=== PATIENT | female | born 1955 | race Caucasian/White ===

== ENCOUNTER 2021-08-05 08:25 | Inpatient (IN) | payer OTHER ==
[2021-08-05] MEDS ORDERED: Sodium Chloride 0.9% 10 ML Syringe FLUSH PRN (08:48)
[2021-08-05] MEDS ORDERED: Ondansetron 4 MG/2 ML SDV IVPUSH ONE (08:48)
[2021-08-05] MEDS ORDERED: Dexamethasone 4 MG/ML SDV IVPUSH ONE (08:49)
[2021-08-05] MEDS ORDERED: Albuterol/Ipratropium 3.0-0.5 MG/3 ML Neb Soln NEB ONE (08:50)
[2021-08-05] MEDS ORDERED: REMDESIVIR 200 MG in Sodium Chloride 0.9% 250 ML IV ONE (08:50)
--- NOTE | 2021-08-05 08:54 | EDM.PDOC ---
ED HPI GENERAL MEDICAL PROBLEM - General Chief Complaint: Respiratory Problem Stated Complaint: COVID+ SOB Time Seen by Provider: 08/05/21 08:34 Source of Information: Reports: Patient History Limitations: Reports: No Limitations - History of Present Illness INITIAL COMMENTS - FREE TEXT/NARRATIVE: The patient presents with COVID, cough, fever, nausea and generalized weakness. She started to have symptoms 6 days ago. She was diagnosed with COVID 19 4 days ago. She feels worse. When my nurse brought her back her oxygen saturations were 77%. She did come up in the low 90s with just 3L. She has been having a cough. She is nauseated when she tries to eat. She has not been vomiting. She has no diarrhea. She has no chest pain. She does have shortness of breath. She has no history of lung problems like asthma or COPD. She has no history of heart disease, hypertension or hypercholesterolemia. She does not smoke. She did not get the COVID 19 vaccine. She did not get the monoclonal antibodies. Onset: Gradual Duration: Day(s): (6) Severity: Moderate Improves with: Reports: None Worsens with: Reports: None Associated Symptoms: Reports: Cough, Fever/Chills, Shortness of Breath. Denies: Chest Pain, Headaches, Nausea/Vomiting - Related Data Allergies Allergy/AdvReac Type Severity Reaction Status Date / Time No Known Allergies Allergy Verified 08/05/21 08:42 Home Meds: Home Meds Levothyroxine Sodium [Synthroid] 125 mcg PO DAILY 08/05/21 [History] Sertraline [Zoloft] 100 mg PO DAILY 08/05/21 [History] ED ROS GENERAL - Review of Systems Review Of Systems: See Below Constitutional: Reports: Fever, Chills, Malaise, Weakness, Fatigue HEENT: Reports: No Symptoms Respiratory: Reports: Shortness of Breath, Cough Cardiovascular: Reports: No Symptoms Endocrine: Reports: Fatigue GI/Abdominal: Reports: Nausea. Denies: Abdominal Pain, Diarrhea, Vomiting : Reports: No Symptoms Musculoskeletal: Reports: No Symptoms Skin: Reports: No Symptoms ED EXAM, GENERAL - Physical Exam Exam: See Below Exam Limited By: No Limitations General Appearance: Alert, No Apparent Distress Ears: Normal External Exam Nose: Normal Inspection Head: Atraumatic, Normocephalic Neck: Normal Inspection Respiratory/Chest: No Respiratory Distress, Decreased Breath Sounds Cardiovascular: Regular Rate, Rhythm, No Edema, No Murmur GI/Abdominal: Soft, Non-Tender, No Organomegaly, No Mass Back Exam: Normal Inspection Extremities: Normal Inspection Course - Vital Signs Last Recorded V/S: Last Vital Signs Temp 97.8 F 08/05/21 08:38 Pulse 82 08/05/21 08:38 Resp 18 08/05/21 08:38 BP 140/75 08/05/21 08:38 Pulse Ox 95 08/05/21 08:51 - Orders/Labs/Meds Orders: Active Orders 24 hr Category Date Time Status Cardiac Monitoring [RC] . DIRECTED Care 08/05/21 08:48 Active Oxygen Therapy [RC] PRN Care 08/05/21 08:48 Active Peripheral IV Care [RC] . DIRECTED Care 08/05/21 08:49 Active RT Aerosol Therapy [RC] ASDIRECTED Care 08/05/21 08:51 Active Chest 1V Frontal [CR] Stat Exams 08/05/21 08:49 Taken FERRITIN [CHEM] Stat Lab 08/05/21 08:45 Received Sodium Chloride 0.9% [Normal Saline] 1,000 ml Med 08/05/21 09:00 Active IV .BOLUS Sodium Chloride 0.9% [Saline Flush] Med 08/05/21 08:48 Active 10 ml FLUSH ASDIRECTED PRN ED Antiemetic Medication Reflex [OM.PC] Stat Oth 08/05/21 08:48 Ordered Peripheral IV Insertion Adult [OM.PC] Stat Oth 08/05/21 08:48 Ordered Medication Orders Sodium Chloride (Normal Saline) 1,000 mls @ 1,000 mls/hr IV .BOLUS TAWANA Last Admin: 08/05/21 09:21 Dose: 1,000 mls/hr Documented by: SEGUNDO Sodium Chloride (Sodium Chloride 0.9% 10 Ml Syringe) 10 ml FLUSH ASDIRECTED PRN PRN Reason: Keep Vein Open Last Admin: 08/05/21 09:23 Dose: 10 ml Documented by: SEGUNDO Labs: Laboratory Tests 08/05/21 08/05/21 08/05/21 Range/Units 08:45 08:45 08:45 WBC 5.84 (3.98-10.04) K/mm3 RBC 5.04 (3.98-5.22) M/mm3 Hgb 14.9 (11.2-15.7) gm/dl Hct 44.6 (34.1-44.9) % MCV 88.5 (79.4-94.8) fl MCH 29.6 (25.6-32.2) pg MCHC 33.4 (32.2-35.5) g/dl RDW Std Deviation 42.1 (36.4-46.3) fL Plt Count 178 L (182-369) K/mm3 MPV 10.9 (9.4-12.3) fl Neut % (Auto) 78.1 H (34.0-71.1) % Lymph % (Auto) 13.4 L (19.3-51.7) % Barber % (Auto) 8.0 (4.7-12.5) % Eos % (Auto) 0 L (0.7-5.8) Baso % (Auto) 0.2 (0.1-1.2) % Neut # (Auto) 4.56 (1.56-6.13) K/mm3 Lymph # (Auto) 0.78 L (1.18-3.74) K/mm3 [place] # (Auto) 0.47 H (0.24-0.36) K/mm3 Eos # (Auto) 0.00 L (0.04-0.36) K/mm3 Baso # (Auto) 0.01 (0.01-0.08) K/mm3 Manual Slide Review Normal smear D-Dimer, Quantitative 1.10 H (0.19-0.50) mg/L Sodium 131 L (136-145) mEq/L Potassium 4.3 (3.5-5.1) mEq/L Chloride 95 L (98-107) mEq/L Carbon Dioxide 26 (21-32) mEq/L Anion Gap 14.3 (5-15) BUN 29 H (7-18) mg/dL Creatinine 1.2 H (0.55-1.02) mg/dL Est Cr Clr Drug Dosing 47.78 mL/min Estimated GFR (MDRD) 45 (>60) mL/min BUN/Creatinine Ratio 24.2 H (14-18) Glucose 296 H (70-99) mg/dL Lactic Acid (0.4-2.0) mmol/L Calcium 8.4 L (8.5-10.1) mg/dL Total Bilirubin 0.7 (0.2-1.0) mg/dL AST 42 H (15-37) U/L ALT 32 (14-59) U/L Alkaline Phosphatase 89 (46-116) U/L Lactate Dehydrogenase 448 H (81-234) U/L C-Reactive Protein 7.0 H* (<1.0) mg/dL Total Protein 6.6 (6.4-8.2) g/dl Albumin 3.1 L (3.4-5.0) g/dl Globulin 3.5 gm/dL Albumin/Globulin Ratio 0.9 L (1-2) 08/05/21 Range/Units 09:08 WBC (3.98-10.04) K/mm3 RBC (3.98-5.22) M/mm3 Hgb (11.2-15.7) gm/dl Hct (34.1-44.9) % MCV (79.4-94.8) fl MCH (25.6-32.2) pg MCHC (32.2-35.5) g/dl RDW Std Deviation (36.4-46.3) fL Plt Count (182-369) K/mm3 MPV (9.4-12.3) fl Neut % (Auto) (34.0-71.1) % Lymph % (Auto) (19.3-51.7) % Barber % (Auto) (4.7-12.5) % Eos % (Auto) (0.7-5.8) Baso % (Auto) (0.1-1.2) % Neut # (Auto) (1.56-6.13) K/mm3 Lymph # (Auto) (1.18-3.74) K/mm3 Barber # (Auto) (0.24-0.36) K/mm3 Eos # (Auto) (0.04-0.36) K/mm3 Baso # (Auto) (0.01-0.08) K/mm3 Manual Slide Review D-Dimer, Quantitative (0.19-0.50) mg/L Sodium (136-145) mEq/L Potassium (3.5-5.1) mEq/L Chloride (98-107) mEq/L Carbon Dioxide (21-32) mEq/L Anion Gap (5-15) BUN (7-18) mg/dL Creatinine (0.55-1.02) mg/dL Est Cr Clr Drug Dosing mL/min Estimated GFR (MDRD) (>60) mL/min BUN/Creatinine Ratio (14-18) Glucose (70-99) mg/dL Lactic Acid 1.4 (0.4-2.0) mmol/L Calcium (8.5-10.1) mg/dL Total Bilirubin (0.2-1.0) mg/dL AST (15-37) U/L ALT (14-59) U/L Alkaline Phosphatase (46-116) U/L Lactate Dehydrogenase (81-234) U/L C-Reactive Protein (<1.0) mg/dL Total Protein (6.4-8.2) g/dl Albumin (3.4-5.0) g/dl Globulin gm/dL Albumin/Globulin Ratio (1-2) Meds: Medications Generic Name Dose Route Start Last Admin Trade Name Freq PRN Reason Stop Dose Admin Sodium Chloride 1,000 mls @ 1,000 mls/hr 08/05/21 09:00 08/05/21 09:21 Normal Saline IV 1,000 mls/hr .BOLUS TAWANA Administration Sodium Chloride 10 ml 08/05/21 08:48 08/05/21 09:23 Sodium Chloride 0.9% 10 Ml Syringe FLUSH 10 ml ASDIRECTED PRN Administration Keep Vein Open Discontinued Medications Generic Name Dose Route Start Last Admin Trade Name Freq PRN Reason Stop Dose Admin Albuterol/Ipratropium 3 ml 08/05/21 08:50 08/05/21 09:10 Albuterol/Ipratropium 3.0-0.5 Mg/3 Ml Neb Soln NEB 08/05/21 08:51 3 ml ONETIME ONE Administration Dexamethasone 6 mg 08/05/21 08:49 08/05/21 09:21 Dexamethasone 4 Mg/Ml Sdv IVPUSH 08/05/21 08:50 6 mg ONETIME ONE Administration Remdesivir 200 mg/ Sodium 250 mls @ 250 mls/hr 08/05/21 08:50 08/05/21 09:21 Chloride IV 08/05/21 08:51 250 mls/hr ONETIME ONE Administration Ondansetron HCl 4 mg 08/05/21 08:48 08/05/21 09:23 Ondansetron 4 Mg/2 Ml Sdv IVPUSH 08/05/21 08:49 4 mg ONETIME ONE Administration - Re-Assessments/Exams Free Text/Narrative Re-Assessment/Exam: 08/05/21 09:08 I ordered oxygen, IV NS 1L bolus, zofran 4mg IV, dexamethasone 6mg IV, remdesivir 200mg IV, duoneb, CXR and labs. 08/05/21 10:23 Her CXR shows bilateral COVID pneumonia. Her CBC looks good. Her D-dimer is elevated at 1.1 consistent with COVID pneumonia. Her Na was low at 131. Her creatinine was a little elevated at 1.2. Her glucose was elevated at 296. Her lactic acid was normal. Her LDH was elevated at 448. Her CRP was 7. She feels a little better but with her oxygen saturations as low as 77% I feel she should be admitted. I called Dr Albarran and he agreed to the admission. Departure - Departure Time of Disposition: 10:30 Disposition: Admitted As Inpatient 68 Condition: Serious Clinical Impression: Pneumonia due to COVID-19 virus, Hypoxia - Discharge Information Referrals: Heather Granado PA-C [Primary Care Provider] - Forms: ED Department Discharge Sepsis Event Note (ED) - Evaluation Sepsis Screening Result: No Definite Risk - Focused Exam Vital Signs: Vital Signs Temp Pulse Resp BP Pulse Ox Pulse Ox 08/05/21 08:51 95 08/05/21 08:38 97.8 F 82 18 140/75 77 L - My Orders Last 24 Hours: My Active Orders 08/05/21 08:45 FERRITIN [CHEM] Stat 08/05/21 08:48 Cardiac Monitoring [RC] . DIRECTED Oxygen Therapy [RC] PRN Sodium Chloride 0.9% [Saline Flush] 10 ml FLUSH ASDIRECTED PRN ED Antiemetic Medication Reflex [OM.PC] Stat Peripheral IV Insertion Adult [OM.PC] Stat 08/05/21 08:49 Peripheral IV Care [RC] . DIRECTED Chest 1V Frontal [CR] Stat 08/05/21 08:51 RT Aerosol Therapy [RC] ASDIRECTED 08/05/21 09:00 Sodium Chloride 0.9% [Normal Saline] 1,000 ml IV .BOLUS - Assessment/Plan Last 24 Hours: My Active Orders 08/05/21 08:45 FERRITIN [CHEM] Stat 08/05/21 08:48 Cardiac Monitoring [RC] . DIRECTED Oxygen Therapy [RC] PRN Sodium Chloride 0.9% [Saline Flush] 10 ml FLUSH ASDIRECTED PRN ED Antiemetic Medication Reflex [OM.PC] Stat Peripheral IV Insertion Adult [OM.PC] Stat 08/05/21 08:49 Peripheral IV Care [RC] . DIRECTED Chest 1V Frontal [CR] Stat 08/05/21 08:51 RT Aerosol Therapy [RC] ASDIRECTED 08/05/21 09:00 Sodium Chloride 0.9% [Normal Saline] 1,000 ml IV .BOLUS
[2021-08-05] MEDS ORDERED: Sodium Chloride 0.9% 1,000 ML IV SCH (09:00)
--- NOTE | 2021-08-05 10:27 | PCM.HP.2 ---
H&P History of Present Illness - General Date of Service: 08/05/21 Admit Problem/Dx: Hypoxia Source of Information: Patient, Old Records, Provider, RN, RN Notes Reviewed History Limitations: Reports: No Limitations - History of Present Illness Initial Comments - Free Text/Narative: This is a 66-year-old female who presented to ED on 08/05/2021 with cough, fever, nausea, generalized weakness, and the known COVID-19 diagnosis. She reports symptoms began 6 days prior and she was diagnosed with COVID-19 4 days ago. She has been feeling progressively worse and was noted to have saturations of 77% on presentation to the ED. Reports cough and nausea but no vomiting or diarrhea. Denies any chest pain or shortness of breath. No prior lung problems or history of heart disease, hypertension, or HLD. She is not a smoker. She has not had the COVID-19 vaccine or monoclonal antibodies. In the ED temp was 97.8. Pulse 82. Respirations 18. Blood pressure 140/75. Pulse ox 95%. Labs are obtained showing a WBC of 7.84. Hemoglobin 14.9. Platelet 178,000. Neutrophils are 70.1%. D-dimer is elevated at 1.10. Sodium is 131. Potassium 4.3. Chloride 95. Carbon dioxide 26. Anion gap is 14.3. BUN is 29. Creatinine 1.2. GFR is 45. Glucose 296. Calcium 8.4. Bilirubin 0.7. AST is 42, ALT 32, alkaline phosphatase 89. LDH is 448. CRP is 7.0. Protein 6.6. Albumin 3.1. Lactic acid is 1.4. She is given a 1 L fluid bolus and a DuoNeb. She started on remdesivir and dexamethasone. Chest x-ray is obtained showing findings concerning for COVID-19 pneumonia with increased density within both sides of the chest and slight cardiomegaly. She carries a history of hypothyroidism depression. She is a full code. Her PCP is Heather Welch PA-C. She is subsequently admitted to the medical floor on telemetry for treatment of her COVID-19 symptoms including hypoxia. - Related Data Allergies/Adverse Reactions: Allergies Allergy/AdvReac Type Severity Reaction Status Date / Time No Known Allergies Allergy Verified 08/05/21 08:42 Home Medications: Home Meds Levothyroxine Sodium [Synthroid] 125 mcg PO DAILY 08/05/21 [History] Sertraline [Zoloft] 100 mg PO DAILY 08/05/21 [History] Past Medical History HEENT History: Reports: Impaired Vision Other HEENT History: wars glasses - Infectious Disease History Infectious Disease History: Reports: Novel Coronavirus Social & Family History - Tobacco Use Tobacco Use Status *Q: Former Tobacco User Used Tobacco, but Quit: Yes Month/Year Tobacco Last Used: 10 yrs ago H&P Review of Systems - Review of Systems: Review Of Systems: See Below General: Reports: Malaise, Weakness, Fatigue, Decreased Appetite. Denies: Fever, Chills HEENT: Reports: No Symptoms. Denies: Headaches, Sore Throat Pulmonary: Reports: Shortness of Breath, Cough, Sputum. Denies: Wheezing, Pleuritic Chest Pain Cardiovascular: Reports: Dyspnea on Exertion. Denies: Chest Pain, Palpitations, Edema Gastrointestinal: Reports: Nausea. Denies: Abdominal Pain, Anorexia, C onstipation, Diarrhea, Vomiting Genitourinary: Reports: No Symptoms. Denies: Pain Musculoskeletal: Reports: No Symptoms Skin: Reports: No Symptoms. Denies: Cyanosis Psychiatric: Reports: No Symptoms. Denies: Confusion Neurological: Reports: No Symptoms, Difficulty Walking, Weakness. Denies: Confusion, Dizziness, Headache, Numbness, Pre-Existing Deficit, Syncope, Tingli ng, Gait Disturbance Hematologic/Lymphatic: Reports: No Symptoms Immunologic: Reports: No Symptoms Exam - Exam Exam: See Below - Vital Signs Vital Signs: Last Vital Signs Temp 97.8 F 08/05/21 08:38 Pulse 82 08/05/21 08:38 Resp 18 08/05/21 08:38 BP 140/75 08/05/21 08:38 Pulse Ox 95 08/05/21 08:51 Weight: 210 lb - Exam Quality Assessment: Supplemental Oxygen (4L), DVT Prophylaxis General: Alert, Oriented, Cooperative, Mild Distress (Looks ill ) HEENT: Conjunctiva Clear, EACs Clear, Hearing Intact, Posterior Pharynx Clear. No: Mucosa Moist & [place] (Dry), Nares Patent Neck: Supple, Trachea Midline Lungs: Normal Respiratory Effort, Decreased Breath Sounds, Crackles Cardiovascular: Regular Rate, Regular Rhythm GI/Abdominal Exam: Normal Bowel Sounds, Soft, Non-Tender, No Distention (Female) Exam: Deferred Rectal (Female) Exam: Deferred Back Exam: Normal Inspection, Full Range of Motion Extremities: Normal Inspection, Normal Range of Motion, Non-Tender, No Pedal Edema, Normal Capillary Refill Skin: Warm, Dry, Intact Neurological: Cranial Nerves Intact (Grossly ) Neuro Extensive - Mental Status: Alert, Oriented x3, Normal Mood/Affect - Patient Data Lab Results Last 24 hrs: Laboratory Results - last 24 hr 08/05/21 08/05/21 08/05/21 Range/Units 08:45 08:45 08:45 WBC 5.84 (3.98-10.04) K/mm3 RBC 5.04 (3.98-5.22) M/mm3 Hgb 14.9 (11.2-15.7) gm/dl Hct 44.6 (34.1-44.9) % MCV 88.5 (79.4-94.8) fl MCH 29.6 (25.6-32.2) pg MCHC 33.4 (32.2-35.5) g/dl RDW Std Deviation 42.1 (36.4-46.3) fL Plt Count 178 L (182-369) K/mm3 MPV 10.9 (9.4-12.3) fl Neut % (Auto) 78.1 H (34.0-71.1) % Lymph % (Auto) 13.4 L (19.3-51.7) % Winston % (Auto) 8.0 (4.7-12.5) % Eos % (Auto) 0 L (0.7-5.8) Baso % (Auto) 0.2 (0.1-1.2) % Neut # (Auto) 4.56 (1.56-6.13) K/mm3 Lymph # (Auto) 0.78 L (1.18-3.74) K/mm3 Winston # (Auto) 0.47 H (0.24-0.36) K/mm3 Eos # (Auto) 0.00 L (0.04-0.36) K/mm3 Baso # (Auto) 0.01 (0.01-0.08) K/mm3 Manual Slide Review Normal smear D-Dimer, Quantitative 1.10 H (0.19-0.50) mg/L Sodium 131 L (136-145) mEq/L Potassium 4.3 (3.5-5.1) mEq/L Chloride 95 L (98-107) mEq/L Carbon Dioxide 26 (21-32) mEq/L Anion Gap 14.3 (5-15) BUN 29 H (7-18) mg/dL Creatinine 1.2 H (0.55-1.02) mg/dL Est Cr Clr Drug Dosing 47.78 mL/min Estimated GFR (MDRD) 45 (>60) mL/min BUN/Creatinine Ratio 24.2 H (14-18) Glucose 296 H (70-99) mg/dL Lactic Acid (0.4-2.0) mmol/L Calcium 8.4 L (8.5-10.1) mg/dL Total Bilirubin 0.7 (0.2-1.0) mg/dL AST 42 H (15-37) U/L ALT 32 (14-59) U/L Alkaline Phosphatase 89 (46-116) U/L Lactate Dehydrogenase 448 H (81-234) U/L C-Reactive Protein 7.0 H* (<1.0) mg/dL Total Protein 6.6 (6.4-8.2) g/dl Albumin 3.1 L (3.4-5.0) g/dl Globulin 3.5 gm/dL Albumin/Globulin Ratio 0.9 L (1-2) 08/05/21 Range/Units 09:08 WBC (3.98-10.04) K/mm3 RBC (3.98-5.22) M/mm3 Hgb (11.2-15.7) gm/dl Hct (34.1-44.9) % MCV (79.4-94.8) fl MCH (25.6-32.2) pg MCHC (32.2-35.5) g/dl RDW Std Deviation (36.4-46.3) fL Plt Count (182-369) K/mm3 MPV (9.4-12.3) fl Neut % (Auto) (34.0-71.1) % Lymph % (Auto) (19.3-51.7) % Winston % (Auto) (4.7-12.5) % Eos % (Auto) (0.7-5.8) Baso % (Auto) (0.1-1.2) % Neut # (Auto) (1.56-6.13) K/mm3 Lymph # (Auto) (1.18-3.74) K/mm3 Winston # (Auto) (0.24-0.36) K/mm3 Eos # (Auto) (0.04-0.36) K/mm3 Baso # (Auto) (0.01-0.08) K/mm3 Manual Slide Review D-Dimer, Quantitative (0.19-0.50) mg/L Sodium (136-145) mEq/L Potassium (3.5-5.1) mEq/L Chloride (98-107) mEq/L Carbon Dioxide (21-32) mEq/L Anion Gap (5-15) BUN (7-18) mg/dL Creatinine (0.55-1.02) mg/dL Est Cr Clr Drug Dosing mL/min Estimated GFR (MDRD) (>60) mL/min BUN/Creatinine Ratio (14-18) Glucose (70-99) mg/dL Lactic Acid 1.4 (0.4-2.0) mmol/L Calcium (8.5-10.1) mg/dL Total Bilirubin (0.2-1.0) mg/dL AST (15-37) U/L ALT (14-59) U/L Alkaline Phosphatase (46-116) U/L Lactate Dehydrogenase (81-234) U/L C-Reactive Protein (<1.0) mg/dL Total Protein (6.4-8.2) g/dl Albumin (3.4-5.0) g/dl Globulin gm/dL Albumin/Globulin Ratio (1-2) Result Diagrams: 08/05/21 08:45 08/05/21 08:45 Sepsis Event Note - Evaluation Sepsis Screening Result: No Definite Risk - Focused Exam Vital Signs: Vital Signs Temp Pulse Resp BP Pulse Ox Pulse Ox 08/05/21 08:51 95 08/05/21 08:38 97.8 F 82 18 140/75 77 L - Problem List (1) Depression SNOMED Code(s): 15055655 ICD Code: F32.A - DEPRESSION, UNSPECIFIED Status: Chronic Priority: Low Current Visit: No Qualifiers: Depression Type: other depression Qualified Code(s): F32.89 - Other specified depressive episodes (2) Hypothyroidism SNOMED Code(s): 18568579 ICD Code: E03.9 - HYPOTHYROIDISM, UNSPECIFIED Status: Chronic Priority: Low Current Visit: No Qualifiers: Hypothyroidism type: unspecified Qualified Code(s): E03.9 - Hypothyroidism, unspecified (3) Elevated d-dimer SNOMED Code(s): 918670004 ICD Code: R79.89 - OTHER SPECIFIED ABNORMAL FINDINGS OF BLOOD CHEMISTRY Status: Acute Priority: Medium Current Visit: Yes (4) Thrombocytopenia SNOMED Code(s): 202500513 ICD Code: D69.6 - THROMBOCYTOPENIA, UNSPECIFIED Status: Acute Priority: Medium Current Visit: Yes (5) Hyponatremia SNOMED Code(s): 13020988 ICD Code: E87.1 - HYPO-OSMOLALITY AND HYPONATREMIA Status: Acute Priority: Medium Current Visit: Yes (6) Volume depletion SNOMED Code(s): 011252674 ICD Code: E86.9 - VOLUME DEPLETION, UNSPECIFIED Status: Acute Priority: Medium Current Visit: Yes (7) Nausea SNOMED Code(s): 894261279 ICD Code: R11.0 - NAUSEA Status: Acute Priority: Medium Current Visit: Yes (8) Pneumonia due to COVID-19 virus SNOMED Code(s): 192603425329607308 ICD Code: U07.1 - COVID-19; J12.82 - PNEUMONIA DUE TO CORONAVIRUS DISEASE 2019 Status: Acute Priority: High Current Visit: Yes (9) Hypoxia SNOMED Code(s): 908854116 ICD Code: R09.02 - HYPOXEMIA Status: Acute Priority: High Current Visit: Yes (10) Generalized weakness SNOMED Code(s): 77637918 ICD Code: R53.1 - WEAKNESS Status: Acute Priority: Medium Current Visit: Yes (11) ANAHI (acute kidney injury) SNOMED Code(s): 80042447, 18385755 ICD Code: N17.9 - ACUTE KIDNEY FAILURE, UNSPECIFIED Status: Acute Priority: High Current Visit: Yes Problem List Initiated/Reviewed/Updated: Yes Orders Last 24hrs: Active Orders 24 hr Category Date Time Status Cardiac Monitoring [RC] . DIRECTED Care 08/05/21 08:48 Active Oxygen Therapy [RC] PRN Care 08/05/21 08:48 Active Peripheral IV Care [RC] . DIRECTED Care 08/05/21 08:49 Active RT Aerosol Therapy [RC] ASDIRECTED Care 08/05/21 08:51 Active Chest 1V Frontal [CR] Stat Exams 08/05/21 08:49 Taken FERRITIN [CHEM] Stat Lab 08/05/21 08:45 Received Sodium Chloride 0.9% [Normal Saline] 1,000 ml Med 08/05/21 09:00 Active IV .BOLUS Sodium Chloride 0.9% [Saline Flush] Med 08/05/21 08:48 Active 10 ml FLUSH ASDIRECTED PRN ED Antiemetic Medication Reflex [OM.PC] Stat Oth 08/05/21 08:48 Ordered Peripheral IV Insertion Adult [OM.PC] Stat Oth 08/05/21 08:48 Ordered Medication Orders Sodium Chloride (Normal Saline) 1,000 mls @ 1,000 mls/hr IV .BOLUS TAWANA Last Admin: 08/05/21 09:21 Dose: 1,000 mls/hr Documented by: SEGUNDO Sodium Chloride (Sodium Chloride 0.9% 10 Ml Syringe) 10 ml FLUSH ASDIRECTED PRN PRN Reason: Keep Vein Open Last Admin: 08/05/21 09:23 Dose: 10 ml Documented by: SEGUNDO Assessment/Plan Comment:: Pneumonia due to COVID-19 virus Hypoxia Generalized weakness Elevated d-dimer Nausea * Prone whenever able * I-S/Acapella * Check procalcitonin * Check vitamin D * Respiratory therapy consultation * As needed DuoNebs * As needed albuterol inhaler * Remdesivir for 5 days * 6 mg dexamethasone for 10 days * As needed Zofran for nausea * O2 as needed to keep saturations between 88 and 95% * 20 mg famotidine twice daily * Physical therapy evaluation * Lovenox 40 mg daily * Monitor need for high flow oxygen * Every 48 hour D-dimer * Daily labs * Airborne/contact precautions * Telemetry * Continuous pulse oximetry Thrombocytopenia * Likely secondary to above * Monitor daily labs Hyponatremia Volume depletion ANAIH * Given 1 L fluid bolus in ED * Encourage oral rehydration * Will hold off further IV fluids due to concerns over worsening COVID-19 symptoms * Avoid nephrotoxic medications if able * Monitor daily labs Depression * No acute concerns * Continue home zoloft Hypothyroidism * No acute concerns * Continue home levothyroxine Code status: Full code PCP: Heather Granado PA-C DVT prophylaxis: Lovenox Disposition: Patient mated to the floor for management of COVID-19 pneumonia with hypoxia. Likely length of stay 4 to 5 days pending improvement. - Mortality Measure Prognosis:: Good
--- NOTE | 2021-08-05 10:36 | CR ---
Chest: Portable view of the chest was obtained. Comparison: No prior chest imaging is available. Patchy increased density is noted within both sides of the chest. Heart size is mildly enlarged. Upper mediastinum is within normal limits. Slight degenerative change is scattered within the spine. Impression: 1. Patchy increased density within both sides of the chest, please exclude COVID etiology. 2. Slight cardiomegaly. Diagnostic code #3
[2021-08-05] MEDS ORDERED: Acetaminophen 325 MG Tab PO PRN ×2 (11:07→11:09)
[2021-08-05] MEDS ORDERED: Ondansetron 4 MG/2 ML SDV IV PRN (11:09)
[2021-08-05] MEDS ORDERED: Enoxaparin 40 MG/0.4 ML Syringe SUBCUT ONE (11:30)
[2021-08-05] MEDS ORDERED: Benzonatate 100 MG Cap PO PRN (15:15)
[2021-08-05 15:37] LABS: HEMOGLOBIN A1C 10.7 %
[2021-08-05] MEDS: Cholecalciferol (Vitamin D3) 5,000 UNIT Cap PO SCH (16:03)
[2021-08-05] MEDS: guaiFENesin 600 MG Tab.ER PO SCH ×2 (16:05→20:54)
[2021-08-05] MEDS: Famotidine 20 MG Tab PO SCH ×2 (16:05→20:54)
[2021-08-05] MEDS: Insulin Lispro 100 Unit/ML 3 ML KwikPen SUBCUT SCH ×2 (16:58→20:59)
[2021-08-05] MEDS: Albuterol/Ipratropium 3.0-0.5 MG/3 ML Neb Soln NEB PRN (19:56)
[2021-08-05] MEDS: Insulin Glargine,Hum.Rec.Anlog 100 UNIT/ML 3 ML Pen SUBCUT SCH (20:54)
[2021-08-05] MEDS ORDERED: guaiFENesin 600 MG Tab.ER PO SCH (21:00)
[2021-08-06] MEDS: Levothyroxine 25 MCG Tab PO SCH (06:05)
[2021-08-06] MEDS: Levothyroxine 100 MCG Tab PO SCH (06:05)
--- NOTE | 2021-08-06 07:03 | PCM.PN ---
- General Info Date of Service: 08/06/21 Admission Dx/Problem (Free Text): Hypoxia Functional Status: Reports: Pain Controlled, Tolerating Diet, Ambulating, Urinating, Incentive Spirometry, Other (Incentive spirometry ). Denies: New Symptoms - Review of Systems General: Reports: No Symptoms, Weakness, Fatigue, Malaise. Denies: Fever, Chills HEENT: Reports: No Symptoms. Denies: Headaches, Sore Throat Pulmonary: Reports: Shortness of Breath, Cough, Sputum. Denies: Pleuritic Chest Pain, Wheezing Cardiovascular: Reports: No Symptoms, Dyspnea on Exertion. Denies: Chest Pain, Palpitations, Edema Gastrointestinal: Reports: No Symptoms. Denies: Abdominal Pain, Constipation, Diarrhea, Nausea, Vomiting Genitourinary: Reports: No Symptoms. Denies: Pain Musculoskeletal: Reports: No Symptoms Skin: Reports: No Symptoms. Denies: Cyanosis Neurological: Reports: Difficulty Walking, Weakness. Denies: Confusion, Dizziness, Headache, Numbness, Pre-Existing Deficit, Seizure, Syncope, Tingling, Trouble Speaking, Gait Disturbance Psychiatric: Reports: No Symptoms - Patient Data Vitals - Most Recent: Last Vital Signs Temp 98.6 F 08/06/21 04:23 Pulse 71 08/06/21 04:23 Resp 22 H 08/06/21 04:23 BP 119/48 L 08/06/21 04:23 Pulse Ox 89 L 08/06/21 04:23 Weight - Most Recent: 232 lb 11.2 oz I&O - Last 24 Hours: Intake & Output 08/05/21 08/06/21 08/06/21 22:59 06:59 14:59 Intake Total 800 50 Output Total 300 500 Balance 500 -450 Lab Results Last 24 Hours: Laboratory Results - last 24 hr 08/05/21 08/05/21 08/05/21 Range/Units 08:45 08:45 08:45 WBC 5.84 (3.98-10.04) K/mm3 RBC 5.04 (3.98-5.22) M/mm3 Hgb 14.9 (11.2-15.7) gm/dl Hct 44.6 (34.1-44.9) % MCV 88.5 (79.4-94.8) fl MCH 29.6 (25.6-32.2) pg MCHC 33.4 (32.2-35.5) g/dl RDW Std Deviation 42.1 (36.4-46.3) fL Plt Count 178 L (182-369) K/mm3 MPV 10.9 (9.4-12.3) fl Neut % (Auto) 78.1 H (34.0-71.1) % Lymph % (Auto) 13.4 L (19.3-51.7) % [place] % (Auto) 8.0 (4.7-12.5) % Eos % (Auto) 0 L (0.7-5.8) Baso % (Auto) 0.2 (0.1-1.2) % Neut # (Auto) 4.56 (1.56-6.13) K/mm3 Lymph # (Auto) 0.78 L (1.18-3.74) K/mm3 [place] # (Auto) 0.47 H (0.24-0.36) K/mm3 Eos # (Auto) 0.00 L (0.04-0.36) K/mm3 Baso # (Auto) 0.01 (0.01-0.08) K/mm3 Manual Slide Review Normal smear D-Dimer, Quantitative 1.10 H (0.19-0.50) mg/L Sodium 131 L (136-145) mEq/L Potassium 4.3 (3.5-5.1) mEq/L Chloride 95 L (98-107) mEq/L Carbon Dioxide 26 (21-32) mEq/L Anion Gap 14.3 (5-15) BUN 29 H (7-18) mg/dL Creatinine 1.2 H (0.55-1.02) mg/dL Est Cr Clr Drug Dosing 47.78 mL/min Estimated GFR (MDRD) 45 (>60) mL/min BUN/Creatinine Ratio 24.2 H (14-18) Glucose 296 H (70-99) mg/dL POC Glucose (70-99) mg/dL Hemoglobin A1c ( - 5.6) % Lactic Acid (0.4-2.0) mmol/L Calcium 8.4 L (8.5-10.1) mg/dL Magnesium (1.8-2.4) mg/dL Ferritin (8-252) ng/ml Total Bilirubin 0.7 (0.2-1.0) mg/dL AST 42 H (15-37) U/L ALT 32 (14-59) U/L Alkaline Phosphatase 89 (46-116) U/L Lactate Dehydrogenase 448 H (81-234) U/L C-Reactive Protein 7.0 H* (<1.0) mg/dL Total Protein 6.6 (6.4-8.2) g/dl Albumin 3.1 L (3.4-5.0) g/dl Globulin 3.5 gm/dL Albumin/Globulin Ratio 0.9 L (1-2) Vitamin D 25-Hydroxy (30.0-100.0) ng/ml Procalcitonin ng/mL 08/05/21 08/05/21 08/05/21 Range/Units 08:45 08:45 08:45 WBC (3.98-10.04) K/mm3 RBC (3.98-5.22) M/mm3 Hgb (11.2-15.7) gm/dl Hct (34.1-44.9) % MCV (79.4-94.8) fl MCH (25.6-32.2) pg MCHC (32.2-35.5) g/dl RDW Std Deviation (36.4-46.3) fL Plt Count (182-369) K/mm3 MPV (9.4-12.3) fl Neut % (Auto) (34.0-71.1) % Lymph % (Auto) (19.3-51.7) % [place] % (Auto) (4.7-12.5) % Eos % (Auto) (0.7-5.8) Baso % (Auto) (0.1-1.2) % Neut # (Auto) (1.56-6.13) K/mm3 Lymph # (Auto) (1.18-3.74) K/mm3 [place] # (Auto) (0.24-0.36) K/mm3 Eos # (Auto) (0.04-0.36) K/mm3 Baso # (Auto) (0.01-0.08) K/mm3 Manual Slide Review D-Dimer, Quantitative (0.19-0.50) mg/L Sodium (136-145) mEq/L Potassium (3.5-5.1) mEq/L Chloride (98-107) mEq/L Carbon Dioxide (21-32) mEq/L Anion Gap (5-15) BUN (7-18) mg/dL Creatinine (0.55-1.02) mg/dL Est Cr Clr Drug Dosing mL/min Estimated GFR (MDRD) (>60) mL/min BUN/Creatinine Ratio (14-18) Glucose (70-99) mg/dL POC Glucose (70-99) mg/dL Hemoglobin A1c ( - 5.6) % Lactic Acid (0.4-2.0) mmol/L Calcium (8.5-10.1) mg/dL Magnesium (1.8-2.4) mg/dL Ferritin 1960 H (8-252) ng/ml Total Bilirubin (0.2-1.0) mg/dL AST (15-37) U/L ALT (14-59) U/L Alkaline Phosphatase (46-116) U/L Lactate Dehydrogenase (81-234) U/L C-Reactive Protein (<1.0) mg/dL Total Protein (6.4-8.2) g/dl Albumin (3.4-5.0) g/dl Globulin gm/dL Albumin/Globulin Ratio (1-2) Vitamin D 25-Hydroxy 12.7 L (30.0-100.0) ng/ml Procalcitonin 0.10 H ng/mL 08/05/21 08/05/21 08/05/21 Range/Units 08:45 09:08 16:40 WBC (3.98-10.04) K/mm3 RBC (3.98-5.22) M/mm3 Hgb (11.2-15.7) gm/dl Hct (34.1-44.9) % MCV (79.4-94.8) fl MCH (25.6-32.2) pg MCHC (32.2-35.5) g/dl RDW Std Deviation (36.4-46.3) fL Plt Count (182-369) K/mm3 MPV (9.4-12.3) fl Neut % (Auto) (34.0-71.1) % Lymph % (Auto) (19.3-51.7) % [place] % (Auto) (4.7-12.5) % Eos % (Auto) (0.7-5.8) Baso % (Auto) (0.1-1.2) % Neut # (Auto) (1.56-6.13) K/mm3 Lymph # (Auto) (1.18-3.74) K/mm3 [place] # (Auto) (0.24-0.36) K/mm3 Eos # (Auto) (0.04-0.36) K/mm3 Baso # (Auto) (0.01-0.08) K/mm3 Manual Slide Review D-Dimer, Quantitative (0.19-0.50) mg/L Sodium (136-145) mEq/L Potassium (3.5-5.1) mEq/L Chloride (98-107) mEq/L Carbon Dioxide (21-32) mEq/L Anion Gap (5-15) BUN (7-18) mg/dL Creatinine (0.55-1.02) mg/dL Est Cr Clr Drug Dosing mL/min Estimated GFR (MDRD) (>60) mL/min BUN/Creatinine Ratio (14-18) Glucose (70-99) mg/dL POC Glucose 364 H (70-99) mg/dL Hemoglobin A1c 10.7 H ( - 5.6) % Lactic Acid 1.4 (0.4-2.0) mmol/L Calcium (8.5-10.1) mg/dL Magnesium (1.8-2.4) mg/dL Ferritin (8-252) ng/ml Total Bilirubin (0.2-1.0) mg/dL AST (15-37) U/L ALT (14-59) U/L Alkaline Phosphatase (46-116) U/L Lactate Dehydrogenase (81-234) U/L C-Reactive Protein (<1.0) mg/dL Total Protein (6.4-8.2) g/dl Albumin (3.4-5.0) g/dl Globulin gm/dL Albumin/Globulin Ratio (1-2) Vitamin D 25-Hydroxy (30.0-100.0) ng/ml Procalcitonin ng/mL 08/05/21 08/05/21 08/06/21 Range/Units 20:52 21:40 05:22 WBC 6.24 (3.98-10.04) K/mm3 RBC 4.85 (3.98-5.22) M/mm3 Hgb 14.4 (11.2-15.7) gm/dl Hct 42.4 (34.1-44.9) % MCV 87.4 (79.4-94.8) fl MCH 29.7 (25.6-32.2) pg MCHC 34.0 (32.2-35.5) g/dl RDW Std Deviation 40.7 (36.4-46.3) fL Plt Count 184 (182-369) K/mm3 MPV 11.0 (9.4-12.3) fl Neut % (Auto) 74.3 H (34.0-71.1) % Lymph % (Auto) 16.2 L (19.3-51.7) % [place] % (Auto) 8.5 (4.7-12.5) % Eos % (Auto) 0.3 L (0.7-5.8) Baso % (Auto) 0.2 (0.1-1.2) % Neut # (Auto) 4.64 (1.56-6.13) K/mm3 Lymph # (Auto) 1.01 L (1.18-3.74) K/mm3 [place] # (Auto) 0.53 H (0.24-0.36) K/mm3 Eos # (Auto) 0.02 L (0.04-0.36) K/mm3 Baso # (Auto) 0.01 (0.01-0.08) K/mm3 Manual Slide Review D-Dimer, Quantitative (0.19-0.50) mg/L Sodium (136-145) mEq/L Potassium (3.5-5.1) mEq/L Chloride (98-107) mEq/L Carbon Dioxide (21-32) mEq/L Anion Gap (5-15) BUN (7-18) mg/dL Creatinine (0.55-1.02) mg/dL Est Cr Clr Drug Dosing mL/min Estimated GFR (MDRD) (>60) mL/min BUN/Creatinine Ratio (14-18) Glucose (70-99) mg/dL POC Glucose 314 H 336 H (70-99) mg/dL Hemoglobin A1c ( - 5.6) % Lactic Acid (0.4-2.0) mmol/L Calcium (8.5-10.1) mg/dL Magnesium (1.8-2.4) mg/dL Ferritin (8-252) ng/ml Total Bilirubin (0.2-1.0) mg/dL AST (15-37) U/L ALT (14-59) U/L Alkaline Phosphatase (46-116) U/L Lactate Dehydrogenase (81-234) U/L C-Reactive Protein (<1.0) mg/dL Total Protein (6.4-8.2) g/dl Albumin (3.4-5.0) g/dl Globulin gm/dL Albumin/Globulin Ratio (1-2) Vitamin D 25-Hydroxy (30.0-100.0) ng/ml Procalcitonin ng/mL 08/06/21 08/06/21 Range/Units 05:22 06:38 WBC (3.98-10.04) K/mm3 RBC (3.98-5.22) M/mm3 Hgb (11.2-15.7) gm/dl Hct (34.1-44.9) % MCV (79.4-94.8) fl MCH (25.6-32.2) pg MCHC (32.2-35.5) g/dl RDW Std Deviation (36.4-46.3) fL Plt Count (182-369) K/mm3 MPV (9.4-12.3) fl Neut % (Auto) (34.0-71.1) % Lymph % (Auto) (19.3-51.7) % [place] % (Auto) (4.7-12.5) % Eos % (Auto) (0.7-5.8) Baso % (Auto) (0.1-1.2) % Neut # (Auto) (1.56-6.13) K/mm3 Lymph # (Auto) (1.18-3.74) K/mm3 [place] # (Auto) (0.24-0.36) K/mm3 Eos # (Auto) (0.04-0.36) K/mm3 Baso # (Auto) (0.01-0.08) K/mm3 Manual Slide Review D-Dimer, Quantitative (0.19-0.50) mg/L Sodium 136 (136-145) mEq/L Potassium 4.3 (3.5-5.1) mEq/L Chloride 101 (98-107) mEq/L Carbon Dioxide 27 (21-32) mEq/L Anion Gap 12.3 (5-15) BUN 30 H (7-18) mg/dL Creatinine 1.1 H (0.55-1.02) mg/dL Est Cr Clr Drug Dosing 50.24 mL/min Estimated GFR (MDRD) 50 (>60) mL/min BUN/Creatinine Ratio 27.3 H (14-18) Glucose 222 H (70-99) mg/dL POC Glucose 220 H (70-99) mg/dL Hemoglobin A1c ( - 5.6) % Lactic Acid (0.4-2.0) mmol/L Calcium 8.2 L (8.5-10.1) mg/dL Magnesium 2.2 (1.8-2.4) mg/dL Ferritin (8-252) ng/ml Total Bilirubin 0.5 (0.2-1.0) mg/dL AST 30 (15-37) U/L ALT 26 (14-59) U/L Alkaline Phosphatase 79 (46-116) U/L Lactate Dehydrogenase (81-234) U/L C-Reactive Protein 6.2 H* (<1.0) mg/dL Total Protein 6.0 L (6.4-8.2) g/dl Albumin 2.8 L (3.4-5.0) g/dl Globulin 3.2 gm/dL Albumin/Globulin Ratio 0.9 L (1-2) Vitamin D 25-Hydroxy (30.0-100.0) ng/ml Procalcitonin ng/mL Med Orders - Current: Current Medications Acetaminophen (Acetaminophen 325 Mg Tab) 650 mg PO Q4H PRN PRN Reason: Pain (Mild 1-3)/fever Albuterol (Albuterol 6.7 Gm Inhaler) 0 gm INH Q2H PRN PRN Reason: SOB/Wheezing Albuterol/Ipratropium (Albuterol/Ipratropium 3.0-0.5 Mg/3 Ml Neb Soln) 3 ml NEB QIDRT PRN PRN Reason: Shortness Of Breath/wheezing Last Admin: 08/05/21 19:56 Dose: 3 ml Documented by: Benzonatate (Benzonatate 100 Mg Cap) 200 mg PO Q8H PRN PRN Reason: Cough Cholecalciferol (Cholecalciferol (Vitamin D3) 5,000 Unit Cap) 10,000 unit PO DAILY [facility] Last Admin: 08/05/21 16:03 Dose: 10,000 unit Documented by: Dexamethasone (Dexamethasone 4 Mg Tab) 6 mg PO DAILY [facility] Stop: 08/14/21 09:01 Enoxaparin Sodium (Enoxaparin 40 Mg/0.4 Ml Syringe) 40 mg SUBCUT DAILY [facility] Famotidine (Famotidine 20 Mg Tab) 20 mg PO BID [facility] Last Admin: 08/05/21 20:54 Dose: 20 mg Documented by: Guaifenesin (Guaifenesin 600 Mg Tab.Er) 600 mg PO TID [facility] Last Admin: 08/05/21 20:54 Dose: 600 mg Documented by: Sodium Chloride (Normal Saline) 1,000 mls @ 1,000 mls/hr IV .BOLUS [facility] Last Admin: 08/05/21 09:21 Dose: 1,000 mls/hr Documented by: Remdesivir 100 mg/ Sodium (Chloride) 250 mls @ 250 mls/hr IV Q24H [facility] Stop: 08/09/21 09:59 Insulin Glargine (Insulin Glargine,Hum.Rec.Anlog 100 Unit/Ml 3 Ml Pen) 15 unit SUBCUT BEDTIME [facility] Last Admin: 08/05/21 20:54 Dose: 15 units Documented by: Insulin Human Lispro (Insulin Lispro 100 Unit/Ml 3 Ml Kwikpen) 0 unit SUBCUT QIDACANDBED [facility]; Protocol Last Admin: 08/05/21 20:59 Dose: 8 units Documented by: Levothyroxine Sodium (Levothyroxine 100 Mcg Tab) 100 mcg PO ACBREAKFAST [facility] Last Admin: 08/06/21 06:05 Dose: 100 mcg Documented by: Levothyroxine Sodium (Levothyroxine 25 Mcg Tab) 25 mcg PO ACBREAKFAST [facility] Last Admin: 08/06/21 06:05 Dose: 25 mcg Documented by: Ondansetron HCl (Ondansetron 4 Mg/2 Ml Sdv) 4 mg IV Q6H PRN PRN Reason: Nausea/Vomiting Senna/Docusate Sodium (Docusate Sodium/Sennosides 50-8.6 Mg Tab) 1 tab PO DAILY PRN PRN Reason: Constipation Sertraline HCl (Sertraline 50 Mg Tab) 100 mg PO DAILY [facility] Sodium Chloride (Sodium Chloride 0.9% 10 Ml Syringe) 10 ml FLUSH ASDIRECTED PRN PRN Reason: Keep Vein Open Last Admin: 08/05/21 09:23 Dose: 10 ml Documented by: Zinc Sulfate (Zinc Sulfate 220 Mg Cap) 220 mg PO DAILY [place] Discontinued Medications Acetaminophen (Acetaminophen 325 Mg Tab) 650 mg PO Q4H PRN PRN Reason: Fever Greater Than 101 Albuterol/Ipratropium (Albuterol/Ipratropium 3.0-0.5 Mg/3 Ml Neb Soln) 3 ml NEB ONETIME ONE Stop: 08/05/21 08:51 Last Admin: 08/05/21 09:10 Dose: 3 ml Documented by: Dexamethasone (Dexamethasone 4 Mg/Ml Sdv) 6 mg IVPUSH ONETIME ONE Stop: 08/05/21 08:50 Last Admin: 08/05/21 09:21 Dose: 6 mg Documented by: Enoxaparin Sodium (Enoxaparin 40 Mg/0.4 Ml Syringe) 40 mg SUBCUT ONETIME ONE Stop: 08/05/21 11:31 Last Admin: 08/05/21 15:04 Dose: Not Given Documented by: Guaifenesin (Guaifenesin 600 Mg Tab.Er) 600 mg PO TID [place] Remdesivir 200 mg/ Sodium (Chloride) 250 mls @ 250 mls/hr IV ONETIME ONE Stop: 08/05/21 08:51 Last Admin: 08/05/21 09:21 Dose: 250 mls/hr Documented by: Ondansetron HCl (Ondansetron 4 Mg/2 Ml Sdv) 4 mg IVPUSH ONETIME ONE Stop: 08/05/21 08:49 Last Admin: 08/05/21 09:23 Dose: 4 mg Documented by: - Exam Quality Assessment: Supplemental Oxygen (25 L with FiO2 of 85%), DVT Prophylaxis. No: Urine Catheter General: Alert, Oriented, Cooperative, No Acute Distress HEENT: Pupils Equal, Pupils Reactive, Mucous Membr. Moist/[place] Neck: Supple, Trachea Midline Lungs: Decreased Breath Sounds, Crackles. No: Normal Respiratory Effort (Tachypnea), Wheezing Cardiovascular: Regular Rate, Regular Rhythm GI/Abdominal Exam: Normal Bowel Sounds, Soft, Non-Tender, No Distention (Female) Exam: Deferred Back Exam: Normal Inspection, Full Range of Motion Extremities: Normal Inspection, Normal Range of Motion, Non-Tender, No Pedal Edema, Normal Capillary Refill Skin: Warm, Dry, Intact Neurological: No New Focal Deficit Psy/Mental Status: Alert, Normal Affect, Normal Mood - Patient Data Lab Results Last 24 hrs: Laboratory Results - last 24 hr 08/05/21 08/05/21 08/05/21 Range/Units 08:45 08:45 08:45 WBC 5.84 (3.98-10.04) K/mm3 RBC 5.04 (3.98-5.22) M/mm3 Hgb 14.9 (11.2-15.7) gm/dl Hct 44.6 (34.1-44.9) % MCV 88.5 (79.4-94.8) fl MCH 29.6 (25.6-32.2) pg MCHC 33.4 (32.2-35.5) g/dl RDW Std Deviation 42.1 (36.4-46.3) fL Plt Count 178 L (182-369) K/mm3 MPV 10.9 (9.4-12.3) fl Neut % (Auto) 78.1 H (34.0-71.1) % Lymph % (Auto) 13.4 L (19.3-51.7) % [place] % (Auto) 8.0 (4.7-12.5) % Eos % (Auto) 0 L (0.7-5.8) Baso % (Auto) 0.2 (0.1-1.2) % Neut # (Auto) 4.56 (1.56-6.13) K/mm3 Lymph # (Auto) 0.78 L (1.18-3.74) K/mm3 [place] # (Auto) 0.47 H (0.24-0.36) K/mm3 Eos # (Auto) 0.00 L (0.04-0.36) K/mm3 Baso # (Auto) 0.01 (0.01-0.08) K/mm3 Manual Slide Review Normal smear D-Dimer, Quantitative 1.10 H (0.19-0.50) mg/L Sodium 131 L (136-145) mEq/L Potassium 4.3 (3.5-5.1) mEq/L Chloride 95 L (98-107) mEq/L Carbon Dioxide 26 (21-32) mEq/L Anion Gap 14.3 (5-15) BUN 29 H (7-18) mg/dL Creatinine 1.2 H (0.55-1.02) mg/dL Est Cr Clr Drug Dosing 47.78 mL/min Estimated GFR (MDRD) 45 (>60) mL/min BUN/Creatinine Ratio 24.2 H (14-18) Glucose 296 H (70-99) mg/dL POC Glucose (70-99) mg/dL Hemoglobin A1c ( - 5.6) % Lactic Acid (0.4-2.0) mmol/L Calcium 8.4 L (8.5-10.1) mg/dL Magnesium (1.8-2.4) mg/dL Ferritin (8-252) ng/ml Total Bilirubin 0.7 (0.2-1.0) mg/dL AST 42 H (15-37) U/L ALT 32 (14-59) U/L Alkaline Phosphatase 89 (46-116) U/L Lactate Dehydrogenase 448 H (81-234) U/L C-Reactive Protein 7.0 H* (<1.0) mg/dL Total Protein 6.6 (6.4-8.2) g/dl Albumin 3.1 L (3.4-5.0) g/dl Globulin 3.5 gm/dL Albumin/Globulin Ratio 0.9 L (1-2) Vitamin D 25-Hydroxy (30.0-100.0) ng/ml Procalcitonin ng/mL 08/05/21 08/05/21 08/05/21 Range/Units 08:45 08:45 08:45 WBC (3.98-10.04) K/mm3 RBC (3.98-5.22) M/mm3 Hgb (11.2-15.7) gm/dl Hct (34.1-44.9) % MCV (79.4-94.8) fl MCH (25.6-32.2) pg MCHC (32.2-35.5) g/dl RDW Std Deviation (36.4-46.3) fL Plt Count (182-369) K/mm3 MPV (9.4-12.3) fl Neut % (Auto) (34.0-71.1) % Lymph % (Auto) (19.3-51.7) % [place] % (Auto) (4.7-12.5) % Eos % (Auto) (0.7-5.8) Baso % (Auto) (0.1-1.2) % Neut # (Auto) (1.56-6.13) K/mm3 Lymph # (Auto) (1.18-3.74) K/mm3 [place] # (Auto) (0.24-0.36) K/mm3 Eos # (Auto) (0.04-0.36) K/mm3 Baso # (Auto) (0.01-0.08) K/mm3 Manual Slide Review D-Dimer, Quantitative (0.19-0.50) mg/L Sodium (136-145) mEq/L Potassium (3.5-5.1) mEq/L Chloride (98-107) mEq/L Carbon Dioxide (21-32) mEq/L Anion Gap (5-15) BUN (7-18) mg/dL Creatinine (0.55-1.02) mg/dL Est Cr Clr Drug Dosing mL/min Estimated GFR (MDRD) (>60) mL/min BUN/Creatinine Ratio (14-18) Glucose (70-99) mg/dL POC Glucose (70-99) mg/dL Hemoglobin A1c ( - 5.6) % Lactic Acid (0.4-2.0) mmol/L Calcium (8.5-10.1) mg/dL Magnesium (1.8-2.4) mg/dL Ferritin 1960 H (8-252) ng/ml Total Bilirubin (0.2-1.0) mg/dL AST (15-37) U/L ALT (14-59) U/L Alkaline Phosphatase (46-116) U/L Lactate Dehydrogenase (81-234) U/L C-Reactive Protein (<1.0) mg/dL Total Protein (6.4-8.2) g/dl Albumin (3.4-5.0) g/dl Globulin gm/dL Albumin/Globulin Ratio (1-2) Vitamin D 25-Hydroxy 12.7 L (30.0-100.0) ng/ml Procalcitonin 0.10 H ng/mL 08/05/21 08/05/21 08/05/21 Range/Units 08:45 09:08 16:40 WBC (3.98-10.04) K/mm3 RBC (3.98-5.22) M/mm3 Hgb (11.2-15.7) gm/dl Hct (34.1-44.9) % MCV (79.4-94.8) fl MCH (25.6-32.2) pg MCHC (32.2-35.5) g/dl RDW Std Deviation (36.4-46.3) fL Plt Count (182-369) K/mm3 MPV (9.4-12.3) fl Neut % (Auto) (34.0-71.1) % Lymph % (Auto) (19.3-51.7) % [place] % (Auto) (4.7-12.5) % Eos % (Auto) (0.7-5.8) Baso % (Auto) (0.1-1.2) % Neut # (Auto) (1.56-6.13) K/mm3 Lymph # (Auto) (1.18-3.74) K/mm3 [place] # (Auto) (0.24-0.36) K/mm3 Eos # (Auto) (0.04-0.36) K/mm3 Baso # (Auto) (0.01-0.08) K/mm3 Manual Slide Review D-Dimer, Quantitative (0.19-0.50) mg/L Sodium (136-145) mEq/L Potassium (3.5-5.1) mEq/L Chloride (98-107) mEq/L Carbon Dioxide (21-32) mEq/L Anion Gap (5-15) BUN (7-18) mg/dL Creatinine (0.55-1.02) mg/dL Est Cr Clr Drug Dosing mL/min Estimated GFR (MDRD) (>60) mL/min BUN/Creatinine Ratio (14-18) Glucose (70-99) mg/dL POC Glucose 364 H (70-99) mg/dL Hemoglobin A1c 10.7 H ( - 5.6) % Lactic Acid 1.4 (0.4-2.0) mmol/L Calcium (8.5-10.1) mg/dL Magnesium (1.8-2.4) mg/dL Ferritin (8-252) ng/ml Total Bilirubin (0.2-1.0) mg/dL AST (15-37) U/L ALT (14-59) U/L Alkaline Phosphatase (46-116) U/L Lactate Dehydrogenase (81-234) U/L C-Reactive Protein (<1.0) mg/dL Total Protein (6.4-8.2) g/dl Albumin (3.4-5.0) g/dl Globulin gm/dL Albumin/Globulin Ratio (1-2) Vitamin D 25-Hydroxy (30.0-100.0) ng/ml Procalcitonin ng/mL 08/05/21 08/05/21 08/06/21 Range/Units 20:52 21:40 05:22 WBC 6.24 (3.98-10.04) K/mm3 RBC 4.85 (3.98-5.22) M/mm3 Hgb 14.4 (11.2-15.7) gm/dl Hct 42.4 (34.1-44.9) % MCV 87.4 (79.4-94.8) fl MCH 29.7 (25.6-32.2) pg MCHC 34.0 (32.2-35.5) g/dl RDW Std Deviation 40.7 (36.4-46.3) fL Plt Count 184 (182-369) K/mm3 MPV 11.0 (9.4-12.3) fl Neut % (Auto) 74.3 H (34.0-71.1) % Lymph % (Auto) 16.2 L (19.3-51.7) % Pitkin % (Auto) 8.5 (4.7-12.5) % Eos % (Auto) 0.3 L (0.7-5.8) Baso % (Auto) 0.2 (0.1-1.2) % Neut # (Auto) 4.64 (1.56-6.13) K/mm3 Lymph # (Auto) 1.01 L (1.18-3.74) K/mm3 Pitkin # (Auto) 0.53 H (0.24-0.36) K/mm3 Eos # (Auto) 0.02 L (0.04-0.36) K/mm3 Baso # (Auto) 0.01 (0.01-0.08) K/mm3 Manual Slide Review D-Dimer, Quantitative (0.19-0.50) mg/L Sodium (136-145) mEq/L Potassium (3.5-5.1) mEq/L Chloride (98-107) mEq/L Carbon Dioxide (21-32) mEq/L Anion Gap (5-15) BUN (7-18) mg/dL Creatinine (0.55-1.02) mg/dL Est Cr Clr Drug Dosing mL/min Estimated GFR (MDRD) (>60) mL/min BUN/Creatinine Ratio (14-18) Glucose (70-99) mg/dL POC Glucose 314 H 336 H (70-99) mg/dL Hemoglobin A1c ( - 5.6) % Lactic Acid (0.4-2.0) mmol/L Calcium (8.5-10.1) mg/dL Magnesium (1.8-2.4) mg/dL Ferritin (8-252) ng/ml Total Bilirubin (0.2-1.0) mg/dL AST (15-37) U/L ALT (14-59) U/L Alkaline Phosphatase (46-116) U/L Lactate Dehydrogenase (81-234) U/L C-Reactive Protein (<1.0) mg/dL Total Protein (6.4-8.2) g/dl Albumin (3.4-5.0) g/dl Globulin gm/dL Albumin/Globulin Ratio (1-2) Vitamin D 25-Hydroxy (30.0-100.0) ng/ml Procalcitonin ng/mL 08/06/21 08/06/21 Range/Units 05:22 06:38 WBC (3.98-10.04) K/mm3 RBC (3.98-5.22) M/mm3 Hgb (11.2-15.7) gm/dl Hct (34.1-44.9) % MCV (79.4-94.8) fl MCH (25.6-32.2) pg MCHC (32.2-35.5) g/dl RDW Std Deviation (36.4-46.3) fL Plt Count (182-369) K/mm3 MPV (9.4-12.3) fl Neut % (Auto) (34.0-71.1) % Lymph % (Auto) (19.3-51.7) % [place]kin % (Auto) (4.7-12.5) % Eos % (Auto) (0.7-5.8) Baso % (Auto) (0.1-1.2) % Neut # (Auto) (1.56-6.13) K/mm3 Lymph # (Auto) (1.18-3.74) K/mm3 [place]kin # (Auto) (0.24-0.36) K/mm3 Eos # (Auto) (0.04-0.36) K/mm3 Baso # (Auto) (0.01-0.08) K/mm3 Manual Slide Review D-Dimer, Quantitative (0.19-0.50) mg/L Sodium 136 (136-145) mEq/L Potassium 4.3 (3.5-5.1) mEq/L Chloride 101 (98-107) mEq/L Carbon Dioxide 27 (21-32) mEq/L Anion Gap 12.3 (5-15) BUN 30 H (7-18) mg/dL Creatinine 1.1 H (0.55-1.02) mg/dL Est Cr Clr Drug Dosing 50.24 mL/min Estimated GFR (MDRD) 50 (>60) mL/min BUN/Creatinine Ratio 27.3 H (14-18) Glucose 222 H (70-99) mg/dL POC Glucose 220 H (70-99) mg/dL Hemoglobin A1c ( - 5.6) % Lactic Acid (0.4-2.0) mmol/L Calcium 8.2 L (8.5-10.1) mg/dL Magnesium 2.2 (1.8-2.4) mg/dL Ferritin (8-252) ng/ml Total Bilirubin 0.5 (0.2-1.0) mg/dL AST 30 (15-37) U/L ALT 26 (14-59) U/L Alkaline Phosphatase 79 (46-116) U/L Lactate Dehydrogenase (81-234) U/L C-Reactive Protein 6.2 H* (<1.0) mg/dL Total Protein 6.0 L (6.4-8.2) g/dl Albumin 2.8 L (3.4-5.0) g/dl Globulin 3.2 gm/dL Albumin/Globulin Ratio 0.9 L (1-2) Vitamin D 25-Hydroxy (30.0-100.0) ng/ml Procalcitonin ng/mL Result Diagrams: 08/06/21 05:22 08/06/21 05:22 Sepsis Event Note - Evaluation Sepsis Screening Result: No Definite Risk - Focused Exam Vital Signs: Vital Signs Temp Pulse Resp BP Pulse Ox Pulse Ox Pulse Ox 08/06/21 04:23 98.6 F 71 22 H 119/48 L 89 L 08/06/21 04:03 89 L 08/06/21 04:00 19 08/06/21 03:00 28 H 08/06/21 02:00 17 08/06/21 01:32 90 L 08/06/21 01:00 22 H 08/06/21 00:00 22 H 08/05/21 23:59 98.1 F 75 18 109/63 87 L 08/05/21 23:00 18 08/05/21 22:53 20 08/05/21 22:00 20 08/05/21 21:00 24 H 08/05/21 20:36 80 23 H 136/67 87 L 08/05/21 20:00 20 08/05/21 19:56 90 L Pulse Ox 08/06/21 04:23 08/06/21 04:03 08/06/21 04:00 08/06/21 03:00 08/06/21 02:00 08/06/21 01:32 08/06/21 01:00 08/06/21 00:00 85 L 08/05/21 23:59 08/05/21 23:00 08/05/21 22:53 08/05/21 22:00 08/05/21 21:00 08/05/21 20:36 08/05/21 20:00 08/05/21 19:56 - Problem List & Annotations (1) Depression SNOMED Code(s): 84435623 Code(s): F32.A - DEPRESSION, UNSPECIFIED Status: Chronic Priority: Low Current Visit: No Qualifiers: Depression Type: other depression Qualified Code(s): F32.89 - Other specified depressive episodes (2) Hypothyroidism SNOMED Code(s): 59661460 Code(s): E03.9 - HYPOTHYROIDISM, UNSPECIFIED Status: Chronic Priority: Low Current Visit: No Qualifiers: Hypothyroidism type: unspecified Qualified Code(s): E03.9 - Hypothyroidism, unspecified (3) Elevated d-dimer SNOMED Code(s): 743711437 Code(s): R79.89 - OTHER SPECIFIED ABNORMAL FINDINGS OF BLOOD CHEMISTRY Status: Acute Priority: Medium Current Visit: Yes (4) Thrombocytopenia SNOMED Code(s): 460095204 Code(s): D69.6 - THROMBOCYTOPENIA, UNSPECIFIED Status: Acute Priority: Medium Current Visit: Yes (5) Hyponatremia SNOMED Code(s): 61026353 Code(s): E87.1 - HYPO-OSMOLALITY AND HYPONATREMIA Status: Acute Priority: Medium Current Visit: Yes (6) Volume depletion SNOMED Code(s): 246208647 Code(s): E86.9 - VOLUME DEPLETION, UNSPECIFIED Status: Acute Priority: Medium Current Visit: Yes (7) Nausea SNOMED Code(s): 434511319 Code(s): R11.0 - NAUSEA Status: Acute Priority: Medium Current Visit: Yes (8) Pneumonia due to COVID-19 virus SNOMED Code(s): 317441900850861369 Code(s): U07.1 - COVID-19; J12.82 - PNEUMONIA DUE TO CORONAVIRUS DISEASE 2019 Status: Acute Priority: High Current Visit: Yes (9) Hypoxia SNOMED Code(s): 854645970 Code(s): R09.02 - HYPOXEMIA Status: Acute Priority: High Current Visit: Yes (10) Generalized weakness SNOMED Code(s): 14158938 Code(s): R53.1 - WEAKNESS Status: Acute Priority: Medium Current Visit: Yes (11) ANAHI (acute kidney injury) SNOMED Code(s): 98489329, 42249375 Code(s): N17.9 - ACUTE KIDNEY FAILURE, UNSPECIFIED Status: Acute Priority: High Current Visit: Yes (12) New onset type 2 diabetes mellitus SNOMED Code(s): 00133432 Code(s): E11.9 - TYPE 2 DIABETES MELLITUS WITHOUT COMPLICATIONS Status: Acute Priority: High Current Visit: Yes (13) Vitamin D deficiency SNOMED Code(s): 39747034 Code(s): E55.9 - VITAMIN D DEFICIENCY, UNSPECIFIED Status: Acute Priority: High Current Visit: Yes (14) Hyperglycemia SNOMED Code(s): 11127153 Code(s): R73.9 - HYPERGLYCEMIA, UNSPECIFIED Status: Acute Priority: High Current Visit: Yes - Problem List Review Problem List Initiated/Reviewed/Updated: Yes - My Orders Last 24 Hours: My Active Orders 08/05/21 10:28 Admission Status [Patient Status] [ADT] Routine 08/05/21 11:07 RT Incentive Spirometry [RC] ASDIRECTED 08/05/21 11:08 Positioning, Patient [RC] QSHIFT Isolation [COMM] Stat 08/05/21 11:09 Height and Weight [RC] 0600 Pulse Oximetry [RC] CONTINUOUS Up With Assistance [RC] BID Vital Signs [RC] Q4HR Acetaminophen [TylenoL] 650 mg PO Q4H PRN Albuterol [Proventil HFA] See Dose Instructions INH Q2H PRN Albuterol/Ipratropium [DuoNeb 3.0-0.5 MG/3 ML] 3 ml NEB QIDRT PRN Docusate Sodium/Sennosides [Senna Plus] 1 tab PO DAILY PRN Ondansetron [Zofran] 4 mg IV Q6H PRN 08/05/21 11:11 RT Aerosol Therapy [RC] ASDIRECTED 08/05/21 11:12 Respiratory Care Assess and Treatment [CONS] Routine 08/05/21 11:30 Famotidine [Pepcid] 20 mg PO BID 08/05/21 12:01 Code Status [Resuscitation Status] Routine 08/05/21 12:49 Consult to Physical Therapy [PT Evaluation and Treatment] [CONS] Routine 08/06/21 05:22 CBC WITH AUTO DIFF [HEME] AM 08/06/21 06:00 Levothyroxine 25 mcg PO ACBREAKFAST Levothyroxine [Synthroid] 100 mcg PO ACBREAKFAST 08/06/21 06:45 RT Oxygen High Flow [RESPCARE] Routine 08/06/21 09:00 Enoxaparin [Lovenox] 40 mg SUBCUT DAILY Remdesivir 100 mg Sodium Chloride 0.9% [Normal Saline] 250 ml IV Q24H Sertraline [Zoloft] 100 mg PO DAILY Zinc Sulfate [Zincate] 220 mg PO DAILY dexAMETHasone 6 mg PO DAILY 08/07/21 05:11 C-REACTIVE PROTEIN [CHEM] AM CBC WITH AUTO DIFF [HEME] AM COMPREHENSIVE METABOLIC PN,CMP [CHEM] AM D-DIMER QUANTITATIVE [COAG] Q48H MAGNESIUM [CHEM] AM 08/08/21 05:11 C-REACTIVE PROTEIN [CHEM] AM CBC WITH AUTO DIFF [HEME] AM COMPREHENSIVE METABOLIC PN,CMP [CHEM] AM MAGNESIUM [CHEM] AM 08/09/21 05:11 C-REACTIVE PROTEIN [CHEM] AM CBC WITH AUTO DIFF [HEME] AM COMPREHENSIVE METABOLIC PN,CMP [CHEM] AM D-DIMER QUANTITATIVE [COAG] Q48H MAGNESIUM [CHEM] AM 08/11/21 05:11 D-DIMER QUANTITATIVE [COAG] Q48H - Assessment Assessment:: 08/06/2021 66-year-old female admitted to the floor for treatment of her COVID-19 pneumonia. Patient continues on dexamethasone and remdesivir. She is requiring 25 L of high flow oxygen with an FiO2 of 85% today. She is utilizing her incentive spirometer and Acapella sparingly and she was instructed to increase her use of this. We discussed proning. She was offered baricitinib and is refusing at this time. We will continue to offer this. Labs today show WBC of 6.24. Hemoglobin 14.4. Platelet 184,000. Neutrophils are elevated 74.3%. Sodium is 136. Potassium 4.3. Carbon oxide 27. Anion gap is 12.3. BUN is 30. Creatinine 1.1. GFR is 50. Magnesium was 2.2. Bilirubin 0.5. AST was 30, ALT was 26, alkaline phosphatase 79. CRP is improved 6.2. Albumin is 2.8. Vitamin D obtained yesterday was 12.7 and she was started on supplementation. Procalcitonin was 0.10. Due to her hyperglycemia A1c was obtained and was 10.7. Will order diabetic education and dietitian consultation. Patient reports she has been prediabetic in the past. We will start 15 units of long-acting i nsulin and medium intensity sliding scale insulin. We will check 4 times daily before meals and bedtime blood glucose checks. Anticipate rise in blood glucose readings due to steroids. Unknown length of stay due to severity of symptoms. - Plan Plan:: Pneumonia due to COVID-19 virus Hypoxia Generalized weakness Elevated d-dimer Nausea * Prone whenever able * I-S/Acapella * Check procalcitonin * Check vitamin D * Respiratory therapy consultation * As needed DuoNebs * As needed albuterol inhaler * Remdesivir for 5 days * 6 mg dexamethasone for 10 days * As needed Zofran for nausea * O2 as needed to keep saturations between 88 and 95% * 20 mg famotidine twice daily * Physical therapy evaluation * Lovenox 40 mg daily * High flow oxygen 25 L with an FiO2 of 85%. * Every 48 hour D-dimer * Daily labs * Airborne/contact precautions * Telemetry * Continuous pulse oximetry * Offered baricitinib and patient refused. We will continue to offer. Thrombocytopenia, improving * Likely secondary to above * Monitor daily labs Hyponatremia, resolved Volume depletion, improving ANAHI, improving * Given 1 L fluid bolus in ED * Encourage oral rehydration * Will hold off further IV fluids due to concerns over worsening COVID-19 symptoms * Avoid nephrotoxic medications if able * Monitor daily labs New onset diabetes mellitus Hyperglycemia * QID AC and Bedtime glucose checks * art educator consultation * Screen And Cyclone Repairer consultation * Consistent carbohydrate diet * 15 units long acting insulin * Sliding scale medium intensity insulin * Anticipate rise in blood glucose readings 2/2 steroid use Vitamin D deficiency * Continue daily supplementation Depression * No acute concerns * Continue home zoloft Hypothyroidism * No acute concerns * Continue home levothyroxine Code status: Full code PCP: Heather Granado PA-C DVT prophylaxis: Lovenox Disposition: Patient mated to the floor for management of COVID-19 pneumonia wit h hypoxia. Likely length of stay 4 to 5 days pending improvement.
[2021-08-06] MEDS: REMDESIVIR 100 MG in Sodium Chloride 0.9% 250 ML IV SCH (08:50)
[2021-08-06] MEDS: Insulin Lispro 100 Unit/ML 3 ML KwikPen SUBCUT SCH ×4 (08:53→21:10)
[2021-08-06] MEDS: Enoxaparin 40 MG/0.4 ML Syringe SUBCUT SCH (09:02)
[2021-08-06] MEDS: Cholecalciferol (Vitamin D3) 5,000 UNIT Cap PO SCH (09:03)
[2021-08-06] MEDS: Zinc Sulfate 220 MG Cap PO SCH (09:03)
[2021-08-06] MEDS: guaiFENesin 600 MG Tab.ER PO SCH ×3 (09:03→21:10)
[2021-08-06] MEDS: Dexamethasone 4 MG Tab PO SCH (09:04)
[2021-08-06] MEDS: Sertraline 50 MG Tab PO SCH (09:05)
[2021-08-06] MEDS: Famotidine 20 MG Tab PO SCH ×2 (09:05→21:10)
[2021-08-06] MEDS: Albuterol/Ipratropium 3.0-0.5 MG/3 ML Neb Soln NEB PRN ×3 (09:32→20:18)
[2021-08-06] MEDS: Insulin Glargine,Hum.Rec.Anlog 100 UNIT/ML 3 ML Pen SUBCUT SCH (21:10)
[2021-08-07] MEDS: Levothyroxine 25 MCG Tab PO SCH (06:25)
[2021-08-07] MEDS: Levothyroxine 100 MCG Tab PO SCH (06:25)
--- NOTE | 2021-08-07 06:49 | PCM.PN ---
- General Info Date of Service: 08/07/21 Admission Dx/Problem (Free Text): Hypoxia Functional Status: Reports: Pain Controlled, Tolerating Diet, Ambulating, Urinating, Incentive Spirometry, Other (Acapella ). Denies: New Symptoms - Review of Systems General: Reports: Weakness, Fatigue, Malaise. Denies: Fever, Chills HEENT: Reports: No Symptoms. Denies: Headaches, Sore Throat Pulmonary: Reports: Shortness of Breath, Cough, Sputum. Denies: Pleuritic Chest Pain Cardiovascular: Reports: Dyspnea on Exertion. Denies: Chest Pain, Palpitations, Edema Gastrointestinal: Reports: No Symptoms. Denies: Abdominal Pain, Constipation, Diarrhea, Nausea, Vomiting Genitourinary: Reports: No Symptoms Musculoskeletal: Reports: No Symptoms Skin: Reports: No Symptoms Neurological: Reports: Difficulty Walking (2/2 weakness ), Weakness. Denies: Confusion, Dizziness, Headache, Numbness, Pre-Existing Deficit, Seizure, Syncope, Tingling, Tremors, Trouble Speaking, Change in Speech Psychiatric: Reports: No Symptoms - Patient Data Vitals - Most Recent: Last Vital Signs Temp 97.7 F 08/07/21 03:14 Pulse 58 L 08/07/21 03:14 Resp 25 H 08/07/21 03:14 BP 103/78 08/07/21 03:14 Pulse Ox 93 L 08/07/21 04:08 Weight - Most Recent: 232 lb 11.2 oz I&O - Last 24 Hours: Intake & Output 08/06/21 08/06/21 08/07/21 14:59 22:59 06:59 Intake Total 120 1050 600 Output Total 100 550 Balance 120 950 50 Lab Results Last 24 Hours: Laboratory Results - last 24 hr 08/06/21 08/06/21 08/06/21 Range/Units 05:22 12:09 16:19 WBC (3.98-10.04) K/mm3 RBC (3.98-5.22) M/mm3 Hgb (11.2-15.7) gm/dl Hct (34.1-44.9) % MCV (79.4-94.8) fl MCH (25.6-32.2) pg MCHC (32.2-35.5) g/dl RDW Std Deviation (36.4-46.3) fL Plt Count (182-369) K/mm3 MPV (9.4-12.3) fl Neut % (Auto) (34.0-71.1) % Lymph % (Auto) (19.3-51.7) % Mitchell % (Auto) (4.7-12.5) % Eos % (Auto) (0.7-5.8) Baso % (Auto) (0.1-1.2) % Neut # (Auto) (1.56-6.13) K/mm3 Lymph # (Auto) (1.18-3.74) K/mm3 Mitchell # (Auto) (0.24-0.36) K/mm3 Eos # (Auto) (0.04-0.36) K/mm3 Baso # (Auto) (0.01-0.08) K/mm3 Manual Slide Review Normal smear POC Glucose 237 H 240 H (70-99) mg/dL 08/06/21 08/07/21 08/07/21 Range/Units 20:59 05:43 06:22 WBC 8.08 (3.98-10.04) K/mm3 RBC 4.87 (3.98-5.22) M/mm3 Hgb 14.6 (11.2-15.7) gm/dl Hct 42.8 (34.1-44.9) % MCV 87.9 (79.4-94.8) fl MCH 30.0 (25.6-32.2) pg MCHC 34.1 (32.2-35.5) g/dl RDW Std Deviation 41.1 (36.4-46.3) fL Plt Count 262 D (182-369) K/mm3 MPV 10.8 (9.4-12.3) fl Neut % (Auto) 77.2 H (34.0-71.1) % Lymph % (Auto) 13.4 L (19.3-51.7) % Mitchell % (Auto) 8.4 (4.7-12.5) % Eos % (Auto) 0.1 L (0.7-5.8) Baso % (Auto) 0.4 (0.1-1.2) % Neut # (Auto) 6.24 H (1.56-6.13) K/mm3 Lymph # (Auto) 1.08 L (1.18-3.74) K/mm3 Mitchell # (Auto) 0.68 H (0.24-0.36) K/mm3 Eos # (Auto) 0.01 L (0.04-0.36) K/mm3 Baso # (Auto) 0.03 (0.01-0.08) K/mm3 Manual Slide Review POC Glucose 311 H 154 H (70-99) mg/dL Med Orders - Current: Current Medications Acetaminophen (Acetaminophen 325 Mg Tab) 650 mg PO Q4H PRN PRN Reason: Pain (Mild 1-3)/fever Last Admin: 08/07/21 02:57 Dose: 650 mg Documented by: Albuterol (Albuterol 6.7 Gm Inhaler) 0 gm INH Q2H PRN PRN Reason: SOB/Wheezing Albuterol/Ipratropium (Albuterol/Ipratropium 3.0-0.5 Mg/3 Ml Neb Soln) 3 ml NEB QIDRT PRN PRN Reason: Shortness Of Breath/wheezing Last Admin: 08/06/21 20:18 Dose: 3 ml Documented by: Benzonatate (Benzonatate 100 Mg Cap) 200 mg PO Q8H PRN PRN Reason: Cough Last Admin: 08/07/21 03:02 Dose: 200 mg Documented by: Cholecalciferol (Cholecalciferol (Vitamin D3) 5,000 Unit Cap) 10,000 unit PO DAILY COUNTS INCLUDE 234 BEDS AT THE [facility] Last Admin: 08/06/21 09:03 Dose: 10,000 unit Documented by: Dexamethasone (Dexamethasone 4 Mg Tab) 6 mg PO DAILY COUNTS INCLUDE 234 BEDS AT THE [facility] Stop: 08/14/21 09:01 Last Admin: 08/06/21 09:04 Dose: 6 mg Documented by: Enoxaparin Sodium (Enoxaparin 40 Mg/0.4 Ml Syringe) 40 mg SUBCUT DAILY COUNTS INCLUDE 234 BEDS AT THE [facility] Last Admin: 08/06/21 09:02 Dose: 40 mg Documented by: Famotidine (Famotidine 20 Mg Tab) 20 mg PO BID COUNTS INCLUDE 234 BEDS AT THE [facility] Last Admin: 08/06/21 21:10 Dose: 20 mg Documented by: Guaifenesin (Guaifenesin 600 Mg Tab.Er) 600 mg PO TID COUNTS INCLUDE 234 BEDS AT THE [facility] Last Admin: 08/06/21 21:10 Dose: 600 mg Documented by: Remdesivir 100 mg/ Sodium (Chloride) 250 mls @ 250 mls/hr IV Q24H COUNTS INCLUDE 234 BEDS AT THE [facility] Stop: 08/09/21 09:59 Last Admin: 08/06/21 08:50 Dose: 250 mls/hr Documented by: Insulin Glargine (Insulin Glargine,Hum.Rec.Anlog 100 Unit/Ml 3 Ml Pen) 15 unit SUBCUT BEDTIME COUNTS INCLUDE 234 BEDS AT THE [facility] Last Admin: 08/06/21 21:10 Dose: 15 units Documented by: Insulin Human Lispro (Insulin Lispro 100 Unit/Ml 3 Ml Kwikpen) 0 unit SUBCUT QIDACANDBED COUNTS INCLUDE 234 BEDS AT THE [facility]; Protocol Last Admin: 08/06/21 21:10 Dose: 8 units Documented by: Levothyroxine Sodium (Levothyroxine 100 Mcg Tab) 100 mcg PO ACBREAKFAST COUNTS INCLUDE 234 BEDS AT THE [facility] Last Admin: 08/07/21 06:25 Dose: 100 mcg Documented by: Levothyroxine Sodium (Levothyroxine 25 Mcg Tab) 25 mcg PO ACBREAKFAST COUNTS INCLUDE 234 BEDS AT THE [facility] Last Admin: 08/07/21 06:25 Dose: 25 mcg Documented by: Ondansetron HCl (Ondansetron 4 Mg/2 Ml Sdv) 4 mg IV Q6H PRN PRN Reason: Nausea/Vomiting Senna/Docusate Sodium (Docusate Sodium/Sennosides 50-8.6 Mg Tab) 1 tab PO DAILY PRN PRN Reason: Constipation Sertraline HCl (Sertraline 50 Mg Tab) 100 mg PO DAILY COUNTS INCLUDE 234 BEDS AT THE [facility] Last Admin: 08/06/21 09:05 Dose: 100 mg Documented by: Sodium Chloride (Sodium Chloride 0.9% 10 Ml Syringe) 10 ml FLUSH ASDIRECTED PRN PRN Reason: Keep Vein Open Last Admin: 08/05/21 09:23 Dose: 10 ml Documented by: Zinc Sulfate (Zinc Sulfate 220 Mg Cap) 220 mg PO DAILY COUNTS INCLUDE 234 BEDS AT THE [facility] Last Admin: 08/06/21 09:03 Dose: 220 mg Documented by: Discontinued Medications Acetaminophen (Acetaminophen 325 Mg Tab) 650 mg PO Q4H PRN PRN Reason: Fever Greater Than 101 Albuterol/Ipratropium (Albuterol/Ipratropium 3.0-0.5 Mg/3 Ml Neb Soln) 3 ml NEB ONETIME ONE Stop: 08/05/21 08:51 Last Admin: 08/05/21 09:10 Dose: 3 ml Documented by: Dexamethasone (Dexamethasone 4 Mg/Ml Sdv) 6 mg IVPUSH ONETIME ONE Stop: 08/05/21 08:50 Last Admin: 08/05/21 09:21 Dose: 6 mg Documented by: Enoxaparin Sodium (Enoxaparin 40 Mg/0.4 Ml Syringe) 40 mg SUBCUT ONETIME ONE Stop: 08/05/21 11:31 Last Admin: 08/05/21 15:04 Dose: Not Given Documented by: Guaifenesin (Guaifenesin 600 Mg Tab.Er) 600 mg PO TID [place] Remdesivir 200 mg/ Sodium (Chloride) 250 mls @ 250 mls/hr IV ONETIME ONE Stop: 08/05/21 08:51 Last Admin: 08/05/21 09:21 Dose: 250 mls/hr Documented by: Sodium Chloride (Normal Saline) 1,000 mls @ 1,000 mls/hr IV .BOLUS [place] Last Admin: 08/05/21 09:21 Dose: 1,000 mls/hr Documented by: Ondansetron HCl (Ondansetron 4 Mg/2 Ml Sdv) 4 mg IVPUSH ONETIME ONE Stop: 08/05/21 08:49 Last Admin: 08/05/21 09:23 Dose: 4 mg Documented by: - Exam Quality Assessment: Supplemental Oxygen (High flow 35 L with FiO2 of 80%.), DVT Prophylaxis. No: Urine Catheter General: Alert, Oriented, Cooperative, No Acute Distress HEENT: Pupils Equal, Pupils Reactive, Mucous Membr. Moist/[place] Neck: Supple, Trachea Midline Lungs: Normal Respiratory Effort, Decreased Breath Sounds, Crackles, Wheezing. No: Rhonchi Cardiovascular: Regular Rate, Regular Rhythm GI/Abdominal Exam: Normal Bowel Sounds, Soft, Non-Tender, No Distention (Female) Exam: Deferred Back Exam: Normal Inspection, Full Range of Motion Extremities: Normal Inspection, Normal Range of Motion, Non-Tender, No Pedal Edema, Normal Capillary Refill Skin: Warm, Dry, Intact Neurological: No New Focal Deficit Psy/Mental Status: Alert, Normal Affect, Normal Mood - Patient Data Lab Results Last 24 hrs: Laboratory Results - last 24 hr 08/06/21 08/06/21 08/06/21 Range/Units 05:22 12:09 16:19 WBC (3.98-10.04) K/mm3 RBC (3.98-5.22) M/mm3 Hgb (11.2-15.7) gm/dl Hct (34.1-44.9) % MCV (79.4-94.8) fl MCH (25.6-32.2) pg MCHC (32.2-35.5) g/dl RDW Std Deviation (36.4-46.3) fL Plt Count (182-369) K/mm3 MPV (9.4-12.3) fl Neut % (Auto) (34.0-71.1) % Lymph % (Auto) (19.3-51.7) % Mitchell % (Auto) (4.7-12.5) % Eos % (Auto) (0.7-5.8) Baso % (Auto) (0.1-1.2) % Neut # (Auto) (1.56-6.13) K/mm3 Lymph # (Auto) (1.18-3.74) K/mm3 Mitchell # (Auto) (0.24-0.36) K/mm3 Eos # (Auto) (0.04-0.36) K/mm3 Baso # (Auto) (0.01-0.08) K/mm3 Manual Slide Review Normal smear POC Glucose 237 H 240 H (70-99) mg/dL 08/06/21 08/07/21 08/07/21 Range/Units 20:59 05:43 06:22 WBC 8.08 (3.98-10.04) K/mm3 RBC 4.87 (3.98-5.22) M/mm3 Hgb 14.6 (11.2-15.7) gm/dl Hct 42.8 (34.1-44.9) % MCV 87.9 (79.4-94.8) fl MCH 30.0 (25.6-32.2) pg MCHC 34.1 (32.2-35.5) g/dl RDW Std Deviation 41.1 (36.4-46.3) fL Plt Count 262 D (182-369) K/mm3 MPV 10.8 (9.4-12.3) fl Neut % (Auto) 77.2 H (34.0-71.1) % Lymph % (Auto) 13.4 L (19.3-51.7) % Mitchell % (Auto) 8.4 (4.7-12.5) % Eos % (Auto) 0.1 L (0.7-5.8) Baso % (Auto) 0.4 (0.1-1.2) % Neut # (Auto) 6.24 H (1.56-6.13) K/mm3 Lymph # (Auto) 1.08 L (1.18-3.74) K/mm3 Mitchell # (Auto) 0.68 H (0.24-0.36) K/mm3 Eos # (Auto) 0.01 L (0.04-0.36) K/mm3 Baso # (Auto) 0.03 (0.01-0.08) K/mm3 Manual Slide Review POC Glucose 311 H 154 H (70-99) mg/dL Result Diagrams: 08/07/21 05:43 08/07/21 05:43 Sepsis Event Note - Evaluation Sepsis Screening Result: No Definite Risk - Focused Exam Vital Signs: Vital Signs Temp Pulse Resp BP Pulse Ox Pulse Ox 08/07/21 04:08 93 L 08/07/21 03:17 92 L 08/07/21 03:14 97.7 F 58 L 25 H 103/78 80 L 08/07/21 03:00 28 H 08/07/21 02:00 28 H 08/07/21 01:00 27 H 08/07/21 00:00 26 H 08/06/21 23:10 90 L 08/06/21 23:00 20 08/06/21 22:00 22 H 08/06/21 21:00 12 08/06/21 20:18 90 L 08/06/21 20:00 28 H 08/06/21 19:25 97.5 F 72 18 127/70 93 L 08/06/21 19:00 26 H - Problem List & Annotations (1) Depression SNOMED Code(s): 88748314 Code(s): F32.A - DEPRESSION, UNSPECIFIED Status: Chronic Priority: Low Current Visit: No Qualifiers: Depression Type: other depression Qualified Code(s): F32.89 - Other specified depressive episodes (2) Hypothyroidism SNOMED Code(s): 16681494 Code(s): E03.9 - HYPOTHYROIDISM, UNSPECIFIED Status: Chronic Priority: Low Current Visit: No Qualifiers: Hypothyroidism type: unspecified Qualified Code(s): E03.9 - Hypothyroidism, unspecified (3) Elevated d-dimer SNOMED Code(s): 866733916 Code(s): R79.89 - OTHER SPECIFIED ABNORMAL FINDINGS OF BLOOD CHEMISTRY Status: Acute Priority: Medium Current Visit: Yes (4) Thrombocytopenia SNOMED Code(s): 541148464 Code(s): D69.6 - THROMBOCYTOPENIA, UNSPECIFIED Status: Resolved Priority: Medium Current Visit: Yes (5) Hyponatremia SNOMED Code(s): 36676592 Code(s): E87.1 - HYPO-OSMOLALITY AND HYPONATREMIA Status: Resolved Priority: Medium Current Visit: Yes (6) Volume depletion SNOMED Code(s): 239014715 Code(s): E86.9 - VOLUME DEPLETION, UNSPECIFIED Status: Acute Priority: Medium Current Visit: Yes (7) Nausea SNOMED Code(s): 666333440 Code(s): R11.0 - NAUSEA Status: Resolved Priority: Medium Current Visit: Yes (8) Pneumonia due to COVID-19 virus SNOMED Code(s): 549537688352960921 Code(s): U07.1 - COVID-19; J12.82 - PNEUMONIA DUE TO CORONAVIRUS DISEASE 2019 Status: Acute Priority: High Current Visit: Yes (9) Hypoxia SNOMED Code(s): 113143617 Code(s): R09.02 - HYPOXEMIA Status: Acute Priority: High Current Visit: Yes (10) Generalized weakness SNOMED Code(s): 02655263 Code(s): R53.1 - WEAKNESS Status: Acute Priority: Medium Current Visit: Yes (11) ANAHI (acute kidney injury) SNOMED Code(s): 79930301, 46189550 Code(s): N17.9 - ACUTE KIDNEY FAILURE, UNSPECIFIED Status: Acute Priority: High Current Visit: Yes (12) New onset type 2 diabetes mellitus SNOMED Code(s): 79988056 Code(s): E11.9 - TYPE 2 DIABETES MELLITUS WITHOUT COMPLICATIONS Status: Acute Priority: High Current Visit: Yes (13) Vitamin D deficiency SNOMED Code(s): 17222629 Code(s): E55.9 - VITAMIN D DEFICIENCY, UNSPECIFIED Status: Acute Priority: High Current Visit: Yes (14) Hyperglycemia SNOMED Code(s): 66552189 Code(s): R73.9 - HYPERGLYCEMIA, UNSPECIFIED Status: Acute Priority: High Current Visit: Yes - Problem List Review Problem List Initiated/Reviewed/Updated: Yes - My Orders Last 24 Hours: My Active Orders 08/06/21 06:00 Levothyroxine 25 mcg PO ACBREAKFAST Levothyroxine [Synthroid] 100 mcg PO ACBREAKFAST 08/06/21 06:45 RT Oxygen High Flow [RESPCARE] Routine 08/06/21 09:00 Enoxaparin [Lovenox] 40 mg SUBCUT DAILY Remdesivir 100 mg Sodium Chloride 0.9% [Normal Saline] 250 ml IV Q24H Sertraline [Zoloft] 100 mg PO DAILY Zinc Sulfate [Zincate] 220 mg PO DAILY dexAMETHasone 6 mg PO DAILY 08/06/21 09:09 Consult to Diabetic Nurse Specialist [CONS] Routine Consult to Heavy Equipment Engine Mechanic [CONS] Routine 08/07/21 05:43 C-REACTIVE PROTEIN [CHEM] AM CBC WITH AUTO DIFF [HEME] AM COMPREHENSIVE METABOLIC PN,CMP [CHEM] AM D-DIMER QUANTITATIVE [COAG] Q48H MAGNESIUM [CHEM] AM 08/08/21 05:11 C-REACTIVE PROTEIN [CHEM] AM CBC WITH AUTO DIFF [HEME] AM COMPREHENSIVE METABOLIC PN,CMP [CHEM] AM MAGNESIUM [CHEM] AM 08/09/21 05:11 C-REACTIVE PROTEIN [CHEM] AM CBC WITH AUTO DIFF [HEME] AM COMPREHENSIVE METABOLIC PN,CMP [CHEM] AM D-DIMER QUANTITATIVE [COAG] Q48H MAGNESIUM [CHEM] AM 08/11/21 05:11 D-DIMER QUANTITATIVE [COAG] Q48H - Assessment Assessment:: 08/06/2021 66-year-old female admitted to the floor for treatment of her COVID-19 pneumonia. Patient continues on dexamethasone and remdesivir. She is requiring 25 L of high flow oxygen with an FiO2 of 85% today. She is utilizing her incentive spirometer and Acapella sparingly and she was instructed to increase her use of this. We discussed proning. She was offered baricitinib and is refusing at this time. We will continue to offer this. Labs today show WBC of 6.24. Hemoglobin 14.4. Platelet 184,000. Neutrophils are elevated 74.3%. Sod ium is 136. Potassium 4.3. Carbon oxide 27. Anion gap is 12.3. BUN is 30. Creatinine 1.1. GFR is 50. Magnesium was 2.2. Bilirubin 0.5. AST was 30, ALT was 26, alkaline phosphatase 79. CRP is improved 6.2. Albumin is 2.8. Vitamin D obtained yesterday was 12.7 and she was started on supplementation. Procalcitonin was 0.10. Due to her hyperglycemia A1c was obtained and was 10.7. Will order diabetic education and dietitian consultation. Patient reports she has been prediabetic in the past. We will start 15 units of long-acting insulin and medium intensity sliding scale insulin. We will check 4 times daily before meals and bedtime blood glucose checks. Anticipate rise in blood glucose readings due to steroids. Unknown length of stay due to severity of symptoms. 08/07/2021 66-year-old female admitted the floor for COVID-19 pneumonia. She continues on dexamethasone and remdesivir. She is requiring 35 L of oxygen with an FiO2 of 80%. She is using her I-S and Acapella. She is very weak. Labs today show WBC of 8.08. Hemoglobin 14.6. Platelet 262,000. Neutrophils are elevated 77.8%. D-dimer is 1.81. Sodium is 139. Potassium 4.4. Chloride 103. Carbon dioxide 28. Anion gap is 12.4. BUN is 28. Creatinine is up to 1.2. GFR is down to 45. Glucose has been between 154 and 311. She remains on 15 units long-acting insulin at bedtime. Magnesium is 2.2. Bilirubin 0.6. AST is 27, ALT 26, alkaline phosphatase 78. CRP is down to 4.7. Protein is 5.9. Albumin is 2.7. ict educator and dietitian are waiting for the patient is feeling better to discuss her new diabetic diagnosis. She reports she has not been sleeping well we will add scheduled nighttime melatonin. Unknown length of stay due to severity of symptoms. Because of her significant worsening oxygen saturations and requirement for high flow oxygenation I am recommending baricitinib. I spoke with Gail to provide information about baricitinib. I offered the "fax sheet for patients and parents/caregivers, for baricitinib" to read and review. I stated that therapy has been approved by an emergency use authorization process and has not fully been FDA reviewed or approved. I shared potential risks from the therapy including increased risk for serious infections, anaphylaxis, and reaction to medication. I discussed there are other potential treatment options that are currently not FDA approved to treat COVID-19. Offered opportunity to ask questions and all questions were answered. Gail voiced understanding and agreed to proceed with treatment. - Plan Plan:: Pneumonia due to COVID-19 virus Hypoxia Generalized weakness Elevated d-dimer Nausea, resolved * Prone whenever able * I-S/Acapella * Check procalcitonin * Check vitamin D * Respiratory therapy consultation * As needed DuoNebs * As needed albuterol inhaler * Remdesivir for 5 days * 6 mg dexamethasone for 10 days * As needed Zofran for nausea * O2 as needed to keep saturations between 88 and 95% * 20 mg famotidine twice daily * Physical therapy evaluation * Lovenox 40 mg daily * High flow oxygen 25 L with an FiO2 of 85%. * Every 48 hour D-dimer * Daily labs * Airborne/contact precautions * Telemetry * Continuous pulse oximetry * 14 days baricitinib Thrombocytopenia, Resolved * Likely secondary to above * Monitor daily labs Hyponatremia, resolved Volume depletion ANAHI * Given 1 L fluid bolus in ED * Encourage oral rehydration * Will give 500ml fluid bolus today * Avoid nephrotoxic medications if able * Monitor daily labs New onset diabetes mellitus Hyperglycemia * QID AC and Bedtime glucose checks * ict educator consultation * Heavy Equipment Engine Mechanic consultation * Consistent carbohydrate diet * 15 units long acting insulin * Sliding scale medium intensity insulin * Anticipate rise in blood glucose readings 2/2 steroid use Vitamin D deficiency * Continue daily supplementation Depression * No acute concerns * Continue home zoloft Hypothyroidism * No acute concerns * Continue home levothyroxine Code status: Full code PCP: Heather Granado PA-C DVT prophylaxis: Lovenox Disposition: Patient mated to the floor for management of COVID-19 pneumonia with hypoxia. Likely length of stay 4 to 5 days pending improvement.
[2021-08-07] MEDS: Enoxaparin 40 MG/0.4 ML Syringe SUBCUT SCH (08:21)
[2021-08-07] MEDS: Insulin Lispro 100 Unit/ML 3 ML KwikPen SUBCUT SCH ×4 (08:21→21:00)
[2021-08-07] MEDS: Famotidine 20 MG Tab PO SCH ×2 (08:22→20:50)
[2021-08-07] MEDS: guaiFENesin 600 MG Tab.ER PO SCH ×3 (08:22→20:57)
[2021-08-07] MEDS: Cholecalciferol (Vitamin D3) 5,000 UNIT Cap PO SCH (08:22)
[2021-08-07] MEDS: Sertraline 50 MG Tab PO SCH (08:22)
[2021-08-07] MEDS: Zinc Sulfate 220 MG Cap PO SCH (08:22)
[2021-08-07] MEDS: REMDESIVIR 100 MG in Sodium Chloride 0.9% 250 ML IV SCH (08:23)
[2021-08-07] MEDS: Dexamethasone 4 MG Tab PO SCH (08:23)
[2021-08-07] MEDS: Albuterol/Ipratropium 3.0-0.5 MG/3 ML Neb Soln NEB PRN ×3 (09:55→20:27)
[2021-08-07] MEDS ORDERED: Sodium Chloride 0.9% 500 ML IV ONE (10:57)
[2021-08-07] MEDS: Melatonin 3 MG Tab PO SCH (20:50)
[2021-08-07] MEDS: Insulin Glargine,Hum.Rec.Anlog 100 UNIT/ML 3 ML Pen SUBCUT SCH (20:50)
[2021-08-08] MEDS: Insulin Lispro 100 Unit/ML 3 ML KwikPen SUBCUT SCH ×4 (06:59→22:02)
[2021-08-08] MEDS: Levothyroxine 100 MCG Tab PO SCH (07:08)
[2021-08-08] MEDS: Levothyroxine 25 MCG Tab PO SCH (07:16)
--- NOTE | 2021-08-08 07:44 | PCM.PN ---
- General Info Date of Service: 08/08/21 Admission Dx/Problem (Free Text): Hypoxia Subjective Update: The patient is a 66-year-old lady who had presented to the emergency department for admission on August 05, 2021. Prior to presentation in the emergency department the patient had been diagnosed with COVID-19. She had been having worsening cough, fever and generalized weakness. The patient has been complaining primarily of severe fatigue and weakness. She is improved somewhat. She has no complaints today. She also has been tolerating her diet. Functional Status: Reports: Pain Controlled, Tolerating Diet. Denies: New Symptoms - Review of Systems General: Reports: Weakness, Fatigue, Malaise HEENT: Reports: No Symptoms Pulmonary: Reports: Cough Cardiovascular: Reports: No Symptoms Gastrointestinal: Reports: No Symptoms Genitourinary: Reports: No Symptoms Musculoskeletal: Reports: No Symptoms Skin: Reports: No Symptoms Neurological: Reports: No Symptoms Psychiatric: Reports: No Symptoms - Patient Data Vitals - Most Recent: Last Vital Signs Temp 36.7 C 08/08/21 05:44 Pulse 65 08/08/21 05:44 Resp 27 H 08/08/21 06:00 BP 142/63 H 08/08/21 05:44 Pulse Ox 92 L 08/08/21 06:29 Weight - Most Recent: 106.776 kg I&O - Last 24 Hours: Intake & Output 08/07/21 08/08/21 08/08/21 22:59 06:59 14:59 Intake Total 690 500 Output Total 575 600 Balance 115 -100 Lab Results Last 24 Hours: Laboratory Results - last 24 hr 08/07/21 08/07/21 08/07/21 Range/Units 11:20 16:44 20:49 POC Glucose 193 H 251 H 275 H (70-99) mg/dL 08/08/21 Range/Units 05:45 POC Glucose 104 H (70-99) mg/dL Med Orders - Current: Current Medications Acetaminophen (Acetaminophen 325 Mg Tab) 650 mg PO Q4H PRN PRN Reason: Pain (Mild 1-3)/fever Last Admin: 08/07/21 02:57 Dose: 650 mg Documented by: Albuterol (Albuterol 6.7 Gm Inhaler) 0 gm INH Q2H PRN PRN Reason: SOB/Wheezing Albuterol/Ipratropium (Albuterol/Ipratropium 3.0-0.5 Mg/3 Ml Neb Soln) 3 ml NEB QIDRT PRN PRN Reason: Shortness Of Breath/wheezing Last Admin: 08/07/21 20:27 Dose: 3 ml Documented by: Baricitinib (Baricitinib 2 Mg Tab) 2 mg PO DAILY [facility] Stop: 08/21/21 10:01 Last Admin: 08/07/21 11:39 Dose: 2 mg Documented by: Benzonatate (Benzonatate 100 Mg Cap) 200 mg PO Q8H PRN PRN Reason: Cough Last Admin: 08/07/21 03:02 Dose: 200 mg Documented by: Cholecalciferol (Cholecalciferol (Vitamin D3) 5,000 Unit Cap) 10,000 unit PO DAILY [facility] Last Admin: 08/07/21 08:22 Dose: 10,000 unit Documented by: Dexamethasone (Dexamethasone 4 Mg Tab) 6 mg PO DAILY [facility] Stop: 08/14/21 09:01 Last Admin: 08/07/21 08:23 Dose: 6 mg Documented by: Enoxaparin Sodium (Enoxaparin 40 Mg/0.4 Ml Syringe) 40 mg SUBCUT DAILY [facility] Last Admin: 08/07/21 08:21 Dose: 40 mg Documented by: Famotidine (Famotidine 20 Mg Tab) 20 mg PO BID [facility] Last Admin: 08/07/21 20:50 Dose: 20 mg Documented by: Guaifenesin (Guaifenesin 600 Mg Tab.Er) 600 mg PO TID [facility] Last Admin: 08/07/21 20:57 Dose: 600 mg Documented by: Remdesivir 100 mg/ Sodium (Chloride) 250 mls @ 250 mls/hr IV Q24H [facility] Stop: 08/09/21 09:59 Last Admin: 08/07/21 08:23 Dose: 250 mls/hr Documented by: Insulin Glargine (Insulin Glargine,Hum.Rec.Anlog 100 Unit/Ml 3 Ml Pen) 15 unit SUBCUT BEDTIME [facility] Last Admin: 08/07/21 20:50 Dose: 15 units Documented by: Insulin Human Lispro (Insulin Lispro 100 Unit/Ml 3 Ml Kwikpen) 0 unit SUBCUT QIDACANDBED [facility]; Protocol Last Admin: 08/08/21 06:59 Dose: Not Given Documented by: Levothyroxine Sodium (Levothyroxine 100 Mcg Tab) 100 mcg PO ACBREAKFAST [facility] Last Admin: 08/08/21 07:08 Dose: 100 mcg Documented by: Levothyroxine Sodium (Levothyroxine 25 Mcg Tab) 25 mcg PO ACBREAKFAST [facility] Last Admin: 08/08/21 07:16 Dose: 25 mcg Documented by: Melatonin (Melatonin 3 Mg Tab) 6 mg PO BEDTIME [facility] Last Admin: 08/07/21 20:50 Dose: 6 mg Documented by: Ondansetron HCl (Ondansetron 4 Mg/2 Ml Sdv) 4 mg IV Q6H PRN PRN Reason: Nausea/Vomiting Senna/Docusate Sodium (Docusate Sodium/Sennosides 50-8.6 Mg Tab) 1 tab PO DAILY PRN PRN Reason: Constipation Sertraline HCl (Sertraline 50 Mg Tab) 100 mg PO DAILY [facility] Last Admin: 08/07/21 08:22 Dose: 100 mg Documented by: Sodium Chloride (Sodium Chloride 0.9% 10 Ml Syringe) 10 ml FLUSH ASDIRECTED PRN PRN Reason: Keep Vein Open Last Admin: 08/05/21 09:23 Dose: 10 ml Documented by: Zinc Sulfate (Zinc Sulfate 220 Mg Cap) 220 mg PO DAILY [facility] Last Admin: 08/07/21 08:22 Dose: 220 mg Documented by: Discontinued Medications Acetaminophen (Acetaminophen 325 Mg Tab) 650 mg PO Q4H PRN PRN Reason: Fever Greater Than 101 Albuterol/Ipratropium (Albuterol/Ipratropium 3.0-0.5 Mg/3 Ml Neb Soln) 3 ml NEB ONETIME ONE Stop: 08/05/21 08:51 Last Admin: 08/05/21 09:10 Dose: 3 ml Documented by: Dexamethasone (Dexamethasone 4 Mg/Ml Sdv) 6 mg IVPUSH ONETIME ONE Stop: 08/05/21 08:50 Last Admin: 08/05/21 09:21 Dose: 6 mg Documented by: Enoxaparin Sodium (Enoxaparin 40 Mg/0.4 Ml Syringe) 40 mg SUBCUT ONETIME ONE Stop: 08/05/21 11:31 Last Admin: 08/05/21 15:04 Dose: Not Given Documented by: Guaifenesin (Guaifenesin 600 Mg Tab.Er) 600 mg PO TID [place] Remdesivir 200 mg/ Sodium (Chloride) 250 mls @ 250 mls/hr IV ONETIME ONE Stop: 08/05/21 08:51 Last Admin: 08/05/21 09:21 Dose: 250 mls/hr Documented by: Sodium Chloride (Normal Saline) 1,000 mls @ 1,000 mls/hr IV .BOLUS [place] Last Admin: 08/05/21 09:21 Dose: 1,000 mls/hr Documented by: Sodium Chloride (Normal Saline) 500 mls @ 999 mls/hr IV .BOLUS ONE Stop: 08/07/21 11:27 Last Admin: 08/07/21 11:39 Dose: 999 mls/hr Documented by: Ondansetron HCl (Ondansetron 4 Mg/2 Ml Sdv) 4 mg IVPUSH ONETIME ONE Stop: 08/05/21 08:49 Last Admin: 08/05/21 09:23 Dose: 4 mg Documented by: - Exam Quality Assessment: Supplemental Oxygen, DVT Prophylaxis General: Alert, Oriented, Cooperative HEENT: Pupils Equal, Pupils Reactive, EOMI, Mucous Membr. Moist/[place] Neck: Supple, Trachea Midline Lungs: Decreased Breath Sounds, Rales Cardiovascular: Regular Rate, Regular Rhythm GI/Abdominal Exam: Normal Bowel Sounds, Soft, Non-Tender, No Distention (Female) Exam: Deferred Back Exam: Normal Inspection, Full Range of Motion Extremities: Normal Inspection, Normal Range of Motion, No Pedal Edema Skin: Warm, Dry, Intact Neurological: No New Focal Deficit, Normal Speech Psy/Mental Status: Alert, Normal Affect, Normal Mood - Patient Data Lab Results Last 24 hrs: Laboratory Results - last 24 hr 08/07/21 08/07/21 08/07/21 Range/Units 11:20 16:44 20:49 POC Glucose 193 H 251 H 275 H (70-99) mg/dL 08/08/21 Range/Units 05:45 POC Glucose 104 H (70-99) mg/dL Result Diagrams: 08/08/21 08:07 08/08/21 08:07 Sepsis Event Note - Evaluation Sepsis Screening Result: No Definite Risk - Focused Exam Vital Signs: Vital Signs Temp Pulse Resp BP Pulse Ox Pulse Ox 08/08/21 06:29 92 L 08/08/21 06:00 27 H 08/08/21 05:44 36.7 C 65 22 H 142/63 H 91 L 08/08/21 05:00 29 H 08/08/21 04:00 31 H 08/08/21 03:00 27 H 08/08/21 02:00 17 08/08/21 01:32 91 L 08/08/21 01:00 30 H 08/08/21 00:00 27 H 08/07/21 23:56 36.6 C 70 18 116/69 89 L 08/07/21 23:00 29 H 08/07/21 22:00 23 H 08/07/21 21:59 26 H 08/07/21 21:00 24 H 08/07/21 20:47 36.6 C 73 21 H 139/66 89 L 08/07/21 20:27 91 L 08/07/21 20:00 28 H - Problem List & Annotations (1) Pneumonia due to COVID-19 virus SNOMED Code(s): 185628363509002446 Code(s): U07.1 - COVID-19; J12.82 - PNEUMONIA DUE TO CORONAVIRUS DISEASE 2019 Status: Acute Priority: High Current Visit: Yes (2) ANAHI (acute kidney injury) SNOMED Code(s): 20139175, 04786436 Code(s): N17.9 - ACUTE KIDNEY FAILURE, UNSPECIFIED Status: Acute Priority: High Current Visit: Yes (3) Generalized weakness SNOMED Code(s): 78583132 Code(s): R53.1 - WEAKNESS Status: Acute Priority: Medium Current Visit: Yes (4) New onset type 2 diabetes mellitus SNOMED Code(s): 94614597 Code(s): E11.9 - TYPE 2 DIABETES MELLITUS WITHOUT COMPLICATIONS Status: Chronic Priority: High Current Visit: Yes (5) Vitamin D deficiency SNOMED Code(s): 68607326 Code(s): E55.9 - VITAMIN D DEFICIENCY, UNSPECIFIED Status: Acute Priority: High Current Visit: Yes - Problem List Review Problem List Initiated/Reviewed/Updated: Yes - Assessment Assessment:: 08/06/2021 66-year-old female admitted to the floor for treatment of her COVID-19 pneumonia. Patient continues on dexamethasone and remdesivir. She is requiring 25 L of high flow oxygen with an FiO2 of 85% today. She is utilizing her incentive spirometer and Acapella sparingly and she was instructed to increase her use of this. We discussed proning. She was offered baricitinib and is refusing at this time. We will continue to offer this. Labs today show WBC of 6.24. Hemoglobin 14.4. Platelet 184,000. Neutrophils are elevated 74.3%. Sodium is 136. Potassium 4.3. Carbon oxide 27. Anion gap is 12.3. BUN is 30. Creatinine 1.1. GFR is 50. Magnesium was 2.2. Bilirubin 0.5. AST was 30, ALT was 26, alkaline phosphatase 79. CRP is improved 6.2. Albumin is 2.8. Vitamin D obtained yesterday was 12.7 and she was started on supplementation. Procalcitonin was 0.10. Due to her hyperglycemia A1c was obtained and was 10.7. Will order diabetic education and dietitian consultation. Patient reports she has been prediabetic in the past. We will start 15 units of long-acting insulin and medium intensity sliding scale insulin. We will check 4 times daily before meals and bedtime blood glucose checks. Anticipate rise in blood glucose readings due to steroids. Unknown length of stay due to severity of symptoms. 08/07/2021 66-year-old female admitted the floor for COVID-19 pneumonia. She continues on dexamethasone and remdesivir. She is requiring 35 L of oxygen with an FiO2 of 80%. She is using her I-S and Acapella. She is very weak. Labs today show WBC of 8.08. Hemoglobin 14.6. Platelet 262,000. Neutrophils are elevated 77.8%. D-dimer is 1.81. Sodium is 139. Potassium 4.4. Chloride 103. Carbon dioxide 28. Anion gap is 12.4. BUN is 28. Creatinine is up to 1.2. GFR is down to 45. Glucose has been between 154 and 311. She remains on 15 units long-acting insulin at bedtime. Magnesium is 2.2. Bilirubin 0.6. AST is 27, ALT 26, alkaline phosphatase 78. CRP is down to 4.7. Protein is 5.9. Albumin is 2.7. art educator and dietitian are waiting for the patient is feeling better to discuss her new diabetic diagnosis. She reports she has not been sleeping well we will add scheduled nighttime melatonin. Unknown length of stay due to severity of symptoms. Because of her significant worsening oxygen saturations and requirement for high flow oxygenation I am recommending baricitinib. I spoke with Gail to provide information about baricitinib. I offered the "fax sheet for patients and parents/caregivers, for baricitinib" to read and review. I stated that therapy has been approved by an emergency use authorization process and has not fully been FDA reviewed or approved. I shared potential risks from the therapy including increased risk for serious infections, anaphylaxis, and reaction to medication. I discussed there are other potential treatment options that are currently not FDA approved to treat COVID-19. Offered opportunity to ask questions and all questions were answered. Gail voiced understanding and agreed to proceed with treatment. 08/08/2021 The patient is a 66-year-old lady who will be retained in hospitalization due to her treatment with remdesivir. She is also to be continued on baricitinib. I have instructed the patient in the use of the incentive spirometer and Acapella. She is also new onset diabetes and community nutrition educator has been ordered. The patient's blood glucose will be monitored and she will be maintained on a carb constant diet. The patient may need to have her insulin adjusted as her blood sugar indicates. The patient is also on DVT prophylaxis with the use of Lovenox 40 mg subcutaneous daily. Repeat laboratory studies have been ordered for the morning. Repeat chest x-ray is also been ordered. The patient should be appropriate for discharge upon completion of her remdesivir. - Plan Plan:: Pneumonia due to COVID-19 virus Hypoxia Generalized weakness Elevated d-dimer Nausea, resolved * Prone whenever able * I-S/Acapella * Check procalcitonin * Check vitamin D * Respiratory therapy consultation * As needed DuoNebs * As needed albuterol inhaler * Remdesivir for 5 days * 6 mg dexamethasone for 10 days * As needed Zofran for nausea * O2 as needed to keep saturations between 88 and 95% * 20 mg famotidine twice daily * Physical therapy evaluation * Lovenox 40 mg daily * High flow oxygen 25 L with an FiO2 of 85%. * Every 48 hour D-dimer * Daily labs * Airborne/contact precautions * Telemetry * Continuous pulse oximetry * 14 days baricitinib Thrombocytopenia, Resolved * Likely secondary to above * Monitor daily labs Hyponatremia, resolved Volume depletion ANAHI * Given 1 L fluid bolus in ED * Encourage oral rehydration * Will give 500ml fluid bolus today * Avoid nephrotoxic medications if able * Monitor daily labs New onset diabetes mellitus Hyperglycemia * QID AC and Bedtime glucose checks * art educator consultation * Water Taxi Driver consultation * Consistent carbohydrate diet * 15 units long acting insulin * Sliding scale medium intensity insulin * Anticipate rise in blood glucose readings 2/2 steroid use Vitamin D deficiency * Continue daily supplementation Depression * No acute concerns * Continue home zoloft Hypothyroidism * No acute concerns * Continue home levothyroxine Code status: Full code PCP: Heather Granado PA-C DVT prophylaxis: Lovenox Disposition: Patient mated to the floor for management of COVID-19 pneumonia with hypoxia. Likely length of stay 4 to 5 days pending improvement.
[2021-08-08] MEDS: Albuterol/Ipratropium 3.0-0.5 MG/3 ML Neb Soln NEB PRN ×3 (08:35→20:14)
[2021-08-08] MEDS: guaiFENesin 600 MG Tab.ER PO SCH ×3 (09:11→21:59)
[2021-08-08] MEDS: Zinc Sulfate 220 MG Cap PO SCH (09:11)
[2021-08-08] MEDS: Famotidine 20 MG Tab PO SCH ×2 (09:11→21:59)
[2021-08-08] MEDS: Cholecalciferol (Vitamin D3) 5,000 UNIT Cap PO SCH (09:12)
[2021-08-08] MEDS: Sertraline 50 MG Tab PO SCH (09:12)
[2021-08-08] MEDS: Enoxaparin 40 MG/0.4 ML Syringe SUBCUT SCH (09:13)
[2021-08-08] MEDS: Dexamethasone 4 MG Tab PO SCH (09:13)
[2021-08-08] MEDS: REMDESIVIR 100 MG in Sodium Chloride 0.9% 250 ML IV SCH (09:21)
[2021-08-08] MEDS: Melatonin 3 MG Tab PO SCH (21:59)
[2021-08-08] MEDS: Insulin Glargine,Hum.Rec.Anlog 100 UNIT/ML 3 ML Pen SUBCUT SCH (21:59)
[2021-08-09] MEDS: Levothyroxine 25 MCG Tab PO SCH (05:26)
[2021-08-09] MEDS: Levothyroxine 100 MCG Tab PO SCH (05:26)
--- NOTE | 2021-08-09 07:47 | PCM.PN ---
<Sandro Willett - Last Filed: 08/09/21 10:47> - General Info Date of Service: 08/09/21 Admission Dx/Problem (Free Text): Hypoxia Functional Status: Reports: Pain Controlled, Tolerating Diet, Ambulating, Urinating, Incentive Spirometry, Other (Acapella ). Denies: New Symptoms - Review of Systems General: Reports: Weakness, Fatigue, Malaise. Denies: Fever, Chills HEENT: Reports: No Symptoms. Denies: Headaches, Sore Throat Pulmonary: Reports: Shortness of Breath, Cough, Sputum. Denies: Pleuritic Chest Pain, Wheezing Cardiovascular: Reports: Dyspnea on Exertion. Denies: Chest Pain, Palpitations, Edema Gastrointestinal: Reports: No Symptoms. Denies: Abdominal Pain, Constipation, Diarrhea, Nausea, Vomiting Genitourinary: Denies: Pain Musculoskeletal: Reports: No Symptoms Skin: Reports: No Symptoms. Denies: Cyanosis Neurological: Reports: No Symptoms. Denies: Confusion, Dizziness, Headache, Numbness, Seizure, Syncope, Tingling, Trouble Speaking, Difficulty Walking, Gait Disturbance Psychiatric: Reports: No Symptoms - Patient Data Vitals - Most Recent: Last Vital Signs Temp 98.4 F 08/09/21 04:17 Pulse 64 08/09/21 04:17 Resp 21 H 08/09/21 05:00 BP 124/91 H 08/08/21 22:07 Pulse Ox 92 L 08/09/21 06:30 Weight - Most Recent: 107.864 kg I&O - Last 24 Hours: Intake & Output 08/08/21 08/09/21 08/09/21 22:59 06:59 14:59 Intake Total 1480 650 Output Total 650 875 Balance 830 -225 Lab Results Last 24 Hours: Laboratory Results - last 24 hr 08/08/21 08/08/21 08/08/21 Range/Units 08:07 08:07 11:44 WBC 8.50 (3.98-10.04) K/mm3 RBC 4.89 (3.98-5.22) M/mm3 Hgb 14.3 (11.2-15.7) gm/dl Hct 43.1 (34.1-44.9) % MCV 88.1 (79.4-94.8) fl MCH 29.2 (25.6-32.2) pg MCHC 33.2 (32.2-35.5) g/dl RDW Std Deviation 41.2 (36.4-46.3) fL Plt Count 279 (182-369) K/mm3 MPV 10.2 (9.4-12.3) fl Neut % (Auto) 73.2 H (34.0-71.1) % Lymph % (Auto) 15.8 L (19.3-51.7) % [place] % (Auto) 9.5 (4.7-12.5) % Eos % (Auto) 0.5 L (0.7-5.8) Baso % (Auto) 0.5 (0.1-1.2) % Neut # (Auto) 6.23 H (1.56-6.13) K/mm3 Lymph # (Auto) 1.34 (1.18-3.74) K/mm3 [place] # (Auto) 0.81 H (0.24-0.36) K/mm3 Eos # (Auto) 0.04 (0.04-0.36) K/mm3 Baso # (Auto) 0.04 (0.01-0.08) K/mm3 Manual Slide Review Normal smear D-Dimer, Quantitative (0.19-0.50) mg/L Sodium 142 (136-145) mEq/L Potassium 3.8 (3.5-5.1) mEq/L Chloride 104 (98-107) mEq/L Carbon Dioxide 28 (21-32) mEq/L Anion Gap 13.8 (5-15) BUN 24 H (7-18) mg/dL Creatinine 1.0 (0.55-1.02) mg/dL Est Cr Clr Drug Dosing 55.27 mL/min Estimated GFR (MDRD) 56 (>60) mL/min BUN/Creatinine Ratio 24.0 H (14-18) Glucose 96 (70-99) mg/dL POC Glucose 173 H (70-99) mg/dL Calcium 8.3 L (8.5-10.1) mg/dL Magnesium 2.3 (1.8-2.4) mg/dL Total Bilirubin 0.6 (0.2-1.0) mg/dL AST 26 (15-37) U/L ALT 23 (14-59) U/L Alkaline Phosphatase 84 (46-116) U/L C-Reactive Protein 2.6 H* (<1.0) mg/dL Total Protein 6.0 L (6.4-8.2) g/dl Albumin 2.5 L (3.4-5.0) g/dl Globulin 3.5 gm/dL Albumin/Globulin Ratio 0.7 L (1-2) 08/08/21 08/08/21 08/09/21 Range/Units 17:06 22:01 05:40 WBC 10.12 H (3.98-10.04) K/mm3 RBC 4.96 (3.98-5.22) M/mm3 Hgb 14.2 (11.2-15.7) gm/dl Hct 43.8 (34.1-44.9) % MCV 88.3 (79.4-94.8) fl MCH 28.6 (25.6-32.2) pg MCHC 32.4 (32.2-35.5) g/dl RDW Std Deviation 40.7 (36.4-46.3) fL Plt Count 302 (182-369) K/mm3 MPV 10.1 (9.4-12.3) fl Neut % (Auto) 78.6 H (34.0-71.1) % Lymph % (Auto) 12.3 L (19.3-51.7) % [place] % (Auto) 7.6 (4.7-12.5) % Eos % (Auto) 0.5 L (0.7-5.8) Baso % (Auto) 0.3 (0.1-1.2) % Neut # (Auto) 7.96 H (1.56-6.13) K/mm3 Lymph # (Auto) 1.24 (1.18-3.74) K/mm3 [place] # (Auto) 0.77 H (0.24-0.36) K/mm3 Eos # (Auto) 0.05 (0.04-0.36) K/mm3 Baso # (Auto) 0.03 (0.01-0.08) K/mm3 Manual Slide Review Normal smear D-Dimer, Quantitative (0.19-0.50) mg/L Sodium (136-145) mEq/L Potassium (3.5-5.1) mEq/L Chloride (98-107) mEq/L Carbon Dioxide (21-32) mEq/L Anion Gap (5-15) BUN (7-18) mg/dL Creatinine (0.55-1.02) mg/dL Est Cr Clr Drug Dosing mL/min Estimated GFR (MDRD) (>60) mL/min BUN/Creatinine Ratio (14-18) Glucose (70-99) mg/dL POC Glucose 245 H 255 H (70-99) mg/dL Calcium (8.5-10.1) mg/dL Magnesium (1.8-2.4) mg/dL Total Bilirubin (0.2-1.0) mg/dL AST (15-37) U/L ALT (14-59) U/L Alkaline Phosphatase (46-116) U/L C-Reactive Protein (<1.0) mg/dL Total Protein (6.4-8.2) g/dl Albumin (3.4-5.0) g/dl Globulin gm/dL Albumin/Globulin Ratio (1-2) 08/09/21 08/09/21 08/09/21 Range/Units 05:40 05:40 06:03 WBC (3.98-10.04) K/mm3 RBC (3.98-5.22) M/mm3 Hgb (11.2-15.7) gm/dl Hct (34.1-44.9) % MCV (79.4-94.8) fl MCH (25.6-32.2) pg MCHC (32.2-35.5) g/dl RDW Std Deviation (36.4-46.3) fL Plt Count (182-369) K/mm3 MPV (9.4-12.3) fl Neut % (Auto) (34.0-71.1) % Lymph % (Auto) (19.3-51.7) % [place] % (Auto) (4.7-12.5) % Eos % (Auto) (0.7-5.8) Baso % (Auto) (0.1-1.2) % Neut # (Auto) (1.56-6.13) K/mm3 Lymph # (Auto) (1.18-3.74) K/mm3 [place] # (Auto) (0.24-0.36) K/mm3 Eos # (Auto) (0.04-0.36) K/mm3 Baso # (Auto) (0.01-0.08) K/mm3 Manual Slide Review D-Dimer, Quantitative 12.98 H (0.19-0.50) mg/L Sodium 142 (136-145) mEq/L Potassium 4.6 (3.5-5.1) mEq/L Chloride 105 (98-107) mEq/L Carbon Dioxide 30 (21-32) mEq/L Anion Gap 11.6 (5-15) BUN 20 H (7-18) mg/dL Creatinine 0.9 (0.55-1.02) mg/dL Est Cr Clr Drug Dosing 61.41 mL/min Estimated GFR (MDRD) > 60 (>60) mL/min BUN/Creatinine Ratio 22.2 H (14-18) Glucose 84 (70-99) mg/dL POC Glucose 83 (70-99) mg/dL Calcium 8.2 L (8.5-10.1) mg/dL Magnesium 2.0 (1.8-2.4) mg/dL Total Bilirubin 0.7 (0.2-1.0) mg/dL AST 26 (15-37) U/L ALT 19 (14-59) U/L Alkaline Phosphatase 93 (46-116) U/L C-Reactive Protein 2.7 H* (<1.0) mg/dL Total Protein 5.8 L (6.4-8.2) g/dl Albumin 2.6 L (3.4-5.0) g/dl Globulin 3.2 gm/dL Albumin/Globulin Ratio 0.8 L (1-2) Med Orders - Current: Current Medications Acetaminophen (Acetaminophen 325 Mg Tab) 650 mg PO Q4H PRN PRN Reason: Pain (Mild 1-3)/fever Last Admin: 08/07/21 02:57 Dose: 650 mg Documented by: Albuterol (Albuterol 6.7 Gm Inhaler) 0 gm INH Q2H PRN PRN Reason: SOB/Wheezing Albuterol/Ipratropium (Albuterol/Ipratropium 3.0-0.5 Mg/3 Ml Neb Soln) 3 ml NEB QIDRT PRN PRN Reason: Shortness Of Breath/wheezing Last Admin: 08/08/21 20:14 Dose: 3 ml Documented by: Baricitinib (Baricitinib 2 Mg Tab) 2 mg PO DAILY [facility] Stop: 08/21/21 10:01 Last Admin: 08/08/21 09:11 Dose: 2 mg Documented by: Benzonatate (Benzonatate 100 Mg Cap) 200 mg PO Q8H PRN PRN Reason: Cough Last Admin: 08/07/21 03:02 Dose: 200 mg Documented by: Cholecalciferol (Cholecalciferol (Vitamin D3) 5,000 Unit Cap) 10,000 unit PO DAILY [facility] Last Admin: 08/08/21 09:12 Dose: 10,000 unit Documented by: Dexamethasone (Dexamethasone 4 Mg Tab) 6 mg PO DAILY [facility] Stop: 08/14/21 09:01 Last Admin: 08/08/21 09:13 Dose: 6 mg Documented by: Enoxaparin Sodium (Enoxaparin 40 Mg/0.4 Ml Syringe) 40 mg SUBCUT DAILY [facility] Last Admin: 08/08/21 09:13 Dose: 40 mg Documented by: Famotidine (Famotidine 20 Mg Tab) 20 mg PO BID [facility] Last Admin: 08/08/21 21:59 Dose: 20 mg Documented by: Guaifenesin (Guaifenesin 600 Mg Tab.Er) 600 mg PO TID [facility] Last Admin: 08/08/21 21:59 Dose: 600 mg Documented by: Remdesivir 100 mg/ Sodium (Chloride) 250 mls @ 250 mls/hr IV Q24H [facility] Stop: 08/09/21 09:59 Last Admin: 08/08/21 09:21 Dose: 250 mls/hr Documented by: Insulin Glargine (Insulin Glargine,Hum.Rec.Anlog 100 Unit/Ml 3 Ml Pen) 15 unit SUBCUT BEDTIME [facility] Last Admin: 08/08/21 21:59 Dose: 15 units Documented by: Insulin Human Lispro (Insulin Lispro 100 Unit/Ml 3 Ml Kwikpen) 0 unit SUBCUT QIDACANDBED [facility]; Protocol Last Admin: 08/08/21 22:02 Dose: 6 units Documented by: Levothyroxine Sodium (Levothyroxine 100 Mcg Tab) 100 mcg PO ACBREAKFAST [facility] Last Admin: 08/09/21 05:26 Dose: 100 mcg Documented by: Levothyroxine Sodium (Levothyroxine 25 Mcg Tab) 25 mcg PO ACBREAKFAST [facility] Last Admin: 08/09/21 05:26 Dose: 25 mcg Documented by: Melatonin (Melatonin 3 Mg Tab) 6 mg PO BEDTIME [facility] Last Admin: 08/08/21 21:59 Dose: 6 mg Documented by: Ondansetron HCl (Ondansetron 4 Mg/2 Ml Sdv) 4 mg IV Q6H PRN PRN Reason: Nausea/Vomiting Senna/Docusate Sodium (Docusate Sodium/Sennosides 50-8.6 Mg Tab) 1 tab PO DAILY PRN PRN Reason: Constipation Sertraline HCl (Sertraline 50 Mg Tab) 100 mg PO DAILY [facility] Last Admin: 08/08/21 09:12 Dose: 100 mg Documented by: Sodium Chloride (Sodium Chloride 0.9% 10 Ml Syringe) 10 ml FLUSH ASDIRECTED PRN PRN Reason: Keep Vein Open Last Admin: 08/05/21 09:23 Dose: 10 ml Documented by: Zinc Sulfate (Zinc Sulfate 220 Mg Cap) 220 mg PO DAILY [facility] Last Admin: 08/08/21 09:11 Dose: 220 mg Documented by: Discontinued Medications Acetaminophen (Acetaminophen 325 Mg Tab) 650 mg PO Q4H PRN PRN Reason: Fever Greater Than 101 Albuterol/Ipratropium (Albuterol/Ipratropium 3.0-0.5 Mg/3 Ml Neb Soln) 3 ml NEB ONETIME ONE Stop: 08/05/21 08:51 Last Admin: 08/05/21 09:10 Dose: 3 ml Documented by: Dexamethasone (Dexamethasone 4 Mg/Ml Sdv) 6 mg IVPUSH ONETIME ONE Stop: 08/05/21 08:50 Last Admin: 08/05/21 09:21 Dose: 6 mg Documented by: Enoxaparin Sodium (Enoxaparin 40 Mg/0.4 Ml Syringe) 40 mg SUBCUT ONETIME ONE Stop: 08/05/21 11:31 Last Admin: 08/05/21 15:04 Dose: Not Given Documented by: Guaifenesin (Guaifenesin 600 Mg Tab.Er) 600 mg PO TID [facility] Remdesivir 200 mg/ Sodium (Chloride) 250 mls @ 250 mls/hr IV ONETIME ONE Stop: 08/05/21 08:51 Last Admin: 08/05/21 09:21 Dose: 250 mls/hr Documented by: Sodium Chloride (Normal Saline) 1,000 mls @ 1,000 mls/hr IV .[place] Last Admin: 08/05/21 09:21 Dose: 1,000 mls/hr Documented by: Sodium Chloride (Normal Saline) 500 mls @ 999 mls/hr IV .BOLUS ONE Stop: 08/07/21 11:27 Last Admin: 08/07/21 11:39 Dose: 999 mls/hr Documented by: Ondansetron HCl (Ondansetron 4 Mg/2 Ml Sdv) 4 mg IVPUSH ONETIME ONE Stop: 08/05/21 08:49 Last Admin: 08/05/21 09:23 Dose: 4 mg Documented by: - Exam Quality Assessment: Supplemental Oxygen, DVT Prophylaxis General: Alert, Oriented, Cooperative, Mild Distress (Looks ill ) HEENT: Pupils Equal, Pupils Reactive, Mucous Membr. Moist/[place]: Supple, Trachea Midline Lungs: Decreased Breath Sounds. No: Normal Respiratory Effort (Tachypnea), Crackles, Rhonchi Cardiovascular: Regular Rate, Regular Rhythm GI/Abdominal Exam: Normal Bowel Sounds, Soft, Non-Tender, No Distention (Female) Exam: Deferred Back Exam: Normal Inspection, Full Range of Motion Extremities: Normal Inspection, Normal Range of Motion, Non-Tender, No Pedal Jamari ma Skin: Warm, Dry, Intact Neurological: No New Focal Deficit Psy/Mental Status: Alert, Normal Affect, Normal Mood - Patient Data Lab Results Last 24 hrs: Laboratory Results - last 24 hr 08/08/21 08/08/21 08/08/21 Range/Units 08:07 08:07 11:44 WBC 8.50 (3.98-10.04) K/mm3 RBC 4.89 (3.98-5.22) M/mm3 Hgb 14.3 (11.2-15.7) gm/dl Hct 43.1 (34.1-44.9) % MCV 88.1 (79.4-94.8) fl MCH 29.2 (25.6-32.2) pg MCHC 33.2 (32.2-35.5) g/dl RDW Std Deviation 41.2 (36.4-46.3) fL Plt Count 279 (182-369) K/mm3 MPV 10.2 (9.4-12.3) fl Neut % (Auto) 73.2 H (34.0-71.1) % Lymph % (Auto) 15.8 L (19.3-51.7) % [place] % (Auto) 9.5 (4.7-12.5) % Eos % (Auto) 0.5 L (0.7-5.8) Baso % (Auto) 0.5 (0.1-1.2) % Neut # (Auto) 6.23 H (1.56-6.13) K/mm3 Lymph # (Auto) 1.34 (1.18-3.74) K/mm3 [place] # (Auto) 0.81 H (0.24-0.36) K/mm3 Eos # (Auto) 0.04 (0.04-0.36) K/mm3 Baso # (Auto) 0.04 (0.01-0.08) K/mm3 Manual Slide Review Normal smear D-Dimer, Quantitative (0.19-0.50) mg/L Sodium 142 (136-145) mEq/L Potassium 3.8 (3.5-5.1) mEq/L Chloride 104 (98-107) mEq/L Carbon Dioxide 28 (21-32) mEq/L Anion Gap 13.8 (5-15) BUN 24 H (7-18) mg/dL Creatinine 1.0 (0.55-1.02) mg/dL Est Cr Clr Drug Dosing 55.27 mL/min Estimated GFR (MDRD) 56 (>60) mL/min BUN/Creatinine Ratio 24.0 H (14-18) Glucose 96 (70-99) mg/dL POC Glucose 173 H (70-99) mg/dL Calcium 8.3 L (8.5-10.1) mg/dL Magnesium 2.3 (1.8-2.4) mg/dL Total Bilirubin 0.6 (0.2-1.0) mg/dL AST 26 (15-37) U/L ALT 23 (14-59) U/L Alkaline Phosphatase 84 (46-116) U/L C-Reactive Protein 2.6 H* (<1.0) mg/dL Total Protein 6.0 L (6.4-8.2) g/dl Albumin 2.5 L (3.4-5.0) g/dl Globulin 3.5 gm/dL Albumin/Globulin Ratio 0.7 L (1-2) 08/08/21 08/08/21 08/09/21 Range/Units 17:06 22:01 05:40 WBC 10.12 H (3.98-10.04) K/mm3 RBC 4.96 (3.98-5.22) M/mm3 Hgb 14.2 (11.2-15.7) gm/dl Hct 43.8 (34.1-44.9) % MCV 88.3 (79.4-94.8) fl MCH 28.6 (25.6-32.2) pg MCHC 32.4 (32.2-35.5) g/dl RDW Std Deviation 40.7 (36.4-46.3) fL Plt Count 302 (182-369) K/mm3 MPV 10.1 (9.4-12.3) fl Neut % (Auto) 78.6 H (34.0-71.1) % Lymph % (Auto) 12.3 L (19.3-51.7) % [place] % (Auto) 7.6 (4.7-12.5) % Eos % (Auto) 0.5 L (0.7-5.8) Baso % (Auto) 0.3 (0.1-1.2) % Neut # (Auto) 7.96 H (1.56-6.13) K/mm3 Lymph # (Auto) 1.24 (1.18-3.74) K/mm3 [place] # (Auto) 0.77 H (0.24-0.36) K/mm3 Eos # (Auto) 0.05 (0.04-0.36) K/mm3 Baso # (Auto) 0.03 (0.01-0.08) K/mm3 Manual Slide Review Normal smear D-Dimer, Quantitative (0.19-0.50) mg/L Sodium (136-145) mEq/L Potassium (3.5-5.1) mEq/L Chloride (98-107) mEq/L Carbon Dioxide (21-32) mEq/L Anion Gap (5-15) BUN (7-18) mg/dL Creatinine (0.55-1.02) mg/dL Est Cr Clr Drug Dosing mL/min Estimated GFR (MDRD) (>60) mL/min BUN/Creatinine Ratio (14-18) Glucose (70-99) mg/dL POC Glucose 245 H 255 H (70-99) mg/dL Calcium (8.5-10.1) mg/dL Magnesium (1.8-2.4) mg/dL Total Bilirubin (0.2-1.0) mg/dL AST (15-37) U/L ALT (14-59) U/L Alkaline Phosphatase (46-116) U/L C-Reactive Protein (<1.0) mg/dL Total Protein (6.4-8.2) g/dl Albumin (3.4-5.0) g/dl Globulin gm/dL Albumin/Globulin Ratio (1-2) 08/09/21 08/09/21 08/09/21 Range/Units 05:40 05:40 06:03 WBC (3.98-10.04) K/mm3 RBC (3.98-5.22) M/mm3 Hgb (11.2-15.7) gm/dl Hct (34.1-44.9) % MCV (79.4-94.8) fl MCH (25.6-32.2) pg MCHC (32.2-35.5) g/dl RDW Std Deviation (36.4-46.3) fL Plt Count (182-369) K/mm3 MPV (9.4-12.3) fl Neut % (Auto) (34.0-71.1) % Lymph % (Auto) (19.3-51.7) % [place] % (Auto) (4.7-12.5) % Eos % (Auto) (0.7-5.8) Baso % (Auto) (0.1-1.2) % Neut # (Auto) (1.56-6.13) K/mm3 Lymph # (Auto) (1.18-3.74) K/mm3 [place] # (Auto) (0.24-0.36) K/mm3 Eos # (Auto) (0.04-0.36) K/mm3 Baso # (Auto) (0.01-0.08) K/mm3 Manual Slide Review D-Dimer, Quantitative 12.98 H (0.19-0.50) mg/L Sodium 142 (136-145) mEq/L Potassium 4.6 (3.5-5.1) mEq/L Chloride 105 (98-107) mEq/L Carbon Dioxide 30 (21-32) mEq/L Anion Gap 11.6 (5-15) BUN 20 H (7-18) mg/dL Creatinine 0.9 (0.55-1.02) mg/dL Est Cr Clr Drug Dosing 61.41 mL/min Estimated GFR (MDRD) > 60 (>60) mL/min BUN/Creatinine Ratio 22.2 H (14-18) Glucose 84 (70-99) mg/dL POC Glucose 83 (70-99) mg/dL Calcium 8.2 L (8.5-10.1) mg/dL Magnesium 2.0 (1.8-2.4) mg/dL Total Bilirubin 0.7 (0.2-1.0) mg/dL AST 26 (15-37) U/L ALT 19 (14-59) U/L Alkaline Phosphatase 93 (46-116) U/L C-Reactive Protein 2.7 H* (<1.0) mg/dL Total Protein 5.8 L (6.4-8.2) g/dl Albumin 2.6 L (3.4-5.0) g/dl Globulin 3.2 gm/dL Albumin/Globulin Ratio 0.8 L (1-2) Result Diagrams: 08/09/21 05:40 08/09/21 05:40 Sepsis Event Note - Evaluation Sepsis Screening Result: No Definite Risk - Focused Exam Vital Signs: Vital Signs Temp Pulse Resp BP Pulse Ox Pulse Ox 08/09/21 06:30 92 L 08/09/21 05:00 21 H 08/09/21 04:17 98.4 F 64 19 90 L 08/09/21 04:00 20 08/09/21 03:00 32 H 08/09/21 02:00 27 H 08/09/21 01:00 30 H 08/09/21 00:00 23 H 08/08/21 23:00 24 H 08/08/21 22:07 97.7 F 64 17 124/91 H 91 L 08/08/21 22:00 23 H 08/08/21 21:00 32 H 08/08/21 20:15 90 L 08/08/21 20:05 30 H 08/08/21 20:00 27 H - Problem List & Annotations (1) Depression SNOMED Code(s): 40376536 Code(s): F32.A - DEPRESSION, UNSPECIFIED Status: Chronic Priority: Low Current Visit: No Qualifiers: Depression Type: other depression Qualified Code(s): F32.89 - Other specified depressive episodes (2) Hypothyroidism SNOMED Code(s): 69997584 Code(s): E03.9 - HYPOTHYROIDISM, UNSPECIFIED Status: Chronic Priority: Low Current Visit: No Qualifiers: Hypothyroidism type: unspecified Qualified Code(s): E03.9 - Hypothyroidism, unspecified (3) Elevated d-dimer SNOMED Code(s): 903853415 Code(s): R79.89 - OTHER SPECIFIED ABNORMAL FINDINGS OF BLOOD CHEMISTRY Status: Acute Priority: Medium Current Visit: Yes (4) Thrombocytopenia SNOMED Code(s): 194318067 Code(s): D69.6 - THROMBOCYTOPENIA, UNSPECIFIED Status: Resolved Priority: Medium Current Visit: Yes (5) Hyponatremia SNOMED Code(s): 03648875 Code(s): E87.1 - HYPO-OSMOLALITY AND HYPONATREMIA Status: Resolved Prior ity: Medium Current Visit: Yes (6) Volume depletion SNOMED Code(s): 814884932 Code(s): E86.9 - VOLUME DEPLETION, UNSPECIFIED Status: Acute Priority: Medium Current Visit: Yes (7) Nausea SNOMED Code(s): 015957938 Code(s): R11.0 - NAUSEA Status: Resolved Priority: Medium Current Visit: Yes (8) Pneumonia due to COVID-19 virus SNOMED Code(s): 336946668078929804 Code(s): U07.1 - COVID-19; J12.82 - PNEUMONIA DUE TO CORONAVIRUS DISEASE 2019 Status: Acute Priority: High Current Visit: Yes (9) Hypoxia SNOMED Code(s): 357295817 Code(s): R09.02 - HYPOXEMIA Status: Acute Priority: High Current Visit: Yes (10) Generalized weakness SNOMED Code(s): 16652097 Code(s): R53.1 - WEAKNESS Status: Acute Priority: Medium Current Visit: Yes (11) ANAHI (acute kidney injury) SNOMED Code(s): 31961878, 64886243 Code(s): N17.9 - ACUTE KIDNEY FAILURE, UNSPECIFIED Status: Acute Priority: High Current Visit: Yes (12) New onset type 2 diabetes mellitus SNOMED Code(s): 70773045 Code(s): E11.9 - TYPE 2 DIABETES MELLITUS WITHOUT COMPLICATIONS Status: Chronic Priority: High Current Visit: Yes (13) Vitamin D deficiency SNOMED Code(s): 04817254 Code(s): E55.9 - VITAMIN D DEFICIENCY, UNSPECIFIED Status: Acute Prior ity: High Current Visit: Yes (14) Hyperglycemia SNOMED Code(s): 37479032 Code(s): R73.9 - HYPERGLYCEMIA, UNSPECIFIED Status: Acute Priority: High Current Visit: Yes (15) Pulmonary emboli SNOMED Code(s): 94245671 Code(s): I26.99 - OTHER PULMONARY EMBOLISM WITHOUT ACUTE COR PULMONALE Status: Acute Priority: High Current Visit: Yes Qualifiers: Pulmonary embolism type: multiple subsegmental (without acute cor pulmonale) Qualified Code(s): I26.94 - Multiple subsegmental pulmonary emboli without acute cor pulmonale - Problem List Review Problem List Initiated/Reviewed/Updated: Yes - My Orders Last 24 Hours: My Active Orders 08/11/21 05:11 D-DIMER QUANTITATIVE [COAG] Q48H - Assessment Assessment:: 08/06/2021 66-year-old female admitted to the floor for treatment of her COVID-19 pneumonia. Patient continues on dexamethasone and remdesivir. She is requiring 25 L of high flow oxygen with an FiO2 of 85% today. She is utilizing her incentive spirometer and Acapella sparingly and she was instructed to increase her use of this. We discussed proning. She was offered baricitinib and is refusing at this time. We will continue to offer this. Labs today show WBC of 6.24. Hemoglobin 14.4. Platelet 184,000. Neutrophils are elevated 74.3%. Sodium is 136. Potassium 4.3. Carbon oxide 27. Anion gap is 12.3. BUN is 30. Creatinine 1.1. GFR is 50. Magnesium was 2.2. Bilirubin 0.5. AST was 30, ALT was 26, alkaline phosphatase 79. CRP is improved 6.2. Albumin is 2.8. Vitamin D obtained yesterday was 12.7 and she was started on supplementation. Procalcitonin was 0.10. Due to her hyperglycemia A1c was obtained and was 10.7. Will order diabetic education and dietitian consultation. Patient reports she has been prediabetic in the past. We will start 15 units of long-acting insulin and medium intensity sliding scale insulin. We will check 4 times daily before meals and bedtime blood glucose checks. Anticipate rise in blood glucose readings due to steroids. Unknown length of stay due to severity of symptoms. 08/07/2021 66-year-old female admitted the floor for COVID-19 pneumonia. She continues on dexamethasone and remdesivir. She is requiring 35 L of oxygen with an FiO2 of 80%. She is using her I-S and Acapella. She is very weak. Labs today show WBC of 8.08. Hemoglobin 14.6. Platelet 262,000. Neutrophils are elevated 77.8%. D-dimer is 1.81. Sodium is 139. Potassium 4.4. Chloride 103. Carbon dioxide 28. Anion gap is 12.4. BUN is 28. Creatinine is up to 1.2. GFR is down to 45. Glucose has been between 154 and 311. She remains on 15 units long-acting insulin at bedtime. Magnesium is 2.2. Bilirubin 0.6. AST is 27, ALT 26, alkaline phosphatase 78. CRP is down to 4.7. Protein is 5.9. Albumin is 2.7. special education paraeducator and dietitian are waiting for the patient is feeling better to discuss her new diabetic diagnosis. She reports she has not been sleeping well we will add scheduled nighttime melatonin. Unknown length of stay due to severity of symptoms. Because of her significant worsening oxygen saturations and requirement for high flow oxygenation I am recommending baricitinib. I spoke with Gail to provide information about baricitinib. I offered the "fax sheet for patients and parents/caregivers, for baricitinib" to read and review. I stated that therapy has been approved by an emergency use authorization process and has not fully been FDA reviewed or approved. I shared potential risks from the therapy including increased risk for serious infections, anaphylaxis, and reaction to medication. I discussed there are other potential treatment options that are currently not FDA approved to treat COVID-19. Offered opportunity to ask questions and all questions were answered. Gail voiced understanding and agreed to proceed with treatment. 08/08/2021 The patient is a 66-year-old lady who will be retained in hospitalization due to her treatment with remdesivir. She is also to be continued on baricitinib. I have instructed the patient in the use of the incentive spirometer and Acapella. She is also new onset diabetes and special education paraeducator has been ordered. The patient's blood glucose will be monitored and she will be maintained on a carb constant diet. The patient may need to have her insulin adjusted as her blood sugar indicates. The patient is also on DVT prophylaxis with the use of Lovenox 40 mg subcutaneous daily. Repeat laboratory studies have been ordered for the morning. Repeat chest x-ray is also been ordered. The patient should be appropriate for discharge upon completion of her remdesivir. 08/09/2021 66-year-old female admitted to the hospital due to COVID-19 treatment. She continues on remdesivir and baricitinib. Her oxygen demand has increased and she is up to 40 L with an FiO2 of 90%. D-dimer today was elevated at 12.98 and CTA was ordered. CTA returned "1. Pulmonary emboli within the segmental branches of the left lower lung as well as sagittal emboli bridging the segmental branches within the right middle lobe and right lower lobe. Pulmonary emboli extend into the subsegmental branches. 2. No compromise of the right heart is seen. 3. Diffuse parenchymal changes noted within both lungs compatible with very prominent COVID-19 pneumonia. 4. Fatty infiltration within the liver and other findings believed to be nonacute as described above." Because of this her Lovenox was increased to 1 mg/kg twice daily. Echocardiogram was ordered. Chest x-ray was obtained and shows very prominent COVID-19 pneumonia. She continues on high flow and up to 40 L with an FiO2 of 90%. WBC today is slightly elevated at 10.12, likely secondary to steroid use. Hemoglobin is 14.2. Platelet is 302,000. Neutrophils are elevated at 78.6%. D-dimer is 12.98. Sodium is 142. Potassium is 4.6. Chloride is 105. Carbon dioxide is 30. Anion gap is 11.6. BUN is 20. Creatinine 0.9. GFR is greater than 60. Glucose is 83-255. Magnesium 2.0. Bilirubin 0.7. AST is 26, ALT 19, alkaline phosphatase 93. CRP is 2.7. Albumin is 2.6. We will continue current treatment plan. Unknown length of stay due to severity of COVID-19 symptoms and new onset PE. - Plan Plan:: Pneumonia due to COVID-19 virus Hypoxia Generalized weakness Nausea, resolved * Prone whenever able * I-S/Acapella * Check procalcitonin * Check vitamin D * Respiratory therapy consultation * As needed DuoNebs * As needed albuterol inhaler * Remdesivir for 5 days * 6 mg dexamethasone for 10 days * As needed Zofran for nausea * O2 as needed to keep saturations between 88 and 95% * 20 mg famotidine twice daily * Physical therapy evaluation * Lovenox 40 mg daily * High flow oxygen 40 L with an FiO2 of 90%. * Every 48 hour D-dimer * Daily labs * Airborne/contact precautions * Telemetry * Continuous pulse oximetry * 14 days baricitinib Pulmonary embolism Elevated d-dimer * 1mg/kg Lovenox * Echocardiogram ordered to rule out right heart strain * Transition to [facility] Thrombocytopenia, Resolved * Likely secondary to above * Monitor daily labs Hyponatremia, resolved Volume depletion, resolved ANAHI, Reslved * Given 1 L fluid bolus in ED * Encourage oral rehydration * Avoid nephrotoxic medications if able * Monitor daily labs New onset diabetes mellitus Hyperglycemia * QID AC and Bedtime glucose checks * special education paraeducator consultation * Gauger Delivery consultation * Consistent carbohydrate diet * 15 units long acting insulin * Sliding scale medium intensity insulin * Anticipate rise in blood glucose readings 2/2 steroid use Vitamin D deficiency * Continue daily supplementation Depression * No acute concerns * Continue home zoloft Hypothyroidism * No acute concerns * Continue home levothyroxine Code status: Full code PCP: Heather Granado PA-C DVT prophylaxis: Lovenox Disposition: Patient mated to the floor for management of COVID-19 pneumonia with hypoxia. LOS >96hrs due to need for continued treatment due to severity of symptoms. <Levy Madison - Last Filed: 08/09/21 13:43> - Patient Data Vitals - Most Recent: Last Vital Signs Temp 36.9 C 08/09/21 04:17 Pulse 64 08/09/21 04:17 Resp 21 H 08/09/21 05:00 BP 124/91 H 08/08/21 22:07 Pulse Ox 88 L 08/09/21 10:36 I&O - Last 24 Hours: Intake & Output 08/08/21 08/09/21 08/09/21 22:59 06:59 14:59 Intake Total 1570 650 Output Total 650 875 Balance 920 -225 Lab Results Last 24 Hours: Laboratory Results - last 24 hr 08/08/21 08/08/21 08/09/21 Range/Units 17:06 22:01 05:40 WBC 10.12 H (3.98-10.04) K/mm3 RBC 4.96 (3.98-5.22) M/mm3 Hgb 14.2 (11.2-15.7) gm/dl Hct 43.8 (34.1-44.9) % MCV 88.3 (79.4-94.8) fl MCH 28.6 (25.6-32.2) pg MCHC 32.4 (32.2-35.5) g/dl RDW Std Deviation 40.7 (36.4-46.3) fL Plt Count 302 (182-369) K/mm3 MPV 10.1 (9.4-12.3) fl Neut % (Auto) 78.6 H (34.0-71.1) % Lymph % (Auto) 12.3 L (19.3-51.7) % [place] % (Auto) 7.6 (4.7-12.5) % Eos % (Auto) 0.5 L (0.7-5.8) Baso % (Auto) 0.3 (0.1-1.2) % Neut # (Auto) 7.96 H (1.56-6.13) K/mm3 Lymph # (Auto) 1.24 (1.18-3.74) K/mm3 [place] # (Auto) 0.77 H (0.24-0.36) K/mm3 Eos # (Auto) 0.05 (0.04-0.36) K/mm3 Baso # (Auto) 0.03 (0.01-0.08) K/mm3 Manual Slide Review Normal smear D-Dimer, Quantitative (0.19-0.50) mg/L Sodium (136-145) mEq/L Potassium (3.5-5.1) mEq/L Chloride (98-107) mEq/L Carbon Dioxide (21-32) mEq/L Anion Gap (5-15) BUN (7-18) mg/dL Creatinine (0.55-1.02) mg/dL Est Cr Clr Drug Dosing mL/min Estimated GFR (MDRD) (>60) mL/min BUN/Creatinine Ratio (14-18) Glucose (70-99) mg/dL POC Glucose 245 H 255 H (70-99) mg/dL Calcium (8.5-10.1) mg/dL Magnesium (1.8-2.4) mg/dL Total Bilirubin (0.2-1.0) mg/dL AST (15-37) U/L ALT (14-59) U/L Alkaline Phosphatase (46-116) U/L C-Reactive Protein (<1.0) mg/dL Total Protein (6.4-8.2) g/dl Albumin (3.4-5.0) g/dl Globulin gm/dL Albumin/Globulin Ratio (1-2) 08/09/21 08/09/21 08/09/21 Range/Units 05:40 05:40 06:03 WBC (3.98-10.04) K/mm3 RBC (3.98-5.22) M/mm3 Hgb (11.2-15.7) gm/dl Hct (34.1-44.9) % MCV (79.4-94.8) fl MCH (25.6-32.2) pg MCHC (32.2-35.5) g/dl RDW Std Deviation (36.4-46.3) fL Plt Count (182-369) K/mm3 MPV (9.4-12.3) fl Neut % (Auto) (34.0-71.1) % Lymph % (Auto) (19.3-51.7) % [place] % (Auto) (4.7-12.5) % Eos % (Auto) (0.7-5.8) Baso % (Auto) (0.1-1.2) % Neut # (Auto) (1.56-6.13) K/mm3 Lymph # (Auto) (1.18-3.74) K/mm3 [place] # (Auto) (0.24-0.36) K/mm3 Eos # (Auto) (0.04-0.36) K/mm3 Baso # (Auto) (0.01-0.08) K/mm3 Manual Slide Review D-Dimer, Quantitative 12.98 H (0.19-0.50) mg/L Sodium 142 (136-145) mEq/L Potassium 4.6 (3.5-5.1) mEq/L Chloride 105 (98-107) mEq/L Carbon Dioxide 30 (21-32) mEq/L Anion Gap 11.6 (5-15) BUN 20 H (7-18) mg/dL Creatinine 0.9 (0.55-1.02) mg/dL Est Cr Clr Drug Dosing 61.41 mL/min Estimated GFR (MDRD) > 60 (>60) mL/min BUN/Creatinine Ratio 22.2 H (14-18) Glucose 84 (70-99) mg/dL POC Glucose 83 (70-99) mg/dL Calcium 8.2 L (8.5-10.1) mg/dL Magnesium 2.0 (1.8-2.4) mg/dL Total Bilirubin 0.7 (0.2-1.0) mg/dL AST 26 (15-37) U/L ALT 19 (14-59) U/L Alkaline Phosphatase 93 (46-116) U/L C-Reactive Protein 2.7 H* (<1.0) mg/dL Total Protein 5.8 L (6.4-8.2) g/dl Albumin 2.6 L (3.4-5.0) g/dl Globulin 3.2 gm/dL Albumin/Globulin Ratio 0.8 L (1-2) 08/09/21 Range/Units 11:13 WBC (3.98-10.04) K/mm3 RBC (3.98-5.22) M/mm3 Hgb (11.2-15.7) gm/dl Hct (34.1-44.9) % MCV (79.4-94.8) fl MCH (25.6-32.2) pg MCHC (32.2-35.5) g/dl RDW Std Deviation (36.4-46.3) fL Plt Count (182-369) K/mm3 MPV (9.4-12.3) fl Neut % (Auto) (34.0-71.1) % Lymph % (Auto) (19.3-51.7) % [place] % (Auto) (4.7-12.5) % Eos % (Auto) (0.7-5.8) Baso % (Auto) (0.1-1.2) % Neut # (Auto) (1.56-6.13) K/mm3 Lymph # (Auto) (1.18-3.74) K/mm3 [place] # (Auto) (0.24-0.36) K/mm3 Eos # (Auto) (0.04-0.36) K/mm3 Baso # (Auto) (0.01-0.08) K/mm3 Manual Slide Review D-Dimer, Quantitative (0.19-0.50) mg/L Sodium (136-145) mEq/L Potassium (3.5-5.1) mEq/L Chloride (98-107) mEq/L Carbon Dioxide (21-32) mEq/L Anion Gap (5-15) BUN (7-18) mg/dL Creatinine (0.55-1.02) mg/dL Est Cr Clr Drug Dosing mL/min Estimated GFR (MDRD) (>60) mL/min BUN/Creatinine Ratio (14-18) Glucose (70-99) mg/dL POC Glucose 139 H (70-99) mg/dL Calcium (8.5-10.1) mg/dL Magnesium (1.8-2.4) mg/dL Total Bilirubin (0.2-1.0) mg/dL AST (15-37) U/L ALT (14-59) U/L Alkaline Phosphatase (46-116) U/L C-Reactive Protein (<1.0) mg/dL Total Protein (6.4-8.2) g/dl Albumin (3.4-5.0) g/dl Globulin gm/dL Albumin/Globulin Ratio (1-2) Med Orders - Current: Current Medications Acetaminophen (Acetaminophen 325 Mg Tab) 650 mg PO Q4H PRN PRN Reason: Pain (Mild 1-3)/fever Last Admin: 08/07/21 02:57 Dose: 650 mg Documented by: Albuterol (Albuterol 6.7 Gm Inhaler) 0 gm INH Q2H PRN PRN Reason: SOB/Wheezing Albuterol/Ipratropium (Albuterol/Ipratropium 3.0-0.5 Mg/3 Ml Neb Soln) 3 ml NEB QIDRT PRN PRN Reason: Shortness Of Breath/wheezing Last Admin: 08/09/21 10:35 Dose: 3 ml Documented by: Baricitinib (Baricitinib 2 Mg Tab) 4 mg PO DAILY [facility] Stop: 08/20/21 09:01 Benzonatate (Benzonatate 100 Mg Cap) 200 mg PO Q8H PRN PRN Reason: Cough Last Admin: 08/07/21 03:02 Dose: 200 mg Documented by: Cholecalciferol (Cholecalciferol (Vitamin D3) 5,000 Unit Cap) 10,000 unit PO DAILY [facility] Last Admin: 08/09/21 08:21 Dose: 10,000 unit Documented by: Dexamethasone (Dexamethasone 4 Mg Tab) 6 mg PO DAILY [facility] Stop: 08/14/21 09:01 Last Admin: 08/09/21 08:21 Dose: 6 mg Documented by: Enoxaparin Sodium (Enoxaparin 120 Mg/0.8 Ml Syringe) 110 mg SUBCUT Q12H [facility] Famotidine (Famotidine 20 Mg Tab) 20 mg PO BID [facility] Last Admin: 08/09/21 08:20 Dose: 20 mg Documented by: Guaifenesin (Guaifenesin 600 Mg Tab.Er) 600 mg PO TID [facility] Last Admin: 08/09/21 08:20 Dose: 600 mg Documented by: Sodium Chloride (Normal Saline) 100 mls @ 75 mls/hr IV ASDIRECTED [facility] Last Admin: 08/09/21 10:03 Dose: 75 mls/hr Documented by: Insulin Glargine (Insulin Glargine,Hum.Rec.Anlog 100 Unit/Ml 3 Ml Pen) 15 unit SUBCUT BEDTIME [facility] Last Admin: 08/08/21 21:59 Dose: 15 units Documented by: Insulin Human Lispro (Insulin Lispro 100 Unit/Ml 3 Ml Kwikpen) 0 unit SUBCUT QIDACANDBED [facility]; Protocol Last Admin: 08/09/21 11:20 Dose: Not Given Documented by: Levothyroxine Sodium (Levothyroxine 100 Mcg Tab) 100 mcg PO ACBREAKFAST [facility] Last Admin: 08/09/21 05:26 Dose: 100 mcg Documented by: Levothyroxine Sodium (Levothyroxine 25 Mcg Tab) 25 mcg PO ACBREAKFAST [facility] Last Admin: 08/09/21 05:26 Dose: 25 mcg Documented by: Melatonin (Melatonin 3 Mg Tab) 6 mg PO BEDTIME [facility] Last Admin: 08/08/21 21:59 Dose: 6 mg Documented by: Ondansetron HCl (Ondansetron 4 Mg/2 Ml Sdv) 4 mg IV Q6H PRN PRN Reason: Nausea/Vomiting Senna/Docusate Sodium (Docusate Sodium/Sennosides 50-8.6 Mg Tab) 1 tab PO DAILY PRN PRN Reason: Constipation Sertraline HCl (Sertraline 50 Mg Tab) 100 mg PO DAILY [facility] Last Admin: 08/09/21 08:20 Dose: 100 mg Documented by: Sodium Chloride (Sodium Chloride 0.9% 10 Ml Syringe) 10 ml FLUSH ASDIRECTED PRN PRN Reason: Keep Vein Open Last Admin: 08/05/21 09:23 Dose: 10 ml Documented by: Sodium Chloride (Sodium Chloride 0.9% 10 Ml Syringe) 10 ml FLUSH ONETIME PRN PRN Reason: IV FLUSH Zinc Sulfate (Zinc Sulfate 220 Mg Cap) 220 mg PO DAILY [facility] Last Admin: 08/09/21 08:21 Dose: 220 mg Documented by: Discontinued Medications Acetaminophen (Acetaminophen 325 Mg Tab) 650 mg PO Q4H PRN PRN Reason: Fever Greater Than 101 Albuterol/Ipratropium (Albuterol/Ipratropium 3.0-0.5 Mg/3 Ml Neb Soln) 3 ml NEB ONETIME ONE Stop: 08/05/21 08:51 Last Admin: 08/05/21 09:10 Dose: 3 ml Documented by: Baricitinib (Baricitinib 2 Mg Tab) 2 mg PO DAILY [facility] Stop: 08/21/21 10:01 Last Admin: 08/09/21 08:21 Dose: 2 mg Documented by: Dexamethasone (Dexamethasone 4 Mg/Ml Sdv) 6 mg IVPUSH ONETIME ONE Stop: 08/05/21 08:50 Last Admin: 08/05/21 09:21 Dose: 6 mg Documented by: Enoxaparin Sodium (Enoxaparin 40 Mg/0.4 Ml Syringe) 40 mg SUBCUT DAILY [facility] Last Admin: 08/09/21 08:21 Dose: 40 mg Documented by: Enoxaparin Sodium (Enoxaparin 40 Mg/0.4 Ml Syringe) 40 mg SUBCUT ONETIME ONE Stop: 08/05/21 11:31 Last Admin: 08/05/21 15:04 Dose: Not Given Documented by: Enoxaparin Sodium (Enoxaparin 80 Mg/0.8 Ml Syringe) 70 mg SUBCUT ONETIME ONE Stop: 08/09/21 10:02 Last Admin: 08/09/21 11:33 Dose: 70 mg Documented by: Guaifenesin (Guaifenesin 600 Mg Tab.Er) 600 mg PO TID [place] Remdesivir 200 mg/ Sodium (Chloride) 250 mls @ 250 mls/hr IV ONETIME ONE Stop: 08/05/21 08:51 Last Admin: 08/05/21 09:21 Dose: 250 mls/hr Documented by: Sodium Chloride (Normal Saline) 1,000 mls @ 1,000 mls/hr IV .BOLUS [place] Last Admin: 08/05/21 09:21 Dose: 1,000 mls/hr Documented by: Remdesivir 100 mg/ Sodium (Chloride) 250 mls @ 250 mls/hr IV Q24H [place] Stop: 08/09/21 09:59 Last Admin: 08/09/21 08:21 Dose: 250 mls/hr Documented by: Sodium Chloride (Normal Saline) 500 mls @ 999 mls/hr IV .BOLUS ONE Stop: 08/07/21 11:27 Last Admin: 08/07/21 11:39 Dose: 999 mls/hr Documented by: Iopamidol (Iopamidol 755 Mg/Ml 100 Ml Bottle) 100 ml IVPUSH ONETIME ONE Stop: 08/09/21 09:06 Last Admin: 08/09/21 10:04 Dose: 100 ml Documented by: Ondansetron HCl (Ondansetron 4 Mg/2 Ml Sdv) 4 mg IVPUSH ONETIME ONE Stop: 08/05/21 08:49 Last Admin: 08/05/21 09:23 Dose: 4 mg Documented by: - Patient Data Lab Results Last 24 hrs: Laboratory Results - last 24 hr 08/08/21 08/08/21 08/09/21 Range/Units 17:06 22:01 05:40 WBC 10.12 H (3.98-10.04) K/mm3 RBC 4.96 (3.98-5.22) M/mm3 Hgb 14.2 (11.2-15.7) gm/dl Hct 43.8 (34.1-44.9) % MCV 88.3 (79.4-94.8) fl MCH 28.6 (25.6-32.2) pg MCHC 32.4 (32.2-35.5) g/dl RDW Std Deviation 40.7 (36.4-46.3) fL Plt Count 302 (182-369) K/mm3 MPV 10.1 (9.4-12.3) fl Neut % (Auto) 78.6 H (34.0-71.1) % Lymph % (Auto) 12.3 L (19.3-51.7) % [place] % (Auto) 7.6 (4.7-12.5) % Eos % (Auto) 0.5 L (0.7-5.8) Baso % (Auto) 0.3 (0.1-1.2) % Neut # (Auto) 7.96 H (1.56-6.13) K/mm3 Lymph # (Auto) 1.24 (1.18-3.74) K/mm3 [place] # (Auto) 0.77 H (0.24-0.36) K/mm3 Eos # (Auto) 0.05 (0.04-0.36) K/mm3 Baso # (Auto) 0.03 (0.01-0.08) K/mm3 Manual Slide Review Normal smear D-Dimer, Quantitative (0.19-0.50) mg/L Sodium (136-145) mEq/L Potassium (3.5-5.1) mEq/L Chloride (98-107) mEq/L Carbon Dioxide (21-32) mEq/L Anion Gap (5-15) BUN (7-18) mg/dL Creatinine (0.55-1.02) mg/dL Est Cr Clr Drug Dosing mL/min Estimated GFR (MDRD) (>60) mL/min BUN/Creatinine Ratio (14-18) Glucose (70-99) mg/dL POC Glucose 245 H 255 H (70-99) mg/dL Calcium (8.5-10.1) mg/dL Magnesium (1.8-2.4) mg/dL Total Bilirubin (0.2-1.0) mg/dL AST (15-37) U/L ALT (14-59) U/L Alkaline Phosphatase (46-116) U/L C-Reactive Protein (<1.0) mg/dL Total Protein (6.4-8.2) g/dl Albumin (3.4-5.0) g/dl Globulin gm/dL Albumin/Globulin Ratio (1-2) 08/09/21 08/09/21 08/09/21 Range/Units 05:40 05:40 06:03 WBC (3.98-10.04) K/mm3 RBC (3.98-5.22) M/mm3 Hgb (11.2-15.7) gm/dl Hct (34.1-44.9) % MCV (79.4-94.8) fl MCH (25.6-32.2) pg MCHC (32.2-35.5) g/dl RDW Std Deviation (36.4-46.3) fL Plt Count (182-369) K/mm3 MPV (9.4-12.3) fl Neut % (Auto) (34.0-71.1) % Lymph % (Auto) (19.3-51.7) % [place] % (Auto) (4.7-12.5) % Eos % (Auto) (0.7-5.8) Baso % (Auto) (0.1-1.2) % Neut # (Auto) (1.56-6.13) K/mm3 Lymph # (Auto) (1.18-3.74) K/mm3 [place] # (Auto) (0.24-0.36) K/mm3 Eos # (Auto) (0.04-0.36) K/mm3 Baso # (Auto) (0.01-0.08) K/mm3 Manual Slide Review D-Dimer, Quantitative 12.98 H (0.19-0.50) mg/L Sodium 142 (136-145) mEq/L Potassium 4.6 (3.5-5.1) mEq/L Chloride 105 (98-107) mEq/L Carbon Dioxide 30 (21-32) mEq/L Anion Gap 11.6 (5-15) BUN 20 H (7-18) mg/dL Creatinine 0.9 (0.55-1.02) mg/dL Est Cr Clr Drug Dosing 61.41 mL/min Estimated GFR (MDRD) > 60 (>60) mL/min BUN/Creatinine Ratio 22.2 H (14-18) Glucose 84 (70-99) mg/dL POC Glucose 83 (70-99) mg/dL Calcium 8.2 L (8.5-10.1) mg/dL Magnesium 2.0 (1.8-2.4) mg/dL Total Bilirubin 0.7 (0.2-1.0) mg/dL AST 26 (15-37) U/L ALT 19 (14-59) U/L Alkaline Phosphatase 93 (46-116) U/L C-Reactive Protein 2.7 H* (<1.0) mg/dL Total Protein 5.8 L (6.4-8.2) g/dl Albumin 2.6 L (3.4-5.0) g/dl Globulin 3.2 gm/dL Albumin/Globulin Ratio 0.8 L (1-2) 11/26/21 Range/Units 11:13 WBC (3.98-10.04) K/mm3 RBC (3.98-5.22) M/mm3 Hgb (11.2-15.7) gm/dl Hct (34.1-44.9) % MCV (79.4-94.8) fl MCH (25.6-32.2) pg MCHC (32.2-35.5) g/dl RDW Std Deviation (36.4-46.3) fL Plt Count (182-369) K/mm3 MPV (9.4-12.3) fl Neut % (Auto) (34.0-71.1) % Lymph % (Auto) (19.3-51.7) % [place] % (Auto) (4.7-12.5) % Eos % (Auto) (0.7-5.8) Baso % (Auto) (0.1-1.2) % Neut # (Auto) (1.56-6.13) K/mm3 Lymph # (Auto) (1.18-3.74) K/mm3 [place] # (Auto) (0.24-0.36) K/mm3 Eos # (Auto) (0.04-0.36) K/mm3 Baso # (Auto) (0.01-0.08) K/mm3 Manual Slide Review D-Dimer, Quantitative (0.19-0.50) mg/L Sodium (136-145) mEq/L Potassium (3.5-5.1) mEq/L Chloride (98-107) mEq/L Carbon Dioxide (21-32) mEq/L Anion Gap (5-15) BUN (7-18) mg/dL Creatinine (0.55-1.02) mg/dL Est Cr Clr Drug Dosing mL/min Estimated GFR (MDRD) (>60) mL/min BUN/Creatinine Ratio (14-18) Glucose (70-99) mg/dL POC Glucose 139 H (70-99) mg/dL Calcium (8.5-10.1) mg/dL Magnesium (1.8-2.4) mg/dL Total Bilirubin (0.2-1.0) mg/dL AST (15-37) U/L ALT (14-59) U/L Alkaline Phosphatase (46-116) U/L C-Reactive Protein (<1.0) mg/dL Total Protein (6.4-8.2) g/dl Albumin (3.4-5.0) g/dl Globulin gm/dL Albumin/Globulin Ratio (1-2) Result Diagrams: 08/09/21 05:40 08/09/21 05:40 Sepsis Event Note - Focused Exam Vital Signs: Vital Signs Temp Pulse Resp Pulse Ox Pulse Ox 08/09/21 10:36 88 L 08/09/21 06:30 92 L 08/09/21 05:00 21 H 08/09/21 04:17 36.9 C 64 19 90 L 08/09/21 04:00 20 08/09/21 03:00 32 H 08/09/21 02:00 27 H - Problem List & Annotations (1) Pneumonia due to COVID-19 virus SNOMED Code(s): 678618127461505195 Code(s): U07.1 - COVID-19; J12.82 - PNEUMONIA DUE TO CORONAVIRUS DISEASE 2019 Status: Acute Priority: High Current Visit: Yes (2) ANAHI (acute kidney injury) SNOMED Code(s): 37827054, 74894011 Code(s): N17.9 - ACUTE KIDNEY FAILURE, UNSPECIFIED Status: Acute Priority: High Current Visit: Yes (3) Generalized weakness SNOMED Code(s): 65212892 Code(s): R53.1 - WEAKNESS Status: Acute Priority: Medium Current Visit: Yes (4) New onset type 2 diabetes mellitus SNOMED Code(s): 51448739 Code(s): E11.9 - TYPE 2 DIABETES MELLITUS WITHOUT COMPLICATIONS Status: Chronic Priority: High Current Visit: Yes (5) Vitamin D deficiency SNOMED Code(s): 27546449 Code(s): E55.9 - VITAMIN D DEFICIENCY, UNSPECIFIED Status: Acute Priority: High Current Visit: Yes - Free Text/Narrative Note: I have seen and examined the patient independently of TONNY Willett. I have discussed the case with him. I have also reviewed and agree with the plan of care as outlined by him. Please see orders.
[2021-08-09] MEDS: Insulin Lispro 100 Unit/ML 3 ML KwikPen SUBCUT SCH ×4 (08:10→21:26)
[2021-08-09] MEDS: guaiFENesin 600 MG Tab.ER PO SCH ×3 (08:20→21:25)
[2021-08-09] MEDS: Famotidine 20 MG Tab PO SCH ×2 (08:20→21:25)
[2021-08-09] MEDS: Sertraline 50 MG Tab PO SCH (08:20)
[2021-08-09] MEDS: Cholecalciferol (Vitamin D3) 5,000 UNIT Cap PO SCH (08:21)
[2021-08-09] MEDS: Enoxaparin 40 MG/0.4 ML Syringe SUBCUT SCH (08:21)
[2021-08-09] MEDS: REMDESIVIR 100 MG in Sodium Chloride 0.9% 250 ML IV SCH (08:21)
[2021-08-09] MEDS: Dexamethasone 4 MG Tab PO SCH (08:21)
[2021-08-09] MEDS: Zinc Sulfate 220 MG Cap PO SCH (08:21)
[2021-08-09] MEDS ORDERED: Sodium Chloride 0.9% 10 ML Syringe FLUSH PRN (09:05)
[2021-08-09] MEDS ORDERED: Sodium Chloride 0.9% 100 ML IV SCH (09:15)
--- NOTE | 2021-08-09 09:27 | CR ---
Chest: Frontal view of the chest was obtained. Comparison: Prior chest x-ray of 08/05/21. Diffuse increased density is seen on both sides of the chest. These findings have worsened from prior chest x-ray. Heart is slightly enlarged. Upper mediastinum is normal. Bony structures show nothing acute. Impression: 1. Worsening densities on both sides of the chest from prior chest x-ray compatible with worsening COVID pneumonia. Diagnostic code #3
[2021-08-09] MEDS: Iopamidol 755 Mg/ML 100 ML Bottle IVPUSH ONE ×2 (09:56→10:04)
[2021-08-09] MEDS ORDERED: Enoxaparin 80 MG/0.8 ML Syringe SUBCUT ONE (10:01)
--- NOTE | 2021-08-09 10:30 | CT ---
CT chest Technique: Multiple axial sections through the chest were obtained. Intravenous contrast was utilized. Study has been performed as a pulmonary angiogram protocol. Comparison: No prior chest CT is available, prior chest x-ray performed earlier on the same date (8:17 AM). Findings: Pulmonary emboli are seen within the segmental branches of the left lower lung extending into the subsegmental branches. Pulmonary emboli are also noted which bifurcate into the segmental branches within the right lower lung and right middle lobe. Soft tissue nodule is noted posteriorly within the upper right chest which measures 2.3 cm which is most likely benign. Thoracic aorta shows no aneurysm. Mediastinum shows no adenopathy. No axillary adenopathy is noted. No pericardial thickening is seen. Heart is enlarged. Fatty infiltration is noted within the liver. Surgical clips are seen from prior cholecystectomy. Lung window settings were reviewed. Diffuse parenchymal change is identified throughout both lungs. No pleural effusions are seen. Bone window settings were reviewed. Mild scattered disc space narrowing is seen within the spine. No acute osseous abnormality is appreciated. Impression: 1. Pulmonary emboli within the segmental branches of the left lower lung as well as sagittal emboli bridging the segmental branches within the right middle lobe and right lower lobe. Pulmonary emboli extend into the subsegmental branches. 2. No compromise of the right heart is seen. 3. Diffuse parenchymal change is noted throughout both lungs compatible with very prominent COVID-19 pneumonia. 4. Fatty infiltration within the liver and other findings believed to be nonacute as described above. Diagnostic code #3
[2021-08-09] MEDS: Albuterol/Ipratropium 3.0-0.5 MG/3 ML Neb Soln NEB PRN (10:35)
[2021-08-09] MEDS: Enoxaparin 120 MG/0.8 ML Syringe SUBCUT SCH (21:24)
[2021-08-09] MEDS: Melatonin 3 MG Tab PO SCH (21:24)
[2021-08-09] MEDS: Insulin Glargine,Hum.Rec.Anlog 100 UNIT/ML 3 ML Pen SUBCUT SCH (21:26)
[2021-08-10] MEDS: Levothyroxine 100 MCG Tab PO SCH (06:31)
[2021-08-10] MEDS: Insulin Lispro 100 Unit/ML 3 ML KwikPen SUBCUT SCH ×5 (06:32→22:12)
[2021-08-10] MEDS: Levothyroxine 25 MCG Tab PO SCH (06:32)
--- NOTE | 2021-08-10 08:17 | PCM.PN ---
- General Info Date of Service: 08/10/21 Admission Dx/Problem (Free Text): Hypoxia Subjective Update: The patient is a 66-year-old lady who yesterday had been diagnosed with bilateral pulmonary emboli. The patient also had been previously diagnosed with COVID-19 pneumonia. The patient has had cough still. She feels weak and fatigued. The patient has been tolerating her diet. Functional Status: Reports: Pain Controlled, Tolerating Diet. Denies: New Symptoms - Review of Systems General: Reports: Weakness, Fatigue HEENT: Reports: No Symptoms Pulmonary: Reports: Shortness of Breath, Cough Cardiovascular: Reports: No Symptoms Gastrointestinal: Reports: No Symptoms Genitourinary: Reports: No Symptoms Musculoskeletal: Reports: No Symptoms Skin: Reports: No Symptoms Neurological: Reports: No Symptoms Psychiatric: Reports: No Symptoms - Patient Data Vitals - Most Recent: Last Vital Signs Temp 36.6 C 08/10/21 03:55 Pulse 64 08/10/21 03:55 Resp 24 H 08/10/21 03:55 BP 129/70 08/10/21 03:55 Pulse Ox 90 L 08/10/21 03:55 Weight - Most Recent: 105.097 kg I&O - Last 24 Hours: Intake & Output 08/09/21 08/10/21 08/10/21 22:59 06:59 14:59 Intake Total 0 800 Output Total 750 Balance 0 50 Lab Results Last 24 Hours: Laboratory Results - last 24 hr 08/09/21 08/09/21 08/09/21 Range/Units 11:13 16:35 21:22 WBC (3.98-10.04) K/mm3 RBC (3.98-5.22) M/mm3 Hgb (11.2-15.7) gm/dl Hct (34.1-44.9) % MCV (79.4-94.8) fl MCH (25.6-32.2) pg MCHC (32.2-35.5) g/dl RDW Std Deviation (36.4-46.3) fL Plt Count (182-369) K/mm3 MPV (9.4-12.3) fl Neut % (Auto) (34.0-71.1) % Lymph % (Auto) (19.3-51.7) % Gage % (Auto) (4.7-12.5) % Eos % (Auto) (0.7-5.8) Baso % (Auto) (0.1-1.2) % Neut # (Auto) (1.56-6.13) K/mm3 Lymph # (Auto) (1.18-3.74) K/mm3 Gage # (Auto) (0.24-0.36) K/mm3 Eos # (Auto) (0.04-0.36) K/mm3 Baso # (Auto) (0.01-0.08) K/mm3 Manual Slide Review POC Glucose 139 H 215 H 192 H (70-99) mg/dL 08/10/21 08/10/21 Range/Units 06:30 07:41 WBC 13.05 H (3.98-10.04) K/mm3 RBC 4.86 (3.98-5.22) M/mm3 Hgb 14.2 (11.2-15.7) gm/dl Hct 42.4 (34.1-44.9) % MCV 87.2 (79.4-94.8) fl MCH 29.2 (25.6-32.2) pg MCHC 33.5 (32.2-35.5) g/dl RDW Std Deviation 40.5 (36.4-46.3) fL Plt Count 296 (182-369) K/mm3 MPV 9.9 (9.4-12.3) fl Neut % (Auto) 81.6 H (34.0-71.1) % Lymph % (Auto) 9.3 L (19.3-51.7) % Gage % (Auto) 7.4 (4.7-12.5) % Eos % (Auto) 0.8 (0.7-5.8) Baso % (Auto) 0.5 (0.1-1.2) % Neut # (Auto) 10.64 H (1.56-6.13) K/mm3 Lymph # (Auto) 1.22 (1.18-3.74) K/mm3 Gage # (Auto) 0.97 H (0.24-0.36) K/mm3 Eos # (Auto) 0.10 (0.04-0.36) K/mm3 Baso # (Auto) 0.07 (0.01-0.08) K/mm3 Manual Slide Review Normal smear POC Glucose 82 (70-99) mg/dL Med Orders - Current: Current Medications Acetaminophen (Acetaminophen 325 Mg Tab) 650 mg PO Q4H PRN PRN Reason: Pain (Mild 1-3)/fever Last Admin: 08/07/21 02:57 Dose: 650 mg Documented by: Albuterol (Albuterol 6.7 Gm Inhaler) 0 gm INH Q2H PRN PRN Reason: SOB/Wheezing Albuterol/Ipratropium (Albuterol/Ipratropium 3.0-0.5 Mg/3 Ml Neb Soln) 3 ml NEB QIDRT PRN PRN Reason: Shortness Of Breath/wheezing Last Admin: 08/09/21 10:35 Dose: 3 ml Documented by: Baricitinib (Baricitinib 2 Mg Tab) 4 mg PO DAILY [facility] Stop: 08/20/21 09:01 Benzonatate (Benzonatate 100 Mg Cap) 200 mg PO Q8H PRN PRN Reason: Cough Last Admin: 08/07/21 03:02 Dose: 200 mg Documented by: Cholecalciferol (Cholecalciferol (Vitamin D3) 5,000 Unit Cap) 10,000 unit PO DAILY [facility] Last Admin: 08/09/21 08:21 Dose: 10,000 unit Documented by: Dexamethasone (Dexamethasone 4 Mg Tab) 6 mg PO DAILY [facility] Stop: 08/14/21 09:01 Last Admin: 08/09/21 08:21 Dose: 6 mg Documented by: Enoxaparin Sodium (Enoxaparin 120 Mg/0.8 Ml Syringe) 110 mg SUBCUT Q12H [facility] Last Admin: 08/09/21 21:24 Dose: 110 mg Documented by: Famotidine (Famotidine 20 Mg Tab) 20 mg PO BID [facility] Last Admin: 08/09/21 21:25 Dose: 20 mg Documented by: Guaifenesin (Guaifenesin 600 Mg Tab.Er) 600 mg PO TID [facility] Last Admin: 08/09/21 21:25 Dose: 600 mg Documented by: Insulin Glargine (Insulin Glargine,Hum.Rec.Anlog 100 Unit/Ml 3 Ml Pen) 15 unit SUBCUT BEDTIME [facility] Last Admin: 08/09/21 21:26 Dose: 15 units Documented by: Insulin Human Lispro (Insulin Lispro 100 Unit/Ml 3 Ml Kwikpen) 0 unit SUBCUT QIDACANDBED [facility]; Protocol Last Admin: 08/10/21 06:32 Dose: Not Given Documented by: Levothyroxine Sodium (Levothyroxine 100 Mcg Tab) 100 mcg PO ACBREAKFAST [facility] Last Admin: 08/10/21 06:31 Dose: 100 mcg Documented by: Levothyroxine Sodium (Levothyroxine 25 Mcg Tab) 25 mcg PO ACBREAKFAST [facility] Last Admin: 08/10/21 06:32 Dose: 25 mcg Documented by: Melatonin (Melatonin 3 Mg Tab) 6 mg PO BEDTIME [facility] Last Admin: 08/09/21 21:24 Dose: 6 mg Documented by: Ondansetron HCl (Ondansetron 4 Mg/2 Ml Sdv) 4 mg IV Q6H PRN PRN Reason: Nausea/Vomiting Senna/Docusate Sodium (Docusate Sodium/Sennosides 50-8.6 Mg Tab) 1 tab PO DAILY PRN PRN Reason: Constipation Sertraline HCl (Sertraline 50 Mg Tab) 100 mg PO DAILY [facility] Last Admin: 08/09/21 08:20 Dose: 100 mg Documented by: Sodium Chloride (Sodium Chloride 0.9% 10 Ml Syringe) 10 ml FLUSH ASDIRECTED PRN PRN Reason: Keep Vein Open Last Admin: 08/05/21 09:23 Dose: 10 ml Documented by: Sodium Chloride (Sodium Chloride 0.9% 10 Ml Syringe) 10 ml FLUSH ONETIME PRN PRN Reason: IV FLUSH Zinc Sulfate (Zinc Sulfate 220 Mg Cap) 220 mg PO DAILY [facility] Last Admin: 08/09/21 08:21 Dose: 220 mg Documented by: Discontinued Medications Acetaminophen (Acetaminophen 325 Mg Tab) 650 mg PO Q4H PRN PRN Reason: Fever Greater Than 101 Albuterol/Ipratropium (Albuterol/Ipratropium 3.0-0.5 Mg/3 Ml Neb Soln) 3 ml NEB ONETIME ONE Stop: 08/05/21 08:51 Last Admin: 08/05/21 09:10 Dose: 3 ml Documented by: Baricitinib (Baricitinib 2 Mg Tab) 2 mg PO DAILY [facility] Stop: 08/21/21 10:01 Last Admin: 08/09/21 08:21 Dose: 2 mg Documented by: Dexamethasone (Dexamethasone 4 Mg/Ml Sdv) 6 mg IVPUSH ONETIME ONE Stop: 08/05/21 08:50 Last Admin: 08/05/21 09:21 Dose: 6 mg Documented by: Enoxaparin Sodium (Enoxaparin 40 Mg/0.4 Ml Syringe) 40 mg SUBCUT DAILY [facility] Last Admin: 08/09/21 08:21 Dose: 40 mg Documented by: Enoxaparin Sodium (Enoxaparin 40 Mg/0.4 Ml Syringe) 40 mg SUBCUT ONETIME ONE Stop: 08/05/21 11:31 Last Admin: 08/05/21 15:04 Dose: Not Given Documented by: Enoxaparin Sodium (Enoxaparin 80 Mg/0.8 Ml Syringe) 70 mg SUBCUT ONETIME ONE Stop: 08/09/21 10:02 Last Admin: 08/09/21 11:33 Dose: 70 mg Documented by: Guaifenesin (Guaifenesin 600 Mg Tab.Er) 600 mg PO TID [facility] Remdesivir 200 mg/ Sodium (Chloride) 250 mls @ 250 mls/hr IV ONETIME ONE Stop: 08/05/21 08:51 Last Admin: 08/05/21 09:21 Dose: 250 mls/hr Documented by: Sodium Chloride (Normal Saline) 1,000 mls @ 1,000 mls/hr IV .BOLUS [facility] Last Admin: 08/05/21 09:21 Dose: 1,000 mls/hr Documented by: Remdesivir 100 mg/ Sodium (Chloride) 250 mls @ 250 mls/hr IV Q24H [place] Stop: 08/09/21 09:59 Last Admin: 08/09/21 08:21 Dose: 250 mls/hr Documented by: Sodium Chloride (Normal Saline) 500 mls @ 999 mls/hr IV .BOLUS ONE Stop: 08/07/21 11:27 Last Admin: 08/07/21 11:39 Dose: 999 mls/hr Documented by: Sodium Chloride (Normal Saline) 100 mls @ 75 mls/hr IV ASDIRECTED [facility] Last Admin: 08/09/21 10:03 Dose: 75 mls/hr Documented by: Iopamidol (Iopamidol 755 Mg/Ml 100 Ml Bottle) 100 ml IVPUSH ONETIME ONE Stop: 08/09/21 09:06 Last Admin: 08/09/21 10:04 Dose: 100 ml Documented by: Ondansetron HCl (Ondansetron 4 Mg/2 Ml Sdv) 4 mg IVPUSH ONETIME ONE Stop: 08/05/21 08:49 Last Admin: 08/05/21 09:23 Dose: 4 mg Documented by: - Exam Quality Assessment: Supplemental Oxygen, DVT Prophylaxis General: Alert, Oriented, Cooperative HEENT: Pupils Equal, Pupils Reactive, EOMI Neck: Supple, Trachea Midline Lungs: Clear to Auscultation, Decreased Breath Sounds Cardiovascular: Regular Rate, Regular Rhythm GI/Abdominal Exam: Normal Bowel Sounds, Soft, Non-Tender, No Distention (Female) Exam: Deferred Back Exam: Normal Inspection, Full Range of Motion Extremities: Normal Inspection, Normal Range of Motion, No Pedal Edema Skin: Warm, Dry, Intact Neurological: No New Focal Deficit Psy/Mental Status: Alert, Normal Affect, Normal Mood - Patient Data Lab Results Last 24 hrs: Laboratory Results - last 24 hr 08/09/21 08/09/21 08/09/21 Range/Units 11:13 16:35 21:22 WBC (3.98-10.04) K/mm3 RBC (3.98-5.22) M/mm3 Hgb (11.2-15.7) gm/dl Hct (34.1-44.9) % MCV (79.4-94.8) fl MCH (25.6-32.2) pg MCHC (32.2-35.5) g/dl RDW Std Deviation (36.4-46.3) fL Plt Count (182-369) K/mm3 MPV (9.4-12.3) fl Neut % (Auto) (34.0-71.1) % Lymph % (Auto) (19.3-51.7) % Gage % (Auto) (4.7-12.5) % Eos % (Auto) (0.7-5.8) Baso % (Auto) (0.1-1.2) % Neut # (Auto) (1.56-6.13) K/mm3 Lymph # (Auto) (1.18-3.74) K/mm3 Gage # (Auto) (0.24-0.36) K/mm3 Eos # (Auto) (0.04-0.36) K/mm3 Baso # (Auto) (0.01-0.08) K/mm3 Manual Slide Review POC Glucose 139 H 215 H 192 H (70-99) mg/dL 08/10/21 08/10/21 Range/Units 06:30 07:41 WBC 13.05 H (3.98-10.04) K/mm3 RBC 4.86 (3.98-5.22) M/mm3 Hgb 14.2 (11.2-15.7) gm/dl Hct 42.4 (34.1-44.9) % MCV 87.2 (79.4-94.8) fl MCH 29.2 (25.6-32.2) pg MCHC 33.5 (32.2-35.5) g/dl RDW Std Deviation 40.5 (36.4-46.3) fL Plt Count 296 (182-369) K/mm3 MPV 9.9 (9.4-12.3) fl Neut % (Auto) 81.6 H (34.0-71.1) % Lymph % (Auto) 9.3 L (19.3-51.7) % Gage % (Auto) 7.4 (4.7-12.5) % Eos % (Auto) 0.8 (0.7-5.8) Baso % (Auto) 0.5 (0.1-1.2) % Neut # (Auto) 10.64 H (1.56-6.13) K/mm3 Lymph # (Auto) 1.22 (1.18-3.74) K/mm3 Gage # (Auto) 0.97 H (0.24-0.36) K/mm3 Eos # (Auto) 0.10 (0.04-0.36) K/mm3 Baso # (Auto) 0.07 (0.01-0.08) K/mm3 Manual Slide Review Normal smear POC Glucose 82 (70-99) mg/dL Result Diagrams: 08/10/21 07:41 08/10/21 07:41 Sepsis Event Note - Evaluation Sepsis Screening Result: No Definite Risk - Focused Exam Vital Signs: Vital Signs Temp Temp Pulse Pulse Resp BP BP 08/10/21 03:55 36.6 C 64 24 H 129/70 08/10/21 02:20 08/10/21 00:45 08/10/21 00:00 36.2 C 64 20 130/72 08/09/21 21:00 27 H Pulse Ox Pulse Ox 08/10/21 03:55 90 L 08/10/21 02:20 91 L 08/10/21 00:45 84 L 08/10/21 00:00 89 L 08/09/21 21:00 - Problem List & Annotations (1) Pneumonia due to COVID-19 virus SNOMED Code(s): 139664734066411291 Code(s): U07.1 - COVID-19; J12.82 - PNEUMONIA DUE TO CORONAVIRUS DISEASE 2019 Status: Acute Priority: High Current Visit: Yes (2) ANAHI (acute kidney injury) SNOMED Code(s): 29478770, 96244594 Code(s): N17.9 - ACUTE KIDNEY FAILURE, UNSPECIFIED Status: Acute Priority: High Current Visit: Yes (3) Generalized weakness SNOMED Code(s): 35384450 Code(s): R53.1 - WEAKNESS Status: Acute Priority: Medium Current Visit: Yes (4) New onset type 2 diabetes mellitus SNOMED Code(s): 37473539 Code(s): E11.9 - TYPE 2 DIABETES MELLITUS WITHOUT COMPLICATIONS Status: Chronic Priority: High Current Visit: Yes (5) Vitamin D deficiency SNOMED Code(s): 86432999 Code(s): E55.9 - VITAMIN D DEFICIENCY, UNSPECIFIED Status: Acute Priority: High Current Visit: Yes - Problem List Review Problem List Initiated/Reviewed/Updated: Yes - Assessment Assessment:: 08/06/2021 66-year-old female admitted to the floor for treatment of her COVID-19 pneumonia. Patient continues on dexamethasone and remdesivir. She is requiring 25 L of high flow oxygen with an FiO2 of 85% today. She is utilizing her yamileth ntive spirometer and Acapella sparingly and she was instructed to increase her use of this. We discussed proning. She was offered baricitinib and is refusing at this time. We will continue to offer this. Labs today show WBC of 6.24. Hemoglobin 14.4. Platelet 184,000. Neutrophils are elevated 74.3%. Sodium is 136. Potassium 4.3. Carbon oxide 27. Anion gap is 12.3. BUN is 30. Creatinine 1.1. GFR is 50. Magnesium was 2.2. Bilirubin 0.5. AST was 30, ALT was 26, alkaline phosphatase 79. CRP is improved 6.2. Albumin is 2.8. Vitamin D obtained yesterday was 12.7 and she was started on supplementation. Procalcitonin was 0.10. Due to her hyperglycemia A1c was obtained and was 10.7. Will order diabetic education and dietitian consultation. Patient reports she has been prediabetic in the past. We will start 15 units of long-acting insulin and medium intensity sliding scale insulin. We will check 4 times daily before meals and bedtime blood glucose checks. Anticipate rise in blood glucose readings due to steroids. Unknown length of stay due to severity of symptoms. 08/07/2021 66-year-old female admitted the floor for COVID-19 pneumonia. She continues on dexamethasone and remdesivir. She is requiring 35 L of oxygen with an FiO2 of 80%. She is using her I-S and Acapella. She is very weak. Labs today show WBC of 8.08. Hemoglobin 14.6. Platelet 262,000. Neutrophils are elevated 77.8%. D-dimer is 1.81. Sodium is 139. Potassium 4.4. Chloride 103. Carbon dioxide 28. Anion gap is 12.4. BUN is 28. Creatinine is up to 1.2. GFR is down to 45. Glucose has been between 154 and 311. She remains on 15 units long-acting insulin at bedtime. Magnesium is 2.2. Bilirubin 0.6. AST is 27, ALT 26, alkaline phosphatase 78. CRP is down to 4.7. Protein is 5.9. Albumin is 2.7. certified adaptive physical educator and dietitian are waiting for the patient is feeling better to discuss her new diabetic diagnosis. She reports she has not been sleeping well we will add scheduled nighttime melatonin. Unknown length of stay due to severity of symptoms. Because of her significant worsening oxygen saturations and requirement for high flow oxygenation I am recommending baricitinib. I spoke with Gail to provide information about baricitinib. I offered the "fax sheet for patients and parents/caregivers, for baricitinib" to read and review. I stated that therapy has been approved by an emergency use authorization process and has not fully been FDA reviewed or approved. I shared potential risks from the therapy including increased risk for serious infections, anaphylaxis, and reaction to medication. I discussed there are other potential treatment options that are currently not FDA approved to treat COVID-19. Offered opportunity to ask questions and all questions were answered. Gail voiced understanding and agreed to proceed with treatment. 08/08/2021 The patient is a 66-year-old lady who will be retained in hospitalization due to her treatment with remdesivir. She is also to be continued on baricitinib. I have instructed the patient in the use of the incentive spirometer and Acapella. She is also new onset diabetes and extension educator has been ordered. The patient's blood glucose will be monitored and she will be maintained on a carb constant diet. The patient may need to have her insulin adjusted as her blood sugar indicates. The patient is also on DVT prophylaxis with the use of Lovenox 40 mg subcutaneous daily. Repeat laboratory studies have been ordered for the morning. Repeat chest x-ray is also been ordered. The patient should be appropriate for discharge upon completion of her remdesivir. 08/09/2021 66-year-old female admitted to the hospital due to COVID-19 treatment. She continues on remdesivir and baricitinib. Her oxygen demand has increased and she is up to 40 L with an FiO2 of 90%. D-dimer today was elevated at 12.98 and CTA was ordered. CTA returned "1. Pulmonary emboli within the segmental branches of the left lower lung as well as sagittal emboli bridging the segmental branches within the right middle lobe and right lower lobe. Pulmonary emboli extend into the subsegmental branches. 2. No compromise of the right heart is seen. 3. Diffuse parenchymal changes noted within both lungs compatible with very prominent COVID-19 pneumonia. 4. Fatty infiltration within the liver and other findings believed to be nonacute as described above." Because of this her Lovenox was increased to 1 mg/kg twice daily. Echocardiog abundio was ordered. Chest x-ray was obtained and shows very prominent COVID-19 pneumonia. She continues on high flow and up to 40 L with an FiO2 of 90%. WBC today is slightly elevated at 10.12, likely secondary to steroid use. Hemoglobin is 14.2. Platelet is 302,000. Neutrophils are elevated at 78.6%. D-dimer is 12.98. Sodium is 142. Potassium is 4.6. Chloride is 105. Carbon dioxide is 30. Anion gap is 11.6. BUN is 20. Creatinine 0.9. GFR is greater than 60. Glucose is 83-255. Magnesium 2.0. Bilirubin 0.7. AST is 26, ALT 19, alkaline phosphatase 93. CRP is 2.7. Albumin is 2.6. We will continue current treatment plan. Unknown length of stay due to severity of COVID-19 symptoms and new onset PE. 08/10/2021 The patient is a 66-year-old lady who is currently anticoagulated for her pulmonary emboli with the use of Lovenox 110 mg subcutaneous every 12 hours. The patient will be transitioned to a NOAC in the next day or 2. The patient will continue on Accu-Cheks before meals and at bedtime as well as insulin sliding scale. Her hyperglycemia is likely to be elevated secondary to the steroid use and she is on insulin for now. The patient's acute renal failure has resolved. Her creatinine and BUN are normal with the normal EGFR. The patient will continue on her diabetic diet. Repeat laboratory studies have been ordered. The patient has been on oxygen and was will be titrated to keep her saturations around 92%. The patient should be appropriate for discharge in 1 to 2 days. - Plan Plan:: Pneumonia due to COVID-19 virus Hypoxia Generalized weakness Nausea, resolved * Prone whenever able * I-S/Acapella * Check procalcitonin * Check vitamin D * Respiratory therapy consultation * As needed DuoNebs * As needed albuterol inhaler * Remdesivir for 5 days * 6 mg dexamethasone for 10 days * As needed Zofran for nausea * O2 as needed to keep saturations between 88 and 95% * 20 mg famotidine twice daily * Physical therapy evaluation * Lovenox 40 mg daily * High flow oxygen 40 L with an FiO2 of 90%. * Every 48 hour D-dimer * Daily labs * Airborne/contact precautions * Telemetry * Continuous pulse oximetry * 14 days baricitinib Pulmonary embolism Elevated d-dimer * 1mg/kg Lovenox * Echocardiogram ordered to rule out right heart strain * Transition to DOAC Thrombocytopenia, Resolved * Likely secondary to above * Monitor daily labs Hyponatremia, resolved Volume depletion, resolved ANAHI, Reslved * Given 1 L fluid bolus in ED * Encourage oral rehydration * Avoid nephrotoxic medications if able * Monitor daily labs New onset diabetes mellitus Hyperglycemia * QID AC and Bedtime glucose checks * certified adaptive physical educator consultation * New Car Salesperson consultation * Consistent carbohydrate diet * 15 units long acting insulin * Sliding scale medium intensity insulin * Anticipate rise in blood glucose readings 2/2 steroid use Vitamin D deficiency * Continue daily supplementation Depression * No acute concerns * Continue home zoloft Hypothyroidism * No acute concerns * Continue home levothyroxine Code status: Full code PCP: Heather Granado PA-C DVT prophylaxis: Lovenox Disposition: Patient mated to the floor for management of COVID-19 pneumonia with hypoxia. LOS >96hrs due to need for continued treatment due to severity of symptoms.
[2021-08-10] MEDS: Famotidine 20 MG Tab PO SCH ×2 (08:18→20:26)
[2021-08-10] MEDS: Zinc Sulfate 220 MG Cap PO SCH (08:18)
[2021-08-10] MEDS: Dexamethasone 4 MG Tab PO SCH (08:18)
[2021-08-10] MEDS: guaiFENesin 600 MG Tab.ER PO SCH ×3 (08:18→20:26)
[2021-08-10] MEDS: Sertraline 50 MG Tab PO SCH (08:18)
[2021-08-10] MEDS: Cholecalciferol (Vitamin D3) 5,000 UNIT Cap PO SCH (08:18)
[2021-08-10] MEDS: Enoxaparin 120 MG/0.8 ML Syringe SUBCUT SCH ×2 (08:19→20:24)
[2021-08-10] MEDS: Albuterol 6.7 GM Inhaler INH PRN (14:26)
[2021-08-10] MEDS: Melatonin 3 MG Tab PO SCH (20:25)
[2021-08-10] MEDS: Insulin Glargine,Hum.Rec.Anlog 100 UNIT/ML 3 ML Pen SUBCUT SCH (20:52)
[2021-08-11] MEDS: Levothyroxine 100 MCG Tab PO SCH (06:55)
[2021-08-11] MEDS: Levothyroxine 25 MCG Tab PO SCH (06:56)
[2021-08-11] MEDS: Insulin Lispro 100 Unit/ML 3 ML KwikPen SUBCUT SCH ×4 (07:27→22:12)
--- NOTE | 2021-08-11 07:29 | PCM.PN ---
- General Info Date of Service: 08/11/21 Admission Dx/Problem (Free Text): Hypoxia Subjective Update: The patient is a 66-year-old lady who yesterday had been diagnosed with bilateral pulmonary emboli. The patient also had been feeling very weak today. She has been tolerating anticoagulation with treatment dose of Lovenox. The patient also had been previously diagnosed with COVID-19 pneumonia. The patient has had cough still. The patient has been tolerating her diet. Functional Status: Reports: Pain Controlled, Tolerating Diet. Denies: New Symptoms - Review of Systems General: Reports: Weakness, Fatigue, Malaise HEENT: Reports: No Symptoms Pulmonary: Reports: Shortness of Breath, Pleuritic Chest Pain, Cough Cardiovascular: Reports: No Symptoms Gastrointestinal: Reports: No Symptoms Genitourinary: Reports: No Symptoms Musculoskeletal: Reports: No Symptoms Skin: Reports: No Symptoms Neurological: Reports: No Symptoms Psychiatric: Reports: No Symptoms - Patient Data Vitals - Most Recent: Last Vital Signs Temp 36.7 C 08/11/21 05:37 Pulse 73 08/11/21 05:37 Resp 16 08/11/21 05:37 BP 150/77 H 08/11/21 05:37 Pulse Ox 91 L 08/11/21 05:37 Weight - Most Recent: 105.097 kg I&O - Last 24 Hours: Intake & Output 08/10/21 08/11/21 08/11/21 22:59 06:59 14:59 Intake Total 500 400 Output Total 400 850 Balance 100 -450 Lab Results Last 24 Hours: Laboratory Results - last 24 hr 08/10/21 08/10/21 08/10/21 Range/Units 07:41 07:41 12:19 WBC 13.05 H (3.98-10.04) K/mm3 RBC 4.86 (3.98-5.22) M/mm3 Hgb 14.2 (11.2-15.7) gm/dl Hct 42.4 (34.1-44.9) % MCV 87.2 (79.4-94.8) fl MCH 29.2 (25.6-32.2) pg MCHC 33.5 (32.2-35.5) g/dl RDW Std Deviation 40.5 (36.4-46.3) fL Plt Count 296 (182-369) K/mm3 MPV 9.9 (9.4-12.3) fl Neut % (Auto) 81.6 H (34.0-71.1) % Lymph % (Auto) 9.3 L (19.3-51.7) % Hughes % (Auto) 7.4 (4.7-12.5) % Eos % (Auto) 0.8 (0.7-5.8) Baso % (Auto) 0.5 (0.1-1.2) % Neut # (Auto) 10.64 H (1.56-6.13) K/mm3 Lymph # (Auto) 1.22 (1.18-3.74) K/mm3 Hughes # (Auto) 0.97 H (0.24-0.36) K/mm3 Eos # (Auto) 0.10 (0.04-0.36) K/mm3 Baso # (Auto) 0.07 (0.01-0.08) K/mm3 Manual Slide Review Normal smear Sodium 139 (136-145) mEq/L Potassium 3.6 (3.5-5.1) mEq/L Chloride 103 (98-107) mEq/L Carbon Dioxide 27 (21-32) mEq/L Anion Gap 12.6 (5-15) BUN 17 (7-18) mg/dL Creatinine 0.8 (0.55-1.02) mg/dL Est Cr Clr Drug Dosing 69.09 mL/min Estimated GFR (MDRD) > 60 (>60) mL/min BUN/Creatinine Ratio 21.3 H (14-18) Glucose 83 (70-99) mg/dL POC Glucose 113 H (70-99) mg/dL Calcium 8.2 L (8.5-10.1) mg/dL Total Bilirubin 0.8 (0.2-1.0) mg/dL AST 27 (15-37) U/L ALT 23 (14-59) U/L Alkaline Phosphatase 94 (46-116) U/L C-Reactive Protein 5.4 H* (<1.0) mg/dL Total Protein 5.8 L (6.4-8.2) g/dl Albumin 2.4 L (3.4-5.0) g/dl Globulin 3.4 gm/dL Albumin/Globulin Ratio 0.7 L (1-2) 08/10/21 08/10/21 08/11/21 Range/Units 16:25 20:49 06:08 WBC (3.98-10.04) K/mm3 RBC (3.98-5.22) M/mm3 Hgb (11.2-15.7) gm/dl Hct (34.1-44.9) % MCV (79.4-94.8) fl MCH (25.6-32.2) pg MCHC (32.2-35.5) g/dl RDW Std Deviation (36.4-46.3) fL Plt Count (182-369) K/mm3 MPV (9.4-12.3) fl Neut % (Auto) (34.0-71.1) % Lymph % (Auto) (19.3-51.7) % Hughes % (Auto) (4.7-12.5) % Eos % (Auto) (0.7-5.8) Baso % (Auto) (0.1-1.2) % Neut # (Auto) (1.56-6.13) K/mm3 Lymph # (Auto) (1.18-3.74) K/mm3 Hughes # (Auto) (0.24-0.36) K/mm3 Eos # (Auto) (0.04-0.36) K/mm3 Baso # (Auto) (0.01-0.08) K/mm3 Manual Slide Review Sodium (136-145) mEq/L Potassium (3.5-5.1) mEq/L Chloride (98-107) mEq/L Carbon Dioxide (21-32) mEq/L Anion Gap (5-15) BUN (7-18) mg/dL Creatinine (0.55-1.02) mg/dL Est Cr Clr Drug Dosing mL/min Estimated GFR (MDRD) (>60) mL/min BUN/Creatinine Ratio (14-18) Glucose (70-99) mg/dL POC Glucose 182 H 159 H 106 H (70-99) mg/dL Calcium (8.5-10.1) mg/dL Total Bilirubin (0.2-1.0) mg/dL AST (15-37) U/L ALT (14-59) U/L Alkaline Phosphatase (46-116) U/L C-Reactive Protein (<1.0) mg/dL Total Protein (6.4-8.2) g/dl Albumin (3.4-5.0) g/dl Globulin gm/dL Albumin/Globulin Ratio (1-2) Med Orders - Current: Current Medications Acetaminophen (Acetaminophen 325 Mg Tab) 650 mg PO Q4H PRN PRN Reason: Pain (Mild 1-3)/fever Last Admin: 08/07/21 02:57 Dose: 650 mg Documented by: Albuterol (Albuterol 6.7 Gm Inhaler) 0 gm INH Q2H PRN PRN Reason: SOB/Wheezing Last Admin: 08/10/21 14:26 Dose: 2 dose Documented by: Albuterol/Ipratropium (Albuterol/Ipratropium 3.0-0.5 Mg/3 Ml Neb Soln) 3 ml NEB QIDRT PRN PRN Reason: Shortness Of Breath/wheezing Last Admin: 08/09/21 10:35 Dose: 3 ml Documented by: Baricitinib (Baricitinib 2 Mg Tab) 4 mg PO DAILY [facility] Stop: 08/20/21 09:01 Last Admin: 08/10/21 08:18 Dose: 4 mg Documented by: Benzonatate (Benzonatate 100 Mg Cap) 200 mg PO Q8H PRN PRN Reason: Cough Last Admin: 08/07/21 03:02 Dose: 200 mg Documented by: Cholecalciferol (Cholecalciferol (Vitamin D3) 5,000 Unit Cap) 10,000 unit PO DAILY [facility] Last Admin: 08/10/21 08:18 Dose: 10,000 unit Documented by: Dexamethasone (Dexamethasone 4 Mg Tab) 6 mg PO DAILY [facility] Stop: 08/14/21 09:01 Last Admin: 08/10/21 08:18 Dose: 6 mg Documented by: Enoxaparin Sodium (Enoxaparin 120 Mg/0.8 Ml Syringe) 110 mg SUBCUT Q12H [facility] Last Admin: 08/10/21 20:24 Dose: 110 mg Documented by: Famotidine (Famotidine 20 Mg Tab) 20 mg PO BID [facility] Last Admin: 08/10/21 20:26 Dose: 20 mg Documented by: Guaifenesin (Guaifenesin 600 Mg Tab.Er) 600 mg PO TID [facility] Last Admin: 08/10/21 20:26 Dose: 600 mg Documented by: Insulin Glargine (Insulin Glargine,Hum.Rec.Anlog 100 Unit/Ml 3 Ml Pen) 15 unit SUBCUT BEDTIME [facility] Last Admin: 08/10/21 20:52 Dose: 15 units Documented by: Insulin Human Lispro (Insulin Lispro 100 Unit/Ml 3 Ml Kwikpen) 0 unit SUBCUT QIDACANDBED [facility]; Protocol Last Admin: 08/11/21 07:27 Dose: Not Given Documented by: Levothyroxine Sodium (Levothyroxine 100 Mcg Tab) 100 mcg PO ACBREAKFAST [facility] Last Admin: 08/11/21 06:55 Dose: 100 mcg Documented by: Levothyroxine Sodium (Levothyroxine 25 Mcg Tab) 25 mcg PO ACBREAKFAST [facility] Last Admin: 08/11/21 06:56 Dose: 25 mcg Documented by: Melatonin (Melatonin 3 Mg Tab) 6 mg PO BEDTIME [facility] Last Admin: 08/10/21 20:25 Dose: 6 mg Documented by: Ondansetron HCl (Ondansetron 4 Mg/2 Ml Sdv) 4 mg IV Q6H PRN PRN Reason: Nausea/Vomiting Senna/Docusate Sodium (Docusate Sodium/Sennosides 50-8.6 Mg Tab) 1 tab PO DAILY PRN PRN Reason: Constipation Sertraline HCl (Sertraline 50 Mg Tab) 100 mg PO DAILY [facility] Last Admin: 08/10/21 08:18 Dose: 100 mg Documented by: Sodium Chloride (Sodium Chloride 0.9% 10 Ml Syringe) 10 ml FLUSH ASDIRECTED PRN PRN Reason: Keep Vein Open Last Admin: 08/05/21 09:23 Dose: 10 ml Documented by: Sodium Chloride (Sodium Chloride 0.9% 10 Ml Syringe) 10 ml FLUSH ONETIME PRN PRN Reason: IV FLUSH Zinc Sulfate (Zinc Sulfate 220 Mg Cap) 220 mg PO DAILY [facility] Last Admin: 08/10/21 08:18 Dose: 220 mg Documented by: Discontinued Medications Acetaminophen (Acetaminophen 325 Mg Tab) 650 mg PO Q4H PRN PRN Reason: Fever Greater Than 101 Albuterol/Ipratropium (Albuterol/Ipratropium 3.0-0.5 Mg/3 Ml Neb Soln) 3 ml NEB ONETIME ONE Stop: 08/05/21 08:51 Last Admin: 08/05/21 09:10 Dose: 3 ml Documented by: Baricitinib (Baricitinib 2 Mg Tab) 2 mg PO DAILY [facility] Stop: 08/21/21 10:01 Last Admin: 08/09/21 08:21 Dose: 2 mg Documented by: Dexamethasone (Dexamethasone 4 Mg/Ml Sdv) 6 mg IVPUSH ONETIME ONE Stop: 08/05/21 08:50 Last Admin: 08/05/21 09:21 Dose: 6 mg Documented by: Enoxaparin Sodium (Enoxaparin 40 Mg/0.4 Ml Syringe) 40 mg SUBCUT DAILY [facility] Last Admin: 08/09/21 08:21 Dose: 40 mg Documented by: Enoxaparin Sodium (Enoxaparin 40 Mg/0.4 Ml Syringe) 40 mg SUBCUT ONETIME ONE Stop: 08/05/21 11:31 Last Admin: 08/05/21 15:04 Dose: Not Given Documented by: Enoxaparin Sodium (Enoxaparin 80 Mg/0.8 Ml Syringe) 70 mg SUBCUT ONETIME ONE Stop: 08/09/21 10:02 Last Admin: 08/09/21 11:33 Dose: 70 mg Documented by: Guaifenesin (Guaifenesin 600 Mg Tab.Er) 600 mg PO TID [place] Remdesivir 200 mg/ Sodium (Chloride) 250 mls @ 250 mls/hr IV ONETIME ONE Stop: 08/05/21 08:51 Last Admin: 08/05/21 09:21 Dose: 250 mls/hr Documented by: Sodium Chloride (Normal Saline) 1,000 mls @ 1,000 mls/hr IV .BOLUS [place] Last Admin: 08/05/21 09:21 Dose: 1,000 mls/hr Documented by: Remdesivir 100 mg/ Sodium (Chloride) 250 mls @ 250 mls/hr IV Q24H [facility] Stop: 08/09/21 09:59 Last Admin: 08/09/21 08:21 Dose: 250 mls/hr Documented by: Sodium Chloride (Normal Saline) 500 mls @ 999 mls/hr IV .BOLUS ONE Stop: 08/07/21 11:27 Last Admin: 08/07/21 11:39 Dose: 999 mls/hr Documented by: Sodium Chloride (Normal Saline) 100 mls @ 75 mls/hr IV ASDIRECTED [facility] Last Admin: 08/09/21 10:03 Dose: 75 mls/hr Documented by: Iopamidol (Iopamidol 755 Mg/Ml 100 Ml Bottle) 100 ml IVPUSH ONETIME ONE Stop: 08/09/21 09:06 Last Admin: 08/09/21 10:04 Dose: 100 ml Documented by: Ondansetron HCl (Ondansetron 4 Mg/2 Ml Sdv) 4 mg IVPUSH ONETIME ONE Stop: 08/05/21 08:49 Last Admin: 08/05/21 09:23 Dose: 4 mg Documented by: - Exam Quality Assessment: Supplemental Oxygen, DVT Prophylaxis (1 mg/kg Lovenox subcutaneous twice daily) General: Alert, Oriented, Cooperative HEENT: Pupils Equal, Pupils Reactive, EOMI Neck: Supple, Trachea Midline Lungs: Crackles (Bibasilar) Cardiovascular: Regular Rate, Regular Rhythm GI/Abdominal Exam: Normal Bowel Sounds, Soft, Non-Tender, No Distention Back Exam: Normal Inspection, Full Range of Motion Extremities: Normal Inspection, Normal Range of Motion, No Pedal Edema Skin: Warm, Dry, Intact Neurological: No New Focal Deficit, Normal Speech Psy/Mental Status: Alert, Normal Affect, Normal Mood - Patient Data Lab Results Last 24 hrs: Laboratory Results - last 24 hr 08/10/21 08/10/21 08/10/21 Range/Units 07:41 07:41 12:19 WBC 13.05 H (3.98-10.04) K/mm3 RBC 4.86 (3.98-5.22) M/mm3 Hgb 14.2 (11.2-15.7) gm/dl Hct 42.4 (34.1-44.9) % MCV 87.2 (79.4-94.8) fl MCH 29.2 (25.6-32.2) pg MCHC 33.5 (32.2-35.5) g/dl RDW Std Deviation 40.5 (36.4-46.3) fL Plt Count 296 (182-369) K/mm3 MPV 9.9 (9.4-12.3) fl Neut % (Auto) 81.6 H (34.0-71.1) % Lymph % (Auto) 9.3 L (19.3-51.7) % Hughes % (Auto) 7.4 (4.7-12.5) % Eos % (Auto) 0.8 (0.7-5.8) Baso % (Auto) 0.5 (0.1-1.2) % Neut # (Auto) 10.64 H (1.56-6.13) K/mm3 Lymph # (Auto) 1.22 (1.18-3.74) K/mm3 Hughes # (Auto) 0.97 H (0.24-0.36) K/mm3 Eos # (Auto) 0.10 (0.04-0.36) K/mm3 Baso # (Auto) 0.07 (0.01-0.08) K/mm3 Manual Slide Review Normal smear Sodium 139 (136-145) mEq/L Potassium 3.6 (3.5-5.1) mEq/L Chloride 103 (98-107) mEq/L Carbon Dioxide 27 (21-32) mEq/L Anion Gap 12.6 (5-15) BUN 17 (7-18) mg/dL Creatinine 0.8 (0.55-1.02) mg/dL Est Cr Clr Drug Dosing 69.09 mL/min Estimated GFR (MDRD) > 60 (>60) mL/min BUN/Creatinine Ratio 21.3 H (14-18) Glucose 83 (70-99) mg/dL POC Glucose 113 H (70-99) mg/dL Calcium 8.2 L (8.5-10.1) mg/dL Total Bilirubin 0.8 (0.2-1.0) mg/dL AST 27 (15-37) U/L ALT 23 (14-59) U/L Alkaline Phosphatase 94 (46-116) U/L C-Reactive Protein 5.4 H* (<1.0) mg/dL Total Protein 5.8 L (6.4-8.2) g/dl Albumin 2.4 L (3.4-5.0) g/dl Globulin 3.4 gm/dL Albumin/Globulin Ratio 0.7 L (1-2) 08/10/21 08/10/21 08/11/21 Range/Units 16:25 20:49 06:08 WBC (3.98-10.04) K/mm3 RBC (3.98-5.22) M/mm3 Hgb (11.2-15.7) gm/dl Hct (34.1-44.9) % MCV (79.4-94.8) fl MCH (25.6-32.2) pg MCHC (32.2-35.5) g/dl RDW Std Deviation (36.4-46.3) fL Plt Count (182-369) K/mm3 MPV (9.4-12.3) fl Neut % (Auto) (34.0-71.1) % Lymph % (Auto) (19.3-51.7) % Hughes % (Auto) (4.7-12.5) % Eos % (Auto) (0.7-5.8) Baso % (Auto) (0.1-1.2) % Neut # (Auto) (1.56-6.13) K/mm3 Lymph # (Auto) (1.18-3.74) K/mm3 Hughes # (Auto) (0.24-0.36) K/mm3 Eos # (Auto) (0.04-0.36) K/mm3 Baso # (Auto) (0.01-0.08) K/mm3 Manual Slide Review Sodium (136-145) mEq/L Potassium (3.5-5.1) mEq/L Chloride (98-107) mEq/L Carbon Dioxide (21-32) mEq/L Anion Gap (5-15) BUN (7-18) mg/dL Creatinine (0.55-1.02) mg/dL Est Cr Clr Drug Dosing mL/min Estimated GFR (MDRD) (>60) mL/min BUN/Creatinine Ratio (14-18) Glucose (70-99) mg/dL POC Glucose 182 H 159 H 106 H (70-99) mg/dL Calcium (8.5-10.1) mg/dL Total Bilirubin (0.2-1.0) mg/dL AST (15-37) U/L ALT (14-59) U/L Alkaline Phosphatase (46-116) U/L C-Reactive Protein (<1.0) mg/dL Total Protein (6.4-8.2) g/dl Albumin (3.4-5.0) g/dl Globulin gm/dL Albumin/Globulin Ratio (1-2) Result Diagrams: 08/11/21 06:56 08/11/21 06:56 Sepsis Event Note - Evaluation Sepsis Screening Result: No Definite Risk - Focused Exam Vital Signs: Vital Signs Temp Pulse Resp BP Pulse Ox 08/11/21 05:37 36.7 C 73 16 150/77 H 91 L 08/11/21 00:00 92 L 08/10/21 20:32 36.6 C 68 14 142/81 H 93 L - Problem List & Annotations (1) Pulmonary emboli SNOMED Code(s): 71433286 Code(s): I26.99 - OTHER PULMONARY EMBOLISM WITHOUT ACUTE COR PULMONALE Status: Acute Priority: High Current Visit: Yes Qualifiers: Pulmonary embolism type: multiple subsegmental (without acute cor pulmonale) Qualified Code(s): I26.94 - Multiple subsegmental pulmonary emboli without acute cor pulmonale (2) Pneumonia due to COVID-19 virus SNOMED Code(s): 535974581621141156 Code(s): U07.1 - COVID-19; J12.82 - PNEUMONIA DUE TO CORONAVIRUS DISEASE 2018 Status: Acute Priority: High Current Visit: Yes (3) ANAHI (acute kidney injury) SNOMED Code(s): 29192783, 50897679 Code(s): N17.9 - ACUTE KIDNEY FAILURE, UNSPECIFIED Status: Acute Priority: High Current Visit: Yes (4) Generalized weakness SNOMED Code(s): 86292990 Code(s): R53.1 - WEAKNESS Status: Acute Priority: Medium Current Visit: Yes (5) New onset type 2 diabetes mellitus SNOMED Code(s): 93922489 Code(s): E11.9 - TYPE 2 DIABETES MELLITUS WITHOUT COMPLICATIONS Status: Chronic Priority: High Current Visit: Yes (6) Vitamin D deficiency SNOMED Code(s): 83634474 Code(s): E55.9 - VITAMIN D DEFICIENCY, UNSPECIFIED Status: Acute Prior ity: High Current Visit: Yes - Problem List Review Problem List Initiated/Reviewed/Updated: Yes - Assessment Assessment:: 08/06/2021 66-year-old female admitted to the floor for treatment of her COVID-19 pneumonia. Patient continues on dexamethasone and remdesivir. She is requiring 25 L of high flow oxygen with an FiO2 of 85% today. She is utilizing her incentive spirometer and Acapella sparingly and she was instructed to increase her use of this. We discussed proning. She was offered baricitinib and is refusing at this time. We will continue to offer this. Labs today show WBC of 6.24. Hemoglobin 14.4. Platelet 184,000. Neutrophils are elevated 74.3%. Sodium is 136. Potassium 4.3. Carbon oxide 27. Anion gap is 12.3. BUN is 30. Creatinine 1.1. GFR is 50. Magnesium was 2.2. Bilirubin 0.5. AST was 30, ALT was 26, alkaline phosphatase 79. CRP is improved 6.2. Albumin is 2.8. Vitamin D obtained yesterday was 12.7 and she was started on supplementation. Procalcitonin was 0.10. Due to her hyperglycemia A1c was obtained and was 10.7. Will order diabetic education and dietitian consultation. Patient reports she has been prediabetic in the past. We will start 15 units of long-acting insulin and medium intensity sliding scale insulin. We will check 4 times daily before meals and bedtime blood glucose checks. Anticipate rise in blood glucose readings due to steroids. Unknown length of stay due to severity of symptoms. 08/07/2021 66-year-old female admitted the floor for COVID-19 pneumonia. She continues on dexamethasone and remdesivir. She is requiring 35 L of oxygen with an FiO2 of 80%. She is using her I-S and Acapella. She is very weak. Labs today show WBC of 8.08. Hemoglobin 14.6. Platelet 262,000. Neutrophils are elevated 77.8%. D-dimer is 1.81. Sodium is 139. Potassium 4.4. Chloride 103. Carbon dioxide 28. Anion gap is 12.4. BUN is 28. Creatinine is up to 1.2. GFR is down to 45 . Glucose has been between 154 and 311. She remains on 15 units long-acting insulin at bedtime. Magnesium is 2.2. Bilirubin 0.6. AST is 27, ALT 26, alkaline phosphatase 78. CRP is down to 4.7. Protein is 5.9. Albumin is 2.7. certified lactation educator and dietitian are waiting for the patient is feeling better to discuss her new diabetic diagnosis. She reports she has not been sleeping well we will add scheduled nighttime melatonin. Unknown length of stay due to severity of symptoms. Because of her significant worsening oxygen saturations and requirement for high flow oxygenation I am recommending baricitinib. I spoke with Gail to provide information about baricitinib. I offered the "fax sheet for patients and parents/caregivers, for baricitinib" to read and review. I stated that therapy has been approved by an emergency use authorization process and has not fully been FDA reviewed or approved. I shared potential risks from the therapy including increased risk for serious infections, anaphylaxis, and reaction to medication. I discussed there are other potential treatment options that are currently not FDA approved to treat COVID-19. Offered opportunity to ask questions and all questions were answered. Gail voiced understanding and agreed to proceed with treatment. 08/08/2021 The patient is a 66-year-old lady who will be retained in hospitalization due to her treatment with remdesivir. She is also to be continued on baricitinib. I have instructed the patient in the use of the incentive spirometer and Acapella. She is also new onset diabetes and hematology nurse educator has been ordered. The patient's blood glucose will be monitored and she will be maintained on a carb constant diet. The patient may need to have her insulin adjusted as her blood sugar indicates. The patient is also on DVT prophylaxis with the use of Lovenox 40 mg subcutaneous daily. Repeat laboratory studies have been ordered for the morning. Repeat chest x-ray is also been ordered. The patient should be appropriate for discharge upon completion of her remdesivir. 08/09/2021 66-year-old female admitted to the hospital due to COVID-19 treatment. She continues on remdesivir and baricitinib. Her oxygen demand has increased and she is up to 40 L with an FiO2 of 90%. D-dimer today was elevated at 12.98 and CTA was ordered. CTA returned "1. Pulmonary emboli within the segmental branches of the left lower lung as well as sagittal emboli bridging the segmental branches within the right middle lobe and right lower lobe. Pulmonary emboli extend into the subsegmental branches. 2. No compromise of the right heart is seen. 3. Diffuse parenchymal changes noted within both lungs compatible with very prominent COVID-19 pneumonia. 4. Fatty infiltration within the liver and other findings believed to be nonacute as described above." Because of this her Lovenox was increased to 1 mg/kg twice daily. Echocardiogram was ordered. Chest x-ray was obtained and shows very prominent COVID-19 pneumonia. She continues on high flow and up to 40 L with an FiO2 of 90%. WBC today is slightly elevated at 10.12, likely secondary to steroid use. Hemoglobin is 14.2. Platelet is 302,000. Neutrophils are elevated at 78.6%. D-dimer is 12.98. Sodium is 142. Potassium is 4.6. Chloride is 105. Carbon dioxide is 30. Anion gap is 11.6. BUN is 20. Creatinine 0.9. GFR is greater than 60. Glucose is 83-255. Magnesium 2.0. Bilirubin 0.7. AST is 26, ALT 19, alkaline phosphatase 93. CRP is 2.7. Albumin is 2.6. We will continue current treatment plan. Unknown length of stay due to severity of COVID-19 symptoms and new onset PE. 08/10/2021 The patient is a 66-year-old lady who is currently anticoagulated for her pulmonary emboli with the use of Lovenox 110 mg subcutaneous every 12 hours. The patient will be transitioned to a NOAC in the next day or 2. The patient will continue on Accu-Cheks before meals and at bedtime as well as insulin sliding scale. Her hyperglycemia is likely to be elevated secondary to the steroid use and she is on insulin for now. The patient's acute renal failure has resolved. Her creatinine and BUN are normal with the normal EGFR. The patient will continue on her diabetic diet. Repeat laboratory studies have been ordered. The patient has been on oxygen and was will be titrated to keep her saturations around 92%. The patient should be appropriate for discharge in 1 to 2 days. 08/11/2021 The patient is a 66-year-old lady who was admitted initially secondary to COVID- 19 pneumonia. The patient did have an increase in her D-dimer and as a result of this and a CT scan angiogram of her chest was ordered and she was found to have segmental and subsegmental bilateral pulmonary emboli. She is on treatment dose of Lovenox 1 mg/kg twice a day. The patient is also diabetic and she is to have insulin sliding scale. The patient's hyperglycemia is also been noted to be likely secondary to steroids. Repeat laboratory studies have been ordered. The patient's previously noted renal failure has resolved. The patient will be kept on oxygen to keep with her saturations around 92%. I have also explained to the patient the importance of moving around and doing what she can to try and prevent weakness and deconditioning. Physical therapy has been ordered for the patient. The patient will be transitioned to NOAC prior to discharge. - Plan Plan:: Pneumonia due to COVID-19 virus Hypoxia Generalized weakness Nausea, resolved * Prone whenever able * I-S/Acapella * Check procalcitonin * Check vitamin D * Respiratory therapy consultation * As needed DuoNebs * As needed albuterol inhaler * Remdesivir for 5 days * 6 mg dexamethasone for 10 days * As needed Zofran for nausea * O2 as needed to keep saturations between 88 and 95% * 20 mg famotidine twice daily * Physical therapy evaluation * Lovenox 40 mg daily * High flow oxygen 40 L with an FiO2 of 90%. * Every 48 hour D-dimer * Daily labs * Airborne/contact precautions * Telemetry * Continuous pulse oximetry * 14 days baricitinib Pulmonary embolism Elevated d-dimer * 1mg/kg Lovenox * Echocardiogram ordered to rule out right heart strain * Transition to DOAC Thrombocytopenia, Resolved * Likely secondary to above * Monitor daily labs Hyponatremia, resolved Volume depletion, resolved ANAHI, Reslved * Given 1 L fluid bolus in ED * Encourage oral rehydration * Avoid nephrotoxic medications if able * Monitor daily labs New onset diabetes mellitus Hyperglycemia * QID AC and Bedtime glucose checks * certified lactation educator consultation * Compressor Station Chief Engineer consultation * Consistent carbohydrate diet * 15 units long acting insulin * Sliding scale medium intensity insulin * Anticipate rise in blood glucose readings 2/2 steroid use Vitamin D deficiency * Continue daily supplementation Depression * No acute concerns * Continue home zoloft Hypothyroidism * No acute concerns * Continue home levothyroxine Code status: Full code PCP: Heather Granado PA-C DVT prophylaxis: Lovenox Disposition: Patient mated to the floor for management of COVID-19 pneumonia with hypoxia. LOS >96hrs due to need for continued treatment due to severity of symptoms.
[2021-08-11] MEDS: guaiFENesin 600 MG Tab.ER PO SCH ×3 (09:28→22:11)
[2021-08-11] MEDS: Cholecalciferol (Vitamin D3) 5,000 UNIT Cap PO SCH (09:28)
[2021-08-11] MEDS: Famotidine 20 MG Tab PO SCH ×2 (09:28→22:10)
[2021-08-11] MEDS: Dexamethasone 4 MG Tab PO SCH (09:28)
[2021-08-11] MEDS: Sertraline 50 MG Tab PO SCH (09:29)
[2021-08-11] MEDS: Zinc Sulfate 220 MG Cap PO SCH (09:29)
[2021-08-11] MEDS: Enoxaparin 120 MG/0.8 ML Syringe SUBCUT SCH ×2 (09:29→22:10)
[2021-08-11] MEDS: Melatonin 3 MG Tab PO SCH (22:11)
[2021-08-11] MEDS: Insulin Glargine,Hum.Rec.Anlog 100 UNIT/ML 3 ML Pen SUBCUT SCH (22:11)
[2021-08-12] MEDS: Levothyroxine 25 MCG Tab PO SCH (06:35)
[2021-08-12] MEDS: Levothyroxine 100 MCG Tab PO SCH (06:35)
[2021-08-12] MEDS: Insulin Lispro 100 Unit/ML 3 ML KwikPen SUBCUT SCH ×4 (06:36→21:00)
--- NOTE | 2021-08-12 08:17 | PCM.PN ---
<Sandro Willett - Last Filed: 08/12/21 13:15> - General Info Date of Service: 08/12/21 Admission Dx/Problem (Free Text): Hypoxia Functional Status: Reports: Pain Controlled, Tolerating Diet, Ambulating, Urinating, Incentive Spirometry, Other (Acapella ). Denies: New Symptoms - Review of Systems General: Reports: Weakness (improving ), Fatigue (improving ), Malaise (improving ). Denies: Fever, Chills HEENT: Reports: No Symptoms. Denies: Headaches, Sore Throat Pulmonary: Reports: Shortness of Breath, Cough, Sputum. Denies: Pleuritic Chest Pain, Wheezing Cardiovascular: Reports: Dyspnea on Exertion. Denies: Chest Pain, Palpitations, Edema Gastrointestinal: Reports: No Symptoms. Denies: Abdominal Pain, Constipation, Diarrhea, Nausea, Vomiting Genitourinary: Reports: No Symptoms. Denies: Pain Musculoskeletal: Reports: No Symptoms Skin: Reports: No Symptoms. Denies: Cyanosis Neurological: Reports: No Symptoms, Difficulty Walking, Weakness. Denies: Confusion, Dizziness, Headache, Numbness, Pre-Existing Deficit, Trouble Speaking, Gait Disturbance Psychiatric: Reports: No Symptoms - Patient Data Vitals - Most Recent: Last Vital Signs Temp 97.3 F 08/12/21 04:28 Pulse 63 08/12/21 04:28 Resp 16 08/12/21 04:28 BP 138/80 08/12/21 04:28 Pulse Ox 91 L 08/12/21 04:28 Weight - Most Recent: 104.508 kg I&O - Last 24 Hours: Intake & Output 08/11/21 08/12/21 08/12/21 22:59 06:59 14:59 Intake Total 1160 400 Output Total 750 975 Balance 410 -575 Lab Results Last 24 Hours: Laboratory Results - last 24 hr 08/11/21 08/11/21 08/11/21 Range/Units 06:56 11:35 16:53 WBC (3.98-10.04) K/mm3 RBC (3.98-5.22) M/mm3 Hgb (11.2-15.7) gm/dl Hct (34.1-44.9) % MCV (79.4-94.8) fl MCH (25.6-32.2) pg MCHC (32.2-35.5) g/dl RDW Std Deviation (36.4-46.3) fL Plt Count (182-369) K/mm3 MPV (9.4-12.3) fl Neut % (Auto) (34.0-71.1) % Lymph % (Auto) (19.3-51.7) % Mobile % (Auto) (4.7-12.5) % Eos % (Auto) (0.7-5.8) Baso % (Auto) (0.1-1.2) % Neut # (Auto) (1.56-6.13) K/mm3 Lymph # (Auto) (1.18-3.74) K/mm3 Mobile # (Auto) (0.24-0.36) K/mm3 Eos # (Auto) (0.04-0.36) K/mm3 Baso # (Auto) (0.01-0.08) K/mm3 Manual Slide Review D-Dimer, Quantitative 7.04 H (0.19-0.50) mg/L Sodium (136-145) mEq/L Potassium (3.5-5.1) mEq/L Chloride (98-107) mEq/L Carbon Dioxide (21-32) mEq/L Anion Gap (5-15) BUN (7-18) mg/dL Creatinine (0.55-1.02) mg/dL Est Cr Clr Drug Dosing mL/min Estimated GFR (MDRD) (>60) mL/min BUN/Creatinine Ratio (14-18) Glucose (70-99) mg/dL POC Glucose 164 H 264 H (70-99) mg/dL Calcium (8.5-10.1) mg/dL Total Bilirubin (0.2-1.0) mg/dL AST (15-37) U/L ALT (14-59) U/L Alkaline Phosphatase (46-116) U/L C-Reactive Protein (<1.0) mg/dL Total Protein (6.4-8.2) g/dl Albumin (3.4-5.0) g/dl Globulin gm/dL Albumin/Globulin Ratio (1-2) 08/11/21 08/12/21 08/12/21 Range/Units 22:08 05:40 05:40 WBC 7.81 (3.98-10.04) K/mm3 RBC 4.81 (3.98-5.22) M/mm3 Hgb 14.0 (11.2-15.7) gm/dl Hct 42.2 (34.1-44.9) % MCV 87.7 (79.4-94.8) fl MCH 29.1 (25.6-32.2) pg MCHC 33.2 (32.2-35.5) g/dl RDW Std Deviation 40.1 (36.4-46.3) fL Plt Count 325 (182-369) K/mm3 MPV 10.4 (9.4-12.3) fl Neut % (Auto) 73.6 H (34.0-71.1) % Lymph % (Auto) 15.5 L (19.3-51.7) % Mobile % (Auto) 8.7 (4.7-12.5) % Eos % (Auto) 1.2 (0.7-5.8) Baso % (Auto) 0.1 (0.1-1.2) % Neut # (Auto) 5.75 (1.56-6.13) K/mm3 Lymph # (Auto) 1.21 (1.18-3.74) K/mm3 Mobile # (Auto) 0.68 H (0.24-0.36) K/mm3 Eos # (Auto) 0.09 (0.04-0.36) K/mm3 Baso # (Auto) 0.01 (0.01-0.08) K/mm3 Manual Slide Review Normal smear D-Dimer, Quantitative (0.19-0.50) mg/L Sodium 139 (136-145) mEq/L Potassium 3.8 (3.5-5.1) mEq/L Chloride 103 (98-107) mEq/L Carbon Dioxide 26 (21-32) mEq/L Anion Gap 13.8 (5-15) BUN 21 H (7-18) mg/dL Creatinine 0.8 (0.55-1.02) mg/dL Est Cr Clr Drug Dosing 69.09 mL/min Estimated GFR (MDRD) > 60 (>60) mL/min BUN/Creatinine Ratio 26.3 H (14-18) Glucose 146 H (70-99) mg/dL POC Glucose 272 H (70-99) mg/dL Calcium 8.4 L (8.5-10.1) mg/dL Total Bilirubin 0.8 (0.2-1.0) mg/dL AST 21 (15-37) U/L ALT 19 (14-59) U/L Alkaline Phosphatase 85 (46-116) U/L C-Reactive Protein 2.8 H* (<1.0) mg/dL Total Protein 5.8 L (6.4-8.2) g/dl Albumin 2.4 L (3.4-5.0) g/dl Globulin 3.4 gm/dL Albumin/Globulin Ratio 0.7 L (1-2) 08/12/21 Range/Units 06:33 WBC (3.98-10.04) K/mm3 RBC (3.98-5.22) M/mm3 Hgb (11.2-15.7) gm/dl Hct (34.1-44.9) % MCV (79.4-94.8) fl MCH (25.6-32.2) pg MCHC (32.2-35.5) g/dl RDW Std Deviation (36.4-46.3) fL Plt Count (182-369) K/mm3 MPV (9.4-12.3) fl Neut % (Auto) (34.0-71.1) % Lymph % (Auto) (19.3-51.7) % Mobile % (Auto) (4.7-12.5) % Eos % (Auto) (0.7-5.8) Baso % (Auto) (0.1-1.2) % Neut # (Auto) (1.56-6.13) K/mm3 Lymph # (Auto) (1.18-3.74) K/mm3 Mobile # (Auto) (0.24-0.36) K/mm3 Eos # (Auto) (0.04-0.36) K/mm3 Baso # (Auto) (0.01-0.08) K/mm3 Manual Slide Review D-Dimer, Quantitative (0.19-0.50) mg/L Sodium (136-145) mEq/L Potassium (3.5-5.1) mEq/L Chloride (98-107) mEq/L Carbon Dioxide (21-32) mEq/L Anion Gap (5-15) BUN (7-18) mg/dL Creatinine (0.55-1.02) mg/dL Est Cr Clr Drug Dosing mL/min Estimated GFR (MDRD) (>60) mL/min BUN/Creatinine Ratio (14-18) Glucose (70-99) mg/dL POC Glucose 131 H (70-99) mg/dL Calcium (8.5-10.1) mg/dL Total Bilirubin (0.2-1.0) mg/dL AST (15-37) U/L ALT (14-59) U/L Alkaline Phosphatase (46-116) U/L C-Reactive Protein (<1.0) mg/dL Total Protein (6.4-8.2) g/dl Albumin (3.4-5.0) g/dl Globulin gm/dL Albumin/Globulin Ratio (1-2) Med Orders - Current: Current Medications Acetaminophen (Acetaminophen 325 Mg Tab) 650 mg PO Q4H PRN PRN Reason: Pain (Mild 1-3)/fever Last Admin: 08/07/21 02:57 Dose: 650 mg Documented by: Albuterol (Albuterol 6.7 Gm Inhaler) 0 gm INH Q2H PRN PRN Reason: SOB/Wheezing Last Admin: 08/10/21 14:26 Dose: 2 dose Documented by: Albuterol/Ipratropium (Albuterol/Ipratropium 3.0-0.5 Mg/3 Ml Neb Soln) 3 ml NEB QIDRT PRN PRN Reason: Shortness Of Breath/wheezing Last Admin: 08/09/21 10:35 Dose: 3 ml Documented by: Baricitinib (Baricitinib 2 Mg Tab) 4 mg PO DAILY [place] Stop: 08/20/21 09:01 Last Admin: 08/11/21 09:29 Dose: 4 mg Documented by: Benzonatate (Benzonatate 100 Mg Cap) 200 mg PO Q8H PRN PRN Reason: Cough Last Admin: 08/07/21 03:02 Dose: 200 mg Documented by: Cholecalciferol (Cholecalciferol (Vitamin D3) 5,000 Unit Cap) 10,000 unit PO DAILY [place] Last Admin: 08/11/21 09:28 Dose: 10,000 unit Documented by: Dexamethasone (Dexamethasone 4 Mg Tab) 6 mg PO DAILY [facility] Stop: 08/14/21 09:01 Last Admin: 08/11/21 09:28 Dose: 6 mg Documented by: Enoxaparin Sodium (Enoxaparin 120 Mg/0.8 Ml Syringe) 110 mg SUBCUT Q12H [facility] Last Admin: 08/11/21 22:10 Dose: 110 mg Documented by: Famotidine (Famotidine 20 Mg Tab) 20 mg PO BID [facility] Last Admin: 08/11/21 22:10 Dose: 20 mg Documented by: Guaifenesin (Guaifenesin 600 Mg Tab.Er) 600 mg PO TID [facility] Last Admin: 08/11/21 22:11 Dose: 600 mg Documented by: Insulin Glargine (Insulin Glargine,Hum.Rec.Anlog 100 Unit/Ml 3 Ml Pen) 15 unit SUBCUT BEDTIME [facility] Last Admin: 08/11/21 22:11 Dose: 15 units Documented by: Insulin Human Lispro (Insulin Lispro 100 Unit/Ml 3 Ml Kwikpen) 0 unit SUBCUT QIDACANDBED [facility]; Protocol Last Admin: 08/12/21 06:36 Dose: Not Given Documented by: Levothyroxine Sodium (Levothyroxine 100 Mcg Tab) 100 mcg PO ACBREAKFAST [facility] Last Admin: 08/12/21 06:35 Dose: 100 mcg Documented by: Levothyroxine Sodium (Levothyroxine 25 Mcg Tab) 25 mcg PO ACBREAKFAST [facility] Last Admin: 08/12/21 06:35 Dose: 25 mcg Documented by: Melatonin (Melatonin 3 Mg Tab) 6 mg PO BEDTIME [facility] Last Admin: 08/11/21 22:11 Dose: 6 mg Documented by: Ondansetron HCl (Ondansetron 4 Mg/2 Ml Sdv) 4 mg IV Q6H PRN PRN Reason: Nausea/Vomiting Senna/Docusate Sodium (Docusate Sodium/Sennosides 50-8.6 Mg Tab) 1 tab PO DAILY PRN PRN Reason: Constipation Sertraline HCl (Sertraline 50 Mg Tab) 100 mg PO DAILY [facility] Last Admin: 08/11/21 09:29 Dose: 100 mg Documented by: Sodium Chloride (Sodium Chloride 0.9% 10 Ml Syringe) 10 ml FLUSH ASDIRECTED PRN PRN Reason: Keep Vein Open Last Admin: 08/05/21 09:23 Dose: 10 ml Documented by: Sodium Chloride (Sodium Chloride 0.9% 10 Ml Syringe) 10 ml FLUSH ONETIME PRN PRN Reason: IV FLUSH Zinc Sulfate (Zinc Sulfate 220 Mg Cap) 220 mg PO DAILY [facility] Last Admin: 08/11/21 09:29 Dose: 220 mg Documented by: Discontinued Medications Acetaminophen (Acetaminophen 325 Mg Tab) 650 mg PO Q4H PRN PRN Reason: Fever Greater Than 101 Albuterol/Ipratropium (Albuterol/Ipratropium 3.0-0.5 Mg/3 Ml Neb Soln) 3 ml NEB ONETIME ONE Stop: 08/05/21 08:51 Last Admin: 08/05/21 09:10 Dose: 3 ml Documented by: Baricitinib (Baricitinib 2 Mg Tab) 2 mg PO DAILY [facility] Stop: 08/21/21 10:01 Last Admin: 08/09/21 08:21 Dose: 2 mg Documented by: Dexamethasone (Dexamethasone 4 Mg/Ml Sdv) 6 mg IVPUSH ONETIME ONE Stop: 08/05/21 08:50 Last Admin: 08/05/21 09:21 Dose: 6 mg Documented by: Enoxaparin Sodium (Enoxaparin 40 Mg/0.4 Ml Syringe) 40 mg SUBCUT DAILY [facility] Last Admin: 08/09/21 08:21 Dose: 40 mg Documented by: Enoxaparin Sodium (Enoxaparin 40 Mg/0.4 Ml Syringe) 40 mg SUBCUT ONETIME ONE Stop: 08/05/21 11:31 Last Admin: 08/05/21 15:04 Dose: Not Given Documented by: Enoxaparin Sodium (Enoxaparin 80 Mg/0.8 Ml Syringe) 70 mg SUBCUT ONETIME ONE Stop: 08/09/21 10:02 Last Admin: 08/09/21 11:33 Dose: 70 mg Documented by: Guaifenesin (Guaifenesin 600 Mg Tab.Er) 600 mg PO TID [facility] Remdesivir 200 mg/ Sodium (Chloride) 250 mls @ 250 mls/hr IV ONETIME ONE Stop: 08/05/21 08:51 Last Admin: 08/05/21 09:21 Dose: 250 mls/hr Documented by: Sodium Chloride (Normal Saline) 1,000 mls @ 1,000 mls/hr IV .BOLUS [facility] Last Admin: 08/05/21 09:21 Dose: 1,000 mls/hr Documented by: Remdesivir 100 mg/ Sodium (Chloride) 250 mls @ 250 mls/hr IV Q24H [place] Stop: 08/09/21 09:59 Last Admin: 08/09/21 08:21 Dose: 250 mls/hr Documented by: Sodium Chloride (Normal Saline) 500 mls @ 999 mls/hr IV .BOLUS ONE Stop: 08/07/21 11:27 Last Admin: 08/07/21 11:39 Dose: 999 mls/hr Documented by: Sodium Chloride (Normal Saline) 100 mls @ 75 mls/hr IV ASDIRECTED [place] Last Admin: 08/09/21 10:03 Dose: 75 mls/hr Documented by: Iopamidol (Iopamidol 755 Mg/Ml 100 Ml Bottle) 100 ml IVPUSH ONETIME ONE Stop: 08/09/21 09:06 Last Admin: 08/09/21 10:04 Dose: 100 ml Documented by: Ondansetron HCl (Ondansetron 4 Mg/2 Ml Sdv) 4 mg IVPUSH ONETIME ONE Stop: 08/05/21 08:49 Last Admin: 08/05/21 09:23 Dose: 4 mg Documented by: - Exam Quality Assessment: Supplemental Oxygen (High flow 40 L with FiO2 of 50%), DVT Prophylaxis. No: Urine Catheter General: Alert, Oriented, Cooperative, No Acute Distress HEENT: Pupils Equal, Pupils Reactive, Mucous Membr. Moist/[place] Neck: Supple, Trachea Midline Lungs: Normal Respiratory Effort, Decreased Breath Sounds, Crackles Cardiovascular: Regular Rate, Regular Rhythm GI/Abdominal Exam: Normal Bowel Sounds, Soft, Non-Tender, No Distention (Female) Exam: Deferred Back Exam: Normal Inspection, Other (Large cystic lesion on right upper aspect of back. Patient reports she has had this drained multiple times in the past.) Extremities: Normal Inspection, Normal Range of Motion, Non-Tender, No Pedal Edema Skin: Warm, Dry, Intact Neurological: No New Focal Deficit Psy/Mental Status: Alert, Normal Affect, Normal Mood - Patient Data Lab Results Last 24 hrs: Laboratory Results - last 24 hr 08/11/21 08/11/21 08/11/21 Range/Units 06:56 11:35 16:53 WBC (3.98-10.04) K/mm3 RBC (3.98-5.22) M/mm3 Hgb (11.2-15.7) gm/dl Hct (34.1-44.9) % MCV (79.4-94.8) fl MCH (25.6-32.2) pg MCHC (32.2-35.5) g/dl RDW Std Deviation (36.4-46.3) fL Plt Count (182-369) K/mm3 MPV (9.4-12.3) fl Neut % (Auto) (34.0-71.1) % Lymph % (Auto) (19.3-51.7) % Mobile % (Auto) (4.7-12.5) % Eos % (Auto) (0.7-5.8) Baso % (Auto) (0.1-1.2) % Neut # (Auto) (1.56-6.13) K/mm3 Lymph # (Auto) (1.18-3.74) K/mm3 Mobile # (Auto) (0.24-0.36) K/mm3 Eos # (Auto) (0.04-0.36) K/mm3 Baso # (Auto) (0.01-0.08) K/mm3 Manual Slide Review D-Dimer, Quantitative 7.04 H (0.19-0.50) mg/L Sodium (136-145) mEq/L Potassium (3.5-5.1) mEq/L Chloride (98-107) mEq/L Carbon Dioxide (21-32) mEq/L Anion Gap (5-15) BUN (7-18) mg/dL Creatinine (0.55-1.02) mg/dL Est Cr Clr Drug Dosing mL/min Estimated GFR (MDRD) (>60) mL/min BUN/Creatinine Ratio (14-18) Glucose (70-99) mg/dL POC Glucose 164 H 264 H (70-99) mg/dL Calcium (8.5-10.1) mg/dL Total Bilirubin (0.2-1.0) mg/dL AST (15-37) U/L ALT (14-59) U/L Alkaline Phosphatase (46-116) U/L C-Reactive Protein (<1.0) mg/dL Total Protein (6.4-8.2) g/dl Albumin (3.4-5.0) g/dl Globulin gm/dL Albumin/Globulin Ratio (1-2) 08/11/21 08/12/21 08/12/21 Range/Units 22:08 05:40 05:40 WBC 7.81 (3.98-10.04) K/mm3 RBC 4.81 (3.98-5.22) M/mm3 Hgb 14.0 (11.2-15.7) gm/dl Hct 42.2 (34.1-44.9) % MCV 87.7 (79.4-94.8) fl MCH 29.1 (25.6-32.2) pg MCHC 33.2 (32.2-35.5) g/dl RDW Std Deviation 40.1 (36.4-46.3) fL Plt Count 325 (182-369) K/mm3 MPV 10.4 (9.4-12.3) fl Neut % (Auto) 73.6 H (34.0-71.1) % Lymph % (Auto) 15.5 L (19.3-51.7) % Mobile % (Auto) 8.7 (4.7-12.5) % Eos % (Auto) 1.2 (0.7-5.8) Baso % (Auto) 0.1 (0.1-1.2) % Neut # (Auto) 5.75 (1.56-6.13) K/mm3 Lymph # (Auto) 1.21 (1.18-3.74) K/mm3 Mobile # (Auto) 0.68 H (0.24-0.36) K/mm3 Eos # (Auto) 0.09 (0.04-0.36) K/mm3 Baso # (Auto) 0.01 (0.01-0.08) K/mm3 Manual Slide Review Normal smear D-Dimer, Quantitative (0.19-0.50) mg/L Sodium 139 (136-145) mEq/L Potassium 3.8 (3.5-5.1) mEq/L Chloride 103 (98-107) mEq/L Carbon Dioxide 26 (21-32) mEq/L Anion Gap 13.8 (5-15) BUN 21 H (7-18) mg/dL Creatinine 0.8 (0.55-1.02) mg/dL Est Cr Clr Drug Dosing 69.09 mL/min Estimated GFR (MDRD) > 60 (>60) mL/min BUN/Creatinine Ratio 26.3 H (14-18) Glucose 146 H (70-99) mg/dL POC Glucose 272 H (70-99) mg/dL Calcium 8.4 L (8.5-10.1) mg/dL Total Bilirubin 0.8 (0.2-1.0) mg/dL AST 21 (15-37) U/L ALT 19 (14-59) U/L Alkaline Phosphatase 85 (46-116) U/L C-Reactive Protein 2.8 H* (<1.0) mg/dL Total Protein 5.8 L (6.4-8.2) g/dl Albumin 2.4 L (3.4-5.0) g/dl Globulin 3.4 gm/dL Albumin/Globulin Ratio 0.7 L (1-2) 08/12/21 Range/Units 06:33 WBC (3.98-10.04) K/mm3 RBC (3.98-5.22) M/mm3 Hgb (11.2-15.7) gm/dl Hct (34.1-44.9) % MCV (79.4-94.8) fl MCH (25.6-32.2) pg MCHC (32.2-35.5) g/dl RDW Std Deviation (36.4-46.3) fL Plt Count (182-369) K/mm3 MPV (9.4-12.3) fl Neut % (Auto) (34.0-71.1) % Lymph % (Auto) (19.3-51.7) % Mobile % (Auto) (4.7-12.5) % Eos % (Auto) (0.7-5.8) Baso % (Auto) (0.1-1.2) % Neut # (Auto) (1.56-6.13) K/mm3 Lymph # (Auto) (1.18-3.74) K/mm3 Mobile # (Auto) (0.24-0.36) K/mm3 Eos # (Auto) (0.04-0.36) K/mm3 Baso # (Auto) (0.01-0.08) K/mm3 Manual Slide Review D-Dimer, Quantitative (0.19-0.50) mg/L Sodium (136-145) mEq/L Potassium (3.5-5.1) mEq/L Chloride (98-107) mEq/L Carbon Dioxide (21-32) mEq/L Anion Gap (5-15) BUN (7-18) mg/dL Creatinine (0.55-1.02) mg/dL Est Cr Clr Drug Dosing mL/min Estimated GFR (MDRD) (>60) mL/min BUN/Creatinine Ratio (14-18) Glucose (70-99) mg/dL POC Glucose 131 H (70-99) mg/dL Calcium (8.5-10.1) mg/dL Total Bilirubin (0.2-1.0) mg/dL AST (15-37) U/L ALT (14-59) U/L Alkaline Phosphatase (46-116) U/L C-Reactive Protein (<1.0) mg/dL Total Protein (6.4-8.2) g/dl Albumin (3.4-5.0) g/dl Globulin gm/dL Albumin/Globulin Ratio (1-2) Result Diagrams: 08/12/21 05:40 08/12/21 05:40 Sepsis Event Note - Evaluation Sepsis Screening Result: No Definite Risk - Focused Exam Vital Signs: Vital Signs Temp Pulse Resp BP Pulse Ox 08/12/21 04:28 97.3 F 63 16 138/80 91 L 08/11/21 22:04 98.1 F 64 16 129/80 93 L - Problem List & Annotations (1) Depression SNOMED Code(s): 30945263 Code(s): F32.A - DEPRESSION, UNSPECIFIED Status: Chronic Priority: Low Current Visit: No Qualifiers: Depression Type: other depression Qualified Code(s): F32.89 - Other specified depressive episodes (2) Hypothyroidism SNOMED Code(s): 56824949 Code(s): E03.9 - HYPOTHYROIDISM, UNSPECIFIED Status: Chronic Priority: Low Current Visit: No Qualifiers: Hypothyroidism type: unspecified Qualified Code(s): E03.9 - Hypothyroidism, unspecified (3) Elevated d-dimer SNOMED Code(s): 377393786 Code(s): R79.89 - OTHER SPECIFIED ABNORMAL FINDINGS OF BLOOD CHEMISTRY Status: Acute Priority: Medium Current Visit: Yes (4) Thrombocytopenia SNOMED Code(s): 733096718 Code(s): D69.6 - THROMBOCYTOPENIA, UNSPECIFIED Status: Resolved Priority: Medium Current Visit: Yes (5) Hyponatremia SNOMED Code(s): 75190407 Code(s): E87.1 - HYPO-OSMOLALITY AND HYPONATREMIA Status: Resolved Emilee ority: Medium Current Visit: Yes (6) Volume depletion SNOMED Code(s): 357156144 Code(s): E86.9 - VOLUME DEPLETION, UNSPECIFIED Status: Acute Priority: Medium Current Visit: Yes (7) Nausea SNOMED Code(s): 963147516 Code(s): R11.0 - NAUSEA Status: Resolved Priority: Medium Current Visit: Yes (8) Pneumonia due to COVID-19 virus SNOMED Code(s): 654617583046768877 Code(s): U07.1 - COVID-19; J12.82 - PNEUMONIA DUE TO CORONAVIRUS DISEASE 2019 Status: Acute Priority: High Current Visit: Yes (9) Hypoxia SNOMED Code(s): 345710891 Code(s): R09.02 - HYPOXEMIA Status: Acute Priority: High Current Visit: Yes (10) Generalized weakness SNOMED Code(s): 03964288 Code(s): R53.1 - WEAKNESS Status: Acute Priority: Medium Current Visit: Yes (11) ANAHI (acute kidney injury) SNOMED Code(s): 48148169, 34632555 Code(s): N17.9 - ACUTE KIDNEY FAILURE, UNSPECIFIED Status: Acute Priority: High Current Visit: Yes (12) New onset type 2 diabetes mellitus SNOMED Code(s): 16226714 Code(s): E11.9 - TYPE 2 DIABETES MELLITUS WITHOUT COMPLICATIONS Status: Chronic Priority: High Current Visit: Yes (13) Vitamin D deficiency SNOMED Code(s): 91943563 Code(s): E55.9 - VITAMIN D DEFICIENCY, UNSPECIFIED Status: Acute [place] ority: High Current Visit: Yes (14) Hyperglycemia SNOMED Code(s): 51623431 Code(s): R73.9 - HYPERGLYCEMIA, UNSPECIFIED Status: Acute Priority: High Current Visit: Yes (15) Pulmonary emboli SNOMED Code(s): 93806728 Code(s): I26.99 - OTHER PULMONARY EMBOLISM WITHOUT ACUTE COR PULMONALE Status: Acute Priority: High Current Visit: Yes Qualifiers: Pulmonary embolism type: multiple subsegmental (without acute cor pulmonale) Qualified Code(s): I26.94 - Multiple subsegmental pulmonary emboli without acu te cor pulmonale - Problem List Review Problem List Initiated/Reviewed/Updated: Yes - My Orders Last 24 Hours: My Active Orders 08/13/21 05:11 CBC WITH AUTO DIFF [HEME] AM CMP [COMPREHENSIVE METABOLIC PN,CMP] [CHEM] AM CRP [C-REACTIVE PROTEIN] [CHEM] AM - Assessment Assessment:: 08/06/2021 66-year-old female admitted to the floor for treatment of her COVID-19 pneumonia . Patient continues on dexamethasone and remdesivir. She is requiring 25 L of high flow oxygen with an FiO2 of 85% today. She is utilizing her incentive spirometer and Acapella sparingly and she was instructed to increase her use of this. We discussed proning. She was offered baricitinib and is refusing at this time. We will continue to offer this. Labs today show WBC of 6.24. Hemoglobin 14.4. Platelet 184,000. Neutrophils are elevated 74.3%. Sodium is 136. Potassium 4.3. Carbon oxide 27. Anion gap is 12.3. BUN is 30. Creatinine 1.1. GFR is 50. Magnesium was 2.2. Bilirubin 0.5. AST was 30, ALT was 26, alkaline phosphatase 79. CRP is improved 6.2. Albumin is 2.8. Vitami n D obtained yesterday was 12.7 and she was started on supplementation. Procalcitonin was 0.10. Due to her hyperglycemia A1c was obtained and was 10.7. Will order diabetic education and dietitian consultation. Patient reports she has been prediabetic in the past. We will start 15 units of long-acting insulin and medium intensity sliding scale insulin. We will check 4 times daily before meals and bedtime blood glucose checks. Anticipate rise in blood glucose readings due to steroids. Unknown length of stay due to severity of symptoms. 08/07/2021 66-year-old female admitted the floor for COVID-19 pneumonia. She continues on dexamethasone and remdesivir. She is requiring 35 L of oxygen with an FiO2 of 80%. She is using her I-S and Acapella. She is very weak. Labs today show WBC of 8.08. Hemoglobin 14.6. Platelet 262,000. Neutrophils are elevated 77.8%. D-dimer is 1.81. Sodium is 139. Potassium 4.4. Chloride 103. Carbon dioxide 28. Anion gap is 12.4. BUN is 28. Creatinine is up to 1.2. GFR is down to 45. Glucose has been between 154 and 311. She remains on 15 units long-acting insulin at bedtime. Magnesium is 2.2. Bilirubin 0.6. AST is 27, ALT 26, alkaline phosphatase 78. CRP is down to 4.7. Protein is 5.9. Albumin is 2.7. inclusion special educator and dietitian are waiting for the patient is feeling better to discuss her new diabetic diagnosis. She reports she has not been sleeping well we will add scheduled nighttime melatonin. Unknown length of stay due to severity of symptoms. Because of her significant worsening oxygen saturations and requirement for high flow oxygenation I am recommending baricitinib. I spoke with Gail to provide information about baricitinib. I offered the "fax sheet for patients and parents/caregivers, for baricitinib" to read and review. I stated that therapy has been approved by an emergency use authorization process and has not fully been FDA reviewed or approved. I shared potential risks from the therapy including increased risk for serious infections, anaphylaxis, and reaction to medication. I discussed there are other potential treatment options that are currently not FDA approved to treat COVID-19. Offered opportunity to ask questions and all questions were answered. Gail voiced understanding and agreed to proceed with treatment. 08/08/2021 The patient is a 66-year-old lady who will be retained in hospitalization due to her treatment with remdesivir. She is also to be continued on baricitinib. I have instructed the patient in the use of the incentive spirometer and Acapella. She is also new onset diabetes and inclusion special educator has been ordered. The patient's blood glucose will be monitored and she will be maintained on a carb constant diet. The patient may need to have her insulin adjusted as her blood sugar indicates. The patient is also on DVT prophylaxis with the use of Lovenox 40 mg subcutaneous daily. Repeat laboratory studies have been ordered for the morning. Repeat chest x-ray is also been ordered. The patient should be appropriate for discharge upon completion of her remdesivir. 08/09/2021 66-year-old female admitted to the hospital due to COVID-19 treatment. She continues on remdesivir and baricitinib. Her oxygen demand has increased and she is up to 40 L with an FiO2 of 90%. D-dimer today was elevated at 12.98 and CTA was ordered. CTA returned "1. Pulmonary emboli within the segmental branches of the left lower lung as well as sagittal emboli bridging the segmental branches within the right middle lobe and right lower lobe. Pulmonary emboli extend into the subsegmental branches. 2. No compromise of the right heart is seen. 3. Diffuse parenchymal changes noted within both lungs compatible with very prominent COVID-19 pneumonia. 4. Fatty infiltration within the liver and other findings believed to be nonacute as described above." Because of this her Lovenox was increased to 1 mg/kg twice daily. Echocardiogram was ordered. Chest x-ray was obtained and shows very prominent COVID-19 pneumonia. She continues on high flow and up to 40 L with an FiO2 of 90%. WBC today is slightly elevated at 10.12, likely secondary to steroid use. Hemoglobin is 14.2. Platelet is 302,000. Neutrophils are elevated at 78.6%. D-dimer is 12.98. Sodium is 142. Potassium is 4.6. Chloride is 105. Carbon dioxide is 30. Anion gap is 11.6. BUN is 20. Creatinine 0.9. GFR is greater than 60. Glucose is 83-255. Magnesium 2.0. Bilirubin 0.7. AST is 26, ALT 19, alkaline phosphatase 93. CRP is 2.7. Albumin is 2.6. We will continue current treatment plan. Unknown length of stay due to severity of COVID-19 symptoms and new onset PE. 08/10/2021 The patient is a 66-year-old lady who is currently anticoagulated for her pulmonary emboli with the use of Lovenox 110 mg subcutaneous every 12 hours. The patient will be transitioned to a NOAC in the next day or 2. The patient will continue on Accu-Cheks before meals and at bedtime as well as insulin sliding scale. Her hyperglycemia is likely to be elevated secondary to the steroid use and she is on insulin for now. The patient's acute renal failure has resolved. Her creatinine and BUN are normal with the normal EGFR. The patient will continue on her diabetic diet. Repeat laboratory studies have been ordered. The patient has been on oxygen and was will be titrated to keep her saturations around 92%. The patient should be appropriate for discharge in 1 to 2 days. 08/11/2021 The patient is a 66-year-old lady who was admitted initially secondary to COVID- 19 pneumonia. The patient did have an increase in her D-dimer and as a result of this and a CT scan angiogram of her chest was ordered and she was found to have segmental and subsegmental bilateral pulmonary emboli. She is on treatment dose of Lovenox 1 mg/kg twice a day. The patient is also diabetic and she is to have insulin sliding scale. The patient's hyperglycemia is also been noted to be likely secondary to steroids. Repeat laboratory studies have been ordered. The patient's previously noted renal failure has resolved. The patient will be kept on oxygen to keep with her saturations around 92%. I have also explained to the patient the importance of moving around and doing what she can to try and prevent weakness and deconditioning. Physical therapy has been ordered for the patient. The patient will be transitioned to NOAC prior to discharge. 08/12/2021 This is a 66-year-old female admitted to the floor for COVID-19 pneumonia with hypoxia. She was also found to have pulmonary emboli and be a new onset diabetic. She remains on 40 L high flow with an FiO2 of 50%. Overall she reports she feels quite a bit better today. She completed her remdesivir treatment and remains on dexamethasone 6 mg and baricitinib. WBC today is 7.81. Hemoglobin is 14.0. Platelet 325,000. Neutrophils are elevated at 73.6%. Sodium is 139. Potassium 3.8. Chloride 26. Anion gap is 13.8. BUN is 21. Creatinine 0.8. GFR greater than 60. Blood glucose range has been from 1 31-2 72. Total bilirubin 0.8. AST 21, ALT 19, alkaline phosphatase 85. CRP is down to 2.8. Protein is 5.8. Albumin is down to 2.4. We will continue current treatment and attempt to wean off of oxygen. Patient will be appropriate for discharge once she completes treatment and weans down to a reasonable amount of oxygen with goal being 2 L or less. Unknown length of stay due to severity of symptoms. - Plan Plan:: Pneumonia due to COVID-19 virus Hypoxia Generalized weakness Nausea, resolved * Prone whenever able * I-S/Acapella * Respiratory therapy consultation * As needed DuoNebs * As needed albuterol inhaler * Completed 5 days of Remdesivir * 6 mg dexamethasone for 10 days * As needed Zofran for nausea * O2 as needed to keep saturations between 88 and 95% * 20 mg famotidine twice daily * Physical therapy evaluation * Lovenox 40 mg daily * High flow oxygen 40 L with an FiO2 of 50%. * Daily labs * Airborne/contact precautions * Telemetry * Continuous pulse oximetry * 14 days baricitinib Pulmonary embolism Elevated d-dimer * 1mg/kg Lovenox * Echocardiogram obtained as noted * Transition to DOAC prior to discharge Thrombocytopenia, Resolved * Monitor daily labs Hyponatremia, resolved Volume depletion, resolved ANAHI, Reslved * Given 1 L fluid bolus in ED * Encourage oral rehydration * Avoid nephrotoxic medications if able * Monitor daily labs New onset diabetes mellitus Hyperglycemia * QID AC and Bedtime glucose checks * inclusion special educator consultation * Music Arranger consultation * Consistent carbohydrate diet * 15 units long acting insulin * Sliding scale medium intensity insulin * Anticipate rise in blood glucose readings 2/2 steroid use Vitamin D deficiency * Continue daily supplementation Depression * No acute concerns * Continue home zoloft Hypothyroidism * No acute concerns * Continue home levothyroxine Code status: Full code PCP: Heather Granado PA-C DVT prophylaxis: Lovenox Disposition: Patient mated to the floor for management of COVID-19 pneumonia with hypoxia. LOS >96hrs due to need for continued treatment due to severity of symptoms, need for continued treatment. <Levy Madison - Last Filed: 08/12/21 15:50> - Patient Data Vitals - Most Recent: Last Vital Signs Temp 36.6 C 08/12/21 12:06 Pulse 63 08/12/21 12:06 Resp 18 08/12/21 12:06 BP 143/96 H 08/12/21 12:06 Pulse Ox 89 L 08/12/21 12:06 I&O - Last 24 Hours: Intake & Output 08/12/21 08/12/21 08/12/21 06:59 14:59 22:59 Intake Total 400 330 Output Total 975 Balance -575 330 Lab Results Last 24 Hours: Laboratory Results - last 24 hr 08/11/21 08/11/21 08/12/21 Range/Units 16:53 22:08 05:40 WBC 7.81 (3.98-10.04) K/mm3 RBC 4.81 (3.98-5.22) M/mm3 Hgb 14.0 (11.2-15.7) gm/dl Hct 42.2 (34.1-44.9) % MCV 87.7 (79.4-94.8) fl MCH 29.1 (25.6-32.2) pg MCHC 33.2 (32.2-35.5) g/dl RDW Std Deviation 40.1 (36.4-46.3) fL Plt Count 325 (182-369) K/mm3 MPV 10.4 (9.4-12.3) fl Neut % (Auto) 73.6 H (34.0-71.1) % Lymph % (Auto) 15.5 L (19.3-51.7) % Mobile % (Auto) 8.7 (4.7-12.5) % Eos % (Auto) 1.2 (0.7-5.8) Baso % (Auto) 0.1 (0.1-1.2) % Neut # (Auto) 5.75 (1.56-6.13) K/mm3 Lymph # (Auto) 1.21 (1.18-3.74) K/mm3 Mobile # (Auto) 0.68 H (0.24-0.36) K/mm3 Eos # (Auto) 0.09 (0.04-0.36) K/mm3 Baso # (Auto) 0.01 (0.01-0.08) K/mm3 Manual Slide Review Normal smear Sodium (136-145) mEq/L Potassium (3.5-5.1) mEq/L Chloride (98-107) mEq/L Carbon Dioxide (21-32) mEq/L Anion Gap (5-15) BUN (7-18) mg/dL Creatinine (0.55-1.02) mg/dL Est Cr Clr Drug Dosing mL/min Estimated GFR (MDRD) (>60) mL/min BUN/Creatinine Ratio (14-18) Glucose (70-99) mg/dL POC Glucose 264 H 272 H (70-99) mg/dL Calcium (8.5-10.1) mg/dL Total Bilirubin (0.2-1.0) mg/dL AST (15-37) U/L ALT (14-59) U/L Alkaline Phosphatase (46-116) U/L C-Reactive Protein (<1.0) mg/dL Total Protein (6.4-8.2) g/dl Albumin (3.4-5.0) g/dl Globulin gm/dL Albumin/Globulin Ratio (1-2) 08/12/21 08/12/21 08/12/21 Range/Units 05:40 06:33 12:03 WBC (3.98-10.04) K/mm3 RBC (3.98-5.22) M/mm3 Hgb (11.2-15.7) gm/dl Hct (34.1-44.9) % MCV (79.4-94.8) fl MCH (25.6-32.2) pg MCHC (32.2-35.5) g/dl RDW Std Deviation (36.4-46.3) fL Plt Count (182-369) K/mm3 MPV (9.4-12.3) fl Neut % (Auto) (34.0-71.1) % Lymph % (Auto) (19.3-51.7) % Mobile % (Auto) (4.7-12.5) % Eos % (Auto) (0.7-5.8) Baso % (Auto) (0.1-1.2) % Neut # (Auto) (1.56-6.13) K/mm3 Lymph # (Auto) (1.18-3.74) K/mm3 Mobile # (Auto) (0.24-0.36) K/mm3 Eos # (Auto) (0.04-0.36) K/mm3 Baso # (Auto) (0.01-0.08) K/mm3 Manual Slide Review Sodium 139 (136-145) mEq/L Potassium 3.8 (3.5-5.1) mEq/L Chloride 103 (98-107) mEq/L Carbon Dioxide 26 (21-32) mEq/L Anion Gap 13.8 (5-15) BUN 21 H (7-18) mg/dL Creatinine 0.8 (0.55-1.02) mg/dL Est Cr Clr Drug Dosing 69.09 mL/min Estimated GFR (MDRD) > 60 (>60) mL/min BUN/Creatinine Ratio 26.3 H (14-18) Glucose 146 H (70-99) mg/dL POC Glucose 131 H 259 H (70-99) mg/dL Calcium 8.4 L (8.5-10.1) mg/dL Total Bilirubin 0.8 (0.2-1.0) mg/dL AST 21 (15-37) U/L ALT 19 (14-59) U/L Alkaline Phosphatase 85 (46-116) U/L C-Reactive Protein 2.8 H* (<1.0) mg/dL Total Protein 5.8 L (6.4-8.2) g/dl Albumin 2.4 L (3.4-5.0) g/dl Globulin 3.4 gm/dL Albumin/Globulin Ratio 0.7 L (1-2) Med Orders - Current: Current Medications Acetaminophen (Acetaminophen 325 Mg Tab) 650 mg PO Q4H PRN PRN Reason: Pain (Mild 1-3)/fever Last Admin: 08/07/21 02:57 Dose: 650 mg Documented by: Albuterol (Albuterol 6.7 Gm Inhaler) 0 gm INH Q2H PRN PRN Reason: SOB/Wheezing Last Admin: 08/10/21 14:26 Dose: 2 dose Documented by: Albuterol/Ipratropium (Albuterol/Ipratropium 3.0-0.5 Mg/3 Ml Neb Soln) 3 ml NEB QIDRT PRN PRN Reason: Shortness Of Breath/wheezing Last Admin: 08/12/21 10:11 Dose: 3 ml Documented by: Baricitinib (Baricitinib 2 Mg Tab) 4 mg PO DAILY [place] Stop: 08/20/21 09:01 Last Admin: 08/12/21 08:53 Dose: 4 mg Documented by: Benzonatate (Benzonatate 100 Mg Cap) 200 mg PO Q8H PRN PRN Reason: Cough Last Admin: 08/07/21 03:02 Dose: 200 mg Documented by: Cholecalciferol (Cholecalciferol (Vitamin D3) 5,000 Unit Cap) 10,000 unit PO DAILY [place] Last Admin: 08/12/21 08:53 Dose: 10,000 unit Documented by: Dexamethasone (Dexamethasone 4 Mg Tab) 6 mg PO DAILY [facility] Stop: 08/14/21 09:01 Last Admin: 08/12/21 08:53 Dose: 6 mg Documented by: Enoxaparin Sodium (Enoxaparin 120 Mg/0.8 Ml Syringe) 110 mg SUBCUT Q12H [facility] Last Admin: 08/12/21 08:55 Dose: 110 mg Documented by: Famotidine (Famotidine 20 Mg Tab) 20 mg PO BID [facility] Last Admin: 08/12/21 08:53 Dose: 20 mg Documented by: Guaifenesin (Guaifenesin 600 Mg Tab.Er) 600 mg PO TID [facility] Last Admin: 08/12/21 14:29 Dose: 600 mg Documented by: Insulin Glargine (Insulin Glargine,Hum.Rec.Anlog 100 Unit/Ml 3 Ml Pen) 15 unit SUBCUT BEDTIME [facility] Last Admin: 08/11/21 22:11 Dose: 15 units Documented by: Insulin Human Lispro (Insulin Lispro 100 Unit/Ml 3 Ml Kwikpen) 0 unit SUBCUT QIDACANDBED [facility]; Protocol Last Admin: 08/12/21 12:33 Dose: 6 units Documented by: Levothyroxine Sodium (Levothyroxine 100 Mcg Tab) 100 mcg PO ACBREAKFAST [facility] Last Admin: 08/12/21 06:35 Dose: 100 mcg Documented by: Levothyroxine Sodium (Levothyroxine 25 Mcg Tab) 25 mcg PO ACBREAKFAST [facility] Last Admin: 08/12/21 06:35 Dose: 25 mcg Documented by: Melatonin (Melatonin 3 Mg Tab) 6 mg PO BEDTIME [facility] Last Admin: 08/11/21 22:11 Dose: 6 mg Documented by: Ondansetron HCl (Ondansetron 4 Mg/2 Ml Sdv) 4 mg IV Q6H PRN PRN Reason: Nausea/Vomiting Senna/Docusate Sodium (Docusate Sodium/Sennosides 50-8.6 Mg Tab) 1 tab PO DAILY PRN PRN Reason: Constipation Sertraline HCl (Sertraline 50 Mg Tab) 100 mg PO DAILY [facility] Last Admin: 08/12/21 08:53 Dose: 100 mg Documented by: Sodium Chloride (Sodium Chloride 0.9% 10 Ml Syringe) 10 ml FLUSH ASDIRECTED PRN PRN Reason: Keep Vein Open Last Admin: 08/05/21 09:23 Dose: 10 ml Documented by: Sodium Chloride (Sodium Chloride 0.9% 10 Ml Syringe) 10 ml FLUSH ONETIME PRN PRN Reason: IV FLUSH Zinc Sulfate (Zinc Sulfate 220 Mg Cap) 220 mg PO DAILY [facility] Last Admin: 08/12/21 08:53 Dose: 220 mg Documented by: Discontinued Medications Acetaminophen (Acetaminophen 325 Mg Tab) 650 mg PO Q4H PRN PRN Reason: Fever Greater Than 101 Albuterol/Ipratropium (Albuterol/Ipratropium 3.0-0.5 Mg/3 Ml Neb Soln) 3 ml NEB ONETIME ONE Stop: 08/05/21 08:51 Last Admin: 08/05/21 09:10 Dose: 3 ml Documented by: Baricitinib (Baricitinib 2 Mg Tab) 2 mg PO DAILY [facility] Stop: 08/21/21 10:01 Last Admin: 08/09/21 08:21 Dose: 2 mg Documented by: Dexamethasone (Dexamethasone 4 Mg/Ml Sdv) 6 mg IVPUSH ONETIME ONE Stop: 08/05/21 08:50 Last Admin: 08/05/21 09:21 Dose: 6 mg Documented by: Enoxaparin Sodium (Enoxaparin 40 Mg/0.4 Ml Syringe) 40 mg SUBCUT DAILY [facility] Last Admin: 08/09/21 08:21 Dose: 40 mg Documented by: Enoxaparin Sodium (Enoxaparin 40 Mg/0.4 Ml Syringe) 40 mg SUBCUT ONETIME ONE Stop: 08/05/21 11:31 Last Admin: 08/05/21 15:04 Dose: Not Given Documented by: Enoxaparin Sodium (Enoxaparin 80 Mg/0.8 Ml Syringe) 70 mg SUBCUT ONETIME ONE Stop: 08/09/21 10:02 Last Admin: 08/09/21 11:33 Dose: 70 mg Documented by: Guaifenesin (Guaifenesin 600 Mg Tab.Er) 600 mg PO TID [facility] Remdesivir 200 mg/ Sodium (Chloride) 250 mls @ 250 mls/hr IV ONETIME ONE Stop: 08/05/21 08:51 Last Admin: 08/05/21 09:21 Dose: 250 mls/hr Documented by: Sodium Chloride (Normal Saline) 1,000 mls @ 1,000 mls/hr IV .BOLUS [place] Last Admin: 08/05/21 09:21 Dose: 1,000 mls/hr Documented by: Remdesivir 100 mg/ Sodium (Chloride) 250 mls @ 250 mls/hr IV Q24H [place] Stop: 08/09/21 09:59 Last Admin: 08/09/21 08:21 Dose: 250 mls/hr Documented by: Sodium Chloride (Normal Saline) 500 mls @ 999 mls/hr IV .BOLUS ONE Stop: 08/07/21 11:27 Last Admin: 08/07/21 11:39 Dose: 999 mls/hr Documented by: Sodium Chloride (Normal Saline) 100 mls @ 75 mls/hr IV ASDIRECTED [facility] Last Admin: 08/09/21 10:03 Dose: 75 mls/hr Documented by: Iopamidol (Iopamidol 755 Mg/Ml 100 Ml Bottle) 100 ml IVPUSH ONETIME ONE Stop: 08/09/21 09:06 Last Admin: 08/09/21 10:04 Dose: 100 ml Documented by: Ondansetron HCl (Ondansetron 4 Mg/2 Ml Sdv) 4 mg IVPUSH ONETIME ONE Stop: 08/05/21 08:49 Last Admin: 08/05/21 09:23 Dose: 4 mg Documented by: - Patient Data Lab Results Last 24 hrs: Laboratory Results - last 24 hr 08/11/21 08/11/21 08/12/21 Range/Units 16:53 22:08 05:40 WBC 7.81 (3.98-10.04) K/mm3 RBC 4.81 (3.98-5.22) M/mm3 Hgb 14.0 (11.2-15.7) gm/dl Hct 42.2 (34.1-44.9) % MCV 87.7 (79.4-94.8) fl MCH 29.1 (25.6-32.2) pg MCHC 33.2 (32.2-35.5) g/dl RDW Std Deviation 40.1 (36.4-46.3) fL Plt Count 325 (182-369) K/mm3 MPV 10.4 (9.4-12.3) fl Neut % (Auto) 73.6 H (34.0-71.1) % Lymph % (Auto) 15.5 L (19.3-51.7) % Mobile % (Auto) 8.7 (4.7-12.5) % Eos % (Auto) 1.2 (0.7-5.8) Baso % (Auto) 0.1 (0.1-1.2) % Neut # (Auto) 5.75 (1.56-6.13) K/mm3 Lymph # (Auto) 1.21 (1.18-3.74) K/mm3 Mobile # (Auto) 0.68 H (0.24-0.36) K/mm3 Eos # (Auto) 0.09 (0.04-0.36) K/mm3 Baso # (Auto) 0.01 (0.01-0.08) K/mm3 Manual Slide Review Normal smear Sodium (136-145) mEq/L Potassium (3.5-5.1) mEq/L Chloride (98-107) mEq/L Carbon Dioxide (21-32) mEq/L Anion Gap (5-15) BUN (7-18) mg/dL Creatinine (0.55-1.02) mg/dL Est Cr Clr Drug Dosing mL/min Estimated GFR (MDRD) (>60) mL/min BUN/Creatinine Ratio (14-18) Glucose (70-99) mg/dL POC Glucose 264 H 272 H (70-99) mg/dL Calcium (8.5-10.1) mg/dL Total Bilirubin (0.2-1.0) mg/dL AST (15-37) U/L ALT (14-59) U/L Alkaline Phosphatase (46-116) U/L C-Reactive Protein (<1.0) mg/dL Total Protein (6.4-8.2) g/dl Albumin (3.4-5.0) g/dl Globulin gm/dL Albumin/Globulin Ratio (1-2) 08/12/21 08/12/21 08/12/21 Range/Units 05:40 06:33 12:03 WBC (3.98-10.04) K/mm3 RBC (3.98-5.22) M/mm3 Hgb (11.2-15.7) gm/dl Hct (34.1-44.9) % MCV (79.4-94.8) fl MCH (25.6-32.2) pg MCHC (32.2-35.5) g/dl RDW Std Deviation (36.4-46.3) fL Plt Count (182-369) K/mm3 MPV (9.4-12.3) fl Neut % (Auto) (34.0-71.1) % Lymph % (Auto) (19.3-51.7) % Mobile % (Auto) (4.7-12.5) % Eos % (Auto) (0.7-5.8) Baso % (Auto) (0.1-1.2) % Neut # (Auto) (1.56-6.13) K/mm3 Lymph # (Auto) (1.18-3.74) K/mm3 Mobile # (Auto) (0.24-0.36) K/mm3 Eos # (Auto) (0.04-0.36) K/mm3 Baso # (Auto) (0.01-0.08) K/mm3 Manual Slide Review Sodium 139 (136-145) mEq/L Potassium 3.8 (3.5-5.1) mEq/L Chloride 103 (98-107) mEq/L Carbon Dioxide 26 (21-32) mEq/L Anion Gap 13.8 (5-15) BUN 21 H (7-18) mg/dL Creatinine 0.8 (0.55-1.02) mg/dL Est Cr Clr Drug Dosing 69.09 mL/min Estimated GFR (MDRD) > 60 (>60) mL/min BUN/Creatinine Ratio 26.3 H (14-18) Glucose 146 H (70-99) mg/dL POC Glucose 131 H 259 H (70-99) mg/dL Calcium 8.4 L (8.5-10.1) mg/dL Total Bilirubin 0.8 (0.2-1.0) mg/dL AST 21 (15-37) U/L ALT 19 (14-59) U/L Alkaline Phosphatase 85 (46-116) U/L C-Reactive Protein 2.8 H* (<1.0) mg/dL Total Protein 5.8 L (6.4-8.2) g/dl Albumin 2.4 L (3.4-5.0) g/dl Globulin 3.4 gm/dL Albumin/Globulin Ratio 0.7 L (1-2) Result Diagrams: 08/12/21 05:40 08/12/21 05:40 Sepsis Event Note - Focused Exam Vital Signs: Vital Signs Temp Pulse Resp BP Pulse Ox Pulse Ox 08/12/21 12:06 36.6 C 63 18 143/96 H 89 L 08/12/21 10:12 88 L 08/12/21 09:05 71 90 L 08/12/21 07:57 36.5 C 63 16 123/72 87 L 08/12/21 04:28 36.3 C 63 16 138/80 91 L - Problem List & Annotations (1) Pulmonary emboli SNOMED Code(s): 31663373 Code(s): I26.99 - OTHER PULMONARY EMBOLISM WITHOUT ACUTE COR PULMONALE Status: Acute Priority: High Current Visit: Yes Qualifiers: Pulmonary embolism type: multiple subsegmental (without acute cor pulmonale) Qualified Code(s): I26.94 - Multiple subsegmental pulmonary emboli without acute cor pulmonale (2) Pneumonia due to COVID-19 virus SNOMED Code(s): 881348873988186512 Code(s): U07.1 - COVID-19; J12.82 - PNEUMONIA DUE TO CORONAVIRUS DISEASE 2019 Status: Acute Priority: High Current Visit: Yes (3) ANAHI (acute kidney injury) SNOMED Code(s): 41950016, 86207029 Code(s): N17.9 - ACUTE KIDNEY FAILURE, UNSPECIFIED Status: Acute Priority: High Current Visit: Yes (4) Generalized weakness SNOMED Code(s): 02924656 Code(s): R53.1 - WEAKNESS Status: Acute Priority: Medium Current Visit: Yes (5) New onset type 2 diabetes mellitus SNOMED Code(s): 10121528 Code(s): E11.9 - TYPE 2 DIABETES MELLITUS WITHOUT COMPLICATIONS Status: Chronic Priority: High Current Visit: Yes (6) Vitamin D deficiency SNOMED Code(s): 51477737 Code(s): E55.9 - VITAMIN D DEFICIENCY, UNSPECIFIED Status: Acute Priority: High Current Visit: Yes - Free Text/Narrative Note: I have seen and examined the patient independently of TONNY Willett. I have discussed the case with him. I have also reviewed and agree with the plan of care as outlined by him. Please see orders.
[2021-08-12] MEDS: Famotidine 20 MG Tab PO SCH ×2 (08:53→20:53)
[2021-08-12] MEDS: Sertraline 50 MG Tab PO SCH (08:53)
[2021-08-12] MEDS: Zinc Sulfate 220 MG Cap PO SCH (08:53)
[2021-08-12] MEDS: Cholecalciferol (Vitamin D3) 5,000 UNIT Cap PO SCH (08:53)
[2021-08-12] MEDS: Dexamethasone 4 MG Tab PO SCH (08:53)
[2021-08-12] MEDS: guaiFENesin 600 MG Tab.ER PO SCH ×3 (08:54→20:51)
[2021-08-12] MEDS: Enoxaparin 120 MG/0.8 ML Syringe SUBCUT SCH ×2 (08:55→20:53)
[2021-08-12] MEDS: Albuterol/Ipratropium 3.0-0.5 MG/3 ML Neb Soln NEB PRN ×2 (10:11→16:32)
[2021-08-12] MEDS: Albuterol 6.7 GM Inhaler INH PRN (20:32)
[2021-08-12] MEDS: Melatonin 3 MG Tab PO SCH (20:52)
[2021-08-12] MEDS: Insulin Glargine,Hum.Rec.Anlog 100 UNIT/ML 3 ML Pen SUBCUT SCH (21:03)
[2021-08-13] MEDS: Levothyroxine 100 MCG Tab PO SCH (06:09)
[2021-08-13] MEDS: Levothyroxine 25 MCG Tab PO SCH (06:09)
--- NOTE | 2021-08-13 07:27 | PCM.PN ---
<Sandro Willett - Last Filed: 08/13/21 09:50> - General Info Date of Service: 08/13/21 Admission Dx/Problem (Free Text): Hypoxia Functional Status: Reports: Pain Controlled, Tolerating Diet, Ambulating, Urinating, Incentive Spirometry, Other (Acapella ). Denies: New Symptoms - Review of Systems General: Reports: Weakness (improved ), Fatigue (improved ), Malaise (improved ). Denies: Fever, Chills HEENT: Reports: No Symptoms. Denies: Headaches, Sore Throat Pulmonary: Reports: Shortness of Breath, Pleuritic Chest Pain, Cough, Sputum. Denies: Wheezing Cardiovascular: Reports: Dyspnea on Exertion. Denies: Chest Pain, Palpitations, Edema, Lightheadedness Gastrointestinal: Reports: No Symptoms. Denies: Abdominal Pain, Constipation, Diarrhea, Nausea, Vomiting Genitourinary: Reports: No Symptoms. Denies: Pain Musculoskeletal: Reports: No Symptoms Skin: Reports: No Symptoms. Denies: Cyanosis Neurological: Reports: No Symptoms. Denies: Confusion, Dizziness, Headache, Numbness, Pre-Existing Deficit, Seizure, Syncope, Tingling, Difficulty Walking, Gait Disturbance Psychiatric: Reports: No Symptoms - Patient Data Vitals - Most Recent: Last Vital Signs Temp 97.7 F 08/13/21 02:58 Pulse 63 08/13/21 02:58 Resp 20 08/13/21 02:58 BP 143/87 H 08/13/21 02:58 Pulse Ox 91 L 08/13/21 02:58 Weight - Most Recent: 103.328 kg I&O - Last 24 Hours: Intake & Output 08/12/21 08/13/21 08/13/21 22:59 06:59 14:59 Intake Total 750 500 Output Total 250 750 Balance 500 -250 Lab Results Last 24 Hours: Laboratory Results - last 24 hr 08/12/21 08/12/21 08/12/21 Range/Units 05:40 12:03 17:11 WBC (3.98-10.04) K/mm3 RBC (3.98-5.22) M/mm3 Hgb (11.2-15.7) gm/dl Hct (34.1-44.9) % MCV (79.4-94.8) fl MCH (25.6-32.2) pg MCHC (32.2-35.5) g/dl RDW Std Deviation (36.4-46.3) fL Plt Count (182-369) K/mm3 MPV (9.4-12.3) fl Neut % (Auto) (34.0-71.1) % Lymph % (Auto) (19.3-51.7) % [place] % (Auto) (4.7-12.5) % Eos % (Auto) (0.7-5.8) Baso % (Auto) (0.1-1.2) % Neut # (Auto) (1.56-6.13) K/mm3 Lymph # (Auto) (1.18-3.74) K/mm3 [place] # (Auto) (0.24-0.36) K/mm3 Eos # (Auto) (0.04-0.36) K/mm3 Baso # (Auto) (0.01-0.08) K/mm3 Manual Slide Review Normal smear POC Glucose 259 H 269 H (70-99) mg/dL 08/12/21 08/13/21 08/13/21 Range/Units 20:57 05:58 06:04 WBC 8.60 (3.98-10.04) K/mm3 RBC 4.61 (3.98-5.22) M/mm3 Hgb 13.6 (11.2-15.7) gm/dl Hct 41.4 (34.1-44.9) % MCV 89.8 (79.4-94.8) fl MCH 29.5 (25.6-32.2) pg MCHC 32.9 (32.2-35.5) g/dl RDW Std Deviation 41.0 (36.4-46.3) fL Plt Count 375 H (182-369) K/mm3 MPV 10.9 (9.4-12.3) fl Neut % (Auto) 76.4 H (34.0-71.1) % Lymph % (Auto) 13.3 L (19.3-51.7) % [place] % (Auto) 9.0 (4.7-12.5) % Eos % (Auto) 0.5 L (0.7-5.8) Baso % (Auto) 0.1 (0.1-1.2) % Neut # (Auto) 6.58 H (1.56-6.13) K/mm3 Lymph # (Auto) 1.14 L (1.18-3.74) K/mm3 [place] # (Auto) 0.77 H (0.24-0.36) K/mm3 Eos # (Auto) 0.04 (0.04-0.36) K/mm3 Baso # (Auto) 0.01 (0.01-0.08) K/mm3 Manual Slide Review Normal smear POC Glucose 358 H 174 H (70-99) mg/dL Med Orders - Current: Current Medications Acetaminophen (Acetaminophen 325 Mg Tab) 650 mg PO Q4H PRN PRN Reason: Pain (Mild 1-3)/fever Last Admin: 08/07/21 02:57 Dose: 650 mg Documented by: Albuterol (Albuterol 6.7 Gm Inhaler) 0 gm INH Q2H PRN PRN Reason: SOB/Wheezing Last Admin: 08/12/21 20:32 Dose: 2 puff Documented by: Albuterol/Ipratropium (Albuterol/Ipratropium 3.0-0.5 Mg/3 Ml Neb Soln) 3 ml NEB QIDRT PRN PRN Reason: Shortness Of Breath/wheezing Last Admin: 08/12/21 16:32 Dose: 3 ml Documented by: Baricitinib (Baricitinib 2 Mg Tab) 4 mg PO DAILY [facility] Stop: 08/20/21 09:01 Last Admin: 08/12/21 08:53 Dose: 4 mg Documented by: Benzonatate (Benzonatate 100 Mg Cap) 200 mg PO Q8H PRN PRN Reason: Cough Last Admin: 08/07/21 03:02 Dose: 200 mg Documented by: Cholecalciferol (Cholecalciferol (Vitamin D3) 5,000 Unit Cap) 10,000 unit PO DAILY [place] Last Admin: 08/12/21 08:53 Dose: 10,000 unit Documented by: Dexamethasone (Dexamethasone 4 Mg Tab) 6 mg PO DAILY [facility] Stop: 08/14/21 09:01 Last Admin: 08/12/21 08:53 Dose: 6 mg Documented by: Enoxaparin Sodium (Enoxaparin 120 Mg/0.8 Ml Syringe) 110 mg SUBCUT Q12H [facility] Last Admin: 08/12/21 20:53 Dose: 110 mg Documented by: Famotidine (Famotidine 20 Mg Tab) 20 mg PO BID [facility] Last Admin: 08/12/21 20:53 Dose: 20 mg Documented by: Guaifenesin (Guaifenesin 600 Mg Tab.Er) 600 mg PO TID [facility] Last Admin: 08/12/21 20:51 Dose: 600 mg Documented by: Insulin Glargine (Insulin Glargine,Hum.Rec.Anlog 100 Unit/Ml 3 Ml Pen) 15 unit SUBCUT BEDTIME [facility] Last Admin: 08/12/21 21:03 Dose: 15 units Documented by: Insulin Human Lispro (Insulin Lispro 100 Unit/Ml 3 Ml Kwikpen) 0 unit SUBCUT QIDACANDBED [facility]; Protocol Last Admin: 08/12/21 21:00 Dose: 10 units Documented by: Levothyroxine Sodium (Levothyroxine 100 Mcg Tab) 100 mcg PO ACBREAKFAST [facility] Last Admin: 08/13/21 06:09 Dose: 100 mcg Documented by: Levothyroxine Sodium (Levothyroxine 25 Mcg Tab) 25 mcg PO ACBREAKFAST [facility] Last Admin: 08/13/21 06:09 Dose: 25 mcg Documented by: Melatonin (Melatonin 3 Mg Tab) 6 mg PO BEDTIME [facility] Last Admin: 08/12/21 20:52 Dose: 6 mg Documented by: Ondansetron HCl (Ondansetron 4 Mg/2 Ml Sdv) 4 mg IV Q6H PRN PRN Reason: Nausea/Vomiting Senna/Docusate Sodium (Docusate Sodium/Sennosides 50-8.6 Mg Tab) 1 tab PO DAILY PRN PRN Reason: Constipation Sertraline HCl (Sertraline 50 Mg Tab) 100 mg PO DAILY [facility] Last Admin: 08/12/21 08:53 Dose: 100 mg Documented by: Sodium Chloride (Sodium Chloride 0.9% 10 Ml Syringe) 10 ml FLUSH ASDIRECTED PRN PRN Reason: Keep Vein Open Last Admin: 08/05/21 09:23 Dose: 10 ml Documented by: Sodium Chloride (Sodium Chloride 0.9% 10 Ml Syringe) 10 ml FLUSH ONETIME PRN PRN Reason: IV FLUSH Zinc Sulfate (Zinc Sulfate 220 Mg Cap) 220 mg PO DAILY [facility] Last Admin: 08/12/21 08:53 Dose: 220 mg Documented by: Discontinued Medications Acetaminophen (Acetaminophen 325 Mg Tab) 650 mg PO Q4H PRN PRN Reason: Fever Greater Than 101 Albuterol/Ipratropium (Albuterol/Ipratropium 3.0-0.5 Mg/3 Ml Neb Soln) 3 ml NEB ONETIME ONE Stop: 08/05/21 08:51 Last Admin: 08/05/21 09:10 Dose: 3 ml Documented by: Baricitinib (Baricitinib 2 Mg Tab) 2 mg PO DAILY [place] Stop: 08/21/21 10:01 Last Admin: 08/09/21 08:21 Dose: 2 mg Documented by: Dexamethasone (Dexamethasone 4 Mg/Ml Sdv) 6 mg IVPUSH ONETIME ONE Stop: 08/05/21 08:50 Last Admin: 08/05/21 09:21 Dose: 6 mg Documented by: Enoxaparin Sodium (Enoxaparin 40 Mg/0.4 Ml Syringe) 40 mg SUBCUT DAILY [facility] Last Admin: 08/09/21 08:21 Dose: 40 mg Documented by: Enoxaparin Sodium (Enoxaparin 40 Mg/0.4 Ml Syringe) 40 mg SUBCUT ONETIME ONE Stop: 08/05/21 11:31 Last Admin: 08/05/21 15:04 Dose: Not Given Documented by: Enoxaparin Sodium (Enoxaparin 80 Mg/0.8 Ml Syringe) 70 mg SUBCUT ONETIME ONE Stop: 08/09/21 10:02 Last Admin: 08/09/21 11:33 Dose: 70 mg Documented by: Guaifenesin (Guaifenesin 600 Mg Tab.Er) 600 mg PO TID [facility] Remdesivir 200 mg/ Sodium (Chloride) 250 mls @ 250 mls/hr IV ONETIME ONE Stop: 08/05/21 08:51 Last Admin: 08/05/21 09:21 Dose: 250 mls/hr Documented by: Sodium Chloride (Normal Saline) 1,000 mls @ 1,000 mls/hr IV .BOLUS [facility] Last Admin: 08/05/21 09:21 Dose: 1,000 mls/hr Documented by: Remdesivir 100 mg/ Sodium (Chloride) 250 mls @ 250 mls/hr IV Q24H [facility] Stop: 08/09/21 09:59 Last Admin: 08/09/21 08:21 Dose: 250 mls/hr Documented by: Sodium Chloride (Normal Saline) 500 mls @ 999 mls/hr IV .BOLUS ONE Stop: 08/07/21 11:27 Last Admin: 08/07/21 11:39 Dose: 999 mls/hr Documented by: Sodium Chloride (Normal Saline) 100 mls @ 75 mls/hr IV ASDIRECTED [place] Last Admin: 08/09/21 10:03 Dose: 75 mls/hr Documented by: Iopamidol (Iopamidol 755 Mg/Ml 100 Ml Bottle) 100 ml IVPUSH ONETIME ONE Stop: 08/09/21 09:06 Last Admin: 08/09/21 10:04 Dose: 100 ml Documented by: Ondansetron HCl (Ondansetron 4 Mg/2 Ml Sdv) 4 mg IVPUSH ONETIME ONE Stop: 08/05/21 08:49 Last Admin: 08/05/21 09:23 Dose: 4 mg Documented by: - Exam Quality Assessment: Supplemental Oxygen (High flow oxygen 35 L with FiO2 of 55%), DVT Prophylaxis. No: Urine Catheter General: Alert, Oriented, Cooperative, No Acute Distress HEENT: Pupils Equal, Pupils Reactive, Mucous Membr. Moist/[place] Neck: Supple, Trachea Midline Lungs: Decreased Breath Sounds, Crackles. No: Wheezing Cardiovascular: Regular Rate, Regular Rhythm GI/Abdominal Exam: Normal Bowel Sounds, Soft, Non-Tender, No Distention (Female) Exam: Deferred Back Exam: Normal Inspection, Full Range of Motion Extremities: Normal Inspection, Normal Range of Motion, Non-Tender, No Pedal Edema, Normal Capillary Refill Peripheral Pulses: 2+: Radial (L), Radial (R), Dorsalis Pedis (L), Dorsalis Pedis (R) Skin: Warm, Dry, Intact Neurological: No New Focal Deficit Psy/Mental Status: Alert, Normal Affect, Normal Mood - Patient Data Lab Results Last 24 hrs: Laboratory Results - last 24 hr 08/12/21 08/12/21 08/12/21 Range/Units 05:40 12:03 17:11 WBC (3.98-10.04) K/mm3 RBC (3.98-5.22) M/mm3 Hgb (11.2-15.7) gm/dl Hct (34.1-44.9) % MCV (79.4-94.8) fl MCH (25.6-32.2) pg MCHC (32.2-35.5) g/dl RDW Std Deviation (36.4-46.3) fL Plt Count (182-369) K/mm3 MPV (9.4-12.3) fl Neut % (Auto) (34.0-71.1) % Lymph % (Auto) (19.3-51.7) % [place] % (Auto) (4.7-12.5) % Eos % (Auto) (0.7-5.8) Baso % (Auto) (0.1-1.2) % Neut # (Auto) (1.56-6.13) K/mm3 Lymph # (Auto) (1.18-3.74) K/mm3 [place] # (Auto) (0.24-0.36) K/mm3 Eos # (Auto) (0.04-0.36) K/mm3 Baso # (Auto) (0.01-0.08) K/mm3 Manual Slide Review Normal smear POC Glucose 259 H 269 H (70-99) mg/dL 08/12/21 08/13/21 08/13/21 Range/Units 20:57 05:58 06:04 WBC 8.60 (3.98-10.04) K/mm3 RBC 4.61 (3.98-5.22) M/mm3 Hgb 13.6 (11.2-15.7) gm/dl Hct 41.4 (34.1-44.9) % MCV 89.8 (79.4-94.8) fl MCH 29.5 (25.6-32.2) pg MCHC 32.9 (32.2-35.5) g/dl RDW Std Deviation 41.0 (36.4-46.3) fL Plt Count 375 H (182-369) K/mm3 MPV 10.9 (9.4-12.3) fl Neut % (Auto) 76.4 H (34.0-71.1) % Lymph % (Auto) 13.3 L (19.3-51.7) % [place] % (Auto) 9.0 (4.7-12.5) % Eos % (Auto) 0.5 L (0.7-5.8) Baso % (Auto) 0.1 (0.1-1.2) % Neut # (Auto) 6.58 H (1.56-6.13) K/mm3 Lymph # (Auto) 1.14 L (1.18-3.74) K/mm3 [place] # (Auto) 0.77 H (0.24-0.36) K/mm3 Eos # (Auto) 0.04 (0.04-0.36) K/mm3 Baso # (Auto) 0.01 (0.01-0.08) K/mm3 Manual Slide Review Normal smear POC Glucose 358 H 174 H (70-99) mg/dL Result Diagrams: 08/13/21 05:58 08/13/21 05:58 Sepsis Event Note - Evaluation Sepsis Screening Result: No Definite Risk - Focused Exam Vital Signs: Vital Signs Temp Temp Pulse Pulse Resp BP BP 08/13/21 02:58 97.7 F 63 20 143/87 H 08/13/21 00:00 97.7 F 67 20 134/78 08/12/21 20:49 97.7 F 73 24 H 151/72 H 08/12/21 20:33 Pulse Ox Pulse Ox 08/13/21 02:58 91 L 08/13/21 00:00 95 08/12/21 20:49 95 08/12/21 20:33 92 L - Problem List & Annotations (1) Depression SNOMED Code(s): 18474418 Code(s): F32.A - DEPRESSION, UNSPECIFIED Status: Chronic Priority: Low Current Visit: No Qualifiers: Depression Type: other depression Qualified Code(s): F32.89 - Other specified depressive episodes (2) Hypothyroidism SNOMED Code(s): 52224763 Code(s): E03.9 - HYPOTHYROIDISM, UNSPECIFIED Status: Chronic Priority: Low Current Visit: No Qualifiers: Hypothyroidism type: unspecified Qualified Code(s): E03.9 - Hypothyroidism, unspecified (3) Elevated d-dimer SNOMED Code(s): 900241028 Code(s): R79.89 - OTHER SPECIFIED ABNORMAL FINDINGS OF BLOOD CHEMISTRY Status: Acute Priority: Medium Current Visit: Yes (4) Thrombocytopenia SNOMED Code(s): 478324143 Code(s): D69.6 - THROMBOCYTOPENIA, UNSPECIFIED Status: Resolved Priority: Medium Current Visit: Yes (5) Hyponatremia SNOMED Code(s): 47393707 Code(s): E87.1 - HYPO-OSMOLALITY AND HYPONATREMIA Status: Resolved Priority: Medium Current Visit: Yes (6) Volume depletion SNOMED Code(s): 643829351 Code(s): E86.9 - VOLUME DEPLETION, UNSPECIFIED Status: Resolved Priority: Medium Current Visit: Yes (7) Nausea SNOMED Code(s): 148887198 Code(s): R11.0 - NAUSEA Status: Resolved Priority: Medium Current Visit: Yes (8) Pneumonia due to COVID-19 virus SNOMED Code(s): 464542866521903176 Code(s): U07.1 - COVID-19; J12.82 - PNEUMONIA DUE TO CORONAVIRUS DISEASE 2019 Status: Acute Priority: High Current Visit: Yes (9) Hypoxia SNOMED Code(s): 629152060 Code(s): R09.02 - HYPOXEMIA Status: Acute Priority: High Current Visit: Yes (10) Generalized weakness SNOMED Code(s): 46352784 Code(s): R53.1 - WEAKNESS Status: Acute Priority: Medium Current Visit: Yes (11) ANAHI (acute kidney injury) SNOMED Code(s): 16325968, 76031489 Code(s): N17.9 - ACUTE KIDNEY FAILURE, UNSPECIFIED Status: Resolved Priority: High Current Visit: Yes (12) New onset type 2 diabetes mellitus SNOMED Code(s): 56694388 Code(s): E11.9 - TYPE 2 DIABETES MELLITUS WITHOUT COMPLICATIONS Status: Chronic Priority: High Current Visit: Yes (13) Vitamin D deficiency SNOMED Code(s): 10069952 Code(s): E55.9 - VITAMIN D DEFICIENCY, UNSPECIFIED Status: Acute Priority: High Current Visit: Yes (14) Hyperglycemia SNOMED Code(s): 54354504 Code(s): R73.9 - HYPERGLYCEMIA, UNSPECIFIED Status: Acute Priority: High Current Visit: Yes (15) Pulmonary emboli SNOMED Code(s): 73094629 Code(s): I26.99 - OTHER PULMONARY EMBOLISM WITHOUT ACUTE COR PULMONALE Status: Acute Priority: High Current Visit: Yes Qualifiers: Pulmonary embolism type: multiple subsegmental (without acute cor pulmonale) Qualified Code(s): I26.94 - Multiple subsegmental pulmonary emboli without acute cor pulmonale (16) Hyperkalemia SNOMED Code(s): 39465489 Code(s): E87.5 - HYPERKALEMIA Status: Acute Priority: Medium Current Visit: Yes - Problem List Review Problem List Initiated/Reviewed/Updated: Yes - My Orders Last 24 Hours: My Active Orders 08/13/21 05:58 CMP [COMPREHENSIVE METABOLIC PN,CMP] [CHEM] AM CRP [C-REACTIVE PROTEIN] [CHEM] AM - Assessment Assessment:: 08/06/2021 66-year-old female admitted to the floor for treatment of her COVID-19 pneumonia. Patient continues on dexamethasone and remdesivir. She is requiring 25 L of high flow oxygen with an FiO2 of 85% today. She is utilizing her incentive spirometer and Acapella sparingly and she was instructed to increase her use of this. We discussed proning. She was offered baricitinib and is refusing at this time. We will continue to offer this. Labs today show WBC of 6.24. Hemoglobin 14.4. Platelet 184,000. Neutrophils are elevated 74.3%. Sodium is 136. Potassium 4.3. Carbon oxide 27. Anion gap is 12.3. BUN is 30. Creatinine 1.1. GFR is 50. Magnesium was 2.2. Bilirubin 0.5. AST was 30, ALT was 26, alkaline phosphatase 79. CRP is improved 6.2. Albumin is 2.8. Vitamin D obtained yesterday was 12.7 and she was started on supplementation. Procalcitonin was 0.10. Due to her hyperglycemia A1c was obtained and was 10.7. Will order diabetic education and dietitian consultation. Patient reports she has been prediabetic in the past. We will start 15 units of long-acting insulin and medium intensity sliding scale insulin. We will check 4 times daily before meals and bedtime blood glucose checks. Anticipate rise in blood glucose readings due to steroids. Unknown length of stay due to severity of symptoms. 08/07/2021 66-year-old female admitted the floor for COVID-19 pneumonia. She continues on dexamethasone and remdesivir. She is requiring 35 L of oxygen with an FiO2 of 80%. She is using her I-S and Acapella. She is very weak. Labs today show WBC of 8.08. Hemoglobin 14.6. Platelet 262,000. Neutrophils are elevated 77.8%. D-dimer is 1.81. Sodium is 139. Potassium 4.4. Chloride 103. Carbon dioxide 28. Anion gap is 12.4. BUN is 28. Creatinine is up to 1.2. GFR is down to 45. Glucose has been between 154 and 311. She remains on 15 units long-acting insulin at bedtime. Magnesium is 2.2. Bilirubin 0.6. AST is 27, ALT 26, alkaline phosphatase 78. CRP is down to 4.7. Protein is 5.9. Albumin is 2.7. clinical systems educator and dietitian are waiting for the patient is feeling better to discuss her new diabetic diagnosis. She reports she has not been sleeping well we will add scheduled nighttime melatonin. Unknown length of stay due to severity of symptoms. Because of her significant worsening oxygen saturations and requirement for high flow oxygenation I am recommending baricitinib. I spoke with Gail to provide information about baricitinib. I offered the "fax sheet for patients and parents/caregivers, for baricitinib" to read and review. I stated that therapy has been approved by an emergency use authorization process and has not fully been FDA reviewed or approved. I shared potential risks from the therapy including increased risk for serious infections, anaphylaxis, and reaction to medication. I discussed there are other potential treatment options that are currently not FDA approved to treat COVID-19. Offered opportunity to ask questions and all questions were answered. Gail voiced understanding and agreed to proceed with treatment. 08/08/2021 The patient is a 66-year-old lady who will be retained in hospitalization due to her treatment with remdesivir. She is also to be continued on baricitinib. I have instructed the patient in the use of the incentive spirometer and Acapella. She is also new onset diabetes and art educator has been ordered. The patient's blood glucose will be monitored and she will be maintained on a carb constant diet. The patient may need to have her insulin adjusted as her blood sugar indicates. The patient is also on DVT prophylaxis with the use of Lovenox 40 mg subcutaneous daily. Repeat laboratory studies have been ordered for the morning. Repeat chest x-ray is also been ordered. The patient should be appropriate for discharge upon completion of her remdesivir. 08/09/2021 66-year-old female admitted to the hospital due to COVID-19 treatment. She continues on remdesivir and baricitinib. Her oxygen demand has increased and she is up to 40 L with an FiO2 of 90%. D-dimer today was elevated at 12.98 and CTA was ordered. CTA returned "1. Pulmonary emboli within the segmental branches of the left lower lung as well as sagittal emboli bridging the segmental branches within the right middle lobe and right lower lobe. Pulmonary emboli extend into the subsegmental branches. 2. No compromise of the right heart is seen. 3. Diffuse parenchymal changes noted within both lungs compatible with very prominent COVID-19 pneumonia. 4. Fatty infiltration within the liver and other findings believed to be nonacute as described above." B ecause of this her Lovenox was increased to 1 mg/kg twice daily. Echocardiogram was ordered. Chest x-ray was obtained and shows very prominent COVID-19 pneumonia. She continues on high flow and up to 40 L with an FiO2 of 90%. WBC today is slightly elevated at 10.12, likely secondary to steroid use. Hemoglobin is 14.2. Platelet is 302,000. Neutrophils are elevated at 78.6%. D-dimer is 12.98. Sodium is 142. Potassium is 4.6. Chloride is 105. Carbon dioxide is 30. Anion gap is 11.6. BUN is 20. Creatinine 0.9. GFR is greater than 60. Glucose is 83-255. Magnesium 2.0. Bilirubin 0.7. AST is 26, ALT 19, alkaline phosphatase 93. CRP is 2.7. Albumin is 2.6. We will continue curr ent treatment plan. Unknown length of stay due to severity of COVID-19 symptoms and new onset PE. 08/10/2021 The patient is a 66-year-old lady who is currently anticoagulated for her pulmonary emboli with the use of Lovenox 110 mg subcutaneous every 12 hours. The patient will be transitioned to a NOAC in the next day or 2. The patient will continue on Accu-Cheks before meals and at bedtime as well as insulin sliding scale. Her hyperglycemia is likely to be elevated secondary to the steroid use and she is on insulin for now. The patient's acute renal failure has resolved. Her creatinine and BUN are normal with the normal EGFR. The patient will continue on her diabetic diet. Repeat laboratory studies have been ordered. The patient has been on oxygen and was will be titrated to keep her saturations around 92%. The patient should be appropriate for discharge in 1 to 2 days. 08/11/2021 The patient is a 66-year-old lady who was admitted initially secondary to COVID- 19 pneumonia. The patient did have an increase in her D-dimer and as a result of this and a CT scan angiogram of her chest was ordered and she was found to have segmental and subsegmental bilateral pulmonary emboli. She is on treatment dose of Lovenox 1 mg/kg twice a day. The patient is also diabetic and she is to have insulin sliding scale. The patient's hyperglycemia is also been noted to be likely secondary to steroids. Repeat laboratory studies have been ordered. The patient's previously noted renal failure has resolved. The patient will be kept on oxygen to keep with her saturations around 92%. I have also explained to the patient the importance of moving around and doing what she can to try and prevent weakness and deconditioning. Physical therapy has been ordered for the patient. The patient will be transitioned to NOAC prior to discharge. 08/12/2021 This is a 66-year-old female admitted to the floor for COVID-19 pneumonia with hypoxia. She was also found to have pulmonary emboli and be a new onset diabet ic. She remains on 40 L high flow with an FiO2 of 50%. Overall she reports she feels quite a bit better today. She completed her remdesivir treatment and remains on dexamethasone 6 mg and baricitinib. WBC today is 7.81. Hemoglobin is 14.0. Platelet 325,000. Neutrophils are elevated at 73.6%. Sodium is 139. Potassium 3.8. Chloride 26. Anion gap is 13.8. BUN is 21. Creatinine 0.8. GFR greater than 60. Blood glucose range has been from 1 31-2 72. Total bilirubin 0.8. AST 21, ALT 19, alkaline phosphatase 85. CRP is down to 2.8. Protein is 5.8. Albumin is down to 2.4. We will continue current treatment and attempt to wean off of oxygen. Patient will be appropriate for discharge once she completes treatment and weans down to a reasonable amount of oxygen with goal being 2 L or less. Unknown length of stay due to severity of symptoms. 08/13/2021 66-year-old female admitted the floor for COVID-19 pneumonia with hypoxia and found to be new onset diabetic with pulmonary emboli. She has been weaned down to 35 L of high flow with an FiO2 of 55%. Overall she states she feels better than yesterday and she is quite excited because she has been able to make her Acapella vibrate and has had improved volumes on her incentive spirometer. She continues on dexamethasone and baricitinib. WBC today is 8.60. Hemoglobin 13.6. Platelet 375,000. Neutrophils are elevated at 76.4. Sodium is 139. Potassium is 5.6. It was 3.8 yesterday. She is asymptomatic. We will recheck her potassium today at 1300 to ensure no lab error and then give Kayexalate and possibly albuterol neb. Chloride is 104. Carbon dioxide 29. Anion gap is 11.6. BUN is 28. Creatinine 0.9. GFR is greater than 60. Glucose has been between 174 and 358. Total bilirubin 0.6. AST is 29, ALT 29, alkaline phosphatase 77. CRP is down to 1.7. Protein is up to 6.0. Albumin is steady at 2.4. Unknown length of stay due to severity of symptoms. She will remain hospitalized until she is weaned off of high flow oxygen. - Plan Plan:: Pneumonia due to COVID-19 virus Hypoxia Generalized weakness Nausea, resolved * Prone whenever able * I-S/Acapella * Respiratory therapy consultation * As needed DuoNebs * As needed albuterol inhaler * Completed 5 days of Remdesivir * 6 mg dexamethasone for 10 days * As needed Zofran for nausea * O2 as needed to keep saturations between 88 and 95% * 20 mg famotidine twice daily * Physical therapy evaluation * Lovenox 40 mg daily * High flow oxygen 35 L with an FiO2 of 55%. * Daily labs * Airborne/contact precautions * Telemetry * Continuous pulse oximetry * 14 days baricitinib Pulmonary embolism Elevated d-dimer * 1mg/kg Lovenox * Echocardiogram obtained as noted * Transition to DOAC prior to discharge Thrombocytopenia, Resolved * Monitor daily labs Hyponatremia, resolved Volume depletion, resolved ANAHI, Reslved * Given 1 L fluid bolus in ED * Encourage oral rehydration * Avoid nephrotoxic medications if able * Monitor daily labs New onset diabetes mellitus Hyperglycemia * QID AC and Bedtime glucose checks * clinical systems educator consultation * [employer]utter consultation * Consistent carbohydrate diet * 15 units long acting insulin * Sliding scale medium intensity insulin * Anticipate rise in blood glucose readings 2/2 steroid use Vitamin D deficiency * Continue daily supplementation Depression * No acute concerns * Continue home zoloft Hypothyroidism * No acute concerns * Continue home levothyroxine Hyperkalemia * Re-check potassium at 1300 Code status: Full code PCP: Heather Granado PA-C DVT prophylaxis: Lovenox Disposition: Patient mated to the floor for management of COVID-19 pneumonia with hypoxia. LOS >96hrs due to need for continued treatment due to severity of symptoms, need for continued treatment. <Levy Madison - Last Filed: 08/13/21 12:32> - Patient Data Vitals - Most Recent: Last Vital Signs Temp 36.5 C 08/13/21 07:44 Pulse 55 L 08/13/21 07:44 Resp 20 08/13/21 07:44 BP 155/74 H 08/13/21 07:48 Pulse Ox 91 L 08/13/21 10:17 I&O - Last 24 Hours: Intake & Output 08/12/21 08/13/21 08/13/21 22:59 06:59 14:59 Intake Total 750 500 Output Total 250 750 Balance 500 -250 Lab Results Last 24 Hours: Laboratory Results - last 24 hr 08/12/21 08/12/21 08/13/21 Range/Units 17:11 20:57 05:58 WBC 8.60 (3.98-10.04) K/mm3 RBC 4.61 (3.98-5.22) M/mm3 Hgb 13.6 (11.2-15.7) gm/dl Hct 41.4 (34.1-44.9) % MCV 89.8 (79.4-94.8) fl MCH 29.5 (25.6-32.2) pg MCHC 32.9 (32.2-35.5) g/dl RDW Std Deviation 41.0 (36.4-46.3) fL Plt Count 375 H (182-369) K/mm3 MPV 10.9 (9.4-12.3) fl Neut % (Auto) 76.4 H (34.0-71.1) % Lymph % (Auto) 13.3 L (19.3-51.7) % [place] % (Auto) 9.0 (4.7-12.5) % Eos % (Auto) 0.5 L (0.7-5.8) Baso % (Auto) 0.1 (0.1-1.2) % Neut # (Auto) 6.58 H (1.56-6.13) K/mm3 Lymph # (Auto) 1.14 L (1.18-3.74) K/mm3 [place] # (Auto) 0.77 H (0.24-0.36) K/mm3 Eos # (Auto) 0.04 (0.04-0.36) K/mm3 Baso # (Auto) 0.01 (0.01-0.08) K/mm3 Manual Slide Review Normal smear Sodium (136-145) mEq/L Potassium (3.5-5.1) mEq/L Chloride (98-107) mEq/L Carbon Dioxide (21-32) mEq/L Anion Gap (5-15) BUN (7-18) mg/dL Creatinine (0.55-1.02) mg/dL Est Cr Clr Drug Dosing mL/min Estimated GFR (MDRD) (>60) mL/min BUN/Creatinine Ratio (14-18) Glucose (70-99) mg/dL POC Glucose 269 H 358 H (70-99) mg/dL Calcium (8.5-10.1) mg/dL Total Bilirubin (0.2-1.0) mg/dL AST (15-37) U/L ALT (14-59) U/L Alkaline Phosphatase (46-116) U/L C-Reactive Protein (<1.0) mg/dL Total Protein (6.4-8.2) g/dl Albumin (3.4-5.0) g/dl Globulin gm/dL Albumin/Globulin Ratio (1-2) 08/13/21 08/13/21 08/13/21 Range/Units 05:58 06:04 11:42 WBC (3.98-10.04) K/mm3 RBC (3.98-5.22) M/mm3 Hgb (11.2-15.7) gm/dl Hct (34.1-44.9) % MCV (79.4-94.8) fl MCH (25.6-32.2) pg MCHC (32.2-35.5) g/dl RDW Std Deviation (36.4-46.3) fL Plt Count (182-369) K/mm3 MPV (9.4-12.3) fl Neut % (Auto) (34.0-71.1) % Lymph % (Auto) (19.3-51.7) % [place] % (Auto) (4.7-12.5) % Eos % (Auto) (0.7-5.8) Baso % (Auto) (0.1-1.2) % Neut # (Auto) (1.56-6.13) K/mm3 Lymph # (Auto) (1.18-3.74) K/mm3 [place] # (Auto) (0.24-0.36) K/mm3 Eos # (Auto) (0.04-0.36) K/mm3 Baso # (Auto) (0.01-0.08) K/mm3 Manual Slide Review Sodium 139 (136-145) mEq/L Potassium 5.6 H D (3.5-5.1) mEq/L Chloride 104 (98-107) mEq/L Carbon Dioxide 29 (21-32) mEq/L Anion Gap 11.6 (5-15) BUN 28 H (7-18) mg/dL Creatinine 0.9 (0.55-1.02) mg/dL Est Cr Clr Drug Dosing 61.41 mL/min Estimated GFR (MDRD) > 60 (>60) mL/min BUN/Creatinine Ratio 31.1 H (14-18) Glucose 192 H (70-99) mg/dL POC Glucose 174 H 196 H (70-99) mg/dL Calcium 8.7 (8.5-10.1) mg/dL Total Bilirubin 0.6 (0.2-1.0) mg/dL AST 29 (15-37) U/L ALT 29 (14-59) U/L Alkaline Phosphatase 77 (46-116) U/L C-Reactive Protein 1.7 H* (<1.0) mg/dL Total Protein 6.0 L (6.4-8.2) g/dl Albumin 2.4 L (3.4-5.0) g/dl Globulin 3.6 gm/dL Albumin/Globulin Ratio 0.7 L (1-2) Med Orders - Current: Current Medications Acetaminophen (Acetaminophen 325 Mg Tab) 650 mg PO Q4H PRN PRN Reason: Pain (Mild 1-3)/fever Last Admin: 08/07/21 02:57 Dose: 650 mg Documented by: Albuterol (Albuterol 6.7 Gm Inhaler) 0 gm INH Q2H PRN PRN Reason: SOB/Wheezing Last Admin: 08/12/21 20:32 Dose: 2 puff Documented by: Albuterol/Ipratropium (Albuterol/Ipratropium 3.0-0.5 Mg/3 Ml Neb Soln) 3 ml NEB QIDRT PRN PRN Reason: Shortness Of Breath/wheezing Last Admin: 08/13/21 08:58 Dose: 3 ml Documented by: Baricitinib (Baricitinib 2 Mg Tab) 4 mg PO DAILY [facility] Stop: 08/20/21 09:01 Last Admin: 08/13/21 08:43 Dose: 4 mg Documented by: Benzonatate (Benzonatate 100 Mg Cap) 200 mg PO Q8H PRN PRN Reason: Cough Last Admin: 08/07/21 03:02 Dose: 200 mg Documented by: Cholecalciferol (Cholecalciferol (Vitamin D3) 5,000 Unit Cap) 10,000 unit PO DAILY [facility] Last Admin: 08/13/21 08:43 Dose: 10,000 unit Documented by: Dexamethasone (Dexamethasone 4 Mg Tab) 6 mg PO DAILY [facility] Stop: 08/14/21 09:01 Last Admin: 08/13/21 08:44 Dose: 6 mg Documented by: Enoxaparin Sodium (Enoxaparin 120 Mg/0.8 Ml Syringe) 110 mg SUBCUT Q12H [facility] Last Admin: 08/13/21 08:46 Dose: 110 mg Documented by: Famotidine (Famotidine 20 Mg Tab) 20 mg PO BID [facility] Last Admin: 08/13/21 08:43 Dose: 20 mg Documented by: Guaifenesin (Guaifenesin 600 Mg Tab.Er) 600 mg PO TID [facility] Last Admin: 08/13/21 08:44 Dose: 600 mg Documented by: Insulin Glargine (Insulin Glargine,Hum.Rec.Anlog 100 Unit/Ml 3 Ml Pen) 15 unit SUBCUT BEDTIME [facility] Last Admin: 08/12/21 21:03 Dose: 15 units Documented by: Insulin Human Lispro (Insulin Lispro 100 Unit/Ml 3 Ml Kwikpen) 0 unit SUBCUT QIDACANDBED [facility]; Protocol Last Admin: 08/13/21 08:42 Dose: 2 units Documented by: Levothyroxine Sodium (Levothyroxine 100 Mcg Tab) 100 mcg PO ACBREAKFAST [facility] Last Admin: 08/13/21 06:09 Dose: 100 mcg Documented by: Levothyroxine Sodium (Levothyroxine 25 Mcg Tab) 25 mcg PO ACBREAKFAST [facility] Last Admin: 08/13/21 06:09 Dose: 25 mcg Documented by: Melatonin (Melatonin 3 Mg Tab) 6 mg PO BEDTIME [facility] Last Admin: 08/12/21 20:52 Dose: 6 mg Documented by: Ondansetron HCl (Ondansetron 4 Mg/2 Ml Sdv) 4 mg IV Q6H PRN PRN Reason: Nausea/Vomiting Senna/Docusate Sodium (Docusate Sodium/Sennosides 50-8.6 Mg Tab) 1 tab PO DAILY PRN PRN Reason: Constipation Sertraline HCl (Sertraline 50 Mg Tab) 100 mg PO DAILY [facility] Last Admin: 08/13/21 08:43 Dose: 100 mg Documented by: Sodium Chloride (Sodium Chloride 0.9% 10 Ml Syringe) 10 ml FLUSH ASDIRECTED PRN PRN Reason: Keep Vein Open Last Admin: 08/05/21 09:23 Dose: 10 ml Documented by: Sodium Chloride (Sodium Chloride 0.9% 10 Ml Syringe) 10 ml FLUSH ONETIME PRN PRN Reason: IV FLUSH Zinc Sulfate (Zinc Sulfate 220 Mg Cap) 220 mg PO DAILY [facility] Last Admin: 08/13/21 08:44 Dose: 220 mg Documented by: Discontinued Medications Acetaminophen (Acetaminophen 325 Mg Tab) 650 mg PO Q4H PRN PRN Reason: Fever Greater Than 101 Albuterol/Ipratropium (Albuterol/Ipratropium 3.0-0.5 Mg/3 Ml Neb Soln) 3 ml NEB ONETIME ONE Stop: 08/05/21 08:51 Last Admin: 08/05/21 09:10 Dose: 3 ml Documented by: Baricitinib (Baricitinib 2 Mg Tab) 2 mg PO DAILY [facility] Stop: 08/21/21 10:01 Last Admin: 08/09/21 08:21 Dose: 2 mg Documented by: Dexamethasone (Dexamethasone 4 Mg/Ml Sdv) 6 mg IVPUSH ONETIME ONE Stop: 08/05/21 08:50 Last Admin: 08/05/21 09:21 Dose: 6 mg Documented by: Enoxaparin Sodium (Enoxaparin 40 Mg/0.4 Ml Syringe) 40 mg SUBCUT DAILY [facility] Last Admin: 08/09/21 08:21 Dose: 40 mg Documented by: Enoxaparin Sodium (Enoxaparin 40 Mg/0.4 Ml Syringe) 40 mg SUBCUT ONETIME ONE Stop: 08/05/21 11:31 Last Admin: 08/05/21 15:04 Dose: Not Given Documented by: Enoxaparin Sodium (Enoxaparin 80 Mg/0.8 Ml Syringe) 70 mg SUBCUT ONETIME ONE Stop: 08/09/21 10:02 Last Admin: 08/09/21 11:33 Dose: 70 mg Documented by: Guaifenesin (Guaifenesin 600 Mg Tab.Er) 600 mg PO TID [facility] Remdesivir 200 mg/ Sodium (Chloride) 250 mls @ 250 mls/hr IV ONETIME ONE Stop: 08/05/21 08:51 Last Admin: 08/05/21 09:21 Dose: 250 mls/hr Documented by: Sodium Chloride (Normal Saline) 1,000 mls @ 1,000 mls/hr IV .BOLUS [place] Last Admin: 08/05/21 09:21 Dose: 1,000 mls/hr Documented by: Remdesivir 100 mg/ Sodium (Chloride) 250 mls @ 250 mls/hr IV Q24H [place] Stop: 08/09/21 09:59 Last Admin: 08/09/21 08:21 Dose: 250 mls/hr Documented by: Sodium Chloride (Normal Saline) 500 mls @ 999 mls/hr IV .BOLUS ONE Stop: 08/07/21 11:27 Last Admin: 08/07/21 11:39 Dose: 999 mls/hr Documented by: Sodium Chloride (Normal Saline) 100 mls @ 75 mls/hr IV ASDIRECTED [facility] Last Admin: 08/09/21 10:03 Dose: 75 mls/hr Documented by: Iopamidol (Iopamidol 755 Mg/Ml 100 Ml Bottle) 100 ml IVPUSH ONETIME ONE Stop: 08/09/21 09:06 Last Admin: 08/09/21 10:04 Dose: 100 ml Documented by: Ondansetron HCl (Ondansetron 4 Mg/2 Ml Sdv) 4 mg IVPUSH ONETIME ONE Stop: 08/05/21 08:49 Last Admin: 08/05/21 09:23 Dose: 4 mg Documented by: - Patient Data Lab Results Last 24 hrs: Laboratory Results - last 24 hr 08/12/21 08/12/21 08/13/21 Range/Units 17:11 20:57 05:58 WBC 8.60 (3.98-10.04) K/mm3 RBC 4.61 (3.98-5.22) M/mm3 Hgb 13.6 (11.2-15.7) gm/dl Hct 41.4 (34.1-44.9) % MCV 89.8 (79.4-94.8) fl MCH 29.5 (25.6-32.2) pg MCHC 32.9 (32.2-35.5) g/dl RDW Std Deviation 41.0 (36.4-46.3) fL Plt Count 375 H (182-369) K/mm3 MPV 10.9 (9.4-12.3) fl Neut % (Auto) 76.4 H (34.0-71.1) % Lymph % (Auto) 13.3 L (19.3-51.7) % [place] % (Auto) 9.0 (4.7-12.5) % Eos % (Auto) 0.5 L (0.7-5.8) Baso % (Auto) 0.1 (0.1-1.2) % Neut # (Auto) 6.58 H (1.56-6.13) K/mm3 Lymph # (Auto) 1.14 L (1.18-3.74) K/mm3 [place] # (Auto) 0.77 H (0.24-0.36) K/mm3 Eos # (Auto) 0.04 (0.04-0.36) K/mm3 Baso # (Auto) 0.01 (0.01-0.08) K/mm3 Manual Slide Review Normal smear Sodium (136-145) mEq/L Potassium (3.5-5.1) mEq/L Chloride (98-107) mEq/L Carbon Dioxide (21-32) mEq/L Anion Gap (5-15) BUN (7-18) mg/dL Creatinine (0.55-1.02) mg/dL Est Cr Clr Drug Dosing mL/min Estimated GFR (MDRD) (>60) mL/min BUN/Creatinine Ratio (14-18) Glucose (70-99) mg/dL POC Glucose 269 H 358 H (70-99) mg/dL Calcium (8.5-10.1) mg/dL Total Bilirubin (0.2-1.0) mg/dL AST (15-37) U/L ALT (14-59) U/L Alkaline Phosphatase (46-116) U/L C-Reactive Protein (<1.0) mg/dL Total Protein (6.4-8.2) g/dl Albumin (3.4-5.0) g/dl Globulin gm/dL Albumin/Globulin Ratio (1-2) 08/13/21 08/13/21 08/13/21 Range/Units 05:58 06:04 11:42 WBC (3.98-10.04) K/mm3 RBC (3.98-5.22) M/mm3 Hgb (11.2-15.7) gm/dl Hct (34.1-44.9) % MCV (79.4-94.8) fl MCH (25.6-32.2) pg MCHC (32.2-35.5) g/dl RDW Std Deviation (36.4-46.3) fL Plt Count (182-369) K/mm3 MPV (9.4-12.3) fl Neut % (Auto) (34.0-71.1) % Lymph % (Auto) (19.3-51.7) % [place] % (Auto) (4.7-12.5) % Eos % (Auto) (0.7-5.8) Baso % (Auto) (0.1-1.2) % Neut # (Auto) (1.56-6.13) K/mm3 Lymph # (Auto) (1.18-3.74) K/mm3 [place] # (Auto) (0.24-0.36) K/mm3 Eos # (Auto) (0.04-0.36) K/mm3 Baso # (Auto) (0.01-0.08) K/mm3 Manual Slide Review Sodium 139 (136-145) mEq/L Potassium 5.6 H D (3.5-5.1) mEq/L Chloride 104 (98-107) mEq/L Carbon Dioxide 29 (21-32) mEq/L Anion Gap 11.6 (5-15) BUN 28 H (7-18) mg/dL Creatinine 0.9 (0.55-1.02) mg/dL Est Cr Clr Drug Dosing 61.41 mL/min Estimated GFR (MDRD) > 60 (>60) mL/min BUN/Creatinine Ratio 31.1 H (14-18) Glucose 192 H (70-99) mg/dL POC Glucose 174 H 196 H (70-99) mg/dL Calcium 8.7 (8.5-10.1) mg/dL Total Bilirubin 0.6 (0.2-1.0) mg/dL AST 29 (15-37) U/L ALT 29 (14-59) U/L Alkaline Phosphatase 77 (46-116) U/L C-Reactive Protein 1.7 H* (<1.0) mg/dL Total Protein 6.0 L (6.4-8.2) g/dl Albumin 2.4 L (3.4-5.0) g/dl Globulin 3.6 gm/dL Albumin/Globulin Ratio 0.7 L (1-2) Result Diagrams: 08/13/21 05:58 08/13/21 05:58 Sepsis Event Note - Focused Exam Vital Signs: Vital Signs Temp Pulse Resp BP Pulse Ox Pulse Ox 08/13/21 10:17 91 L 08/13/21 10:02 96 08/13/21 08:58 93 L 08/13/21 07:48 155/74 H 08/13/21 07:44 36.5 C 55 L 20 150/97 H 91 L 08/13/21 02:58 36.5 C 63 20 143/87 H 91 L - Problem List & Annotations (1) Pulmonary emboli SNOMED Code(s): 72898389 Code(s): I26.99 - OTHER PULMONARY EMBOLISM WITHOUT ACUTE COR PULMONALE Status: Acute Priority: High Current Visit: Yes Qualifiers: Pulmonary embolism type: multiple subsegmental (without acute cor pulmonale) Qualified Code(s): I26.94 - Multiple subsegmental pulmonary emboli without acute cor pulmonale (2) Pneumonia due to COVID-19 virus SNOMED Code(s): 086469861174483442 Code(s): U07.1 - COVID-19; J12.82 - PNEUMONIA DUE TO CORONAVIRUS DISEASE 2019 Status: Acute Priority: High Current Visit: Yes (3) ANAHI (acute kidney injury) SNOMED Code(s): 10060754, 10011889 Code(s): N17.9 - ACUTE KIDNEY FAILURE, UNSPECIFIED Status: Resolved Priority: High Current Visit: Yes (4) Generalized weakness SNOMED Code(s): 82770942 Code(s): R53.1 - WEAKNESS Status: Acute Priority: Medium Current Visit: Yes (5) New onset type 2 diabetes mellitus SNOMED Code(s): 50229772 Code(s): E11.9 - TYPE 2 DIABETES MELLITUS WITHOUT COMPLICATIONS Status: Chronic Priority: High Current Visit: Yes (6) Vitamin D deficiency SNOMED Code(s): 90829825 Code(s): E55.9 - VITAMIN D DEFICIENCY, UNSPECIFIED Status: Acute Priority: High Current Visit: Yes - Free Text/Narrative Note: I have seen and examined the patient independently of TONNY Willett. I have discussed the case with him. I have also reviewed and agree with the plan of care as outlined by him. Please see orders.
[2021-08-13] MEDS: Insulin Lispro 100 Unit/ML 3 ML KwikPen SUBCUT SCH ×4 (08:42→21:22)
[2021-08-13] MEDS: Famotidine 20 MG Tab PO SCH ×2 (08:43→21:16)
[2021-08-13] MEDS: Sertraline 50 MG Tab PO SCH (08:43)
[2021-08-13] MEDS: Cholecalciferol (Vitamin D3) 5,000 UNIT Cap PO SCH (08:43)
[2021-08-13] MEDS: guaiFENesin 600 MG Tab.ER PO SCH ×3 (08:44→21:18)
[2021-08-13] MEDS: Dexamethasone 4 MG Tab PO SCH (08:44)
[2021-08-13] MEDS: Zinc Sulfate 220 MG Cap PO SCH (08:44)
[2021-08-13] MEDS: Enoxaparin 120 MG/0.8 ML Syringe SUBCUT SCH ×2 (08:46→21:26)
[2021-08-13] MEDS: Albuterol/Ipratropium 3.0-0.5 MG/3 ML Neb Soln NEB PRN (08:58)
[2021-08-13] MEDS: Albuterol 6.7 GM Inhaler INH PRN ×2 (14:46→19:22)
[2021-08-13] MEDS: Melatonin 3 MG Tab PO SCH (21:17)
[2021-08-13] MEDS: Insulin Glargine,Hum.Rec.Anlog 100 UNIT/ML 3 ML Pen SUBCUT SCH (21:19)
[2021-08-14] MEDS: Levothyroxine 100 MCG Tab PO SCH (06:08)
[2021-08-14] MEDS: Levothyroxine 25 MCG Tab PO SCH (06:08)
--- NOTE | 2021-08-14 07:06 | PCM.PN ---
- General Info Date of Service: 08/14/21 Admission Dx/Problem (Free Text): Hypoxia Functional Status: Reports: Pain Controlled, Tolerating Diet, Ambulating, Urinating, Incentive Spirometry. Denies: New Symptoms - Review of Systems General: Reports: No Symptoms, Weakness (Improving), Fatigue (Improving), Malaise (Improving). Denies: Fever, Chills HEENT: Reports: No Symptoms. Denies: Headaches, Sore Throat Pulmonary: Reports: Shortness of Breath, Cough, Sputum. Denies: Pleuritic Chest Pain, Wheezing Cardiovascular: Reports: Dyspnea on Exertion. Denies: Chest Pain, Palpitations, Edema Gastrointestinal: Reports: No Symptoms. Denies: Abdominal Pain, Constipation, Diarrhea, Nausea, Vomiting Genitourinary: Reports: No Symptoms. Denies: Pain Musculoskeletal: Reports: No Symptoms Skin: Reports: No Symptoms. Denies: Cyanosis Neurological: Reports: No Symptoms. Denies: Confusion, Dizziness, Headache, Numbness, Seizure, Syncope, Tingling, Difficulty Walking, Weakness, Gait Disturbance Psychiatric: Reports: No Symptoms - Patient Data Vitals - Most Recent: Last Vital Signs Temp 97.9 F 08/14/21 03:27 Pulse 68 08/14/21 03:27 Resp 20 08/14/21 03:27 BP 149/79 H 08/14/21 03:27 Pulse Ox 91 L 08/14/21 03:27 Weight - Most Recent: 228 lb I&O - Last 24 Hours: Intake & Output 08/13/21 08/14/21 08/14/21 22:59 06:59 14:59 Intake Total 1080 Output Total 450 200 Balance 630 -200 Lab Results Last 24 Hours: Laboratory Results - last 24 hr 08/13/21 08/13/21 08/13/21 Range/Units 05:58 05:58 11:42 WBC (3.98-10.04) K/mm3 RBC (3.98-5.22) M/mm3 Hgb (11.2-15.7) gm/dl Hct (34.1-44.9) % MCV (79.4-94.8) fl MCH (25.6-32.2) pg MCHC (32.2-35.5) g/dl RDW Std Deviation (36.4-46.3) fL Plt Count (182-369) K/mm3 MPV (9.4-12.3) fl Neut % (Auto) (34.0-71.1) % Lymph % (Auto) (19.3-51.7) % [place] % (Auto) (4.7-12.5) % Eos % (Auto) (0.7-5.8) Baso % (Auto) (0.1-1.2) % Neut # (Auto) (1.56-6.13) K/mm3 Lymph # (Auto) (1.18-3.74) K/mm3 [place] # (Auto) (0.24-0.36) K/mm3 Eos # (Auto) (0.04-0.36) K/mm3 Baso # (Auto) (0.01-0.08) K/mm3 Manual Slide Review Normal smear Sodium 139 (136-145) mEq/L Potassium 5.6 H D (3.5-5.1) mEq/L Chloride 104 (98-107) mEq/L Carbon Dioxide 29 (21-32) mEq/L Anion Gap 11.6 (5-15) BUN 28 H (7-18) mg/dL Creatinine 0.9 (0.55-1.02) mg/dL Est Cr Clr Drug Dosing 61.41 mL/min Estimated GFR (MDRD) > 60 (>60) mL/min BUN/Creatinine Ratio 31.1 H (14-18) Glucose 192 H (70-99) mg/dL POC Glucose 196 H (70-99) mg/dL Calcium 8.7 (8.5-10.1) mg/dL Total Bilirubin 0.6 (0.2-1.0) mg/dL AST 29 (15-37) U/L ALT 29 (14-59) U/L Alkaline Phosphatase 77 (46-116) U/L C-Reactive Protein 1.7 H* (<1.0) mg/dL Total Protein 6.0 L (6.4-8.2) g/dl Albumin 2.4 L (3.4-5.0) g/dl Globulin 3.6 gm/dL Albumin/Globulin Ratio 0.7 L (1-2) 08/13/21 08/13/21 08/13/21 Range/Units 12:59 17:09 21:03 WBC (3.98-10.04) K/mm3 RBC (3.98-5.22) M/mm3 Hgb (11.2-15.7) gm/dl Hct (34.1-44.9) % MCV (79.4-94.8) fl MCH (25.6-32.2) pg MCHC (32.2-35.5) g/dl RDW Std Deviation (36.4-46.3) fL Plt Count (182-369) K/mm3 MPV (9.4-12.3) fl Neut % (Auto) (34.0-71.1) % Lymph % (Auto) (19.3-51.7) % [place] % (Auto) (4.7-12.5) % Eos % (Auto) (0.7-5.8) Baso % (Auto) (0.1-1.2) % Neut # (Auto) (1.56-6.13) K/mm3 Lymph # (Auto) (1.18-3.74) K/mm3 [place] # (Auto) (0.24-0.36) K/mm3 Eos # (Auto) (0.04-0.36) K/mm3 Baso # (Auto) (0.01-0.08) K/mm3 Manual Slide Review Sodium (136-145) mEq/L Potassium 4.9 (3.5-5.1) mEq/L Chloride (98-107) mEq/L Carbon Dioxide (21-32) mEq/L Anion Gap (5-15) BUN (7-18) mg/dL Creatinine (0.55-1.02) mg/dL Est Cr Clr Drug Dosing mL/min Estimated GFR (MDRD) (>60) mL/min BUN/Creatinine Ratio (14-18) Glucose (70-99) mg/dL POC Glucose 337 H 339 H (70-99) mg/dL Calcium (8.5-10.1) mg/dL Total Bilirubin (0.2-1.0) mg/dL AST (15-37) U/L ALT (14-59) U/L Alkaline Phosphatase (46-116) U/L C-Reactive Protein (<1.0) mg/dL Total Protein (6.4-8.2) g/dl Albumin (3.4-5.0) g/dl Globulin gm/dL Albumin/Globulin Ratio (1-2) 08/14/21 08/14/21 Range/Units 06:00 06:55 WBC 8.79 (3.98-10.04) K/mm3 RBC 4.63 (3.98-5.22) M/mm3 Hgb 13.5 (11.2-15.7) gm/dl Hct 41.7 (34.1-44.9) % MCV 90.1 (79.4-94.8) fl MCH 29.2 (25.6-32.2) pg MCHC 32.4 (32.2-35.5) g/dl RDW Std Deviation 41.0 (36.4-46.3) fL Plt Count 360 (182-369) K/mm3 MPV 10.3 (9.4-12.3) fl Neut % (Auto) 71.0 (34.0-71.1) % Lymph % (Auto) 19.1 L (19.3-51.7) % [place] % (Auto) 7.6 (4.7-12.5) % Eos % (Auto) 1.1 (0.7-5.8) Baso % (Auto) 0.2 (0.1-1.2) % Neut # (Auto) 6.23 H (1.56-6.13) K/mm3 Lymph # (Auto) 1.68 (1.18-3.74) K/mm3 [place] # (Auto) 0.67 H (0.24-0.36) K/mm3 Eos # (Auto) 0.10 (0.04-0.36) K/mm3 Baso # (Auto) 0.02 (0.01-0.08) K/mm3 Manual Slide Review Normal smear Sodium (136-145) mEq/L Potassium (3.5-5.1) mEq/L Chloride (98-107) mEq/L Carbon Dioxide (21-32) mEq/L Anion Gap (5-15) BUN (7-18) mg/dL Creatinine (0.55-1.02) mg/dL Est Cr Clr Drug Dosing mL/min Estimated GFR (MDRD) (>60) mL/min BUN/Creatinine Ratio (14-18) Glucose (70-99) mg/dL POC Glucose 151 H (70-99) mg/dL Calcium (8.5-10.1) mg/dL Total Bilirubin (0.2-1.0) mg/dL AST (15-37) U/L ALT (14-59) U/L Alkaline Phosphatase (46-116) U/L C-Reactive Protein (<1.0) mg/dL Total Protein (6.4-8.2) g/dl Albumin (3.4-5.0) g/dl Globulin gm/dL Albumin/Globulin Ratio (1-2) Med Orders - Current: Current Medications Acetaminophen (Acetaminophen 325 Mg Tab) 650 mg PO Q4H PRN PRN Reason: Pain (Mild 1-3)/fever Last Admin: 08/07/21 02:57 Dose: 650 mg Documented by: Albuterol (Albuterol 6.7 Gm Inhaler) 0 gm INH Q2H PRN PRN Reason: SOB/Wheezing Last Admin: 08/13/21 19:22 Dose: 2 puff Documented by: Albuterol/Ipratropium (Albuterol/Ipratropium 3.0-0.5 Mg/3 Ml Neb Soln) 3 ml NEB QIDRT PRN PRN Reason: Shortness Of Breath/wheezing Last Admin: 08/13/21 08:58 Dose: 3 ml Documented by: Baricitinib (Baricitinib 2 Mg Tab) 4 mg PO DAILY [facility] Stop: 08/20/21 09:01 Last Admin: 08/13/21 08:43 Dose: 4 mg Documented by: Benzonatate (Benzonatate 100 Mg Cap) 200 mg PO Q8H PRN PRN Reason: Cough Last Admin: 08/07/21 03:02 Dose: 200 mg Documented by: Cholecalciferol (Cholecalciferol (Vitamin D3) 5,000 Unit Cap) 10,000 unit PO DAILY [place] Last Admin: 08/13/21 08:43 Dose: 10,000 unit Documented by: Dexamethasone (Dexamethasone 4 Mg Tab) 6 mg PO DAILY [facility] Stop: 08/14/21 09:01 Last Admin: 08/13/21 08:44 Dose: 6 mg Documented by: Enoxaparin Sodium (Enoxaparin 120 Mg/0.8 Ml Syringe) 110 mg SUBCUT Q12H [place] Last Admin: 08/13/21 21:26 Dose: 110 mg Documented by: Famotidine (Famotidine 20 Mg Tab) 20 mg PO BID [facility] Last Admin: 08/13/21 21:16 Dose: 20 mg Documented by: Guaifenesin (Guaifenesin 600 Mg Tab.Er) 600 mg PO TID [facility] Last Admin: 08/13/21 21:18 Dose: 600 mg Documented by: Insulin Glargine (Insulin Glargine,Hum.Rec.Anlog 100 Unit/Ml 3 Ml Pen) 15 unit SUBCUT BEDTIME [facility] Last Admin: 08/13/21 21:19 Dose: 15 units Documented by: Insulin Human Lispro (Insulin Lispro 100 Unit/Ml 3 Ml Kwikpen) 0 unit SUBCUT QIDACANDBED [facility]; Protocol Last Admin: 08/13/21 21:22 Dose: 8 units Documented by: Levothyroxine Sodium (Levothyroxine 100 Mcg Tab) 100 mcg PO ACBREAKFAST [facility] Last Admin: 08/14/21 06:08 Dose: 100 mcg Documented by: Levothyroxine Sodium (Levothyroxine 25 Mcg Tab) 25 mcg PO ACBREAKFAST [facility] Last Admin: 08/14/21 06:08 Dose: 25 mcg Documented by: Melatonin (Melatonin 3 Mg Tab) 6 mg PO BEDTIME [facility] Last Admin: 08/13/21 21:17 Dose: 6 mg Documented by: Ondansetron HCl (Ondansetron 4 Mg/2 Ml Sdv) 4 mg IV Q6H PRN PRN Reason: Nausea/Vomiting Senna/Docusate Sodium (Docusate Sodium/Sennosides 50-8.6 Mg Tab) 1 tab PO DAILY PRN PRN Reason: Constipation Sertraline HCl (Sertraline 50 Mg Tab) 100 mg PO DAILY [facility] Last Admin: 08/13/21 08:43 Dose: 100 mg Documented by: Sodium Chloride (Sodium Chloride 0.9% 10 Ml Syringe) 10 ml FLUSH ASDIRECTED PRN PRN Reason: Keep Vein Open Last Admin: 08/05/21 09:23 Dose: 10 ml Documented by: Sodium Chloride (Sodium Chloride 0.9% 10 Ml Syringe) 10 ml FLUSH ONETIME PRN PRN Reason: IV FLUSH Zinc Sulfate (Zinc Sulfate 220 Mg Cap) 220 mg PO DAILY [facility] Last Admin: 08/13/21 08:44 Dose: 220 mg Documented by: Discontinued Medications Acetaminophen (Acetaminophen 325 Mg Tab) 650 mg PO Q4H PRN PRN Reason: Fever Greater Than 101 Albuterol/Ipratropium (Albuterol/Ipratropium 3.0-0.5 Mg/3 Ml Neb Soln) 3 ml NEB ONETIME ONE Stop: 08/05/21 08:51 Last Admin: 08/05/21 09:10 Dose: 3 ml Documented by: Baricitinib (Baricitinib 2 Mg Tab) 2 mg PO DAILY [place] Stop: 08/21/21 10:01 Last Admin: 08/09/21 08:21 Dose: 2 mg Documented by: Dexamethasone (Dexamethasone 4 Mg/Ml Sdv) 6 mg IVPUSH ONETIME ONE Stop: 08/05/21 08:50 Last Admin: 08/05/21 09:21 Dose: 6 mg Documented by: Enoxaparin Sodium (Enoxaparin 40 Mg/0.4 Ml Syringe) 40 mg SUBCUT DAILY [facility] Last Admin: 08/09/21 08:21 Dose: 40 mg Documented by: Enoxaparin Sodium (Enoxaparin 40 Mg/0.4 Ml Syringe) 40 mg SUBCUT ONETIME ONE Stop: 08/05/21 11:31 Last Admin: 08/05/21 15:04 Dose: Not Given Documented by: Enoxaparin Sodium (Enoxaparin 80 Mg/0.8 Ml Syringe) 70 mg SUBCUT ONETIME ONE Stop: 08/09/21 10:02 Last Admin: 08/09/21 11:33 Dose: 70 mg Documented by: Guaifenesin (Guaifenesin 600 Mg Tab.Er) 600 mg PO TID [place] Remdesivir 200 mg/ Sodium (Chloride) 250 mls @ 250 mls/hr IV ONETIME ONE Stop: 08/05/21 08:51 Last Admin: 08/05/21 09:21 Dose: 250 mls/hr Documented by: Sodium Chloride (Normal Saline) 1,000 mls @ 1,000 mls/hr IV .BOLUS [facility] Last Admin: 08/05/21 09:21 Dose: 1,000 mls/hr Documented by: Remdesivir 100 mg/ Sodium (Chloride) 250 mls @ 250 mls/hr IV Q24H [place] Stop: 08/09/21 09:59 Last Admin: 08/09/21 08:21 Dose: 250 mls/hr Documented by: Sodium Chloride (Normal Saline) 500 mls @ 999 mls/hr IV .BOLUS ONE Stop: 08/07/21 11:27 Last Admin: 08/07/21 11:39 Dose: 999 mls/hr Documented by: Sodium Chloride (Normal Saline) 100 mls @ 75 mls/hr IV ASDIRECTED [place] Last Admin: 08/09/21 10:03 Dose: 75 mls/hr Documented by: Iopamidol (Iopamidol 755 Mg/Ml 100 Ml Bottle) 100 ml IVPUSH ONETIME ONE Stop: 08/09/21 09:06 Last Admin: 08/09/21 10:04 Dose: 100 ml Documented by: Ondansetron HCl (Ondansetron 4 Mg/2 Ml Sdv) 4 mg IVPUSH ONETIME ONE Stop: 08/05/21 08:49 Last Admin: 08/05/21 09:23 Dose: 4 mg Documented by: - Exam Quality Assessment: Supplemental Oxygen (2L), DVT Prophylaxis. No: Urine Cath eter General: Alert, Oriented, Cooperative, No Acute Distress HEENT: Pupils Equal, Pupils Reactive, Mucous Membr. Moist/[place] Neck: Supple, Trachea Midline Lungs: Normal Respiratory Effort, Decreased Breath Sounds (Improving), Crackles (Improving) Cardiovascular: Regular Rate, Regular Rhythm GI/Abdominal Exam: Normal Bowel Sounds, Soft, Non-Tender, No Distention (Female) Exam: Deferred Back Exam: Normal Inspection, Full Range of Motion Extremities: Normal Inspection, Normal Range of Motion, Non-Tender, No Pedal Edema, Normal Capillary Refill Skin: Warm, Dry, Intact Neurological: No New Focal Deficit Psy/Mental Status: Alert, Normal Affect, Normal Mood - Patient Data Lab Results Last 24 hrs: Laboratory Results - last 24 hr 08/13/21 08/13/21 08/13/21 Range/Units 05:58 05:58 11:42 WBC (3.98-10.04) K/mm3 RBC (3.98-5.22) M/mm3 Hgb (11.2-15.7) gm/dl Hct (34.1-44.9) % MCV (79.4-94.8) fl MCH (25.6-32.2) pg MCHC (32.2-35.5) g/dl RDW Std Deviation (36.4-46.3) fL Plt Count (182-369) K/mm3 MPV (9.4-12.3) fl Neut % (Auto) (34.0-71.1) % Lymph % (Auto) (19.3-51.7) % [place] % (Auto) (4.7-12.5) % Eos % (Auto) (0.7-5.8) Baso % (Auto) (0.1-1.2) % Neut # (Auto) (1.56-6.13) K/mm3 Lymph # (Auto) (1.18-3.74) K/mm3 [place] # (Auto) (0.24-0.36) K/mm3 Eos # (Auto) (0.04-0.36) K/mm3 Baso # (Auto) (0.01-0.08) K/mm3 Manual Slide Review Normal smear Sodium 139 (136-145) mEq/L Potassium 5.6 H D (3.5-5.1) mEq/L Chloride 104 (98-107) mEq/L Carbon Dioxide 29 (21-32) mEq/L Anion Gap 11.6 (5-15) BUN 28 H (7-18) mg/dL Creatinine 0.9 (0.55-1.02) mg/dL Est Cr Clr Drug Dosing 61.41 mL/min Estimated GFR (MDRD) > 60 (>60) mL/min BUN/Creatinine Ratio 31.1 H (14-18) Glucose 192 H (70-99) mg/dL POC Glucose 196 H (70-99) mg/dL Calcium 8.7 (8.5-10.1) mg/dL Total Bilirubin 0.6 (0.2-1.0) mg/dL AST 29 (15-37) U/L ALT 29 (14-59) U/L Alkaline Phosphatase 77 (46-116) U/L C-Reactive Protein 1.7 H* (<1.0) mg/dL Total Protein 6.0 L (6.4-8.2) g/dl Albumin 2.4 L (3.4-5.0) g/dl Globulin 3.6 gm/dL Albumin/Globulin Ratio 0.7 L (1-2) 08/13/21 08/13/21 08/13/21 Range/Units 12:59 17:09 21:03 WBC (3.98-10.04) K/mm3 RBC (3.98-5.22) M/mm3 Hgb (11.2-15.7) gm/dl Hct (34.1-44.9) % MCV (79.4-94.8) fl MCH (25.6-32.2) pg MCHC (32.2-35.5) g/dl RDW Std Deviation (36.4-46.3) fL Plt Count (182-369) K/mm3 MPV (9.4-12.3) fl Neut % (Auto) (34.0-71.1) % Lymph % (Auto) (19.3-51.7) % [place] % (Auto) (4.7-12.5) % Eos % (Auto) (0.7-5.8) Baso % (Auto) (0.1-1.2) % Neut # (Auto) (1.56-6.13) K/mm3 Lymph # (Auto) (1.18-3.74) K/mm3 [place] # (Auto) (0.24-0.36) K/mm3 Eos # (Auto) (0.04-0.36) K/mm3 Baso # (Auto) (0.01-0.08) K/mm3 Manual Slide Review Sodium (136-145) mEq/L Potassium 4.9 (3.5-5.1) mEq/L Chloride (98-107) mEq/L Carbon Dioxide (21-32) mEq/L Anion Gap (5-15) BUN (7-18) mg/dL Creatinine (0.55-1.02) mg/dL Est Cr Clr Drug Dosing mL/min Estimated GFR (MDRD) (>60) mL/min BUN/Creatinine Ratio (14-18) Glucose (70-99) mg/dL POC Glucose 337 H 339 H (70-99) mg/dL Calcium (8.5-10.1) mg/dL Total Bilirubin (0.2-1.0) mg/dL AST (15-37) U/L ALT (14-59) U/L Alkaline Phosphatase (46-116) U/L C-Reactive Protein (<1.0) mg/dL Total Protein (6.4-8.2) g/dl Albumin (3.4-5.0) g/dl Globulin gm/dL Albumin/Globulin Ratio (1-2) 08/14/21 08/14/21 Range/Units 06:00 06:55 WBC 8.79 (3.98-10.04) K/mm3 RBC 4.63 (3.98-5.22) M/mm3 Hgb 13.5 (11.2-15.7) gm/dl Hct 41.7 (34.1-44.9) % MCV 90.1 (79.4-94.8) fl MCH 29.2 (25.6-32.2) pg MCHC 32.4 (32.2-35.5) g/dl RDW Std Deviation 41.0 (36.4-46.3) fL Plt Count 360 (182-369) K/mm3 MPV 10.3 (9.4-12.3) fl Neut % (Auto) 71.0 (34.0-71.1) % Lymph % (Auto) 19.1 L (19.3-51.7) % [place] % (Auto) 7.6 (4.7-12.5) % Eos % (Auto) 1.1 (0.7-5.8) Baso % (Auto) 0.2 (0.1-1.2) % Neut # (Auto) 6.23 H (1.56-6.13) K/mm3 Lymph # (Auto) 1.68 (1.18-3.74) K/mm3 [place] # (Auto) 0.67 H (0.24-0.36) K/mm3 Eos # (Auto) 0.10 (0.04-0.36) K/mm3 Baso # (Auto) 0.02 (0.01-0.08) K/mm3 Manual Slide Review Normal smear Sodium (136-145) mEq/L Potassium (3.5-5.1) mEq/L Chloride (98-107) mEq/L Carbon Dioxide (21-32) mEq/L Anion Gap (5-15) BUN (7-18) mg/dL Creatinine (0.55-1.02) mg/dL Est Cr Clr Drug Dosing mL/min Estimated GFR (MDRD) (>60) mL/min BUN/Creatinine Ratio (14-18) Glucose (70-99) mg/dL POC Glucose 151 H (70-99) mg/dL Calcium (8.5-10.1) mg/dL Total Bilirubin (0.2-1.0) mg/dL AST (15-37) U/L ALT (14-59) U/L Alkaline Phosphatase (46-116) U/L C-Reactive Protein (<1.0) mg/dL Total Protein (6.4-8.2) g/dl Albumin (3.4-5.0) g/dl Globulin gm/dL Albumin/Globulin Ratio (1-2) Result Diagrams: 08/14/21 06:00 08/14/21 06:00 Sepsis Event Note - Evaluation Sepsis Screening Result: No Definite Risk - Focused Exam Vital Signs: Vital Signs Temp Pulse Resp BP Pulse Ox Pulse Ox 08/14/21 03:27 97.9 F 68 20 149/79 H 91 L 08/14/21 00:08 98.1 F 62 16 111/68 93 L 08/13/21 20:20 98.2 F 73 18 124/91 H 90 L 08/13/21 19:22 93 L - Problem List & Annotations (1) Depression SNOMED Code(s): 58798382 Code(s): F32.A - DEPRESSION, UNSPECIFIED Status: Chronic Priority: Low Current Visit: No Qualifiers: Depression Type: other depression Qualified Code(s): F32.89 - Other specified depressive episodes (2) Hypothyroidism SNOMED Code(s): 86671726 Code(s): E03.9 - HYPOTHYROIDISM, UNSPECIFIED Status: Chronic Priority: Low Current Visit: No Qualifiers: Hypothyroidism type: unspecified Qualified Code(s): E03.9 - Hypothyroidism, unspecified (3) Elevated d-dimer SNOMED Code(s): 271070374 Code(s): R79.89 - OTHER SPECIFIED ABNORMAL FINDINGS OF BLOOD CHEMISTRY Status: Acute Priority: Medium Current Visit: Yes (4) Thrombocytopenia SNOMED Code(s): 048071818 Code(s): D69.6 - THROMBOCYTOPENIA, UNSPECIFIED Status: Resolved Priority: Medium Current Visit: Yes (5) Hyponatremia SNOMED Code(s): 52474379 Code(s): E87.1 - HYPO-OSMOLALITY AND HYPONATREMIA Status: Resolved Priority: Medium Current Visit: Yes (6) Volume depletion SNOMED Code(s): 693696114 Code(s): E86.9 - VOLUME DEPLETION, UNSPECIFIED Status: Resolved Priority: Medium Current Visit: Yes (7) Nausea SNOMED Code(s): 042147095 Code(s): R11.0 - NAUSEA Status: Resolved Priority: Medium Current Visit: Yes (8) Pneumonia due to COVID-19 virus SNOMED Code(s): 370361279773088532 Code(s): U07.1 - COVID-19; J12.82 - PNEUMONIA DUE TO CORONAVIRUS DISEASE 2019 Status: Acute Priority: High Current Visit: Yes (9) Hypoxia SNOMED Code(s): 395199254 Code(s): R09.02 - HYPOXEMIA Status: Acute Priority: High Current Visit: Yes (10) Generalized weakness SNOMED Code(s): 26032558 Code(s): R53.1 - WEAKNESS Status: Acute Priority: Medium Current Visit: Yes (11) ANAHI (acute kidney injury) SNOMED Code(s): 13841622, 91263646 Code(s): N17.9 - ACUTE KIDNEY FAILURE, UNSPECIFIED Status: Resolved Priority: High Current Visit: Yes (12) New onset type 2 diabetes mellitus SNOMED Code(s): 86491743 Code(s): E11.9 - TYPE 2 DIABETES MELLITUS WITHOUT COMPLICATIONS Status: Chronic Priority: High Current Visit: Yes (13) Vitamin D deficiency SNOMED Code(s): 57481946 Code(s): E55.9 - VITAMIN D DEFICIENCY, UNSPECIFIED Status: Acute Priority: High Current Visit: Yes (14) Hyperglycemia SNOMED Code(s): 35019658 Code(s): R73.9 - HYPERGLYCEMIA, UNSPECIFIED Status: Acute Priority: High Current Visit: Yes (15) Pulmonary emboli SNOMED Code(s): 43387184 Code(s): I26.99 - OTHER PULMONARY EMBOLISM WITHOUT ACUTE COR PULMONALE Status: Acute Priority: High Current Visit: Yes Qualifiers: Pulmonary embolism type: multiple subsegmental (without acute cor pulmonale) Qualified Code(s): I26.94 - Multiple subsegmental pulmonary emboli without acute cor pulmonale (16) Hyperkalemia SNOMED Code(s): 53709631 Code(s): E87.5 - HYPERKALEMIA Status: Acute Priority: Medium Current Visit: Yes - Problem List Review Problem List Initiated/Reviewed/Updated: Yes - Assessment Assessment:: 08/06/2021 66-year-old female admitted to the floor for treatment of her COVID-19 pneumonia. Patient continues on dexamethasone and remdesivir. She is requiring 25 L of high flow oxygen with an FiO2 of 85% today. She is utilizing her incentive spirometer and Acapella sparingly and she was instructed to increase her use of this. We discussed proning. She was offered baricitinib and is refusing at this time. We will continue to offer this. Labs today show WBC of 6.24. Hemoglobin 14.4. Platelet 184,000. Neutrophils are elevated 74.3%. Sodium is 136. Potassium 4.3. Carbon oxide 27. Anion gap is 12.3. BUN is 30. Creatinine 1.1. GFR is 50. Magnesium was 2.2. Bilirubin 0.5. AST was 30, ALT was 26, alkaline phosphatase 79. CRP is improved 6.2. Albumin is 2.8. Vitamin D obtained yesterday was 12.7 and she was started on supplementation. Procalcitonin was 0.10. Due to her hyperglycemia A1c was obtained and was 10.7. Will order diabetic education and dietitian consultation. Patient reports she has been prediabetic in the past. We will start 15 units of long-acting insulin and medium intensity sliding scale insulin. We will check 4 times daily before meals and bedtime blood glucose checks. Anticipate rise in blood glucose readings due to steroids. Unknown length of stay due to severity of symptoms. 08/07/2021 66-year-old female admitted the floor for COVID-19 pneumonia. She continues on dexamethasone and remdesivir. She is requiring 35 L of oxygen with an FiO2 of 80%. She is using her I-S and Acapella. She is very weak. Labs today show WBC of 8.08. Hemoglobin 14.6. Platelet 262,000. Neutrophils are elevated 77.8%. D-dimer is 1.81. Sodium is 139. Potassium 4.4. Chloride 103. Carbon dioxide 28. Anion gap is 12.4. BUN is 28. Creatinine is up to 1.2. GFR is down to 45. Glucose has been between 154 and 311. She remains on 15 units long-acting insulin at bedtime. Magnesium is 2.2. Bilirubin 0.6. AST is 27, ALT 26, alkaline phosphatase 78. CRP is down to 4.7. Protein is 5.9. Albumin is 2.7. staff development educator and dietitian are waiting for the patient is feeling better to discuss her new diabetic diagnosis. She reports she has not been sleeping well we will add scheduled nighttime melatonin. Unknown length of stay due to severity of symptoms. Because of her significant worsening oxygen saturations and requirement for high flow oxygenation I am recommending baricitinib. I spoke with Gail to provide information about baricitinib. I offered the "fax sheet for patients and parents/caregivers, for baricitinib" to read and review. I stated that therapy has been approved by an emergency use authorization process and has not fully been FDA reviewed or approved. I shared potential risks from the therapy including increased risk for serious infections, anaphylaxis, and reaction to medication. I discussed there are other potential treatment options that are currently not FDA approved to treat COVID-19. Offered opportunity to ask questions and all questions were answered. Gail voiced understanding and agreed to proceed with treatment. 08/08/2021 The patient is a 66-year-old lady who will be retained in hospitalization due to her treatment with remdesivir. She is also to be continued on baricitinib. I have instructed the patient in the use of the incentive spirometer and Acapella. She is also new onset diabetes and in service educator has been ordered. The patient's blood glucose will be monitored and she will be maintained on a carb constant diet. The patient may need to have her insulin adjusted as her blood sugar indicates. The patient is also on DVT prophylaxis with the use of Lovenox 40 mg subcutaneous daily. Repeat laboratory studies have been ordered for the morning. Repeat chest x-ray is also been ordered. The patient should be appropriate for discharge upon completion of her remdesivir. 08/09/2021 66-year-old female admitted to the hospital due to COVID-19 treatment. She continues on remdesivir and baricitinib. Her oxygen demand has increased and s he is up to 40 L with an FiO2 of 90%. D-dimer today was elevated at 12.98 and CTA was ordered. CTA returned "1. Pulmonary emboli within the segmental branches of the left lower lung as well as sagittal emboli bridging the segmental branches within the right middle lobe and right lower lobe. Pulmonary emboli extend into the subsegmental branches. 2. No compromise of the right heart is seen. 3. Diffuse parenchymal changes noted within both lungs compatible with very prominent COVID-19 pneumonia. 4. Fatty infiltration within the liver and other findings believed to be nonacute as described above." Because of this her Lovenox was increased to 1 mg/kg twice daily. Echocardiogram was ordered. Chest x-ray was obtained and shows very prominent COVID-19 pneumonia. She continues on high flow and up to 40 L with an FiO2 of 90%. WBC today is slightly elevated at 10.12, likely secondary to steroid use. Hemoglobin is 14.2. Platelet is 302,000. Neutrophils are elevated at 78.6%. D-dimer is 12.98. Sodium is 142. Potassium is 4.6. Chloride is 105. Carbon dioxide is 30. Anion gap is 11.6. BUN is 20. Creatinine 0.9. GFR is greater than 60. Glucose is 83-255. Magnesium 2.0. Bilirubin 0.7. AST is 26, ALT 19, alkaline phosphatase 93. CRP is 2.7. Albumin is 2.6. We will continue current treatment plan. Unknown length of stay due to severity of COVID-19 symptoms and new onset PE. 08/10/2021 The patient is a 66-year-old lady who is currently anticoagulated for her pulmonary emboli with the use of Lovenox 110 mg subcutaneous every 12 hours. Th e patient will be transitioned to a NOAC in the next day or 2. The patient will continue on Accu-Cheks before meals and at bedtime as well as insulin sliding scale. Her hyperglycemia is likely to be elevated secondary to the steroid use and she is on insulin for now. The patient's acute renal failure has resolved. Her creatinine and BUN are normal with the normal EGFR. The patient will contin ue on her diabetic diet. Repeat laboratory studies have been ordered. The patient has been on oxygen and was will be titrated to keep her saturations around 92%. The patient should be appropriate for discharge in 1 to 2 days. 08/11/2021 The patient is a 66-year-old lady who was admitted initially secondary to COVID- 19 pneumonia. The patient did have an increase in her D-dimer and as a result of this and a CT scan angiogram of her chest was ordered and she was found to have segmental and subsegmental bilateral pulmonary emboli. She is on treatment dose of Lovenox 1 mg/kg twice a day. The patient is also diabetic and she is to have insulin sliding scale. The patient's hyperglycemia is also been noted to be likely secondary to steroids. Repeat laboratory studies have been ordered. The patient's previously noted renal failure has resolved. The patient will be kept on oxygen to keep with her saturations around 92%. I have also explained to the patient the importance of moving around and doing what she can to try and prevent weakness and deconditioning. Physical therapy has been ordered for the patient. The patient will be transitioned to NOAC prior to discharge. 08/12/2021 This is a 66-year-old female admitted to the floor for COVID-19 pneumonia with hypoxia. She was also found to have pulmonary emboli and be a new onset diabetic. She remains on 40 L high flow with an FiO2 of 50%. Overall she reports she feels quite a bit better today. She completed her remdesivir treatment and remains on dexamethasone 6 mg and baricitinib. WBC today is 7.81. Hemoglobin is 14.0. Platelet 325,000. Neutrophils are elevated at 73.6%. Sodium is 139. Potassium 3.8. Chloride 26. Anion gap is 13.8. BUN is 21. Creatinine 0.8. GFR greater than 60. Blood glucose range has been from 1 31-2 72. Total bilirubin 0.8. AST 21, ALT 19, alkaline phosphatase 85. CRP is down to 2.8. Protein is 5.8. Albumin is down to 2.4. We will continue current treatment and attempt to wean off of oxygen. Patient will be appropriate for discharge once she completes treatment and weans down to a reasonable amount of oxygen with goal being 2 L or less. Unknown length of stay due to severity of symptoms. 08/13/2021 66-year-old female admitted the floor for COVID-19 pneumonia with hypoxia and found to be new onset diabetic with pulmonary emboli. She has been weaned down to 35 L of high flow with an FiO2 of 55%. Overall she states she feels better than yesterday and she is quite excited because she has been able to make her Acapella vibrate and has had improved volumes on her incentive spirometer. She continues on dexamethasone and baricitinib. WBC today is 8.60. Hemoglobin 13.6. Platelet 375,000. Neutrophils are elevated at 76.4. Sodium is 139. Potassium is 5.6. It was 3.8 yesterday. She is asymptomatic. We will recheck her potassium today at 1300 to ensure no lab error and then give Kayexalate and possibly albuterol neb. Chloride is 104. Carbon dioxide 29. Anion gap is 11.6. BUN is 28. Creatinine 0.9. GFR is greater than 60. Glucose has been between 174 and 358. Total bilirubin 0.6. AST is 29, ALT 29, alkaline phosphatase 77. CRP is down to 1.7. Protein is up to 6.0. Albumin is steady at 2.4. Unknown length of stay due to severity of symptoms. She will remain hospitalized until she is weaned off of high flow oxygen. 08/14/2021 66-year-old female admitted to the floor for COVID-19 pneumonia and found to be new onset diabetic with pulmonary emboli. She has been weaned down to 2 L via nasal cannula and continues to do well. She states she feels better and has been gaining her strength back. She continues on dexamethasone and baricitinib. Today we will transition her from Lovenox to Eliquis 10 mg twice daily for 14 doses. She will then be transition to 5 mg twice daily thereafter. Potassium yesterday was noted to be elevated at 5.6 and on recheck it was back within normal limits at 4.9. It is minimally elevated today at 5.2. Labs show WBC of 8.79. Hemoglobin 13.5. Platelet 360,000. Neutrophils are within normal limit at 70.0. Sodium is 139. Chloride 104. Carbon oxide 31. Anion gap 9.2. BUN is 30. Creatinine 0.9. GFR greater than 60. Glucose has been between 151 and 339. Bilirubin 0.6. AST is 46, ALT 54, alkaline phosphatase 79. Protein is 6.2. Albumin is 2.6. We will continue current treatment plan and work on weaning off of oxygen. Possible discharge in 1 to 3 days pending continued stability and improvement. - Plan Plan:: Pneumonia due to COVID-19 virus Hypoxia Generalized weakness Nausea, resolved * Prone whenever able * I-S/Acapella * Respiratory therapy consultation * As needed DuoNebs * As needed albuterol inhaler * Completed 5 days of Remdesivir * 6 mg dexamethasone for 10 days * As needed Zofran for nausea * O2 as needed to keep saturations between 88 and 95% * 20 mg famotidine twice daily * Physical therapy evaluation * High flow oxygen 35 L with an FiO2 of 55%. * Daily labs * Airborne/contact precautions * Telemetry * Continuous pulse oximetry * 14 days baricitinib Pulmonary embolism Elevated d-dimer * Echocardiogram obtained as noted * Transition to Eliquis 10mg BID x 14 doses today. Then continue on 5mg BID thereafter Thrombocytopenia, Resolved * Monitor daily labs Hyponatremia, resolved Volume depletion, resolved ANAHI, Reslved * Given 1 L fluid bolus in ED * Encourage oral rehydration * Avoid nephrotoxic medications if able * Monitor daily labs New onset diabetes mellitus Hyperglycemia * QID AC and Bedtime glucose checks * staff development educator consultation * Junior Java Developer consultation * Consistent carbohydrate diet * 15 units long acting insulin * Sliding scale medium intensity insulin * Anticipate rise in blood glucose readings 2/2 steroid use Vitamin D deficiency * Continue daily supplementation Depression * No acute concerns * Continue home zoloft Hypothyroidism * No acute concerns * Continue home levothyroxine Hyperkalemia * Re-check on 08/13/2021 WNL * Monitor Code status: Full code PCP: Heather Granado PA-C DVT prophylaxis: Lovenox Disposition: Patient mated to the floor for management of COVID-19 pneumonia wit h hypoxia. LOS >96hrs due to need for continued treatment due to severity of symptoms, need for continued treatment.
[2021-08-14] MEDS: Albuterol 6.7 GM Inhaler INH PRN ×3 (08:30→21:23)
[2021-08-14] MEDS: Enoxaparin 120 MG/0.8 ML Syringe SUBCUT SCH (08:52)
[2021-08-14] MEDS: Cholecalciferol (Vitamin D3) 5,000 UNIT Cap PO SCH (08:53)
[2021-08-14] MEDS: Dexamethasone 4 MG Tab PO SCH (08:53)
[2021-08-14] MEDS: guaiFENesin 600 MG Tab.ER PO SCH ×3 (08:53→20:43)
[2021-08-14] MEDS: Famotidine 20 MG Tab PO SCH ×2 (08:53→20:43)
[2021-08-14] MEDS: Zinc Sulfate 220 MG Cap PO SCH (08:54)
[2021-08-14] MEDS: Insulin Lispro 100 Unit/ML 3 ML KwikPen SUBCUT SCH ×4 (08:54→21:06)
[2021-08-14] MEDS: Sertraline 50 MG Tab PO SCH (08:54)
[2021-08-14] MEDS: Apixaban 5 MG Tab PO SCH (20:42)
[2021-08-14] MEDS: Melatonin 3 MG Tab PO SCH (20:42)
[2021-08-14] MEDS: Insulin Glargine,Hum.Rec.Anlog 100 UNIT/ML 3 ML Pen SUBCUT SCH (20:43)
[2021-08-15] MEDS: Levothyroxine 25 MCG Tab PO SCH (05:54)
[2021-08-15] MEDS: Levothyroxine 100 MCG Tab PO SCH (05:55)
--- NOTE | 2021-08-15 06:43 | PCM.PN ---
- General Info Date of Service: 08/15/21 Admission Dx/Problem (Free Text): Hypoxia Functional Status: Reports: Pain Controlled, Tolerating Diet, Ambulating, Urinating, Incentive Spirometry, Other (Acapella ). Denies: New Symptoms - Review of Systems General: Reports: Weakness (improving), Fatigue (improving ). Denies: Fever, Malaise, Chills HEENT: Reports: No Symptoms. Denies: Headaches, Sore Throat Pulmonary: Reports: No Symptoms, Shortness of Breath, Cough, Sputum. Denies: Pleuritic Chest Pain, Wheezing Cardiovascular: Reports: No Symptoms, Dyspnea on Exertion. Denies: Chest Pain, Palpitations, Edema, Lightheadedness Gastrointestinal: Reports: No Symptoms. Denies: Abdominal Pain, Constipation, Diarrhea, Nausea, Vomiting Genitourinary: Reports: No Symptoms. Denies: Pain Musculoskeletal: Reports: No Symptoms Skin: Reports: No Symptoms. Denies: Cyanosis Neurological: Reports: No Symptoms. Denies: Confusion, Dizziness, Headache, Numbness, Pre-Existing Deficit, Seizure, Syncope, Tingling, Trouble Speaking, Difficulty Walking, Change in Speech, Gait Disturbance Psychiatric: Reports: No Symptoms - Patient Data Vitals - Most Recent: Last Vital Signs Temp 97.7 F 08/15/21 04:34 Pulse 57 L 08/15/21 04:34 Resp 18 08/15/21 04:34 BP 149/76 H 08/15/21 04:34 Pulse Ox 92 L 08/15/21 06:30 Weight - Most Recent: 227 lb 4.8 oz I&O - Last 24 Hours: Intake & Output 08/14/21 08/14/21 08/15/21 14:59 22:59 06:59 Intake Total 460 400 350 Output Total 100 1100 Balance 460 300 -750 Lab Results Last 24 Hours: Laboratory Results - last 24 hr 08/14/21 08/14/21 08/14/21 Range/Units 06:00 06:00 06:55 WBC (3.98-10.04) K/mm3 RBC (3.98-5.22) M/mm3 Hgb (11.2-15.7) gm/dl Hct (34.1-44.9) % MCV (79.4-94.8) fl MCH (25.6-32.2) pg MCHC (32.2-35.5) g/dl RDW Std Deviation (36.4-46.3) fL Plt Count (182-369) K/mm3 MPV (9.4-12.3) fl Neut % (Auto) (34.0-71.1) % Lymph % (Auto) (19.3-51.7) % [place] % (Auto) (4.7-12.5) % Eos % (Auto) (0.7-5.8) Baso % (Auto) (0.1-1.2) % Neut # (Auto) (1.56-6.13) K/mm3 Lymph # (Auto) (1.18-3.74) K/mm3 [place] # (Auto) (0.24-0.36) K/mm3 Eos # (Auto) (0.04-0.36) K/mm3 Baso # (Auto) (0.01-0.08) K/mm3 Manual Slide Review Normal smear Sodium 139 (136-145) mEq/L Potassium 5.2 H (3.5-5.1) mEq/L Chloride 104 (98-107) mEq/L Carbon Dioxide 31 (21-32) mEq/L Anion Gap 9.2 (5-15) BUN 30 H (7-18) mg/dL Creatinine 0.9 (0.55-1.02) mg/dL Est Cr Clr Drug Dosing 61.41 mL/min Estimated GFR (MDRD) > 60 (>60) mL/min BUN/Creatinine Ratio 33.3 H (14-18) Glucose 165 H (70-99) mg/dL POC Glucose 151 H (70-99) mg/dL Calcium 9.1 (8.5-10.1) mg/dL Total Bilirubin 0.6 (0.2-1.0) mg/dL AST 46 H (15-37) U/L ALT 54 (14-59) U/L Alkaline Phosphatase 79 (46-116) U/L Total Protein 6.2 L (6.4-8.2) g/dl Albumin 2.6 L (3.4-5.0) g/dl Globulin 3.6 gm/dL Albumin/Globulin Ratio 0.7 L (1-2) 08/14/21 08/14/21 08/14/21 Range/Units 11:18 16:17 20:40 WBC (3.98-10.04) K/mm3 RBC (3.98-5.22) M/mm3 Hgb (11.2-15.7) gm/dl Hct (34.1-44.9) % MCV (79.4-94.8) fl MCH (25.6-32.2) pg MCHC (32.2-35.5) g/dl RDW Std Deviation (36.4-46.3) fL Plt Count (182-369) K/mm3 MPV (9.4-12.3) fl Neut % (Auto) (34.0-71.1) % Lymph % (Auto) (19.3-51.7) % [place] % (Auto) (4.7-12.5) % Eos % (Auto) (0.7-5.8) Baso % (Auto) (0.1-1.2) % Neut # (Auto) (1.56-6.13) K/mm3 Lymph # (Auto) (1.18-3.74) K/mm3 [place] # (Auto) (0.24-0.36) K/mm3 Eos # (Auto) (0.04-0.36) K/mm3 Baso # (Auto) (0.01-0.08) K/mm3 Manual Slide Review Sodium (136-145) mEq/L Potassium (3.5-5.1) mEq/L Chloride (98-107) mEq/L Carbon Dioxide (21-32) mEq/L Anion Gap (5-15) BUN (7-18) mg/dL Creatinine (0.55-1.02) mg/dL Est Cr Clr Drug Dosing mL/min Estimated GFR (MDRD) (>60) mL/min BUN/Creatinine Ratio (14-18) Glucose (70-99) mg/dL POC Glucose 185 H 305 H 317 H (70-99) mg/dL Calcium (8.5-10.1) mg/dL Total Bilirubin (0.2-1.0) mg/dL AST (15-37) U/L ALT (14-59) U/L Alkaline Phosphatase (46-116) U/L Total Protein (6.4-8.2) g/dl Albumin (3.4-5.0) g/dl Globulin gm/dL Albumin/Globulin Ratio (1-2) 08/15/21 08/15/21 Range/Units 05:54 06:00 WBC 9.39 (3.98-10.04) K/mm3 RBC 4.49 (3.98-5.22) M/mm3 Hgb 13.3 (11.2-15.7) gm/dl Hct 40.3 (34.1-44.9) % MCV 89.8 (79.4-94.8) fl MCH 29.6 (25.6-32.2) pg MCHC 33.0 (32.2-35.5) g/dl RDW Std Deviation 41.0 (36.4-46.3) fL Plt Count 357 (182-369) K/mm3 MPV 10.8 (9.4-12.3) fl Neut % (Auto) 73.7 H (34.0-71.1) % Lymph % (Auto) 16.6 L (19.3-51.7) % [place] % (Auto) 7.7 (4.7-12.5) % Eos % (Auto) 0.6 L (0.7-5.8) Baso % (Auto) 0.1 (0.1-1.2) % Neut # (Auto) 6.92 H (1.56-6.13) K/mm3 Lymph # (Auto) 1.56 (1.18-3.74) K/mm3 [place] # (Auto) 0.72 H (0.24-0.36) K/mm3 Eos # (Auto) 0.06 (0.04-0.36) K/mm3 Baso # (Auto) 0.01 (0.01-0.08) K/mm3 Manual Slide Review Sodium (136-145) mEq/L Potassium (3.5-5.1) mEq/L Chloride (98-107) mEq/L Carbon Dioxide (21-32) mEq/L Anion Gap (5-15) BUN (7-18) mg/dL Creatinine (0.55-1.02) mg/dL Est Cr Clr Drug Dosing mL/min Estimated GFR (MDRD) (>60) mL/min BUN/Creatinine Ratio (14-18) Glucose (70-99) mg/dL POC Glucose 161 H (70-99) mg/dL Calcium (8.5-10.1) mg/dL Total Bilirubin (0.2-1.0) mg/dL AST (15-37) U/L ALT (14-59) U/L Alkaline Phosphatase (46-116) U/L Total Protein (6.4-8.2) g/dl Albumin (3.4-5.0) g/dl Globulin gm/dL Albumin/Globulin Ratio (1-2) Med Orders - Current: Current Medications Acetaminophen (Acetaminophen 325 Mg Tab) 650 mg PO Q4H PRN PRN Reason: Pain (Mild 1-3)/fever Last Admin: 08/07/21 02:57 Dose: 650 mg Documented by: Albuterol (Albuterol 6.7 Gm Inhaler) 0 gm INH Q2H PRN PRN Reason: SOB/Wheezing Last Admin: 08/14/21 21:23 Dose: 2 puff Documented by: Albuterol/Ipratropium (Albuterol/Ipratropium 3.0-0.5 Mg/3 Ml Neb Soln) 3 ml NEB QIDRT PRN PRN Reason: Shortness Of Breath/wheezing Last Admin: 08/13/21 08:58 Dose: 3 ml Documented by: Apixaban (Apixaban 5 Mg Tab) 10 mg PO BID [facility] Stop: 08/21/21 09:01 Last Admin: 08/14/21 20:42 Dose: 10 mg Documented by: Baricitinib (Baricitinib 2 Mg Tab) 4 mg PO DAILY [facility] Stop: 08/20/21 09:01 Last Admin: 08/14/21 08:53 Dose: 4 mg Documented by: Benzonatate (Benzonatate 100 Mg Cap) 200 mg PO Q8H PRN PRN Reason: Cough Last Admin: 08/07/21 03:02 Dose: 200 mg Documented by: Cholecalciferol (Cholecalciferol (Vitamin D3) 5,000 Unit Cap) 10,000 unit PO DAILY [facility] Last Admin: 08/14/21 08:53 Dose: 10,000 unit Documented by: Famotidine (Famotidine 20 Mg Tab) 20 mg PO BID [facility] Last Admin: 08/14/21 20:43 Dose: 20 mg Documented by: Guaifenesin (Guaifenesin 600 Mg Tab.Er) 600 mg PO TID [facility] Last Admin: 08/14/21 20:43 Dose: 600 mg Documented by: Insulin Glargine (Insulin Glargine,Hum.Rec.Anlog 100 Unit/Ml 3 Ml Pen) 15 unit SUBCUT BEDTIME [facility] Last Admin: 08/14/21 20:43 Dose: 15 units Documented by: Insulin Human Lispro (Insulin Lispro 100 Unit/Ml 3 Ml Kwikpen) 0 unit SUBCUT QIDACANDBED [facility]; Protocol Last Admin: 08/14/21 21:06 Dose: 8 units Documented by: Levothyroxine Sodium (Levothyroxine 100 Mcg Tab) 100 mcg PO ACBREAKFAST [facility] Last Admin: 08/15/21 05:55 Dose: 100 mcg Documented by: Levothyroxine Sodium (Levothyroxine 25 Mcg Tab) 25 mcg PO ACBREAKFAST [facility] Last Admin: 08/15/21 05:54 Dose: 25 mcg Documented by: Melatonin (Melatonin 3 Mg Tab) 6 mg PO BEDTIME [facility] Last Admin: 08/14/21 20:42 Dose: 6 mg Documented by: Ondansetron HCl (Ondansetron 4 Mg/2 Ml Sdv) 4 mg IV Q6H PRN PRN Reason: Nausea/Vomiting Senna/Docusate Sodium (Docusate Sodium/Sennosides 50-8.6 Mg Tab) 1 tab PO DAILY PRN PRN Reason: Constipation Sertraline HCl (Sertraline 50 Mg Tab) 100 mg PO DAILY [facility] Last Admin: 08/14/21 08:54 Dose: 100 mg Documented by: Sodium Chloride (Sodium Chloride 0.9% 10 Ml Syringe) 10 ml FLUSH ASDIRECTED PRN PRN Reason: Keep Vein Open Last Admin: 08/05/21 09:23 Dose: 10 ml Documented by: Sodium Chloride (Sodium Chloride 0.9% 10 Ml Syringe) 10 ml FLUSH ONETIME PRN PRN Reason: IV FLUSH Zinc Sulfate (Zinc Sulfate 220 Mg Cap) 220 mg PO DAILY [facility] Last Admin: 08/14/21 08:54 Dose: 220 mg Documented by: Discontinued Medications Acetaminophen (Acetaminophen 325 Mg Tab) 650 mg PO Q4H PRN PRN Reason: Fever Greater Than 101 Albuterol/Ipratropium (Albuterol/Ipratropium 3.0-0.5 Mg/3 Ml Neb Soln) 3 ml NEB ONETIME ONE Stop: 08/05/21 08:51 Last Admin: 08/05/21 09:10 Dose: 3 ml Documented by: Baricitinib (Baricitinib 2 Mg Tab) 2 mg PO DAILY [facility] Stop: 08/21/21 10:01 Last Admin: 08/09/21 08:21 Dose: 2 mg Documented by: Dexamethasone (Dexamethasone 4 Mg/Ml Sdv) 6 mg IVPUSH ONETIME ONE Stop: 08/05/21 08:50 Last Admin: 08/05/21 09:21 Dose: 6 mg Documented by: Dexamethasone (Dexamethasone 4 Mg Tab) 6 mg PO DAILY [facility] Stop: 08/14/21 09:01 Last Admin: 08/14/21 08:53 Dose: 6 mg Documented by: Enoxaparin Sodium (Enoxaparin 40 Mg/0.4 Ml Syringe) 40 mg SUBCUT DAILY [facility] Last Admin: 08/09/21 08:21 Dose: 40 mg Documented by: Enoxaparin Sodium (Enoxaparin 40 Mg/0.4 Ml Syringe) 40 mg SUBCUT ONETIME ONE Stop: 08/05/21 11:31 Last Admin: 08/05/21 15:04 Dose: Not Given Documented by: Enoxaparin Sodium (Enoxaparin 80 Mg/0.8 Ml Syringe) 70 mg SUBCUT ONETIME ONE Stop: 08/09/21 10:02 Last Admin: 08/09/21 11:33 Dose: 70 mg Documented by: Enoxaparin Sodium (Enoxaparin 120 Mg/0.8 Ml Syringe) 110 mg SUBCUT Q12H [facility] Last Admin: 08/14/21 08:52 Dose: 110 mg Documented by: Guaifenesin (Guaifenesin 600 Mg Tab.Er) 600 mg PO TID [facility] Remdesivir 200 mg/ Sodium (Chloride) 250 mls @ 250 mls/hr IV ONETIME ONE Stop: 08/05/21 08:51 Last Admin: 08/05/21 09:21 Dose: 250 mls/hr Documented by: Sodium Chloride (Normal Saline) 1,000 mls @ 1,000 mls/hr IV .BOLUS [facility] Last Admin: 08/05/21 09:21 Dose: 1,000 mls/hr Documented by: Remdesivir 100 mg/ Sodium (Chloride) 250 mls @ 250 mls/hr IV Q24H [facility] Stop: 08/09/21 09:59 Last Admin: 08/09/21 08:21 Dose: 250 mls/hr Documented by: Sodium Chloride (Normal Saline) 500 mls @ 999 mls/hr IV .BOLUS ONE Stop: 08/07/21 11:27 Last Admin: 08/07/21 11:39 Dose: 999 mls/hr Documented by: Sodium Chloride (Normal Saline) 100 mls @ 75 mls/hr IV ASDIRECTED [facility] Last Admin: 08/09/21 10:03 Dose: 75 mls/hr Documented by: Iopamidol (Iopamidol 755 Mg/Ml 100 Ml Bottle) 100 ml IVPUSH ONETIME ONE Stop: 08/09/21 09:06 Last Admin: 08/09/21 10:04 Dose: 100 ml Documented by: Ondansetron HCl (Ondansetron 4 Mg/2 Ml Sdv) 4 mg IVPUSH ONETIME ONE Stop: 08/05/21 08:49 Last Admin: 08/05/21 09:23 Dose: 4 mg Documented by: - Exam Quality Assessment: Supplemental Oxygen (1L), DVT Prophylaxis. No: Urine [place] ter General: Alert, Oriented, Cooperative, No Acute Distress HEENT: Pupils Equal, Pupils Reactive, Mucous Membr. Moist/[place] Neck: Supple, Trachea Midline Lungs: Normal Respiratory Effort, Decreased Breath Sounds, Crackles (Minimal bibasilar) Cardiovascular: Regular Rate, Regular Rhythm GI/Abdominal Exam: Normal Bowel Sounds, Soft, Non-Tender, No Distention (Female) Exam: Deferred Back Exam: Normal Inspection, Full Range of Motion Extremities: Normal Inspection, Normal Range of Motion, Non-Tender, No Pedal Edema, Normal Capillary Refill Skin: Warm, Dry, Intact Neurological: No New Focal Deficit Psy/Mental Status: Alert, Normal Affect, Normal Mood - Patient Data Lab Results Last 24 hrs: Laboratory Results - last 24 hr 08/14/21 08/14/21 08/14/21 Range/Units 06:00 06:00 06:55 WBC (3.98-10.04) K/mm3 RBC (3.98-5.22) M/mm3 Hgb (11.2-15.7) gm/dl Hct (34.1-44.9) % MCV (79.4-94.8) fl MCH (25.6-32.2) pg MCHC (32.2-35.5) g/dl RDW Std Deviation (36.4-46.3) fL Plt Count (182-369) K/mm3 MPV (9.4-12.3) fl Neut % (Auto) (34.0-71.1) % Lymph % (Auto) (19.3-51.7) % [place] % (Auto) (4.7-12.5) % Eos % (Auto) (0.7-5.8) Baso % (Auto) (0.1-1.2) % Neut # (Auto) (1.56-6.13) K/mm3 Lymph # (Auto) (1.18-3.74) K/mm3 [place] # (Auto) (0.24-0.36) K/mm3 Eos # (Auto) (0.04-0.36) K/mm3 Baso # (Auto) (0.01-0.08) K/mm3 Manual Slide Review Normal smear Sodium 139 (136-145) mEq/L Potassium 5.2 H (3.5-5.1) mEq/L Chloride 104 (98-107) mEq/L Carbon Dioxide 31 (21-32) mEq/L Anion Gap 9.2 (5-15) BUN 30 H (7-18) mg/dL Creatinine 0.9 (0.55-1.02) mg/dL Est Cr Clr Drug Dosing 61.41 mL/min Estimated GFR (MDRD) > 60 (>60) mL/min BUN/Creatinine Ratio 33.3 H (14-18) Glucose 165 H (70-99) mg/dL POC Glucose 151 H (70-99) mg/dL Calcium 9.1 (8.5-10.1) mg/dL Total Bilirubin 0.6 (0.2-1.0) mg/dL AST 46 H (15-37) U/L ALT 54 (14-59) U/L Alkaline Phosphatase 79 (46-116) U/L Total Protein 6.2 L (6.4-8.2) g/dl Albumin 2.6 L (3.4-5.0) g/dl Globulin 3.6 gm/dL Albumin/Globulin Ratio 0.7 L (1-2) 08/14/21 08/14/21 08/14/21 Range/Units 11:18 16:17 20:40 WBC (3.98-10.04) K/mm3 RBC (3.98-5.22) M/mm3 Hgb (11.2-15.7) gm/dl Hct (34.1-44.9) % MCV (79.4-94.8) fl MCH (25.6-32.2) pg MCHC (32.2-35.5) g/dl RDW Std Deviation (36.4-46.3) fL Plt Count (182-369) K/mm3 MPV (9.4-12.3) fl Neut % (Auto) (34.0-71.1) % Lymph % (Auto) (19.3-51.7) % [place] % (Auto) (4.7-12.5) % Eos % (Auto) (0.7-5.8) Baso % (Auto) (0.1-1.2) % Neut # (Auto) (1.56-6.13) K/mm3 Lymph # (Auto) (1.18-3.74) K/mm3 [place] # (Auto) (0.24-0.36) K/mm3 Eos # (Auto) (0.04-0.36) K/mm3 Baso # (Auto) (0.01-0.08) K/mm3 Manual Slide Review Sodium (136-145) mEq/L Potassium (3.5-5.1) mEq/L Chloride (98-107) mEq/L Carbon Dioxide (21-32) mEq/L Anion Gap (5-15) BUN (7-18) mg/dL Creatinine (0.55-1.02) mg/dL Est Cr Clr Drug Dosing mL/min Estimated GFR (MDRD) (>60) mL/min BUN/Creatinine Ratio (14-18) Glucose (70-99) mg/dL POC Glucose 185 H 305 H 317 H (70-99) mg/dL Calcium (8.5-10.1) mg/dL Total Bilirubin (0.2-1.0) mg/dL AST (15-37) U/L ALT (14-59) U/L Alkaline Phosphatase (46-116) U/L Total Protein (6.4-8.2) g/dl Albumin (3.4-5.0) g/dl Globulin gm/dL Albumin/Globulin Ratio (1-2) 08/15/21 08/15/21 Range/Units 05:54 06:00 WBC 9.39 (3.98-10.04) K/mm3 RBC 4.49 (3.98-5.22) M/mm3 Hgb 13.3 (11.2-15.7) gm/dl Hct 40.3 (34.1-44.9) % MCV 89.8 (79.4-94.8) fl MCH 29.6 (25.6-32.2) pg MCHC 33.0 (32.2-35.5) g/dl RDW Std Deviation 41.0 (36.4-46.3) fL Plt Count 357 (182-369) K/mm3 MPV 10.8 (9.4-12.3) fl Neut % (Auto) 73.7 H (34.0-71.1) % Lymph % (Auto) 16.6 L (19.3-51.7) % [place] % (Auto) 7.7 (4.7-12.5) % Eos % (Auto) 0.6 L (0.7-5.8) Baso % (Auto) 0.1 (0.1-1.2) % Neut # (Auto) 6.92 H (1.56-6.13) K/mm3 Lymph # (Auto) 1.56 (1.18-3.74) K/mm3 [place] # (Auto) 0.72 H (0.24-0.36) K/mm3 Eos # (Auto) 0.06 (0.04-0.36) K/mm3 Baso # (Auto) 0.01 (0.01-0.08) K/mm3 Manual Slide Review Sodium (136-145) mEq/L Potassium (3.5-5.1) mEq/L Chloride (98-107) mEq/L Carbon Dioxide (21-32) mEq/L Anion Gap (5-15) BUN (7-18) mg/dL Creatinine (0.55-1.02) mg/dL Est Cr Clr Drug Dosing mL/min Estimated GFR (MDRD) (>60) mL/min BUN/Creatinine Ratio (14-18) Glucose (70-99) mg/dL POC Glucose 161 H (70-99) mg/dL Calcium (8.5-10.1) mg/dL Total Bilirubin (0.2-1.0) mg/dL AST (15-37) U/L ALT (14-59) U/L Alkaline Phosphatase (46-116) U/L Total Protein (6.4-8.2) g/dl Albumin (3.4-5.0) g/dl Globulin gm/dL Albumin/Globulin Ratio (1-2) Result Diagrams: 08/15/21 06:00 08/15/21 06:00 Sepsis Event Note - Evaluation Sepsis Screening Result: No Definite Risk - Focused Exam Vital Signs: Vital Signs Temp Pulse Resp BP Pulse Ox Pulse Ox 08/15/21 06:30 92 L 08/15/21 04:34 97.7 F 57 L 18 149/76 H 94 L 08/15/21 00:06 97.9 F 55 L 20 146/67 H 91 L 08/14/21 21:24 94 L 08/14/21 21:08 22 H 08/14/21 19:34 62 137/86 94 L 08/14/21 19:33 98.2 F 61 18 149/58 H 94 L - Problem List & Annotations (1) Depression SNOMED Code(s): 00624538 Code(s): F32.A - DEPRESSION, UNSPECIFIED Status: Chronic Priority: Low Current Visit: No Qualifiers: Depression Type: other depression Qualified Code(s): F32.89 - Other specified depressive episodes (2) Hypothyroidism SNOMED Code(s): 88180850 Code(s): E03.9 - HYPOTHYROIDISM, UNSPECIFIED Status: Chronic Priority: Low Current Visit: No Qualifiers: Hypothyroidism type: unspecified Qualified Code(s): E03.9 - Hypothyroidism, unspecified (3) Elevated d-dimer SNOMED Code(s): 884581772 Code(s): R79.89 - OTHER SPECIFIED ABNORMAL FINDINGS OF BLOOD CHEMISTRY Status: Acute Priority: Medium Current Visit: Yes (4) Thrombocytopenia SNOMED Code(s): 204734688 Code(s): D69.6 - THROMBOCYTOPENIA, UNSPECIFIED Status: Resolved Priority: Medium Current Visit: Yes (5) Hyponatremia SNOMED Code(s): 07765368 Code(s): E87.1 - HYPO-OSMOLALITY AND HYPONATREMIA Status: Resolved Priority: Medium Current Visit: Yes (6) Volume depletion SNOMED Code(s): 738879551 Code(s): E86.9 - VOLUME DEPLETION, UNSPECIFIED Status: Resolved Priority: Medium Current Visit: Yes (7) Nausea SNOMED Code(s): 269552621 Code(s): R11.0 - NAUSEA Status: Resolved Priority: Medium Current Visit: Yes (8) Pneumonia due to COVID-19 virus SNOMED Code(s): 866685340411856926 Code(s): U07.1 - COVID-19; J12.82 - PNEUMONIA DUE TO CORONAVIRUS DISEASE 2019 Status: Acute Priority: High Current Visit: Yes (9) Hypoxia SNOMED Code(s): 190750021 Code(s): R09.02 - HYPOXEMIA Status: Acute Priority: High Current Visit: Yes (10) Generalized weakness SNOMED Code(s): 82454486 Code(s): R53.1 - WEAKNESS Status: Acute Priority: Medium Current Visit: Yes (11) ANAHI (acute kidney injury) SNOMED Code(s): 25026231, 54390710 Code(s): N17.9 - ACUTE KIDNEY FAILURE, UNSPECIFIED Status: Resolved Priority: High Current Visit: Yes (12) New onset type 2 diabetes mellitus SNOMED Code(s): 97363122 Code(s): E11.9 - TYPE 2 DIABETES MELLITUS WITHOUT COMPLICATIONS Status: Chronic Priority: High Current Visit: Yes (13) Vitamin D deficiency SNOMED Code(s): 16383571 Code(s): E55.9 - VITAMIN D DEFICIENCY, UNSPECIFIED Status: Acute Priority: High Current Visit: Yes (14) Hyperglycemia SNOMED Code(s): 94166727 Code(s): R73.9 - HYPERGLYCEMIA, UNSPECIFIED Status: Acute Priority: High Current Visit: Yes (15) Pulmonary emboli SNOMED Code(s): 04787992 Code(s): I26.99 - OTHER PULMONARY EMBOLISM WITHOUT ACUTE COR PULMONALE Status: Acute Priority: High Current Visit: Yes Qualifiers: Pulmonary embolism type: multiple subsegmental (without acute cor pulmonale) Qualified Code(s): I26.94 - Multiple subsegmental pulmonary emboli without acute cor pulmonale (16) Hyperkalemia SNOMED Code(s): 69709971 Code(s): E87.5 - HYPERKALEMIA Status: Resolved Priority: Medium Current Visit: Yes - Problem List Review Problem List Initiated/Reviewed/Updated: Yes - My Orders Last 24 Hours: My Active Orders 08/14/21 21:00 Apixaban [Eliquis] 10 mg PO BID 08/15/21 05:11 BASIC METABOLIC PANEL,BMP [CHEM] AM CRP [C-REACTIVE PROTEIN] [CHEM] AM 08/16/21 05:11 BASIC METABOLIC PANEL,BMP [CHEM] AM CBC WITH AUTO DIFF [HEME] AM CRP [C-REACTIVE PROTEIN] [CHEM] AM 08/17/21 05:11 BASIC METABOLIC PANEL,BMP [CHEM] AM CBC WITH AUTO DIFF [HEME] AM CRP [C-REACTIVE PROTEIN] [CHEM] AM 08/18/21 05:11 BASIC METABOLIC PANEL,BMP [CHEM] AM CBC WITH AUTO DIFF [HEME] AM CRP [C-REACTIVE PROTEIN] [CHEM] AM - Assessment Assessment:: 08/06/2021 66-year-old female admitted to the floor for treatment of her COVID-19 pneumonia. Patient continues on dexamethasone and remdesivir. She is requiring 25 L of high flow oxygen with an FiO2 of 85% today. She is utilizing her incentive spirometer and Acapella sparingly and she was instructed to increase her use of this. We discussed proning. She was offered baricitinib and is refusing at this time. We will continue to offer this. Labs today show WBC of 6.24. Hemoglobin 14.4. Platelet 184,000. Neutrophils are elevated 74.3%. Sodium is 136. Potassium 4.3. Carbon oxide 27. Anion gap is 12.3. BUN is 30. Creatinine 1.1. GFR is 50. Magnesium was 2.2. Bilirubin 0.5. AST was 30, ALT was 26, alkaline phosphatase 79. CRP is improved 6.2. Albumin is 2.8. Vitamin D obtained yesterday was 12.7 and she was started on supplementation. Procalcitonin was 0.10. Due to her hyperglycemia A1c was obtained and was 10.7. Will order diabetic education and dietitian consultation. Patient reports she has been prediabetic in the past. We will start 15 units of long-acting in sulin and medium intensity sliding scale insulin. We will check 4 times daily before meals and bedtime blood glucose checks. Anticipate rise in blood glucose readings due to steroids. Unknown length of stay due to severity of symptoms. 08/07/2021 66-year-old female admitted the floor for COVID-19 pneumonia. She continues on dexamethasone and remdesivir. She is requiring 35 L of oxygen with an FiO2 of 80%. She is using her I-S and Acapella. She is very weak. Labs today show WBC of 8.08. Hemoglobin 14.6. Platelet 262,000. Neutrophils are elevated 77.8%. D-dimer is 1.81. Sodium is 139. Potassium 4.4. Chloride 103. Carbon dioxide 28. Anion gap is 12.4. BUN is 28. Creatinine is up to 1.2. GFR is down to 45. Glucose has been between 154 and 311. She remains on 15 units long-acting insulin at bedtime. Magnesium is 2.2. Bilirubin 0.6. AST is 27, ALT 26, alkaline phosphatase 78. CRP is down to 4.7. Protein is 5.9. Albumin is 2.7. ict educator and dietitian are waiting for the patient is feeling better to discuss her new diabetic diagnosis. She reports she has not been sleeping well we will add scheduled nighttime melatonin. Unknown length of stay due to severity of symptoms. Because of her significant worsening oxygen saturations and requirement for high flow oxygenation I am recommending baricitinib. I spoke with Gail to provide information about baricitinib. I offered the "fax sheet for patients and parents/caregivers, for baricitinib" to read and review. I stated that therapy has been approved by an emergency use authorization process and has not fully been FDA reviewed or approved. I shared potential risks from the therapy including increased risk for serious infections, anaphylaxis, and reaction to medication. I discussed there are other potential treatment options that are currently not FDA approved to treat COVID-19. Offered opportunity to ask questions and all questions were answered. Gail voiced understanding and agreed to proceed with treatment. 08/08/2021 The patient is a 66-year-old lady who will be retained in hospitalization due to her treatment with remdesivir. She is also to be continued on baricitinib. I have instructed the patient in the use of the incentive spirometer and Acapella. She is also new onset diabetes and ict educator has been ordered. The patient's blood glucose will be monitored and she will be maintained on a carb constant diet. The patient may need to have her insulin adjusted as her blood sugar indicates. The patient is also on DVT prophylaxis with the use of Lovenox 40 mg subcutaneous daily. Repeat laboratory studies have been ordered for the morning. Repeat chest x-ray is also been ordered. The patient should be appropriate for discharge upon completion of her remdesivir. 08/09/2021 66-year-old female admitted to the hospital due to COVID-19 treatment. She continues on remdesivir and baricitinib. Her oxygen demand has increased and she is up to 40 L with an FiO2 of 90%. D-dimer today was elevated at 12.98 and CTA was ordered. CTA returned "1. Pulmonary emboli within the segmental branches of the left lower lung as well as sagittal emboli bridging the segmental branches within the right middle lobe and right lower lobe. Pulmonary emboli extend into the subsegmental branches. 2. No compromise of the right heart is seen. 3. Diffuse parenchymal changes noted within both lungs compatible with very prominent COVID-19 pneumonia. 4. Fatty infiltration within the liver and other findings believed to be nonacute as described above." Because of this her Lovenox was increased to 1 mg/kg twice daily. Echocardiogram was ordered. Chest x-ray was obtained and shows very prominent COVID-19 pneumonia. She continues on high flow and up to 40 L with an FiO2 of 90%. WBC today is slightly elevated at 10.12, likely secondary to steroid use. Hemoglobin is 14.2. Platelet is 302,000. Neutrophils are elevated at 78.6%. D-dimer is 12.98. Sodium is 142. Potassium is 4.6. Chloride is 105. Carbon dioxide is 30. Anion gap is 11.6. BUN is 20. Creatinine 0.9. GFR is greater than 60. Glucose is 83-255. Magnesium 2.0. Bilirubin 0.7. AST is 26, ALT 19, alkaline phosphatase 93. CRP is 2.7. Albumin is 2.6. We will continue current treatment plan. Unknown length of stay due to severity of COVID-19 symptoms and new onset PE. 08/10/2021 The patient is a 66-year-old lady who is currently anticoagulated for her pulmonary emboli with the use of Lovenox 110 mg subcutaneous every 12 hours. The patient will be transitioned to a NOAC in the next day or 2. The patient will continue on Accu-Cheks before meals and at bedtime as well as insulin sliding scale. Her hyperglycemia is likely to be elevated secondary to the steroid use and she is on insulin for now. The patient's acute renal failure has resolved. Her creatinine and BUN are normal with the normal EGFR. The patient will continue on her diabetic diet. Repeat laboratory studies have been ordered. The patient has been on oxygen and was will be titrated to keep her saturations around 92%. The patient should be appropriate for discharge in 1 to 2 days. 08/11/2021 The patient is a 66-year-old lady who was admitted initially secondary to COVID- 19 pneumonia. The patient did have an increase in her D-dimer and as a result of this and a CT scan angiogram of her chest was ordered and she was found to have segmental and subsegmental bilateral pulmonary emboli. She is on treatment dose of Lovenox 1 mg/kg twice a day. The patient is also diabetic and she is to have insulin sliding scale. The patient's hyperglycemia is also been noted to be likely secondary to steroids. Repeat laboratory studies have been ordered. The patient's previously noted renal failure has resolved. The patient will be kept on oxygen to keep with her saturations around 92%. I have also explained to the patient the importance of moving around and doing what she can to try and prevent weakness and deconditioning. Physical therapy has been ordered for the patient. The patient will be transitioned to NOAC prior to discharge. 08/12/2021 This is a 66-year-old female admitted to the floor for COVID-19 pneumonia with hypoxia. She was also found to have pulmonary emboli and be a new onset diabetic. She remains on 40 L high flow with an FiO2 of 50%. Overall she reports she feels quite a bit better today. She completed her remdesivir treatment and remains on dexamethasone 6 mg and baricitinib. WBC today is 7.81. Hemoglobin is 14.0. Platelet 325,000. Neutrophils are elevated at 73.6%. Sodium is 139. Potassium 3.8. Chloride 26. Anion gap is 13.8. BUN is 21. Creatinine 0.8. GFR greater than 60. Blood glucose range has been from 1 31-2 72. Total bilirubin 0.8. AST 21, ALT 19, alkaline phosphatase 85. CRP is down to 2.8. Protein is 5.8. Albumin is down to 2.4. We will continue current treatment and attempt to wean off of oxygen. Patient will be appropriate for discharge once she completes treatment and weans down to a reasonable amount of oxygen with goal being 2 L or less. Unknown length of stay due to severity of symptoms. 08/13/2021 66-year-old female admitted the floor for COVID-19 pneumonia with hypoxia and found to be new onset diabetic with pulmonary emboli. She has been weaned down to 35 L of high flow with an FiO2 of 55%. Overall she states she feels better than yesterday and she is quite excited because she has been able to make her Acapella vibrate and has had improved volumes on her incentive spirometer. She continues on dexamethasone and baricitinib. WBC today is 8.60. Hemoglobin 13.6. Platelet 375,000. Neutrophils are elevated at 76.4. Sodium is 139. Potassium is 5.6. It was 3.8 yesterday. She is asymptomatic. We will recheck her potassium today at 1300 to ensure no lab error and then give Kayexalate and possibly albuterol neb. Chloride is 104. Carbon dioxide 29. Anion gap is 11.6. BUN is 28. Creatinine 0.9. GFR is greater than 60. Glucose has been between 174 and 358. Total bilirubin 0.6. AST is 29, ALT 29, alkaline meri sphatase 77. CRP is down to 1.7. Protein is up to 6.0. Albumin is steady at 2.4. Unknown length of stay due to severity of symptoms. She will remain hospitalized until she is weaned off of high flow oxygen. 08/14/2021 66-year-old female admitted to the floor for COVID-19 pneumonia and found to be new onset diabetic with pulmonary emboli. She has been weaned down to 2 L via nasal cannula and continues to do well. She states she feels better and has been gaining her strength back. She continues on dexamethasone and baricitinib. Today we will transition her from Lovenox to Eliquis 10 mg twice daily for 14 doses. She will then be transition to 5 mg twice daily thereafter. Potassium yesterday was noted to be elevated at 5.6 and on recheck it was back within n ormal limits at 4.9. It is minimally elevated today at 5.2. Labs show WBC of 8.79. Hemoglobin 13.5. Platelet 360,000. Neutrophils are within normal limit at 70.0. Sodium is 139. Chloride 104. Carbon oxide 31. Anion gap 9.2. BUN is 30. Creatinine 0.9. GFR greater than 60. Glucose has been between 151 and 339. Bilirubin 0.6. AST is 46, ALT 54, alkaline phosphatase 79. Protein is 6.2. Albumin is 2.6. We will continue current treatment plan and work on weaning off of oxygen. Possible discharge in 1 to 3 days pending continued stability and improvement. 08/15/2021 66-year-old female admitted to the floor for COVID-19 pneumonia. Later found to have pulmonary emboli and a new onset diabetic. She is down to 1 L via nasal cannula continues to do well. Her weakness has improved and she is feeling overall quite good. She remains mildly short of breath. She completed remdesivir and dexamethasone now continues on baricitinib. Continues on 10 mg Eliquis for her PE. Labs today show WBC of 9.39. Hemoglobin is 13.3. Platelet 357,000. Neutrophils are elevated 73.7. Sodium is 138. Potassium 4.5. Chloride 101. Carbon dioxide 28. Anion gap is 13.5. BUN is 28. Creatinine 0.9. GFR is greater than 60. Glucose has been between 157 and 317. Calcium is 8.9. CRP is 0.3. Likely discharge in 1 to 2 days pending wean from oxygen. - Plan Plan:: Pneumonia due to COVID-19 virus Hypoxia Generalized weakness Nausea, resolved * Prone whenever able * I-S/Acapella * Respiratory therapy consultation * As needed DuoNebs * As needed albuterol inhaler * Completed 5 days of Remdesivir * Completed 10 days of dexamethasone * As needed Zofran for nausea * O2 as needed to keep saturations between 88 and 95% * 20 mg famotidine twice daily * Physical therapy evaluation * Daily labs * Airborne/contact precautions * Telemetry * Continuous pulse oximetry * 14 days baricitinib Pulmonary embolism Elevated d-dimer * Echocardiogram obtained as noted * Eliquis 10mg BID x 14 doses. Then continue on 5mg BID thereafter Thrombocytopenia, Resolved * Monitor daily labs Hyponatremia, resolved Volume depletion, resolved ANAHI, Reslved * Given 1 L fluid bolus in ED * Encourage oral rehydration * Avoid nephrotoxic medications if able * Monitor daily labs New onset diabetes mellitus Hyperglycemia * QID AC and Bedtime glucose checks * ict educator consultation * Ingot Weigher consultation * Consistent carbohydrate diet * 15 units long acting insulin * Sliding scale medium intensity insulin * Anticipate rise in blood glucose readings 2/2 steroid use Vitamin D deficiency * Continue daily supplementation Depression * No acute concerns * Continue home zoloft Hypothyroidism * No acute concerns * Continue home levothyroxine Hyperkalemia, resolved * Re-check on 08/13/2021 WNL * Monitor Code status: Full code PCP: Heather Granado PA-C DVT prophylaxis: Lovenox Disposition: Patient mated to the floor for management of COVID-19 pneumonia with hypoxia. LOS >96hrs due to need for continued treatment due to severity of symptoms, need for continued treatment.
[2021-08-15] MEDS: guaiFENesin 600 MG Tab.ER PO SCH ×3 (10:07→20:56)
[2021-08-15] MEDS: Apixaban 5 MG Tab PO SCH ×2 (10:07→20:56)
[2021-08-15] MEDS: Sertraline 50 MG Tab PO SCH (10:08)
[2021-08-15] MEDS: Famotidine 20 MG Tab PO SCH ×2 (10:08→20:55)
[2021-08-15] MEDS: Cholecalciferol (Vitamin D3) 5,000 UNIT Cap PO SCH (10:08)
[2021-08-15] MEDS: Insulin Lispro 100 Unit/ML 3 ML KwikPen SUBCUT SCH ×4 (10:09→21:01)
[2021-08-15] MEDS: Zinc Sulfate 220 MG Cap PO SCH (10:09)
[2021-08-15] MEDS: Melatonin 3 MG Tab PO SCH (20:56)
[2021-08-15] MEDS: Insulin Glargine,Hum.Rec.Anlog 100 UNIT/ML 3 ML Pen SUBCUT SCH (20:57)
[2021-08-16] MEDS: Levothyroxine 25 MCG Tab PO SCH (05:08)
[2021-08-16] MEDS: Levothyroxine 100 MCG Tab PO SCH (05:09)
[2021-08-16] MEDS: Sertraline 50 MG Tab PO SCH (08:27)
[2021-08-16] MEDS: guaiFENesin 600 MG Tab.ER PO SCH ×2 (08:27→15:02)
[2021-08-16] MEDS: Zinc Sulfate 220 MG Cap PO SCH (08:27)
[2021-08-16] MEDS: Cholecalciferol (Vitamin D3) 5,000 UNIT Cap PO SCH (08:28)
[2021-08-16] MEDS: Apixaban 5 MG Tab PO SCH (08:28)
[2021-08-16] MEDS: Famotidine 20 MG Tab PO SCH (08:28)
[2021-08-16] MEDS: Insulin Lispro 100 Unit/ML 3 ML KwikPen SUBCUT SCH ×2 (08:29→13:33)
--- NOTE | 2021-08-16 11:17 | PCM.DCSUM1 ---
Discharge Summary - Hospital Course HPI Initial Comments: This is a 66-year-old female who presented to ED on 08/05/2021 with cough, fever, nausea, generalized weakness, and the known COVID-19 diagnosis. She reports symptoms began 6 days prior and she was diagnosed with COVID-19 4 days ago. She has been feeling progressively worse and was noted to have saturations of 77% on presentation to the ED. Reports cough and nausea but no vomiting or diarrhea. Denies any chest pain or shortness of breath. No prior lung problems or history of heart disease, hypertension, or HLD. She is not a smoker. She has not had the COVID-19 vaccine or monoclonal antibodies. In the ED temp was 97.8. Pulse 82. Respirations 18. Blood pressure 140/75. Pulse ox 95%. Labs are obtained showing a WBC of 7.84. Hemoglobin 14.9. Platelet 178,000. Neutrophils are 70.1%. D-dimer is elevated at 1.10. Sodium is 131. Potassium 4.3. Chloride 95. Carbon dioxide 26. Anion gap is 14.3. BUN is 29. Creatinine 1.2. GFR is 45. Glucose 296. Calcium 8.4. Bilirubin 0.7. AST is 42, ALT 32, alkaline phosphatase 89. LDH is 448. CRP is 7.0. Protein 6.6. Albumin 3.1. Lactic acid is 1.4. She is given a 1 L fluid bolus and a DuoNeb. She started on remdesivir and dexamethasone. Chest x-ray is obtained showing findings concerning for COVID-19 pneumonia with increased density within both sides of the chest and slight cardiomegaly. She carries a history of hypothyroidism depression. She is a full code. Her PCP is Heather Welch PA-C. She is subsequently admitted to the medical floor on telemetry for treatment of her COVID-19 symptoms including hypoxia. Diagnosis: Stroke: No - Discharge Data Discharge Date: 08/16/21 (Admit date: 08/05/2021) Discharge Disposition: Home, Self-Care 01 Condition: Good - Referral to Home Health Primary Care Physician: Heather Granado PA-C - Discharge Diagnosis/Problem(s) (1) Depression SNOMED Code(s): 93900785 ICD Code: F32.A - DEPRESSION, UNSPECIFIED Status: Chronic Priority: Low Current Visit: No Qualifiers: Depression Type: other depression Qualified Code(s): F32.89 - Other specified depressive episodes (2) Hypothyroidism SNOMED Code(s): 14447822 ICD Code: E03.9 - HYPOTHYROIDISM, UNSPECIFIED Status: Chronic Priority: Low Current Visit: No Qualifiers: Hypothyroidism type: unspecified Qualified Code(s): E03.9 - Hypothyroidism, unspecified (3) Elevated d-dimer SNOMED Code(s): 709392039 ICD Code: R79.89 - OTHER SPECIFIED ABNORMAL FINDINGS OF BLOOD CHEMISTRY Status: Acute Priority: Medium Current Visit: Yes (4) Thrombocytopenia SNOMED Code(s): 492174159 ICD Code: D69.6 - THROMBOCYTOPENIA, UNSPECIFIED Status: Resolved Priority: Medium Current Visit: Yes (5) Hyponatremia SNOMED Code(s): 56738808 ICD Code: E87.1 - HYPO-OSMOLALITY AND HYPONATREMIA Status: Resolved Priority: Medium Current Visit: Yes (6) Volume depletion SNOMED Code(s): 356191444 ICD Code: E86.9 - VOLUME DEPLETION, UNSPECIFIED Status: Resolved Priority: Medium Current Visit: Yes (7) Nausea SNOMED Code(s): 846666063 ICD Code: R11.0 - NAUSEA Status: Resolved Priority: Medium Current Visit: Yes (8) Pneumonia due to COVID-19 virus SNOMED Code(s): 779821608563138732 ICD Code: U07.1 - COVID-19; J12.82 - PNEUMONIA DUE TO CORONAVIRUS DISEASE 2019 Status: Acute Priority: High Current Visit: Yes (9) Hypoxia SNOMED Code(s): 835783523 ICD Code: R09.02 - HYPOXEMIA Status: Acute Priority: High Current Visit: Yes (10) Generalized weakness SNOMED Code(s): 65311166 ICD Code: R53.1 - WEAKNESS Status: Acute Priority: Medium Current Visit: Yes (11) ANAHI (acute kidney injury) SNOMED Code(s): 24034475, 24872563 ICD Code: N17.9 - ACUTE KIDNEY FAILURE, UNSPECIFIED Status: Resolved Priority: High Current Visit: Yes (12) New onset type 2 diabetes mellitus SNOMED Code(s): 75087407 ICD Code: E11.9 - TYPE 2 DIABETES MELLITUS WITHOUT COMPLICATIONS Status: C hronic Priority: High Current Visit: Yes (13) Vitamin D deficiency SNOMED Code(s): 43445602 ICD Code: E55.9 - VITAMIN D DEFICIENCY, UNSPECIFIED Status: Acute Priority: High Current Visit: Yes (14) Hyperglycemia SNOMED Code(s): 94391794 ICD Code: R73.9 - HYPERGLYCEMIA, UNSPECIFIED Status: Acute Priority: High Current Visit: Yes (15) Pulmonary emboli SNOMED Code(s): 77016839 ICD Code: I26.99 - OTHER PULMONARY EMBOLISM WITHOUT ACUTE COR PULMONALE Status: Acute Priority: High Current Visit: Yes Qualifiers: Pulmonary embolism type: multiple subsegmental (without acute cor pulmonale) Qualified Code(s): I26.94 - Multiple subsegmental pulmonary emboli without acute cor pulmonale (16) Hyperkalemia SNOMED Code(s): 04669706 ICD Code: E87.5 - HYPERKALEMIA Status: Resolved Priority: Medium Current Visit: Yes - Patient Summary/Data Consults: Consultations 08/05/21 11:12 Respiratory Care Assess and Treatment [CONS] Routine 08/05/21 12:49 Consult to Physical Therapy [PT Evaluation and Treatment] [CONS] Routine 08/06/21 09:09 Consult to Diabetic Nurse Specialist [CONS] Routine Consult to Calenderer [CONS] Routine Labs Pending at D/C: None Recommended Follow-up Testing/Procedures: Recommend follow-up with primary care provider within 5 to 7 days of discharge, sooner if needed. * Recommend repeat CBC, CMP, and magnesium in follow-up. Consider repeat chest x-ray. * Patient will be taking [id number] zinc and vitamin D. Her vitamin D was low here. Please monitor this. * Patient started on Eliquis for PE. She will finish her 10 mg dosing on the morning of 08/21/2021 and should transition to 5 mg dosing in the evening of 08/21/2021. Prescription for both 10 mg and 5 mg sent. * Patient discharged on home oxygen with 1 L at rest and 4 L at activity. Instructed to check oxygen saturations twice daily and record them in a journal. Please review this. * New onset diabetic with A1c of 10.6. Patient started on 15 units long-acting insulin and 500 mg Metformin with dinner. Please increase Metformin dosing as patient tolerates and adjust insulin accordingly. Patient instructed to check blood glucose readings twice daily and record them in a journal. * Instructed to continue to utilize incentive spirometer and Acapella for 1 to 2 weeks or until symptoms resolve. * Patient prescribed as needed albuterol inhaler for shortness of breath. * Discharged home today Hospital Course: This is a 66-year-old female admitted to the floor for treatment of COVID-19 pneumonia. Overall she has had a rather complex stay. On admission blood glucose readings were noted to be very high and an A1c was obtained and found to be 10.7. Per the patient she does have a history of prediabetes but has not followed up with this for quite some time. She did see our data review specialist and dietitian. Ultimately she was receiving 15 units of long-acting insulin and sliding scale insulin. She will be discharged on 15 units of long-acting insulin and 500 mg daily Metformin. Her primary care provider should adjust this accordingly as she tolerates the Metformin. No sliding scale insulin was prescribed at discharge and this may be something she may need to look at in the future. She was sent a prescription for a blood glucose monitor, test strips, and lancets. She was instructed to check her blood glucose readings twice a day and record them in a journal, bring this with to all medical appointments. She was given contact information for our diabetic educators in the area and our local dietitian. She was also provided multiple educational resources on diabetes. She was instructed to contact her primary care provider if she notices readings less than 60 or greater than 400. She was instructed to take something containing sugar such as a candy bar or orange juice prior to contacting her primary care provider if low. Her vitamin D was obtained and was low at 12.7. She was placed on supplementation while here and has purchased OTC supplementation for discharge. In regards to her COVID-19 pneumonia: at her worst she was requiring high flow oxygen 40 L with an FiO2 of 95%. She was able to be weaned down to 1 L via nasal cannula at rest and 4 L with activity prior to discharge. She received 5 days worth of remdesivir and 10 days of dexamethasone. She was also on baricitinib after some discussion. Unfortunately during her stay her D-dimer was noted to increase from 1.81 to12.98 and a CTA was obtained showing pulmonary emboli within the segmental branches of the left lower lung as well as sagittal emboli bridging the segmental branches within the right middle lobe and right lower lobe. Pulmonary emboli extend into the subsegmental branches. There was no compromise of the right heart seen but diffuse parenchymal changes were noted throughout both lungs compatible with prominent COVID-19 pneumonia. Fatty infiltration was seen within the liver and other nonacute findings were also described. Because of this she was started on 10 mg twice daily Eliquis, which she should continue for a total of 7 days and then transition to 5 mg twice daily Eliquis. This transition would happen on her p.m. dose of 08/21/2021. Prescription was sent for both remainder of her 10 mg dosing and her 5 mg dosing thereafter. She was utilizing incentive spirometry and Acapella and was instructed to continue this for 1 to 2 weeks or until symptoms resolve. She was instructed to obtain a fingertip pulse oximeter and check her oximetry readings twice a day, recording them in a journal. She was instructed to contact her primary care provider should saturation readings be less than 87% regularly. She was instructed to continue to prone especially while sleeping. She stated she will continue to take zinc [id number] and because of this a prescription for her zinc and vitamin D were not sent. She completed her isolation/quarantine while here. She will be discharged home today on home oxygen as noted prior. Recommend follow-up with primary care provider within 5 to 7 days of discharge, sooner if needed. Recommend PCP follow-up on vitamin D deficiency, PE with Eliquis usage, oxygen trend, and overall medical stability. Prescriptions were sent to her pharmacy. Recommend repeat CBC, CMP, and magnesium in follow-up. Consider repeat chest x-ray. - Patient Instructions Diet: Diabetic Diet Activity: As Tolerated Driving: Do Not Drive (Until feeling better ) Showering/Bathing: May Shower Notify Provider of: Fever, Increased Pain, Nausea and/or Vomiting Other/Special Instructions: Follow-up with primary care provider within 5 to 7 days of discharge, sooner if needed. You completed your isolation/quarantine while here. This will not be required after discharge. Wear your oxygen as directed. You should wear 1 L at rest and 4 L with activity. Obtain a fingertip pulse oximeter from your pharmacy or [employer]. Check this twice daily and recorded in a journal. Contact your primary care provider if you notice saturations less than 87% regularly. Continue to utilize your incentive spirometer (clear/blue device you inhale through) and Acapella (tubelike device you blow through) for 1 to 2 weeks or until symptoms resolve. Continue to prone whenever able, especially when napping or sleeping. Take it easy but stay active. Listen to your body. If you start to feel like you are short of breath or weak stop and take a rest. It will take quite some time until you start feeling better. You were started on a new pill called Metformin for your diabetes. You should take this daily with supper as prescribed. Your provider will likely increase this dosing as you get used to it. You were started on a nightly long-acting insulin. You should inject 15 units nightly as directed. You were sent a prescription for a blood glucose meter, lancets, and test strips. You should check your blood glucose twice a day and record this in a journal. Bring this journal with to all medical appointments. Your provider will use these readings to help guide continued therapy. You should contact your provider if you notice your readings are less than 60 or greater than 400. If less than 60 immediately take something containing sugar such as a candy bar or orange juice before contacting your provider. You were given contact information for our diabetic educators in the area and our dietitian. Recommend follow-up with them in the future. In regards to your blood clot in your lung or pulmonary embolism... You should take 10 mg or 2 tablets of 5 mg Eliquis twice a day starting tonight (08/16/2021). Your last dose of 10 mg will be on the morning of 08/21/2021. Starting on the evening of 08/21/2021 you should begin taking 5 mg doses twice a day. Prescription for both of these have been sent. Continue your home vitamins as we discussed. You were prescribed an as needed albuterol inhaler. Take 2 puffs of this as directed for shortness of breath if needed. Should symptoms return or worsen contact your primary care provider or return to the emergency room. - Discharge Plan *PRESCRIPTION DRUG MONITORING PROGRAM REVIEWED*: No *COPY OF PRESCRIPTION DRUG MONITORING REPORT IN PATIENT LEANDER: No Prescriptions/Med Rec: Blood-Glucose Meter [Blood Glucose Meter] 1 each MC BID #1 meter Apixaban [Eliquis] 10 mg PO BID #20 tablet Apixaban [Eliquis] 5 mg PO BID #20 tablet metFORMIN [Glucophage XR] 500 mg PO WITHDINNER #20 tab.er Blood Sugar Diagnostic [Glucose Test Strip] 1 each MC BID #120 strip Lancets 1 each MC BID #120 each Albuterol [Proventil HFA] 2 puff INH Q2H PRN #1 inhaler PRN Reason: SOB/Wheezing Insulin Glargine,Hum.Rec.Anlog [Semglee Pen] 15 unit SUBCUT BEDTIME #2 pen Home Medications: Home Meds Levothyroxine Sodium [Synthroid] 125 mcg PO DAILY 08/05/21 [History] Sertraline [Zoloft] 100 mg PO DAILY 08/05/21 [History] Albuterol [Proventil HFA] 2 puff INH Q2H PRN #1 inhaler 08/16/21 [Rx] Apixaban [Eliquis] 5 mg PO BID #20 tablet 08/16/21 [Rx] Apixaban [Eliquis] 10 mg PO BID #20 tablet 08/16/21 [Rx] Blood Sugar Diagnostic [Glucose Test Strip] 1 each MC BID #120 strip 08/16/21 [Rx] Blood-Glucose Meter [Blood Glucose Meter] 1 each MC BID #1 meter 08/16/21 [Rx] Insulin Glargine,Hum.Rec.Anlog [Semglee Pen] 15 unit SUBCUT BEDTIME #2 pen 08/16/21 [Rx] Lancets 1 each MC BID #120 each 08/16/21 [Rx] metFORMIN [Glucophage XR] 500 mg PO WITHDINNER #20 tab.er 08/16/21 [Rx] Oxygen Therapy Mode: Nasal Cannula Oxygen Flow Rate (L/min): 1 (1L at rest, 4L with activity) Maintain SPO2% less than: 95 Maintain SpO2% greater than: 87 Patient Handouts: Insulin Storage and Care, Type 2 Diabetes Mellitus, Diagnosis, Adult, Insulin Treatment for Diabetes Mellitus, Diabetes Mellitus and Foot Care, COVID-19, How to Use an Incentive Spirometer, Home Oxygen Use, Adult, Pulmonary Embolism, COVID-19: How to Protect Yourself and Others - CDC, Apixaban oral tablets Forms: ED Department Discharge Referrals: Heather Granado PA-C [Primary Care Provider] - 08/27/21 9:40 am (this is the check in time for your appointment.) - Discharge Summary/Plan Comment DC Time >30 min.: Yes Total # of Minutes for Discharge Time: 90 minutes - General Info Date of Service: 08/16/21 Admission Dx/Problem (Free Text: Hypoxia Functional Status: Reports: Pain Controlled, Tolerating Diet, Ambulating, Urinating, Incentive Spirometry, Other (Acapella ). Denies: New Symptoms - Review of Systems General: Reports: No Symptoms. Denies: Fever, Weakness, Fatigue, Malaise, Chills HEENT: Reports: No Symptoms. Denies: Headaches, Sore Throat Pulmonary: Reports: Shortness of Breath, Cough, Sputum. Denies: Pleuritic Chest Pain, Wheezing Cardiovascular: Reports: No Symptoms, Dyspnea on Exertion. Denies: Chest Pain, Palpitations, Edema Gastrointestinal: Reports: No Symptoms. Denies: Abdominal Pain, Constipation, Diarrhea, Nausea, Vomiting Genitourinary: Reports: No Symptoms. Denies: Pain Musculoskeletal: Reports: No Symptoms Skin: Reports: No Symptoms. Denies: Cyanosis Neurological: Reports: No Symptoms. Denies: Confusion, Dizziness, Headache, Numbness, Pre-Existing Deficit, Syncope, Tingling, Difficulty Walking, Gait Disturbance Psychiatric: Reports: No Symptoms - Patient Data Vitals - Most Recent: Last Vital Signs Temp 97.3 F 08/16/21 05:09 Pulse 63 08/16/21 05:09 Resp 15 08/16/21 05:09 BP 114/88 08/16/21 05:09 Pulse Ox 89 L 08/16/21 05:09 Weight - Most Recent: 228 lb 14.4 oz I&O - Last 24 hours: Intake & Output 08/15/21 08/16/21 08/16/21 22:59 06:59 14:59 Intake Total 1020 250 Output Total 250 300 Balance 770 -50 Lab Results - Last 24 hrs: Laboratory Results - last 24 hr 08/15/21 08/15/21 08/15/21 Range/Units 11:06 17:12 20:20 WBC (3.98-10.04) K/mm3 RBC (3.98-5.22) M/mm3 Hgb (11.2-15.7) gm/dl Hct (34.1-44.9) % MCV (79.4-94.8) fl MCH (25.6-32.2) pg MCHC (32.2-35.5) g/dl RDW Std Deviation (36.4-46.3) fL Plt Count (182-369) K/mm3 MPV (9.4-12.3) fl Neut % (Auto) (34.0-71.1) % Lymph % (Auto) (19.3-51.7) % [place] % (Auto) (4.7-12.5) % Eos % (Auto) (0.7-5.8) Baso % (Auto) (0.1-1.2) % Neut # (Auto) (1.56-6.13) K/mm3 Lymph # (Auto) (1.18-3.74) K/mm3 [place] # (Auto) (0.24-0.36) K/mm3 Eos # (Auto) (0.04-0.36) K/mm3 Baso # (Auto) (0.01-0.08) K/mm3 Sodium (136-145) mEq/L Potassium (3.5-5.1) mEq/L Chloride (98-107) mEq/L Carbon Dioxide (21-32) mEq/L Anion Gap (5-15) BUN (7-18) mg/dL Creatinine (0.55-1.02) mg/dL Est Cr Clr Drug Dosing mL/min Estimated GFR (MDRD) (>60) mL/min BUN/Creatinine Ratio (14-18) Glucose (70-99) mg/dL POC Glucose 176 H 175 H 259 H (70-99) mg/dL Calcium (8.5-10.1) mg/dL C-Reactive Protein (<1.0) mg/dL 08/16/21 08/16/21 08/16/21 Range/Units 05:14 05:23 05:23 WBC 11.10 H (3.98-10.04) K/mm3 RBC 4.72 (3.98-5.22) M/mm3 Hgb 14.0 (11.2-15.7) gm/dl Hct 43.5 (34.1-44.9) % MCV 92.2 (79.4-94.8) fl MCH 29.7 (25.6-32.2) pg MCHC 32.2 (32.2-35.5) g/dl RDW Std Deviation 42.9 (36.4-46.3) fL Plt Count 421 H (182-369) K/mm3 MPV 11.1 (9.4-12.3) fl Neut % (Auto) 62.3 (34.0-71.1) % Lymph % (Auto) 26.3 (19.3-51.7) % [place] % (Auto) 7.6 (4.7-12.5) % Eos % (Auto) 2.2 (0.7-5.8) Baso % (Auto) 0.3 (0.1-1.2) % Neut # (Auto) 6.93 H (1.56-6.13) K/mm3 Lymph # (Auto) 2.92 (1.18-3.74) K/mm3 [place] # (Auto) 0.84 H (0.24-0.36) K/mm3 Eos # (Auto) 0.24 (0.04-0.36) K/mm3 Baso # (Auto) 0.03 (0.01-0.08) K/mm3 Sodium 142 (136-145) mEq/L Potassium 5.5 H (3.5-5.1) mEq/L Chloride 105 (98-107) mEq/L Carbon Dioxide 30 (21-32) mEq/L Anion Gap 12.5 (5-15) BUN 35 H (7-18) mg/dL Creatinine 1.1 H (0.55-1.02) mg/dL Est Cr Clr Drug Dosing 50.24 mL/min Estimated GFR (MDRD) 50 (>60) mL/min BUN/Creatinine Ratio 31.8 H (14-18) Glucose 78 (70-99) mg/dL POC Glucose 90 (70-99) mg/dL Calcium 8.5 (8.5-10.1) mg/dL C-Reactive Protein < 0.2 (<1.0) mg/dL Med Orders - Current: Current Medications Acetaminophen (Acetaminophen 325 Mg Tab) 650 mg PO Q4H PRN PRN Reason: Pain (Mild 1-3)/fever Last Admin: 08/07/21 02:57 Dose: 650 mg Documented by: Albuterol (Albuterol 6.7 Gm Inhaler) 0 gm INH Q2H PRN PRN Reason: SOB/Wheezing Last Admin: 08/14/21 21:23 Dose: 2 puff Documented by: Albuterol/Ipratropium (Albuterol/Ipratropium 3.0-0.5 Mg/3 Ml Neb Soln) 3 ml NEB QIDRT PRN PRN Reason: Shortness Of Breath/wheezing Last Admin: 08/13/21 08:58 Dose: 3 ml Documented by: Apixaban (Apixaban 5 Mg Tab) 10 mg PO BID [facility] Stop: 08/21/21 09:01 Last Admin: 08/16/21 08:28 Dose: 10 mg Documented by: Baricitinib (Baricitinib 2 Mg Tab) 4 mg PO DAILY [facility] Stop: 08/20/21 09:01 Last Admin: 08/16/21 08:29 Dose: 4 mg Documented by: Benzonatate (Benzonatate 100 Mg Cap) 200 mg PO Q8H PRN PRN Reason: Cough Last Admin: 08/07/21 03:02 Dose: 200 mg Documented by: Cholecalciferol (Cholecalciferol (Vitamin D3) 5,000 Unit Cap) 10,000 unit PO DAILY [facility] Last Admin: 08/16/21 08:28 Dose: 10,000 unit Documented by: Famotidine (Famotidine 20 Mg Tab) 20 mg PO BID [facility] Last Admin: 08/16/21 08:28 Dose: 20 mg Documented by: Guaifenesin (Guaifenesin 600 Mg Tab.Er) 600 mg PO TID [facility] Last Admin: 08/16/21 08:27 Dose: 600 mg Documented by: Insulin Glargine (Insulin Glargine,Hum.Rec.Anlog 100 Unit/Ml 3 Ml Pen) 15 unit SUBCUT BEDTIME [facility] Last Admin: 08/15/21 20:57 Dose: 15 units Documented by: Insulin Human Lispro (Insulin Lispro 100 Unit/Ml 3 Ml Kwikpen) 0 unit SUBCUT QIDACANDBED [facility]; Protocol Last Admin: 08/16/21 08:29 Dose: Not Given Documented by: Levothyroxine Sodium (Levothyroxine 100 Mcg Tab) 100 mcg PO ACBREAKFAST [facility] Last Admin: 08/16/21 05:09 Dose: 100 mcg Documented by: Levothyroxine Sodium (Levothyroxine 25 Mcg Tab) 25 mcg PO ACBREAKFAST [facility] Last Admin: 08/16/21 05:08 Dose: 25 mcg Documented by: Melatonin (Melatonin 3 Mg Tab) 6 mg PO BEDTIME [facility] Last Admin: 08/15/21 20:56 Dose: 6 mg Documented by: Ondansetron HCl (Ondansetron 4 Mg/2 Ml Sdv) 4 mg IV Q6H PRN PRN Reason: Nausea/Vomiting Senna/Docusate Sodium (Docusate Sodium/Sennosides 50-8.6 Mg Tab) 1 tab PO DAILY PRN PRN Reason: Constipation Sertraline HCl (Sertraline 50 Mg Tab) 100 mg PO DAILY [facility] Last Admin: 08/16/21 08:27 Dose: 100 mg Documented by: Sodium Chloride (Sodium Chloride 0.9% 10 Ml Syringe) 10 ml FLUSH ASDIRECTED PRN PRN Reason: Keep Vein Open Last Admin: 08/05/21 09:23 Dose: 10 ml Documented by: Sodium Chloride (Sodium Chloride 0.9% 10 Ml Syringe) 10 ml FLUSH ONETIME PRN PRN Reason: IV FLUSH Zinc Sulfate (Zinc Sulfate 220 Mg Cap) 220 mg PO DAILY [facility] Last Admin: 08/16/21 08:27 Dose: 220 mg Documented by: Discontinued Medications Acetaminophen (Acetaminophen 325 Mg Tab) 650 mg PO Q4H PRN PRN Reason: Fever Greater Than 101 Albuterol/Ipratropium (Albuterol/Ipratropium 3.0-0.5 Mg/3 Ml Neb Soln) 3 ml NEB ONETIME ONE Stop: 08/05/21 08:51 Last Admin: 08/05/21 09:10 Dose: 3 ml Documented by: Baricitinib (Baricitinib 2 Mg Tab) 2 mg PO DAILY [facility] Stop: 08/21/21 10:01 Last Admin: 08/09/21 08:21 Dose: 2 mg Documented by: Dexamethasone (Dexamethasone 4 Mg/Ml Sdv) 6 mg IVPUSH ONETIME ONE Stop: 08/05/21 08:50 Last Admin: 08/05/21 09:21 Dose: 6 mg Documented by: Dexamethasone (Dexamethasone 4 Mg Tab) 6 mg PO DAILY [facility] Stop: 08/14/21 09:01 Last Admin: 08/14/21 08:53 Dose: 6 mg Documented by: Enoxaparin Sodium (Enoxaparin 40 Mg/0.4 Ml Syringe) 40 mg SUBCUT DAILY [facility] Last Admin: 08/09/21 08:21 Dose: 40 mg Documented by: Enoxaparin Sodium (Enoxaparin 40 Mg/0.4 Ml Syringe) 40 mg SUBCUT ONETIME ONE Stop: 08/05/21 11:31 Last Admin: 08/05/21 15:04 Dose: Not Given Documented by: Enoxaparin Sodium (Enoxaparin 80 Mg/0.8 Ml Syringe) 70 mg SUBCUT ONETIME ONE Stop: 08/09/21 10:02 Last Admin: 08/09/21 11:33 Dose: 70 mg Documented by: Enoxaparin Sodium (Enoxaparin 120 Mg/0.8 Ml Syringe) 110 mg SUBCUT Q12H [facility] Last Admin: 08/14/21 08:52 Dose: 110 mg Documented by: Guaifenesin (Guaifenesin 600 Mg Tab.Er) 600 mg PO TID [place] Remdesivir 200 mg/ Sodium (Chloride) 250 mls @ 250 mls/hr IV ONETIME ONE Stop: 08/05/21 08:51 Last Admin: 08/05/21 09:21 Dose: 250 mls/hr Documented by: Sodium Chloride (Normal Saline) 1,000 mls @ 1,000 mls/hr IV .BOLUS [place] Last Admin: 08/05/21 09:21 Dose: 1,000 mls/hr Documented by: Remdesivir 100 mg/ Sodium (Chloride) 250 mls @ 250 mls/hr IV Q24H [facility] Stop: 08/09/21 09:59 Last Admin: 08/09/21 08:21 Dose: 250 mls/hr Documented by: Sodium Chloride (Normal Saline) 500 mls @ 999 mls/hr IV .BOLUS ONE Stop: 08/07/21 11:27 Last Admin: 08/07/21 11:39 Dose: 999 mls/hr Documented by: Sodium Chloride (Normal Saline) 100 mls @ 75 mls/hr IV ASDIRECTED [facility] Last Admin: 08/09/21 10:03 Dose: 75 mls/hr Documented by: Iopamidol (Iopamidol 755 Mg/Ml 100 Ml Bottle) 100 ml IVPUSH ONETIME ONE Stop: 08/09/21 09:06 Last Admin: 08/09/21 10:04 Dose: 100 ml Documented by: Ondansetron HCl (Ondansetron 4 Mg/2 Ml Sdv) 4 mg IVPUSH ONETIME ONE Stop: 08/05/21 08:49 Last Admin: 08/05/21 09:23 Dose: 4 mg Documented by: - Exam Quality Assessment: Reports: Supplemental Oxygen (1L), DVT Prophylaxis (Eliquis ). Denies: Urine Catheter General: Reports: Alert, Oriented, Cooperative, No Acute Distress HEENT: Reports: Pupils Equal, Pupils Reactive, Mucous Membr. Moist/[place] Neck: Reports: Supple, Trachea Midline Lungs: Reports: Normal Respiratory Effort, Decreased Breath Sounds, Crackles. Denies: Rhonchi, Wheezing Cardiovascular: Reports: Regular Rate, Regular Rhythm GI/Abdominal Exam: Normal Bowel Sounds, Soft, Non-Tender, No Distention (Female) Exam: Deferred Rectal (Female) Exam: Deferred Back Exam: Reports: Normal Inspection, Full Range of Motion Extremities: Normal Inspection, Normal Range of Motion, Non-Tender, No Pedal Edema, Normal Capillary Refill Skin: Reports: Warm, Dry, Intact Neurological: Reports: No New Focal Deficit Psy/Mental Status: Reports: Alert, Normal Affect, Normal Mood
== END 2021-08-16 16:10 | disposition home or self-care (01) | DRG 177 ==
LOC: JD.ED 08:25 → JD.MS 10:40
PROVIDERS: ADMIT Family Medicine; ATTEND Family Medicine
PROC: XW033E5 Introduction of Remdesivir Anti-infective into Peripheral Vein, Percutaneous Approach, New Technology Group 5 (ICD-10-PCS; principal; 2021-08-05)
PROC: 3E0333Z Introduction of Anti-inflammatory into Peripheral Vein, Percutaneous Approach (ICD-10-PCS; 2021-08-05)
PROC: 5A0955A Assistance with Respiratory Ventilation, Greater than 96 Consecutive Hours, High Flow/Velocity Cannula (ICD-10-PCS; 2021-08-05)
PROC: 3E0DX3Z Introduction of Anti-inflammatory into Mouth and Pharynx, External Approach (ICD-10-PCS; 2021-08-14)
PROC: XW0DXM6 Introduction of Baricitinib into Mouth and Pharynx, External Approach, New Technology Group 6 (ICD-10-PCS; 2021-08-16)
DX: U07.1 COVID-19 (principal); J12.82 Pneumonia due to coronavirus disease 2019; I26.94 Multiple subsegmental thrombotic pulmonary emboli without acute cor pulmonale; E87.1 Hypo-osmolality and hyponatremia; N17.9 Acute kidney failure, unspecified; E03.9 Hypothyroidism, unspecified; F32.89 Other specified depressive episodes; R79.89 Other specified abnormal findings of blood chemistry; D69.6 Thrombocytopenia, unspecified; E86.9 Volume depletion, unspecified; E55.9 Vitamin D deficiency, unspecified; H54.7 Unspecified visual loss; E87.5 Hyperkalemia; Z79.890 Hormone replacement therapy; Z79.899 Other long term (current) drug therapy; Z79.01 Long term (current) use of anticoagulants; Z79.4 Long term (current) use of insulin; Z87.891 Personal history of nicotine dependence; E11.65 Type 2 diabetes mellitus with hyperglycemia; T38.0X5A Adverse effect of glucocorticoids and synthetic analogues, initial encounter
CPT/HCPCS: 36415; 71045; 71045-26; 71275; 71275-26; 80048; 80053; 82306; 82728; 82947; 83036; 83605; 83615; 83735; 84132; 84145; 85025; 85379; 86140; 93306; 94640; 94667; 94668; 94762; 96365; 96375; 97110-GP; 97116-GP; 97161-GP; 97530-GP; 99285-25; A9270-GY; J1100; J1650; J1815; J2405; J7030; J7050; J7620-GY; J8540; Q9967

== ENCOUNTER 2024-03-28 18:52 | Emergency (ER) | payer OTHER, MEDICARE ==
[2024-03-28 19:15] LABS: BASOPHILS PERCENT AUTO 0.4 % (0.0-1.0); EOSINOPHILS ABSOLUTE AUTO 0.3 K/mm3 (0.0-0.4); EOSINOPHILS PERCENT AUTO 2.4 % (0.0-6.0); HEMATOCRIT 39.6 % (37.0-47.0); HEMOGLOBIN 13.4 gm/dl (12.0-16.0); IMMATURE GRAN ABSOLUTE AUTO 0.04 K/mm3 (0.00-0.05); IMMATURE GRAN PERCENT AUTO 0.4 % (0.0-0.4); LYMPHOCYTES ABSOLUTE AUTO 3.2 K/mm3 (1.0-4.8); LYMPHOCYTES PERCENT AUTO 30.4 % (24.0-44.0); MEAN CORPUSCULAR HEMOGLOBIN 30.2 pg (28.0-32.0); MEAN CORPUSCULAR HGB CONC 33.8 g/dl (32.0-36.0); MEAN CORPUSCULAR VOLUME 89.2 fl (83.0-99.0); MEAN PLATELET VOLUME 10.8 fl (9.4-12.3); MONOCYTES ABSOLUTE AUTO 0.7 K/mm3 (0.0-0.8); MONOCYTES PERCENT AUTO 6.4 % (0.0-8.0); NEUTROPHILS ABSOLUTE AUTO 6.4 K/mm3 (1.8-7.7); PLATELET COUNT,PLT 209 K/mm3 (150-400); RED BLOOD CELL COUNT 4.44 M/mm3 (4.10-5.30); WHITE BLOOD CELL COUNT,WBC 10.61 K/mm3 (3.9-11.3)
[2024-03-28] MEDS: Sodium Chloride 0.9% 1,000 ML IV SCH (19:37)
[2024-03-28] MEDS: Sodium Chloride 0.9% 10 ML Syringe FLUSH PRN (19:38)
[2024-03-28 19:40] LABS: A/G RATIO 1.4 (1-2); ALBUMIN 3.7 g/dl (3.4-5.0); ANION GAP 17.1 (5-15); BILIRUBIN TOTAL 0.6 mg/dL (0.2-1.0); BUN/CREATININE RATIO 29.2 (14-18); CALCIUM 9.1 mg/dL (8.5-10.1); CREATININE 1.2 mg/dL (0.55-1.02); EST CRCL DRUG DOSING (CG) 44.85 mL/min; POTASSIUM,K 4.1 mEq/L (3.5-5.1); PROTEIN TOTAL,TP 6.4 g/dl (6.4-8.2)
[2024-03-28] MEDS: Lidocaine 1% 10 ML MDV INJECT ONE (21:27)
== END 2024-03-28 21:55 | disposition home or self-care (01) ==
LOC: JD.ED 18:52
DX: R55 Syncope and collapse (principal); S01.511A Laceration without foreign body of lip, initial encounter; E86.0 Dehydration; E03.9 Hypothyroidism, unspecified; Z86.16 Personal history of COVID-19; Z90.49 Acquired absence of other specified parts of digestive tract; Z79.899 Other long term (current) drug therapy; Z79.82 Long term (current) use of aspirin; Z88.5 Allergy status to narcotic agent; X58.XXXA Exposure to other specified factors, initial encounter
CPT/HCPCS: 12011; 36415; 70450; 80053; 84484; 85025; 93005; 96360; 99285; J3490; J7030; 93010; 99283